=== PATIENT | female | born 1990 | race Caucasian/White ===

== ENCOUNTER 2017-12-17 06:24 | Emergency (ER) | payer SELFPAY ==
[2017-12-17 06:24] VITALS: BP 120/79; PULSE 68; RESP 18; TEMP 36.6; O2SAT 100; BMI 25.7
--- NOTE | 2017-12-17 07:08 | ED.DCSUM_ITS ---
- ER Visit Summary Date of Service: 12/17/17 Chief Complaint: [Left eye pain] History of Present Illness: The patient is a 27 F [who presents the emergency department with left eye pain. It started 2 days ago. She hit herself in the corner of her eye with her hair brush. She had a broken blood vessel in the corner of her eyeball as well as the skin at the corner of her eye. Yesterday it was swollen and painful and today it was even more swollen and painful. No vision changes. No discharge from the eye. She has a lot of pain under the eye and at the side of the eye she is otherwise healthy] Physical Examination: [] Afebrile vital signs within acceptable limits Well nourished female in no acute distress Patient has periorbital swelling in the left eye, there is erythema under the eye and at lateral corner of the eye she is very tender around the eye there is mild injection there is no sub-conjunctival hemorrhage Patient's eye was examined under slit lamp with floor seen and there is no evidence of corneal abrasion anterior chambers deep and quiet Test Results: [] Emergency Department Course and Treatment: [Patient's exam concerning for an early periorbital cellulitis. We will give her erythromycin ointment and Augmentin. She was given a referral to follow-up with ophthalmology she was given precautions for which to return.] Treatment Plan: [] Disposition: Discharge [] Impression: [Left periorbital cellulitis] This note was generated with [employer] dictation software. It may contain incorrect words, spelling, and punctuation that were not noted in review of the chart prior to signing ED Disposition - Plan for ED Patient: Chief Complaint: Eye Problem Referrals: Salvatore Gonzalez MD [Primary Care Provider] -
--- NOTE | 2017-12-17 07:08 | ED.DEP ---
ED Disposition - Plan for ED Patient: Chief Complaint: Eye Problem Instructions: ED Cellulitis Yen Orbital Prescriptions: Amox/Clavulanate Tablet [Augmentin Tablet] 875 mg PO Q12H #14 tablet Erythromycin Ophthalmic 1 applic LEFT EYE 4X/DAY #1 opth.tube Referrals: Salvatore Gonzalez MD [Primary Care Provider] - Sravan Spear MD [STAFF PHYSICIAN] - 2 Days
[2017-12-17 07:28] VITALS: BP 127/56; PULSE 61; RESP 15; O2SAT 99
[2017-12-17] MEDS: Tetracaine 0.5% Ophthalmic Bottle 1 DRP LEFT EYE (07:28)
== END 2017-12-17 07:29 | disposition home or self-care (01) ==
LOC: ED 07:08
PROVIDERS: Emergency Provider Emergency Medicine; Family Provider Family Medicine; PCP Family Medicine
DX: L03.213 Periorbital cellulitis (principal)
CPT/HCPCS: 99282

== ENCOUNTER 2023-07-12 17:25 | Emergency (ER) | payer OTHER, SELFPAY ==
[2023-07-12 17:26] VITALS: BP 120/82; PULSE 78; RESP 16; TEMP 36.6; O2SAT 100; BMI 31.6
--- NOTE | 2023-07-12 17:35 | RAD_ITS ---
STUDY: X-RAY - RIGHT HAND REASON FOR EXAM: Female, 32 years old. LACERATION - 4TH DIGIT TECHNIQUE: 3 view(s) of the hand. COMPARISON: None. FINDINGS: Normal radiocarpal articulation. Normal distal radioulnar joint. Normal visualized carpal bones. Normal carpal articulations Normal carpometacarpal articulation of the thumb. Normal second through fifth carpometacarpal joints. Normal metacarpi. Normal metacarpophalangeal joint of the thumb. Normal interphalangeal joint of the thumb. Normal proximal and distal phalanges of the thumb. Normal metacarpophalangeal joints of the second through fifth fingers. Normal proximal and distal interphalangeal joints of the second through fifth fingers. Normal phalanges of the second through fifth fingers. The soft tissue structures are unremarkable. RAD/Hand Min 3 Views IMPRESSION: Normal x-ray examination of the hand. Electronically Signed: Cristin Willard MD at 17:43 EDT ,
--- NOTE | 2023-07-12 20:00 | EX.ED.GENINJ ---
HPI <VICENTE Barnard - Last Filed: 07/12/23 20:53> History of Present Illness Chief Complaint: Laceration Narrative Narrative: Patient presenting today with a laceration to her right fourth digit that she got this evening while she was washing dishes and accidentally cut her finger on a veggie slicer. Tetanus is up-to-date. She denies any other injury. She is not on any blood thinners. PFSH <VICENTE Barnard - Last Filed: 07/12/23 20:53> PFSH Medical History ADD (attention deficit disorder) Home Medications dextroamphetamine-amphetamine ER 30 mg 24hr capsule,extend release 30 mg PO DAILY 07/12/23 [History Last Taken Unknown] Allergy/AdvReac Type Severity Reaction Status Date / Time methylphenidate HCl Allergy Shortness Verified 07/12/23 17:25 [From [employer]] of breath Social History Smoking Status: Never smoker ROS <VICENTE Barnard - Last Filed: 07/12/23 20:53> ROS ED Constitutional Constitutional ED: Denies chills or fever(s) Cardiovascular Cardiovascular: Denies chest pain Respiratory/Chest Respiratory/Chest: Denies cough or dyspnea Gastrointestinal Gastrointestinal: Denies abdominal pain, nausea or vomiting Musculoskeletal Musculoskeletal: Denies arthralgias or myalgias Integumentary Reports laceration Neurologic Neurologic: Denies weakness EXAM <VICENTE Barnard - Last Filed: 07/12/23 20:53> Physical Exam Const Vital Signs: 07/12/23 17:26 Temperature 97.8 F Temperature Source Temporal Pulse Rate 78 Respiratory Rate 16 Blood Pressure 120/82 H Blood Pressure Mean 94 Pulse Ox 100 Positive well nourished, well developed and no apparent distress General Appearance ED: well developed HEENT Reports normocephalic and head/scalp atraumatic Mouth ED: Yes moist mucous membranes normal Eyes PERRL and EOMs intact bilaterally Neck full ROM and supple Chest Wall inspection of chest normal Resp normal respiratory effort and clear to auscultation bilaterally Cardio regular rate and regular rhythm GI soft to palpation, non-tender, non-distended and no masses Back/Spine normal ROM and normal to inspection Extremity full ROM Extremity Narrative: 3 cm linear subcutaneous laceration to the right fourth finger to the base. Full flexion and extension at the MCP, PIP, and DIP joints of the right hand. Radial pulse 2+ and equal bilaterally, good capillary refill, sensation intact. Neuro oriented x3, CN's II-XII intact bilaterally, moves all extremities, no focal motor deficits and no sensory deficits noted Sensorium / Orientation: awake and alert Psych mental status grossly normal and thought process normal <Dr. Greg Astudillo DO - Last Filed: 07/12/23 21:14> Physical Exam Const Vital Signs: 07/12/23 17:26 Temperature 97.8 F Temperature Source Temporal Pulse Rate 78 Respiratory Rate 16 Blood Pressure 120/82 H Blood Pressure Mean 94 Pulse Ox 100 PROC <VICENTE Barnard - Last Filed: 07/12/23 20:53> Procedures Lacerations Laceration: Length: 1.18 in Depth: Sub Q Shape: Linear Prep: Chlorhexadine Laceration repair: Lidocaine with epi and Skin sutures Irrigated (ml): 200 Number of Sutures/[place]: 5 Suture Information: Ethilon, Simple and 5-0 MDM <VICENTE Barnard - Last Filed: 07/12/23 20:53> [facility] MDM Narrative Medical decision making narrative: Patient presenting with a laceration to her right fourth finger. It is to the base in about 3 cm in length. Triage did obtain an x-ray of patient's finger which is unremarkable. She has full flexion extension of this finger. Finger was soaked in soapy water and then irrigated extensively, wound was explored, sutures were placed, and patient was bandaged with bacitracin ointment. She tolerated procedure well. She is to have stitches removed in 7 days. She has been educated on signs of infection to look out for and reasons to return. She will be discharged home in stable condition and is comfortable with plan. Radiography X-Ray: Read by ED Physician and Read by Radiologist Diagnostic Testing: Clinical Impression(s) from Imaging Studies Hand X-Ray 07/12/23 17:35 IMPRESSION: Normal x-ray examination of the hand. Electronically Signed: Cristin Willard MD at 17:43 EDT , <Dr. Greg Astudillo, DO - Last Filed: 07/12/23 21:14> MDM Radiography Diagnostic Testing: Clinical Impression(s) from Imaging Studies Hand X-Ray 07/12/23 17:35 IMPRESSION: Normal x-ray examination of the hand. Electronically Signed: Cristin Willard MD at 17:43 EDT , Treatment and Re-Evaluation Narrative: I have personally performed a face to face assessment of the patient and have reviewed the PALMER Note. I performed a substantive portion of the visit including all aspects of the following. My chauhan findings include: History is patient sustained a laceration to her finger from a vegetable slicer while she was doing dishes. Tetanus was 6 years ago. My interpretation of the plain films of the hand x-ray which was obtained during triage/nursing protocol is no acute fracture. Patient is neurovascular intact. She will require stitches. Wound care was performed by physician assistant technician. Wound care discussed with the patient by this physician but she notes understanding. Stitches will need to be removed 7 to 10 days. Discharge Plan Triage Chief Complaint: Laceration ED Midlevel Provider: Ivory Davis ED Provider: Greg Astudillo Dx/Rx/DC Orders Clinical Impression: Laceration Instructions: ED Laceration: All Closures Prescriptions: No Action dextroamphetamine-amphetamine 30 mg capsule,extended release 24hr 30 mg PO DAILY Patient Comments: TAKE 1 CAPSULE BY MOUTH ONCE DAILY FOR 30 DAYS. DO NOT START BEFORE JUNE 20, 2023. Primary Care Provider: Salvatore Gonzalez Referrals: Salvatore Gonzalez MD [Primary Care Provider] - 7 Days for suture removal Activity Restrictions/Additional Instructions: Have sutures removed in 7 days and return for any signs of infection. Disposition Disposition: Home, Self Care Discharge Date/Time: 07/12/23 20:47
== END 2023-07-12 20:47 | disposition home or self-care (01) ==
PROVIDERS: Emergency Provider Emergency Medicine; PCP Family Medicine; Visit Provider Emergency Medicine
DX: S61.214A Laceration without foreign body of right ring finger without damage to nail, initial encounter (principal); X58.XXXA Exposure to other specified factors, initial encounter
CPT/HCPCS: 12002; 73130; 99283

== ENCOUNTER 2025-10-24 15:20 | Outpatient (CLI) | payer BC, SELFPAY ==
--- OUTSIDE RECORDS SUMMARY | 2025-10-24 15:28 | XMS RPT_ITS | CCD ---
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 Name Role Phone JAQUELINJULIA Saldivar Unavailable Unavailable JOHNSON GONZALEZ Unavailable Unavailable Johnson Gonzalez Unavailable Adriana Damico Unavailable Unavailable Johnson Gonzalez MD Primary Care Provider Johnson Gonzalez MD Primary Care Provider Johnson Gonzalez MD Primary Care Provider Johnson Gonzalez MD Primary Care Provider Johnson Gonzalez MD Primary Care Provider Tannhof STRAND FORMING MACHINE OPERATOR.Cinthya BELCHER Unavailable Syd STRAND FORMING MACHINE OPERATOR.Curtis BELCHER Unavailable Tannhof STRAND FORMING MACHINE OPERATOR.Cinthya BELCHER Unavailable Unavail able Tannhof STRAND FORMING MACHINE OPERATOR.Cinthya BELCHER Unavailable Tannhof STRAND FORMING MACHINE OPERATOR.Cinthya BELCHER Unavailable JOHNSON GONZALEZ Primary Care Unavailable YONG KENYONILY Referring Unavailable JOHNSON GONZALEZ Primary Care Unavailable ADOLFO TEJEDA Attending Unavailable ESTRELLA KENYON Referring Unavailable SELF Referring Unavailable JOHNSON GONZALEZ Primary Care Unavailable VITALY GALLEGOS Attending Unavailable JOHNSON GONZALEZ Primary Care Unavailable VITALY GALLEGOS Referring Unavailable LELA BILLS Attending Unavail able JOHNSON GONZALEZ Primary Care Unavailable JOHNSON GONZALEZ Primary Care Unavailable CINTHYA BALDERAS Attending Unavailabl e JOHNSON GONZALEZ Primary Care Unavailable ESTRELLA KENYON Referring Unavailable JOHNSON GONZALEZ Primary Care Unavailable SELF Referring Unavailable JOHNSON GONZALEZ Primary Care Unavailable YONG KENYONILY Attending Unavailable JOHNSON GONZALEZ Primary Care Unavailable HAURY, ESTRELLA Referring Unavailable SELF Referring Unavailable HADAVID ESTRELLA Attending Unavailable JOHNSON GONZALEZ Primary Care Unavailable SUSY MOONEY Referring Unavailable BARBARA WELLS Attending Unavailable JOHNSON GONZALEZ Primary Care Unavailable CINTHYA BALDERAS Attending UnavailJOHNSON Mota Primary Care Unavailable CINTHYA BALDERAS Referring Unavailabl JOHNSON Ozuna Primary Care Unavailable JOHNSON GONZALEZ Primary Care Unavailable HADAVID, ESTRELLA Referring Unavailable JOHNSON GONZALEZ Primary Care Unavailable HADAVID ESTRELLA Referring Unavailable HAESTRELLA HERNANDEZ Attending Unavailable JOHNSON GONZALEZ Primary Care Unavailable HAURY, ESTRELLA Referring Unavailable JOHNSON GONZALEZ Primary Care Unavailable VITALY GALLEGOS Attending Unavailable HADAVID, ESTRELLA Referring Unavailable Annel Fernandes Attending Unavailable Annel Fernandes Referring Unavailable Johnson Gonzalez Primary Care Unavailable Annel Fernandes Admitting Unavailable Allergies Allergy Classification Reported Allergen(s) Allergy Type Date of Onset Reaction(s) Facility Methylphenidate (1 source) Methylphenidate Drug Allergy [address] [facility] (1 source) Methylphenidate Drug Allergy [facility] (20 sources) Methylphenidate; Translations: [METHYLPHENIDATE HCL] Drug Allergy [address] [facility] (1 source) Methylphenidate Drug Allergy [facility] Medications Current Medications Medication Drug Class(es) Dates Sig (Normalized) Sig (Original) Albuterol (1 source) beta2-Adrenergic Agonist albuterol Quantity: 0 Refills: 0 Ordered: 24-Sep-2021 Lyla Harper Generic Substitution Allowed aspirin 81 mg delayed release oral tablet (7 sources) Platelet Aggregation Inhibitor, Nonsteroidal Anti-inflammatory Drug Start: 04-13-2025 take 1 tablet by mouth once daily at bedtime aspirin, enteric coated (ECOTRIN LOW STRENGTH) 81 mg EC tablet Indications: Encounter for supervision of high risk in first trimester, antepartum (HCC) , 6 weeks gestation of (HCC) Take 1 tablet by mouth daily at bedtime. Starting at 12 weeks. 90 tablet 2 04/13/2025 Active azithromycin 250 mg oral tablet (1 source) Macrolide Antimicrobial Start: 09-24-2021 End: 09-28-2021 Zithromax Z-Gold 250 mg oral tablet ; 2 tab(s) by mouth at once on day 1, then 1 tablet once a day on days 2-5 Quantity: 6 Refills: 0 Ordered: 24-Sep-2021 Adriana Damico Start: 24-Sep-2021 End: 28-Sep-2021 Generic Substitution Allowed Comments: Do not take dairy products, antacids, or iron preparations within one hour of this medication.Finish all this medication unless otherwise directed by prescriber. Comment on above: Do not take dairy pr oducts, antacids, or iron preparations within one hour of this medication.Finish all this medication unless otherwise directed by prescriber. brompheniramine maleate 0.4 mg/ml / dextromethorphan hydrobromide 2 mg/ml / pseudoephedrine hydrochloride 6 mg/ml oral solution (1 source) alpha-Adrenergic Agonist, Uncompetitive F-btaiix-M-aspartat e Receptor Antagonist, Sigma-1 Agonist Start: 09-24-2021 End: 10-03-2021 take 10 mL by mouth every six hours as needed brompheniramine/p seudoephedrine/de xtromethorphan [id number]/5 mL oral syrup ; 10 milliliter(s) orally every 6 hours, As Needed for cough/congestion. Can cause drowsiness. Quantity: 400 Refills: 0 Ordered: 24-Sep-2021 Adriana Damico Start: 24-Sep-2021 End: 03-Oct-2021 Generic Substitution Allowed Comments: May cause drowsiness. Alcohol may intensify this effect. Use care when operating dangerous machinery.Obtain medical advice before taking any non-prescription drugs as some may affect the action of this medication. Comment on above: May cause drowsiness . Alcohol may intensify this effect. Use care when operating dangerous machinery.Obtain medical advice before taking any non-prescription drugs as some may affect the action of this medication. cephalexin 500 mg oral capsule (8 sources) Cephalosporin Antibacterial Start: 05-26-2024 End: 06-09-2024 take 1 capsule by mouth four times daily cephALEXin (KEFLEX) 500 mg capsule Indications: Cellulitis of skin , Insect bite of right lower extremity, subsequent encounter Take 1 capsule by mouth four times daily for 14 days. 56 capsule 0 05/26/2024 06/09/2024 Active Start: 04-22-2024 End: 04-29-2024 take 1 capsule by mouth four times daily cephALEXin (KEFLEX) 500 mg capsule Take 1 capsule by mouth four times daily for 7 days. 28 capsule 0 04/22/2024 04/29/2024 Active mupirocin 0.02 mg/mg topical ointment (2 sources) RNA Synthetase Inhibitor Antibacterial Start: 04-05-2024 End: 04-10-2024 mupirocin (BACTROBAN) 2 % ointment Apply to affected area three times a day for 5 days. 30 g 0 04/05/2024 04/10/2024 Active PNV no.95/ferrous fum/folic ac ( ORAL) (7 sources) PNV no.95/ferrou s fum/folic ac ( ORAL) Take by mouth. Active predniSONE 20 mg oral tablet (2 sources) Start: 10-09-2022 End: 10-14-2022 take 2 tablets by mouth once daily predniSONE (DELTASONE) 20 mg tablet Take 2 tablets by mouth once daily for 5 days. 10 tablet 0 10/09/2022 10/14/2022 Active Comment on above: Take 2 tablets by [facility] once daily for 5 days. semaglutide (OZEMPIC) 0.25 mg or 0.5 mg (2 mg/3 mL) pen (4 sources) Start: 01-26-2025 End: 02-25-2025 semaglutide (OZEMPIC) 0.25 mg or 0.5 mg (2 mg/3 mL) pen Indications: BMI 36.0-36.9,adult , Weight gain Inject 0.25 mg subcutaneously one time a week. 3 mL 01/26/2025 02/25/2025 Active sulfamethoxazole 800 mg / trimethoprim 160 mg oral tablet (3 sources) Dihydrofolate Reductase Inhibitor Antibacterial, Sulfonamide Antimicrobial Start: 02-06-2022 End: 02-16-2022 take 1 tablet by mouth twice daily sulfamethoxazole- trimethoprim (BACTRIM DS) 800-160 mg per tablet Indications: Infected sebaceous cyst Take 1 tablet by mouth twice daily for 10 days. 20 tablet 0 02/06/2022 02/16/2022 Active Comment on above: Take 1 tablet by [facility] twice daily for 10 days. tirzepatide, weight loss (ZEPBOUND) 2.5 mg/0.5 mL pen injector (2 sources) Start: 01-25-2025 End: 01-26-2025 inject 2.5 mg by subcutaneous injection every week tirzepatide, weight loss (ZEPBOUND) 2.5 mg/0.5 mL pen injector Indications: BMI 36.0-36.9,adult , Weight gain Inject 2.5 mg subcutaneously one time a week. 2 mL 01/25/2025 01/26/2025 Discontinued triamcinolone acetonide 1 mg/ml topical cream (3 sources) Corticosteroid Start: 04-05-2024 End: 04-12-2024 triamcinolone acetonide (KENALOG) 0.1 % cream Apply 1 application to affected area three times a day for 7 days. Apply sparingly to area for rash/itching. 28.5 g 0 04/05/2024 04/12/2024 Active Completed/Discontinued Medications Medication Drug Class(es) Dates Sig (Normalized) Sig (Original) amoxicillin 875 mg / clavulanate 125 mg oral tablet (1 source) Penicillin-class Antibacterial Start: 12-17-2017 End: 07-12-2023 take 875 mg by mouth every twelve hours Amoxicillin-Pot Clavulanate Discontinued 875 MG PO Q12H December 17, 2017 1:00am July 12, 2023 5:25pm 24 hr amphetamine aspartate 7.5 mg / amphetamine sulfate 7.5 mg / dextroamphetamine saccharate 7.5 mg / dextroamphetamine sulfate 7.5 mg extended release oral capsule (20 sources) Central Nervous System Stimulant Start: 11-25-2022 End: 04-13-2025 take 1 capsule by mouth once daily amphetamine-dextro amphetamine XR (ADDERALL XR) 30 mg capsule Indications: Attention deficit hyperactivity disorder (ADHD), unspecified ADHD type Take 1 capsule by mouth once daily for 30 days. Patient should start on March 14, 2025. 30 capsule 03/14/2025 04/13/2025 Discontinued Start: 07-19-2022 End: 11-20-2022 take 1 capsule by mouth once daily amphetamine-dextroamphetamine XR (ADDERA LL XR) 30 mg 24 hr capsule Indications: Attention deficit hyperactivity disorder (ADHD), unspecified ADHD type Take 1 capsule by mouth once daily for 30 days. Do not start before October 18, 2022. 30 capsule 0 10/18/2022 11/20/2022 Discontinued Start: 07-19-2022 End: 06-23-2022 take 1 capsule by mouth once daily amphetamine-dextroamphetamine XR (ADDERA LL XR) 30 mg 24 hr capsule Indications: Attention deficit hyperactivity disorder (ADHD), unspecified ADHD type Take 1 capsule by mouth once daily for 30 days. Do not start before July 19, 2022. 30 capsule 0 07/19/2022 06/23/2022 Discontinued Start: 05-13-2021 End: 08-19-2022 take 1 capsule by mouth once daily amphetamine-dextroamphetamine XR (ADDERA LL XR) 30 mg 24 hr capsule Indications: Attention deficit hyperactivity disorder (ADHD), unspecified ADHD type Take 1 capsule by mouth once daily for 30 days. 30 capsule 0 06/23/2022 08/19/2022 Discontinued Comment on above: Take 1 capsule by mo [facility] once daily for 30 days. Take 1 capsule by mo [facility] once daily for 30 days. Do not start before February 18, 2022. Take 1 capsule by mo [facility] once daily for 30 days. Do not start before March 15, 2022. Take 1 capsule by mo [facility] once daily for 30 days. Do not start before April 14, 2022. Take 1 capsule by mo [facility] once daily for 30 days. Do not start before June 12, 2021. Take 1 capsule by mo [facility] once daily for 30 days. Do not start before June 19, 2022. Take 1 capsule by mo [facility] once daily for 30 days. Do not start before July 19, 2022. Take 1 capsule by mo [facility] once daily for 30 days. Do not start before September 18, 2022. Take 1 capsule by mo [facility] once daily for 30 days. Do not start before October 18, 2022. Take 1 capsule by mo [facility] once daily for 30 days. Do not start before November 25, 2022. Take 1 capsule by mo [facility] once daily for 30 days. Do not start before December 26, 2022. Take 1 capsule by mo [facility] once daily for 30 days. Do not start before January 23, 2023. Take 1 capsule by mo [facility] once daily for 30 days. Do not start before March 21, 2023. Take 1 capsule by mo [facility] once daily for 30 days. Do not start before April 20, 2023. Take 1 capsule by mo ut once daily for 30 days. Do not start before July 20, 2023. Take 1 capsule by mo ut once daily for 30 days. Do not start before June 20, 2023. Take 1 capsule by mo ut once daily for 30 days. Do not start before November 15, 2023. Take 1 capsule by mo ut once daily for 30 days. Do not start before October 16, 2023. Take 1 capsule by mo ut once daily for 30 days. Do not start before February 12, 2024. Take 1 capsule by mo ut once daily for 30 days. Do not start before January 13, 2024. erythromycin 0.005 mg/mg ophthalmic ointment (1 source) Macrolide, Macrolide Antimicrobial Start: 12-17-19 18 End: 07-12-20 23 Erythromycin Discontinued 1 APPLIC Left Eye 4 TIMES DAILY December 17, 2017 1:00am July 12, 2023 5:26pm etonogestrel 68 mg drug implant (20 sources) Progestin Start: 03-10-20 21 End: 07-27-20 24 etonogestrel (NEXPLANON) subdermal implant 68 mg Indications: Insertion of implantable subdermal contraceptive 1 Each by SUBDERMAL route as directed. 1 Each 03/10/2021 07/27/2024 Discontinued Comment on above: 1 Each by SUBDERMAL route as directed. loratadine 10 mg oral tablet (11 sources) Start: 10-09-20 22 End: 09-10-20 23 take 1 tablet by mouth once daily loratadine (CLARITIN) 10 mg tablet Take 1 tablet by mouth once daily. 30 tablet 11 10/09/2022 09/10/2023 Discontinued (Course of therapy completed) Comment on above: [facility] phenylephrine/acetami nophn/cpm (TYLENOL [id number] D/N ORAL) (1 source) End: 01-24-20 22 phenylephrine/acetami nophn/cpm (TYLENOL [id number] D/N ORAL) Take by mouth. 0 01/23/2022 Discontinued Comment on above: Take by mouth. Problems Active Problems Problem Classification Problem Date Documented Date Episodic/Chronic Acute bronchitis (2 sources) Acute bronchitis; Translations: [Acute bronchitis] 09-24-2021 Episodic Allergic reactions (3 sources) Allergic reaction; Translations: [Allergy, unspecified, initial encounter] Episodic Asthma (20 sources) Asthma; Translations: [Unspecified asthma, uncomplicated] Onset: 02-19-2010 03-22-2018 Chronic Attention-deficit, conduct, and disruptive behavior disorders (20 sources) Attention deficit hyperactivity disorder; Translations: [Attention-deficit hyperactivity disorder, unspecified type] Onset: 01-08-2014 03-22-2018 Chronic Attention-deficit, conduct, and disruptive behavior disorders (1 source) Attention-deficit hyperactivity disorder, unspecified type; Translations: [Attention deficit hyperactivity disorder (ADHD), unspecified ADHD type] Onset: 04-13-2025 Chronic Contraceptive and procreative management (2 sources) Subcutaneous contraceptive implant present; Translations: [Encounter for surveillance of implantable subdermal contraceptive] 06-09-2024 Episodic Immunizations and screening for infectious disease (20 sources) Patient encounter status; Translations: [Encounter for immunization] Onset: 06-22-2014 Resolved: 02-27-2015 08-20-2023 Episodic Malaise and fatigue (1 source) Fatigue; Translations: [Other fatigue] 06-07-2024 Episodic Menstrual disorders (2 sources) Missed period; Translations: [Irregular menstruation, unspecified] Onset: 11-20-2024 11-20-2024 Chronic Open wounds of head; neck; and trunk (1 source) Laceration - injury; Translations: [Laceration] 07-12-2023 Episodic Other aftercare (1 source) Removal of sutures done; Translations: [Encounter for removal of sutures] 07-23-2023 Episodic Other complications of (14 sources) Maternal obesity complicating , childbirth and the puerperium, antepartum; Translations: [Obesity complicating , first trimester] Onset: 04-13-2025 04-13-2025 Chronic Other complications of (1 source) Obesity complicating , unspecified trimester; Translations: [Obesity in (HCC)] Onset: 09-10-2025 Chronic Other complications of (1 source) Obesity complicating , second trimester; Translations: [Obesity affecting in second trimester, unspecified obesity type (HCC)] Onset: 05-25-2025 Chronic Other complications of (1 source) Obesity complicating , first trimester; Translations: [Obesity affecting in first trimester, unspecified obesity type (HCC)] Onset: 05-25-2025 Chronic Other complications of (17 sources) High risk ; Translations: [Supervision of high risk , unspecified, first trimester] Onset: 04-13-2025 04-13-2025 Episodic Other complications of (1 source) Supervision of high risk , unspecified, third trimester; Translations: [Supervision of high risk in third trimester (HCC)] Onset: 08-14-2025 Episodic Other complications of (1 source) Supervision of high risk , unspecified, second trimester; Translations: [Supervision of high risk in second trimester (HCC)] Onset: 08-14-2025 Episodic Other infections; including parasitic (10 sources) H/O: infectious disease; Translations: [Personal history of other infectious and parasitic diseases] Onset: 04-13-2025 04-13-2025 Episodic Other nutritional; endocrine; and metabolic disorders (2 sources) Body mass index 30+ - obesity; Translations: [Body mass index (BMI) 36.0-36.9, adult] 01-26-2025 Chronic Other nutritional; endocrine; and metabolic disorders (1 source) Body mass index (BMI) 36.0-36.9, adult; Translations: [BMI 36.0-36.9,adult] Onset: 01-25-2025 Chronic Other nutritional; endocrine; and metabolic disorders (1 source) Weight gain; Translations: [Abnormal weight gain] 06-07-2024 Episodic Other nutritional; endocrine; and metabolic disorders (2 sources) Weight increased; Translations: [Abnormal weight gain] 01-26-2025 Episodic Other screening for suspected conditions (not mental disorders or infectious disease) (5 sources) Cancer cervix screening status; Translations: [Encounter for screening for malignant neoplasm of cervix] Onset: 11-20-2024 09-10-2023 Episodic Other skin disorders (1 source) Infection of sebaceous cyst; Translations: [Sebaceous cyst] Episodic Other skin disorders (3 sources) Eruption; Translations: [Rash and other nonspecific skin eruption] Episodic Other upper respiratory disease (20 sources) Allergic rhinitis; Translations: [Other allergic rhinitis] Onset: 12-26-2007 03-22-2018 Chronic Other upper respiratory infections (2 sources) Acute sinusitis; Translations: [Acute sinusitis, unspecified] 09-24-2021 Episodic Residual codes; unclassified (1 source) FH: Thyroid disorder; Translations: [Family history of other endocrine, nutritional and metabolic diseases] 06-07-2024 Episodic Residual codes; unclassified (4 sources) Gestation period, 6 weeks; Translations: [Less than 8 weeks gestation of ] 04-13-2025 Episodic Residual codes; unclassified (1 source) Gestation period, 12 weeks; Translations: [12 weeks gestation of ] 05-25-2025 Episodic Residual codes; unclassified (1 source) Gestation period, 16 weeks; Translations: [16 weeks gestation of ] 06-22-2025 Episodic Residual codes; unclassified (1 source) 28 weeks gestation of ; Translations: [28 weeks gestation of (HCC)] Onset: 09-10-2025 Episodic Residual codes; unclassified (1 source) 24 weeks gestation of ; Translations: [24 weeks gestation of (HCC)] Onset: 08-14-2025 Episodic Residual codes; unclassified (1 source) 20 weeks gestation of ; Translations: [20 weeks gestation of (HCC)] Onset: 07-19-2025 Episodic Residual codes; unclassified (1 source) Less than 8 weeks gestation of ; Translations: [6 weeks gestation of (HCC)] Onset: 07-19-2025 Episodic Residual codes; unclassified (1 source) 16 weeks gestation of ; Translations: [16 weeks gestation of (HCC)] Onset: 06-22-2025 Episodic Skin and subcutaneous tissue infections (3 sources) Abscess of axilla; Translations: [Cutaneous abscess of limb, unspecified] Episodic Superficial injury; contusion (3 sources) Insect bite of lower limb; Translations: [Insect bite (nonvenomous), left lower leg, initial encounter] 04-06-2024 Episodic Unclassified (2 sources) EARS COUGH FATIGUE SINUS CHILLS 09-24-2021 Comment on above: EARS COUGH FATIGUE S INUS CHILLS Unclassified (7 sources) [facility] Education - COMMON Onset: 04-13-2025 04-13-2025 Unclassified (7 sources) Education - [place] Onset: 04-13-2025 04-13-2025 Past or Other Problems Problem Classification Problem Date Documented Date Episodic/Chronic Nonmalignant breast conditions (5 sources) Discharge from nipple; Translations: [Nipple discharge] Onset: 01-26-2025 01-26-2025 Episodic Other complications of (20 sources) Late entry into care; Translations: [Supervision of with insufficient care, unspecified trimester] Onset: 06-22-2014 Resolved: 02-27-2015 10-27-2021 Episodic Other complications of (20 sources) Urinary tract infection in ; Translations: [Unspecified infection of urinary tract in , unspecified trimester] Onset: 06-25-2014 Resolved: 02-27-2015 02-27-2015 Episodic Other complications of (4 sources) Vomiting of , unspecified; Translations: [Unspecified vomiting of , unspecified as to episode of care or not applicable] Onset: 04-13-2025 04-13-2025 Episodic Other complications of (1 source) Supervision of high risk due to social problems, second trimester; Translations: [Supervision of high risk due to social problems, second trimester (HCC)] Onset: 05-25-2025 Episodic Other complications of (1 source) Supervision of high risk , unspecified, first trimester; Translations: [Encounter for supervision of high risk in first trimester, antepartum (HCC)] Onset: 05-25-2025 Episodic Other infections; including parasitic (1 source) Personal history of other infectious and parasitic diseases; Translations: [History of group B Streptococcus (GBS) infection] Onset: 04-13-2025 Episodic Other inflammatory condition of skin (20 sources) Seborrheic dermatitis; Translations: [Seborrheic dermatitis, unspecified] Onset: 01-28-2007 Resolved: 08-31-2011 08-31-2011 Episodic Other nutritional; endocrine; and metabolic disorders (1 source) Abnormal weight gain; Translations: [Weight gain] Onset: 01-25-2025 Episodic Other and delivery including normal (2 sources) with uncertain dates; Translations: [Encounter for supervision of normal , unspecified, first trimester] Onset: 04-13-2025 04-13-2025 Episodic Residual codes; unclassified (20 sources) Pale complexion; Translations: [Pallor] Onset: 01-28-2007 Resolved: 08-31-2011 08-31-2011 Episodic Residual codes; unclassified (1 source) 12 weeks gestation of ; Translations: [12 weeks gestation of (HCC)] Onset: 05-25-2025 Episodic Screening and history of mental health and substance abuse codes (2 sources) Encounter for screening for depression; Translations: [Encounter for screening examination for other mental health and behavioral disorders] Onset: 11-20-2024 Episodic Sexually transmitted infections (not HIV or hepatitis) (20 sources) Human papillomavirus deoxyribonucleic acid test positive, high risk on cervical specimen; Translations: [Cervical high risk human papillomavirus (HPV) DNA test positive] Onset: 09-22-2023 09-22-2023 Episodic Substance-related disorders (20 sources) Marijuana user; Translations: [Cannabis use, unspecified, uncomplicated] Onset: 06-22-2014 10-27-2021 Episodic Results Test Name Value Interpretation Reference Range Facility GESTATIONAL GLUCOSE SCREEN, 1-HOUR, 50 GRAM, NON-FASTINGon 09-10-2025 Glucose [Mass/Vol] 149 mg/dL High 74-134 [facility] Comment on above: Order Comment: Speci men Type: BLOOD SPECIMEN Ordering Facility: [facility] [address]: [address] [place] [address] Result Comment: [facility] Congress of Obstetricians and Gynecologists (Steven/Jimmie) guidelines state a gestational diabetes mellitus positive screen is made, in women not previously diagnosed with overt diabetes, when the 1 hr plasma glucose level is equal to or above 140 mg/dL. [facility] [employer] recommends a 135 mg/dL cutoff. Performed By: #### G LTGST #### [facility] [id number] [address] [place] [address] [place] Kareen 08-29-2025 CHANCE Telephone (HEMSookasa) -- LITTLEMIRELLA ([id number]) 1990 F Date Time Provider Department 08/29/25 VITALY GALLEGOS During your visit today, we recorded the following information about you: Kylee Schuster MA 08/29/2025 9:22 AM Signed FMLA packet filled out and placed in Dr. Gallegos in box for signature. Nm Taryn Dawson RN 09/04/2025 4:57 PM Signed Patient notified that paperwork completed. Requesting paperwork to be faxed and will fern picker a copy at her next appointment. FMLA sent to scanning after fax completed. Taryn Dawson RN Allergies As of Date: 08/29/2025 Noted Allergy Reaction CONCERTA (METHYLPHENIDATE HCL) 09/06/2006 5 - Intolerance Comments: Has trouble breathing. Date Reviewed: 08/14/2025 Reviewed by: Vitaly Gallegos MD - Fully Assessed Reason for Visit: FMLA Paperwork [1254] Prescriptions as of 09/04/2025 - aspirin, enteric coated (ECOTRIN LOW STRENGTH) 81 mg EC tablet Take 1 tablet by mouth daily at bedtime. Starting at 12 weeks. - PNV no.95/ferrous fum/folic ac ( ORAL) Take by mouth. Problem List As Of Date 08/29/2025 Noted Resolved Seborrhea [L21.9] 01/28/2007 08/31/2011 Pallor [R23.1] 01/28/2007 08/31/2011 Attention deficit hyperactivity disorder (ADHD)*01/08/2014 Late care [O09.30] 06/22/2014 02/27/2015 , supervision of first [Z34.00] 06/22/2014 02/27/2015 GBS (group B streptococcus) UTI complicating pr*06/25/2014 02/27/2015 Allergic rhinitis due to other allergen [J30.89]12/26/2007 Asthma (HCC) [J45.909] 02/19/2010 Cervical high risk HPV (human papillomavirus) t*09/22/2023 Supervision of high risk in second tr*04/13/2025 Obesity affecting in second trimester*04/13/2025 History of group B Streptococcus (GBS) infectio*04/13/2025 Encounter Status:Closed by TARYN DAWSON on 09/04/25 Normal [facility] CBC panel Auto (Bld)on 08-15 Erythrocyte distribution width (RBC) [Ratio] 13.2 % Normal 11.5-15.0 [facility] Comment on above: Order Comment: Speci men Type: BLOOD SPECIMEN Ordering Facility: [facility] Address: [address] [place] [address] Performed By: #### G LTGST #### [facility] CLIA [id number] [address] [place] [address] [place] Hematocrit (Bld) [Volume fraction] 31.9 % Low 36.0-46.0 [facility] Comment on above: Order Comment: Speci men Type: BLOOD SPECIMEN Ordering Facility: [facility] Address: [address] [place] [address] Performed By: #### G LTGST #### [id number] [address] [place] [address] [place] Hemoglobin (Bld) [Mass/Vol] 11.2 g/dL Low 11.5-15.5 [facility] Comment on above: Order Comment: Speci men Type: BLOOD SPECIMEN Ordering Facility: [facility] Address: [address] [place] [address] Performed By: #### G LTGST #### [facility] CLIA [id number] [address] [place] [address] [place] MCH (RBC) [Entitic mass] 30.9 pg Normal 26.0-34.0 [facility] Comment on above: Order Comment: Speci men Type: BLOOD SPECIMEN Ordering Facility: [facility] Address: [address] [place] [address] Performed By: #### G LTGST #### [facility] [id number] [address] [place], [place] [id number] [place] MCHC (RBC) [Mass/Vol] 35.1 g/dL Normal 30.5-36.0 [facility] Comment on above: Order Comment: Speci men Type: BLOOD SPECIMEN Ordering Facility: [facility] Address: [address] [place] [address] Performed By: #### G LTGST #### [facility] CLIA [id number] [address] [place] [address] [place] MCV (RBC) [Entitic vol] 88.1 fL Normal 80.0-100.0 [facility] Comment on above: Order Comment: Speci men Type: BLOOD SPECIMEN Ordering Facility: [facility] Address: [address] [place] [address] Performed By: #### G LTGST #### [facility] CLIA [id number] [address] [place] [address] [place] Nucleated RBC (Bld) [#/Vol] 10*3/uL Normal <0.01 [facility] Comment on above: Order Comment: Speci men Type: BLOOD SPECIMEN Ordering Facility: [facility] Address: [address] [place] [address] Performed By: #### G LTGST #### [facility] CLIA [id number] [address] [place] [address] [place] Platelet mean volume (Bld) [Entitic vol] 9.6 fL Normal 9.0-12.7 [facility] Comment on above: Order Comment: Speci men Type: BLOOD SPECIMEN Ordering Facility: [facility] Address: [address] [place] [address] Performed By: #### G LTGST #### [facility] CLIA [id number] [address] [place] [address] [place] Platelets (Bld) [#/Vol] 195 10*3/uL Normal 150-400 [facility] Comment on above: Order Comment: Speci men Type: BLOOD SPECIMEN Ordering Facility: [facility] Address: [address] [place] [address] Performed By: #### G LTGST #### [facility] CLIA [id number] [address] [place] [address] [place] RBC (Bld) [#/Vol] 3.62 10*6/uL Low 3.90-5.20 [facility] Comment on above: Order Comment: Speci men Type: BLOOD SPECIMEN Ordering Facility: [facility] Address: [address] [place] [address] Performed By: #### G LTGST #### [facility] CLIA [id number] [address] [place] [address] [place] WBC (Bld) [#/Vol] 8.40 10*3/uL Normal 3.70-11.00 [facility] Comment on above: Order Comment: Speci men Type: BLOOD SPECIMEN Ordering Facility: [facility] Address: [address] [place] [address] Performed By: #### G LTGST #### [facility] CLIA [id number] [address] [place] [address] [place] Reagin and Treponema pallidu m IgG and IgM [Interp]on 08-15-2025 T. pallidum IgG+IgM IA Ql (S) Non-Reactive Normal Nonreactive [facility] Comment on above: Order Comment: Speci men Type: BLOOD SPECIMENOrdering Facility: [facility] Address: [address] [place] [address] Performed By: #### 7 3752-8 ####[facility] LABCLIA [id number] [place] [address] [place] Reagin+T pallidum IgG+IgM Se rPl-Impon 08-15-2025 Reagin and Treponema pallidum IgG and IgM [Interp] Cannot exclude recent Treponemal infection if specimen collected within 7-10 days after appearance of suspect lesions or 2-3 weeks after an exposure. Clinical correlation is required. Normal [facility] Comment on above: Order Comment: Speci men Type: BLOOD SPECIMENOrdering Facility: [facility] Address: [address] [place] [address] Performed By: #### 7 3752-8 ####[facility] LABCLIA [id number] [address] CNPNon 07-26-2025 CNPN Telephone (OBGYWM) -- MIRELLA WORKMAN ([id number]) 1990 F Date Time Provider Department 07/26/25 ADOLFO TEJEDA During your visit today, we recorded the following information about you: Barbara Kaminski RN 07/26/2025 8:07 AM Signed Received breast pump RX from [facility]. To RR to sign. KYARA Marr Tara, RN 07/26/2025 12:25 PM Signed Faxed. Jasmina Morel RN Allergies As of Date: 07/26/2025 Noted Allergy Reaction CONCERTA (METHYLPHENIDATE HCL) 09/06/2006 5 - Intolerance Comments: Has trouble breathing. Date Reviewed: 07/19/2025 Reviewed by: Adolfo Tejeda MD - Fully Assessed Reason for Visit: Breast Pump RX [Other] Prescriptions as of 07/26/2025 - aspirin, enteric coated (ECOTRIN LOW STRENGTH) 81 mg EC tablet Take 1 tablet by mouth daily at bedtime. Starting at 12 weeks. - PNV no.95/ferrous fum/folic ac ( ORAL) Take by mouth. Problem List As Of Date 07/26/2025 Noted Resolved Seborrhea [L21.9] 01/28/2007 08/31/2011 Pallor [R23.1] 01/28/2007 08/31/2011 Attention deficit hyperactivity disorder (ADHD)*01/08/2014 Late care [O09.30] 06/22/2014 02/27/2015 , supervision of first [Z34.00] 06/22/2014 02/27/2015 GBS (group B streptococcus) UTI complicating pr*06/25/2014 02/27/2015 Allergic rhinitis due to other allergen [J30.89]12/26/2007 Asthma (HCC) [J45.909] 02/19/2010 Cervical high risk HPV (human papillomavirus) t*09/22/2023 Supervision of high risk in second tr*04/13/2025 Obesity affecting in second trimester*04/13/2025 History of group B Streptococcus (GBS) infectio*04/13/2025 Encounter Status:Closed by JASMINA MOREL on 07/26/25 Normal [facility] Examination level ultrasound on 06-22-2025 Indication Early anatomic survey Maternal obesity, BMI >30 Impression The patient is referred for an early anatomic survey because of identified risk factors. - Single, live, intrauterine . - biometry is consistent with the established gestational age. - No malformations were visualized on an early anatomic assessment, although some anatomical structures were suboptimally seen as detailed below. - The amniotic fluid volume is normal amount. - The placenta is posterior. - Not all structural malformations can be detected by ultrasound examination. Recommendations - A detailed exam at 20 weeks for increased risk. - Additional follow up as clinically indicated. Maternal Assessment Height 163 cm Height (ft) 5 ft Height (in) 4 in Physical Exam Initial weight (lb) 200 lb Initial BMI 34.31 kg/m Maternal assessment other: 2 Para 1 REMOTE READ Method Transabdominal ultrasound examination Delgadillo . Number of fetuses: 1 Dating LMP on: 02/25/2025 GA by LMP 16 w + 5 d SUBHA by LMP: 12/02/2025 GA by prior assessment 16 w + 5 d SUBHA by prior assessment: 12/02/2025 Ultrasound examination on: 06/22/2025 GA by U/S based upon: AC, BPD, Femur, HC GA by U/S 16 w + 6 d SUBHA by U/S: 12/01/2025 Assigned: based on stated SUBHA, selected on 06/22/2025 Assigned GA 16 w + 5 d Assigned SUBHA: 12/02/2025 General Evaluation Cardiac activity present. FHR 146 bpm. movements: present. Presentation: breech Placenta: Placental site: posterior Umbilical cord: Cord vessels: 3 vessel cord Amniotic fluid: Amount of AF: normal amount. MVP 3.9 cm Biometry Standard BPD 36.2 mm 17w 1d 67% Hadlock OFD 50.1 mm 17w 0d 90% Nicolaides HC 139.7 mm 17w 1d 63% Octavio AC 112.4 mm 17w 0d 62% Hadlock Femur 20.3 mm 16w 0d 27% Octavio Humerus 22.2 mm 16w 6d 61% Octavio EFW 164 g 16w 4d 38% Hadlock EFW (lb) 0 lb EFW (oz) 6 oz EFW by: Hadlock (HC-AC-FL) Extended [employer] Operator 5.1 mm Extremities / Bony Struc FL / HC 0.15 4% Hadlock Other Structures FHR 146 bpm Anatomy Cranium: normal Lateral ventricles: normal Choroid plexus: normal Midline falx: normal Cerebellum: normal Cisterna magna: normal Lips: normal 4-chamber view: normal RVOT view: normal LVOT view: normal 3-vessel view: suboptimally visualized 0-yfllpw-bnaewkp view: normal Heart / Thorax Diaphragm: normal Cord insertion: normal Stomach: normal Kidneys: normal Bladder: normal Cervical spine: normal Thoracic spine: normal Lumbar spine: normal Sacral spine: normal Arms: normal Legs: normal Rt upper arm: normal Rt forearm: normal Rt hand: normal Lt upper arm: normal Lt forearm: normal Lt hand: normal Rt upper leg: normal Rt lower leg: normal Rt foot: normal Lt upper leg: normal Lt lower leg: normal Lt foot: normal Gender: Unspecified Wants to know sex: no Maternal Structures Uterus / Cervix Uterus: Visualized Cervix: Visualized Approach: Transabdominal Cervical length 39.5 mm Ovaries / Tubes / Adnexa Rt ovary: Not visualized Lt ovary: Not visualized Performed By: Taryn Prater RDMS, RVT Read By: Christina Espinal M.D. MATERNAL MEDICINE [facility] Radiology Study observation (narrative) [facility] Examination level ultrasound on 05-25-2025 Indication First trimester anatomic survey. Maternal obesity, BMI >30 Impression REMOTE READ The patient is referred for a first trimester anatomy scan including nuchal translucency measurement as clinically indicated. - Single, live, intrauterine . - Winger rump length measurement is consistent with the established gestational age. - No malformations visualized on a complete first trimester anatomic assessment. - The nuchal translucency measurement is 2.1 mm. - Not all structural malformations can be detected by ultrasound examination. - A standard anatomic survey at 16 weeks and a detailed exam at 20 weeks is recommended for increased risk. Recommendations - A standard anatomic survey at 16 weeks and a detailed exam at 20 weeks for increased risk. - Additional follow up as clinically indicated. Maternal Assessment Height 163 cm Height (ft) 5 ft Height (in) 4 in Physical Exam Initial weight (lb) 200 lb Initial BMI 34.31 kg/m Method Transabdominal ultrasound examination. View: Adequate visualization Delgadillo . Number of fetuses: 1 Dating LMP on: 02/25/2025 GA by LMP 12 w + 5 d SUBHA by LMP: 12/02/2025 GA by prior assessment 12 w + 5 d SUBHA by prior assessment: 12/02/2025 Ultrasound examination on: 05/25/2025 GA by U/S based upon: CRL GA by U/S 13 w + 1 d SUBHA by U/S: 11/29/2025 Assigned: based on the LMP, selected on 04/13/2025 Assigned GA 12 w + 5 d Assigned SUBHA: 12/02/2025 General Evaluation Cardiac activity present Placenta: posterior Cord vessels: 3 vessel cord Amniotic fluid: normal amount Biometry Standard FHR 157 bpm CRL 69.6 mm 13w 1d 76% Hadlock NT 2.10 mm First Trimester Anatomy Calvarium: normal Falx cerebri: normal Choroid plexus: normal Profile: normal Nasal bone: normal Retronasal triangle: normal Maxilla: normal Mandible: normal Nuchal translucency: Unremarkable Situs: normal Cardiac position: normal Cardiac axis: normal 4-chamber view: normal 4-chamber view with color: normal 7-wthbhh-czjgldk view: normal Abdominal cord insertion: normal Stomach: normal Kidneys: normal Bladder: normal Color doppler of perivesical umbilical arteries: normal Vertebral alignment: normal Arms: normal Hands: normal Legs: normal Feet: normal Maternal Structures Uterus / Cervix Uterus: Visualized Ovaries / Tubes / Adnexa Rt ovary: Visualized Rt ovary D1 29 mm Rt ovary D2 12 mm Rt ovary D3 16 mm Rt ovary Vol 3.0 cm Lt ovary: Visualized Lt ovary D1 40 mm Lt ovary D2 26 mm Lt ovary D3 22 mm Lt ovary Vol 11.8 cm Performed By: Margie Hurt RDMS Read By: Christina Espinal M.D. MATERNAL MEDICINE [facility] Radiology Study observation (narrative) [facility] Kareen 04-30-2025 CNPN Telephone (4CQ) -- MIRELLA WORKMAN ([id number]) 1990 F Date Time Provider Department 04/30/25 ESTRELLA KENYON 4CQ During your visit today, we recorded the following information about you: Donna Crandall 04/30/2025 3:30 PM Signed Pt requesting order for NIPT blood test for gender. Please advise, Thank you Allergies As of Date: 04/30/2025 Noted Allergy Reaction CONCERTA (METHYLPHENIDATE HCL) 09/06/2006 5 - Intolerance Comments: Has trouble breathing. Date Reviewed: 04/13/2025 Reviewed by: Estrella Kenyon APRN.[facility] - Fully Assessed Reason for Visit: Patient Question [7574] Prescriptions as of 04/30/2025 - aspirin, enteric coated (ECOTRIN LOW STRENGTH) 81 mg EC tablet Take 1 tablet by mouth daily at bedtime. Starting at 12 weeks. - PNV no.95/ferrous fum/folic ac ( ORAL) Take by mouth. Problem List As Of Date 04/30/2025 Noted Resolved Seborrhea [L21.9] 01/28/2007 08/31/2011 Pallor [R23.1] 01/28/2007 08/31/2011 Attention deficit hyperactivity disorder (ADHD)*01/08/2014 Late care [O09.30] 06/22/2014 02/27/2015 , supervision of first [Z34.00] 06/22/2014 02/27/2015 GBS (group B streptococcus) UTI complicating pr*06/25/2014 02/27/2015 Allergic rhinitis due to other allergen [J30.89]12/26/2007 Asthma ([facility]) [J45.909] 02/19/2010 Cervical high risk HPV (human papillomavirus) t*09/22/2023 Encounter for supervision of high risk pregnanc*04/13/2025 Nausea and vomiting during (HCC) [O21*04/13/2025 Obesity affecting in first trimester *04/13/2025 History of group B Streptococcus (GBS) infectio*04/13/2025 Encounter Status:Closed by LEIA ZAVALA on 04/30/25 Normal [facility] Bacteria Ur Culton Bacteria identified Cx Nom (U) ORGANISM ID: 1 10,000 -<50,000 CFU/ml Mixed microbiota No further workup. Mixed microbiota can be due to???urine???contamination with skin bacteria at time of collection or presence of a long-term urinary catheter. If a new culture is needed, please consider re-education of the patient on proper midstream collection technique or straight catheterization for???urine???collection. Normal [facility] Comment on above: Performed By: #### 6 30-4 ####[facility] LABCLIA [id number] [place] [address] [place] C. trachomatis+N. gonorrhoea e DNA MANJU+probe Ql (Unsp spec)on 04-13-2025 C. trachomatis rRNA MANJU+probe Ql (Unsp spec) Not detected Normal Not detected [facility] Comment on above: Order Comment: Speci men Type: SWABOrdering Facility: [facility] Address: [address] [place] [address] Performed By: #### T RVAMP, 43050-6 ####[facility] LABIA [id number] [place] [address] [place] N. gonorrhoeae rRNA MANJU+probe Ql (Unsp spec) Not detected Normal Not detected [facility] Comment on above: Order Comment: Speci men Type: SWABOrdering Facility: [facility] Address: [address] [place] [address] Performed By: #### T RVAMP, 59996-2 ####[facility] LABCLIA [id number] [place] [address] [place] CBC W Auto Differential pane l (Bld)on 04-13-2025 Basophils (Bld) [#/Vol] 0.05 10*3/uL Normal <0.11 [facility] Comment on above: Order Comment: Speci men Type: BLOOD SPECIMENOrdering Facility: [facility] Address: [address] [place] [address] Performed By: #### 5 7021-8 ####[facility]ITAL[facility]IA [id number] [place] [address] [place] Basophils/100 WBC (Bld) 0.6 % Normal [facility] Comment on above: Order Comment: Speci men Type: BLOOD SPECIMENOrdering Facility: [facility] Address: [address] [place] [address] Performed By: #### 5 7021-8 ####[facility] [id number] [place] [address] [place] Differential cell count method Nom (Bld) Auto Normal [facility] Comment on above: Order Comment: Speci men Type: BLOOD SPECIMENOrdering Facility: [facility] Address: [address] [place] [address] Performed By: #### 5 7021-8 ####[facility] [id number] [place] [address] [place] Eosinophils (Bld) [#/Vol] 0.14 10*3/uL Normal <0.46 [facility] Comment on above: Order Comment: Speci men Type: BLOOD SPECIMENOrdering Facility: [facility] Address: [address] [place] [address] Performed By: #### 5 7021-8 ####[facility] MILLWORLIA [id number] [place] [address] [place] Eosinophils/100 WBC (Bld) 1.8 % Normal [facility] Comment on above: Order Comment: Speci men Type: BLOOD SPECIMENOrdering Facility: [facility] Address: [address] [place] [address] Performed By: #### 5 7021-8 ####[facility]INICREYNALDOMCK[facility] [id number] [place] [address] [place] Erythrocyte distribution width (RBC) [Ratio] 12.9 % Normal 11.5-15.0 [facility] Comment on above: Order Comment: Speci men Type: BLOOD SPECIMENOrdering Facility: [facility] Address: [address] [place] [address] Performed By: #### 5 7021-8 ####[facility] CLINICREYNALDOJanna [id number] [place] [address] [place] Hematocrit (Bld) [Volume fraction] 38.6 % Normal 36.0-46.0 [facility] Comment on above: Order Comment: Speci men Type: BLOOD SPECIMENOrdering Facility: [facility] Address: [address] [place] [address] Performed By: #### 5 7021-8 ####[facility] [id number] [place] [address] [place] Hemoglobin (Bld) [Mass/Vol] 13.5 g/dL Normal 11.5-15.5 [facility] Comment on above: Order Comment: Speci men Type: BLOOD SPECIMENOrdering Facility: [facility] Address: [address] [place] [address] Performed By: #### 5 7021-8 ####[facility] CLINICNCLI [id number] [place] [address] [place] Immature granulocytes (Bld) [#/Vol] 0.03 10*3/uL Normal <0.10 [facility] Comment on above: Order Comment: Speci men Type: BLOOD SPECIMENOrdering Facility: [facility] Address: [address] [place] [address] Performed By: #### 5 7021-8 ####[facility] [id number] [place] [address] [place] Immature granulocytes/100 WBC (Bld) 0.4 % Normal [facility] Comment on above: Order Comment: Speci men Type: BLOOD SPECIMENOrdering Facility: [facility] Address: [address] [place] [address] Performed By: #### 5 7021-8 ####[facility] [id number] [place] [address] [place] Lymphocytes (Bld) [#/Vol] 1.99 10*3/uL Normal 1.00-4.00 [facility] Comment on above: Order Comment: Speci men Type: BLOOD SPECIMENOrdering Facility: [facility] Address: [address] [place] [address] Performed By: #### 5 7021-8 ####[facility] [id number] [place] [address] [place] Lymphocytes/100 WBC (Bld) 25.1 % Normal [facility] Comment on above: Order Comment: Speci men Type: BLOOD SPECIMENOrdering Facility: [facility] Address: [address] [place] [address] Performed By: #### 5 7021-8 ####[facility] [id number] [place] [address] [place] MCH (RBC) [Entitic mass] 30.8 pg Normal 26.0-34.0 [facility] Comment on above: Order Comment: Speci men Type: BLOOD SPECIMENOrdering Facility: [facility] Address: [address] [place] [address] Performed By: #### 5 7021-8 ####[facility] PAULYWNCLIA [id number] [place] [address] [place] MCHC (RBC) [Mass/Vol] 35.0 g/dL Normal 30.5-36.0 [facility] Comment on above: Order Comment: Speci men Type: BLOOD SPECIMENOrdering Facility: [facility] Address: [address] [place] [address] Performed By: #### 5 7021-8 ####[facility] CLINICNCLIA [id number] [place] [address] [place] MCV (RBC) [Entitic vol] 88.1 fL Normal 80.0-100.0 [facility] Comment on above: Order Comment: Speci men Type: BLOOD SPECIMENOrdering Facility: [facility] Address: [address] [place] [address] Performed By: #### 5 7021-8 ####[facility] [id number] [place] [address] [place] Monocytes (Bld) [#/Vol] 0.53 10*3/uL Normal <0.87 [facility] Comment on above: Order Comment: Speci men Type: BLOOD SPECIMENOrdering Facility: [facility] Address: [address] [place] [address] Performed By: #### 5 7021-8 ####[facility] [id number] [place] [address] [place] Monocytes/100 WBC (Bld) 6.7 % Normal [facility] Comment on above: Order Comment: Speci men Type: BLOOD SPECIMENOrdering Facility: [facility] Address: [address] [place] [address] Performed By: #### 5 7021-8 ####[facility] CLINICNCLI [id number] [place] [address] [place] Neutrophils (Bld) [#/Vol] 5.18 10*3/uL Normal 1.45-7.50 [facility] Comment on above: Order Comment: Speci men Type: BLOOD SPECIMENOrdering Facility: [facility] Address: [address] [place] [address] Performed By: #### 5 7021-8 ####[facility] [id number] [place] [address] [place] Neutrophils/100 WBC (Bld) 65.4 % Normal [facility] Comment on above: Order Comment: Speci men Type: BLOOD SPECIMENOrdering Facility: [facility] Address: [address] [place] [address] Performed By: #### 5 7021-8 ####[facility] [id number] [place] [address] [place] Nucleated RBC (Bld) [#/Vol] 10*3/uL Normal <0.01 [facility] Comment on above: Order Comment: Speci men Type: BLOOD SPECIMENOrdering Facility: [facility] Address: [address] [place] [address] Performed By: #### 5 7021-8 ####[facility] [id number] [place] [address] [place] Nucleated RBC/100 WBC (Bld) [Ratio] 0.0 /100 WBC Normal [facility] Comment on above: Order Comment: Speci men Type: BLOOD SPECIMENOrdering Facility: [facility] Address: [address] [place] [address] Performed By: #### 5 7021-8 ####[facility]IC[facility]CLI [id number] [place] [address] [place] Platelet mean volume (Bld) [Entitic vol] 9.3 fL Normal 9.0-12.7 [facility] Comment on above: Order Comment: Speci men Type: BLOOD SPECIMENOrdering Facility: [facility] Address: [address] [place] [address] Performed By: #### 5 7021-8 ####[facility] PAULYWNCLIA [id number] [place] [address] [place] Platelets (Bld) [#/Vol] 210 10*3/uL Normal 150-400 [facility] Comment on above: Order Comment: Speci men Type: BLOOD SPECIMENOrdering Facility: [facility] Address: [address] [place] [address] Performed By: #### 5 7021-8 ####[facility]IC[facility]CLIA [id number] [place] [address] [place] RBC (Bld) [#/Vol] 4.38 10*6/uL Normal 3.90-5.20 [facility] Comment on above: Order Comment: Speci men Type: BLOOD SPECIMENOrdering Facility: [facility] Address: [address] [place] [address] Performed By: #### 5 7021-8 ####[facility]IC[facility]CLIA [id number] [place] [address] [place] WBC (Bld) [#/Vol] 7.92 10*3/uL Normal 3.70-11.00 [facility] Comment on above: Order Comment: Speci men Type: BLOOD SPECIMENOrdering Facility: [facility] Address: [address] [place] [address] Performed By: #### 5 7021-8 ####[facility]IC[facility]CLIA [id number] [place] [address] [place] HBV surface Ag Ser Qlon 06- HBV surface Ag Ql (S) Negative Normal Negative [facility] Comment on above: Order Comment: Speci men Type: BLOOD SPECIMENOrdering Facility: [facility] Address: [address] [place] [address] Performed By: #### 5 195-3, 39655-6, 48374-1 ####[facility] LABCLIA [id number] [place] [address] [place] HCV Ab Ser Qlon 04-13-2025 HCV Ab Ql (S) Negative Normal Negative [facility] Comment on above: Order Comment: Speci men Type: BLOOD SPECIMEN [facility] Address: [address] [place] [address] Result Comment: The result suggests no evidence of infection with Hepatitis C virus. Should recent infection be suspected, repeat testing may be considered 4-6 weeks after this draw. Performed By: #### 1 6128-1 #### [facility] CLIA [id number] [address] [place] [address] [place] HIGH RISK HUMAN PAPILLOMA VLADIMIR (HPV), PCR FOR DETECTION AND GENOTYPINGon 04-13-2025 HPV 16 Ag Ql (Unsp spec) Not detected Normal Not detected [facility] Comment on above: Order Comment: Speci men Type: BLOOD SPECIMEN [facility] Address: [address] [place] [address] Performed By: #### G LTGST #### [facility] [id number] [address] [place] [address] [place] HPV 18 Ag Ql (Unsp spec) Not detected Normal Not detected [facility] Comment on above: Order Comment: Speci men Type: BLOOD SPECIMEN [facility] Address: [address] [place] [address] Performed By: #### G LTGST #### [facility] [id number] [address] [place] [address] [place] HPV 31+33+35+39+45+51+52+ 56+58+59+66+68 DNA MANJU+probe Ql (Cvx) Not detected Normal Not detected [facility] Comment on above: Order Comment: Speci men Type: BLOOD SPECIMEN [facility] Address: [address] [place] [address] Result Comment: High Risk HPV Other Type includes HPV types 31, 33, 35, 39, 45, 51, 52, 56, 58, 59, 66 and 68. Performed By: #### G LTGST #### [facility] CLIA [id number] [address] [place] [address] [place] HIV 1+2 Ab IA Qlon 5 HIV 1 and 2 Ab IA.rapid Nom (S/P/Bld) Normal [facility] Comment on above: Order Comment: Speci men Type: BLOOD SPECIMENOrdering Facility: [facility] Address: [address] [place] [address] Result Comment: Test not indicated. Performed By: #### 5 195-3, 61323-7, 10467-5 ####[facility] LABIA [id number] [place] [address] [place] HIV 1+2 Ab+HIV1 p24 Ag IA Ql Non-Reactive Normal Nonreactive [facility] Comment on above: Order Comment: Speci men Type: BLOOD SPECIMENOrdering Facility: [facility] Address: [address] [place] [address] Performed By: #### 5 195-3, 40891-8, 88879-4 ####[facility] LABIA [id number] [place] [address] [place] HIV immunoassay testing algorithm interpretation (S/P/Bld) [Interp] Normal [facility] Comment on above: Order Comment: Speci men Type: BLOOD SPECIMENOrdering Facility: [facility] Address: [address] [place] [address] Result Comment: No e vidence of HIV-1 or HIV-2 infection. Should recent infection be suspected, repeat testing may be considered 2-3 weeks after this draw. Guadalupe Rev. Code 3701.243(E): This information has been disclosed to you from confidential records protected from disclosure by state law. You shall make no further disclosure of this information without the specific, written, and informed release of the individual to whom it pertains or as otherwise permitted by state law. A general authorization for the release of medical or other information is not sufficient for the purpose of the release of HIV test results or diagnoses. Performed By: #### 5 195-3, 27691-2, 49701-2 ####[facility] LABCLIA [id number] [address] STATES OF [facility] HbA1c (Bld)on 04-13-2025 Average glucose Estimated from glycated hemoglobin (Bld) [Mass/Vol] 91 mg/dL [facility] Comment on above: eAG: (Estimated aver age glucose) is a calculated value from HgbA1c and is labor relations representative of the average blood glucose level in the last 2-3 month period. HbA1c (Bld) [Mass fraction] 4.8 % 4.3 - 5.6 % [facility] Comment on above: [place] Diabetes As sociation guidelines indicate that patients with HgbA1c in the range 5.7-6.4% are at increased risk for development of diabetes, and intervention by lifestyle modification may be beneficial. HgbA1c greater or equal to 6.5% is considered diagnostic of diabetes. [facility] Average glucose Estimated from glycated hemoglobin (Bld) [Mass/Vol] 91 mg/dL Normal [facility] Comment on above: Order Comment: Speci [facility] Type: BLOOD SPECIMEN [facility] Address: [address] [place] [address] Result Comment: eAG: (Estimated average glucose) is a calculated value from HgbA1c and is labor relations representative of the average blood glucose level in the last 2-3 month period. Performed By: #### G LTGST #### [facility] [id number] [address] [place] [address] [place] HbA1c (Bld) [Mass fraction] 4.8 % Normal 4.3-5.6 [facility] Comment on above: Order Comment: Speci men Type: BLOOD SPECIMEN [facility] Address: [address] [place] [address] Result Comment: [place] Diabetes Association guidelines indicate that patients with HgbA1c in the range 5.7-6.4% are at increased risk for development of diabetes, and intervention by lifestyle modification may be beneficial. HgbA1c greater or equal to 6.5% is considered diagnostic of diabetes. Performed By: #### G LTGST #### [facility] CLIA [id number] [address] [place] [address] [place] PAP TESTon 04-13-2025 ADEQUACY Normal [facility] Comment on above: Order Comment: Speci men Type: FLUID SPECIMENOrdering Facility: [facility] Address: [address] [place] [address] Result Comment: Sati sfactory for interpretation. Transformation zone present Performed By: #### L [id number] ####[facility] LABCLIA [id number] [address] [place] CASE REPORT Normal [facility] Comment on above: Order Comment: Speci men Type: FLUID SPECIMENOrdering Facility: [facility] Address: [address] [place] [address] Result Comment: Gyne cologic Cytology Report Case: [id number] Authorizing Provider: Estrella Kenyon APRN.TESTBOARD OPERATOR Collected: 04/13/2025 11:23 AM Ordering Location: OB/Gynecology Received: 04/13/2025 04:38 PM First Screen: [place], [place]oxie, [place], ASCP Specimen: Pap Test, ThinPrep, Cervix Performed By: #### L [id number] ####[facility] LABCLIA [id number] [place] [address] [place] CLINICAL HISTORY, CYTOLOGY, ASSOCIATE DEAN OF WOMEN Normal [facility] Comment on above: Order Comment: Speci men Type: FLUID SPECIMENOrdering Facility: [facility] Address: [address] [place] [address] Result Comment: Preg nant (Indicate Weeks) Positive HPV Performed By: #### L [id number] ####[facility] LABCLIA [id number] [address] [place] [address] [place] FINAL PERFORMING LAB Normal [facility] Comment on above: Order Comment: Speci men Type: FLUID SPECIMENOrdering Facility: [facility] Address: [address] [place] [address] Result Comment: Tech nical component, cloth winding supervisor screening performed at: [facility], [address] [place] [address] CLIA: [id number] Diagnostic interpretation performed at: [facility], [address] [place] [address] [place] [address] CLIA# [id number] Public Opinion Survey Taker: Stewart High MD Performed By: #### L [id number] ####[facility] LABCLIA [id number] [address] [address] [place] INTERPRETATION, CYTOLOGY, ASSOCIATE DEAN OF WOMEN Normal [facility] Comment on above: Order Comment: Speci men Type: FLUID SPECIMENOrdering Facility: [facility] Address: [address] [place] [address] Result Comment: Nega tive for intraepithelial lesion or malignancy. at 1626 EDT Performed By: #### L [id number] ####[facility] LABCLIA [id number] [address] [address] [place] LMP 02/25/2025 Normal [facility] Comment on above: Order Comment: Speci men Type: FLUID SPECIMENOrdering Facility: [facility] Address: [address] [place], [place] [address] Performed By: #### L [id number] ####[facility] LABCLIA [id number] [address] [address] [place] PAP DISCLAIMER COMMENT The Pap Smear is a screening test for cervical cancer. False negative results occur with all screening tests, emphasizing the need for rescreening at recommended intervals, and clinical correlation. Normal [facility] Comment on above: Order Comment: Specchristy terry Type: FLUID SPECIMENOrdering Facility: [facility] Address: [address] [place] [address] Performed By: #### L [id number] ####[facility] LABCLIA [id number] [address] [facility] PAP HYDROELECTRIC SYSTEMS TECHNICIAN COMMENT This specimen has be en analyzed by the FDA-approved enEvolv System, which uses digital imaging and an enhanced artificial intelligence image analysis algorithm to identify coyle of interest on the microscopic slide, to assist the youth development specialist and pathologist in evaluating cells on ThinPrep Pap tests. Following analysis, coyle of interest on the microscopic slide selected by the algorithm are reviewed by a youth development specialist. If a sample requires hierarchical review, the pathologist will review the same coyle of interest selected by the algorithm prior to final interpretation. Normal [facility] Comment on above: Order Comment: Specchristy terry Type: FLUID SPECIMENOrdering Facility: [facility] Address: [address] [place] [address] Performed By: #### L [id number] ####[facility] LABCLIA [id number] [address] [address] [facility] [place] POC DIAL MARKER ULTRASOUNDon 04-13-20 25 Indication Viability; confirm cardiac activity Impression Single intrauterine gestational sac, CRL is appropriate for clinical dates, corresponding to SUBHA 12/02/2024 cardiac activity is visualized Recommendations Follow up for 1st Trimester Anatomy with Nuchal Translucency as clinically indicated if desired. Method Transabdominal ultrasound examination, Transvaginal ultrasound examination. View: Adequate visualization Delgadillo . Number of embryos: 1 Dating LMP on: 02/25/2025 GA by LMP 6 w + 5 d SUBHA by LMP: 12/02/2025 Ultrasound examination on: 04/13/2025 GA by U/S based upon: CRL GA by U/S 6 w + 1 d SUBHA by U/S: 12/06/2025 Assigned: based on the LMP, selected on 04/13/2025 Assigned GA 6 w + 5 d Assigned SUBHA: 12/02/2025 Biometry Standard FHR 115 bpm CRL 4.9 mm 6w 1d <1% Hadlock Assessment Gestational sac: visualized Location: intrauterine Yolk sac: visualized Embryo: visualized CRL 4.9 mm 6w 1d <1% Hadlock Cardiac activity: present FHR 115 bpm General Evaluation Cardiac activity present. FHR 115 bpm Performed By: Estrella Kenyon NP Read By: Estrella Kenyon NP MATERNAL MEDICINE [facility] Radiology Study observation (narrative) [facility] RUBELLA IGG ANTIBODYon 04-13 RUBELLA IGG AB, QUAL Positive Normal Positive [facility] Comment on above: Order Comment: Speci men Type: BLOOD SPECIMENOrdering Facility: [facility] Address: [address] [place] [address] Result Comment: The result suggests recent or past exposure to Rubella virus or history of Rubella vaccination. Positive result may also be seen due to presence of passively-transferred antibodies. Please correlate with patient's history. Performed By: #### R [id number] ####[facility] LABCLIA [id number] [place] [address] [place] Reagin and Treponema pallidu m IgG and IgM [Interp]on 04-13-2025 T. pallidum IgG+IgM IA Ql (S) Non-Reactive Normal Nonreactive [facility] Comment on above: Order Comment: Cherry terry Type: BLOOD SPECIMENOrdering Facility: [facility] Address: [address] [place] [address] Performed By: #### 5 195-3, 71176-4, 86944-5 ####[facility] LABCLIA [id number] [place] [address] [place] Reagin+T pallidum IgG+IgM Se rPl-Impon 04-13-2025 Reagin and Treponema pallidum IgG and IgM [Interp] Cannot exclude recent Treponemal infection if specimen collected within 7-10 days after appearance of suspect lesions or 2-3 weeks after an exposure. Clinical correlation is required. Normal [facility] Comment on above: Order Comment: Speci harrison Type: BLOOD SPECIMENOrdering Facility: [facility] Address: [address] [place] [address] Performed By: #### 5 195-3, 25072-8, 69481-7 ####[facility] LABCLIA [id number] [place] [address] [place] TRICHOMONAS VAGINALIS NAATon 04-13-2025 T. vaginalis DNA MANJU+probe Ql (Unsp spec) Not detected Normal Not detected [facility] Comment on above: Order Comment: Speci men Type: SWABOrdering Facility: [facility] Address: [address] [place] [address] Performed By: #### T RVAMP, 34180-8 ####[facility] LABCLIA [id number] [address] [place] TYPE + SCREEN PRENATALon ABO A Normal [facility] Comment on above: Order Comment: Speci men Type: BLOOD SPECIMENOrdering Facility: [facility] Address: [address] [place] [address] Performed By: #### T SPN ####[facility] BANKCLIA [id number] [place] [address] [place] Rh Nom (Bld) Positive Normal [facility] Comment on above: Order Comment: Speci men Type: BLOOD SPECIMENOrdering Facility: [facility] Address: [address] [place] [address] Performed By: #### T SPN ####[facility] BANKCLIA [id number] [place] [address] [place] TYPE AND SCREEN EXPIRATION 04/16/2025 23:59 Normal [facility] Comment on above: Order Comment: Speci men Type: BLOOD SPECIMENOrdering Facility: [facility] Address: [address] [place] [address] Performed By: #### T SPN ####[facility] BANKCLIA [id number] [place] [address] [place] 25(OH)D3 SerPl-mCncon 2024 25-hydroxyvitamin D3 [Mass/Vol] 34.8 ng/mL Normal 31.0-80.0 [facility] Comment on above: Order Comment: Speci men Type: BLOOD SPECIMEN [facility] Address: [address] [place] [address] Result Comment: Clas sification of 25 [place] Vitamin D status: Deficiency/Insufficiency: < or = 30 ng/ml. Sufficiency/Optimal Levels: 31-80 ng/mL Toxicity: > 100 ng/mL. Test performed by chemiluminescent immunoassay. Performed By: #### G LTGST #### [facility] CLIA [id number] [address] [place] [address] CNOVon 01-26-2025 CNOV Office Visit (OBGYWM ) -- MIRELLA WORKMAN ([id number]) 1990 F Date Time Provider Department 01/26/25 10:45 AM ESTRELLA KENYON During your visit today, we recorded the following information about you: Blood pressure Weight 112/70 94.3 kg Estrella Kenyon APRN.TESTBOARD OPERATOR 01/26/2025 12:14 PM Signed Mirella Workman is a 34 year old female who presents for problem visit of trying to conceive. HPI: Mirella has been attempting for for about 6 months. Previous took 3 years of unprotected intercourse. Was not actively trying at that time. Partner, Diogenes, does not have any children. Has never had semen analysis. Digoenes does vape. No drug use. Social/occasional alcohol use. Mirella is not taking a vitamin. Periods are normally every 30ish days. Recent cycle was 27 days late. Notes discharge from left nipple - brown/white, thickness varies. Denies itching. Noticed it when she pressed on her breast one day. Then tried to express the other side and brown discharge was expressed from right nipple. This has been going on 1-2 months. Denies any associated lumps. OB History Gravida1 Para1 Term1 Preterm0 AB0 Living1 SAB0 IAB0 Ectopic0 Multiple0 Live Births1 Comment: GBS septicemia in - needs GBS prophylaxis in any Packing Checker History LMP: 01/23/2025, Having periods Age at Menarche: Age at First : Age at Menopause: Packing Checker History Comments: Sexual Activity: Yes; Male Contraception: No contraception data on record PAST MEDICAL HISTORY Diagnosis Date Acne Asthma mild Attention deficit disorder without mention of hyperactivity Obesity PAST SURGICAL HISTORY Procedure Laterality Date NEXPLANON INSERTION 03/10/2021 x3- 2015,2018 NEXPLANON REMOVAL Right 07/27/2024 FAMILY HISTORY Problem Relation Age of Onset Seizures Mother Thyroid Mother hyper other (Other) Father mental health Diabetes Maternal Grandmother Heart Maternal Grandmother Diabetes Paternal Grandmother Heart Paternal Grandmother Social History Tobacco Use Smoking status: Never Smokeless tobacco: Never Vaping Use Vaping status: Never Used Substance Use Topics Alcohol use: No Drug use: No Current Outpatient Medications Medication Sig amphetamine-dextroamphetam ine XR (ADDERALL XR) 30 mg capsule Take 1 capsule by mouth once daily for 30 days. Patient should start on January 10, 2025. [START ON 02/10/2025] amphetamine-dextroamphetam ine XR (ADDERALL XR) 30 mg capsule Take 1 capsule by mouth once daily for 30 days. Patient should start on February 10, 2025. semaglutide (OZEMPIC) 0.25 mg or 0.5 mg (2 mg/3 mL) pen Inject 0.25 mg subcutaneously one time a week. amphetamine-dextroamphetam ine XR (ADDERALL XR) 30 mg capsule Take 1 capsule by mouth once daily for 30 days. Patient should start on December 13, 2024. No current facility-administered medications for this visit. Allergies As of Date: 01/26/2025 Allergen Noted Reaction CONCERTA [METHYLPHENIDATE HCL] 09/06/2006 Intolerance Fully Assessed 01/25/2025 REVIEW OF SYSTEMS Breast: No breast lumps,overlying skin changes, redness or skin retraction. + nipple discharge Expanded ROS: ASSOCIATE DEAN OF WOMEN: + recent irregular cycle Allergies and current medication updated:Yes SENSITIVE EXAM: The sensitive examination was discussed with the Patient or Patient's Authorized Broadcast Program Director. As applicable, any other physician, advance practice provider, medical student, or other health professional student that will be observing or involved in the sensitive examination for educational or training purposes was discussed with the Patient or Authorized Broadcast Program Director. The Patient or Authorized Broadcast Program Director has agreed to proceed with the sensitive examination. (Sensitive examination includes inspection and/or palpation of the breasts, pelvis, prostate and anorectal regions). EXAM: BP 112/70 Wt 208 lb (94.3kg) LMP 01/23/2025 GENERAL: pleasant, female in no apparent distress HEENT: Normocephalic, atraumatic, mucus membranes moist, and no lesions NECK: Supple, full range of motion, no adenopathy, and thyroid normal DERMATOLOGY: Normal, without lesions, non-icteric, and non-hirsute BREAST: soft, non-tender, symmetric, no dominant mass, normal nipple-areolar complex, no lymphadenopathy, and no nipple discharge expressed CHEST: Normal inspiratory effort NEURO: alert and oriented x3,exam grossly non-focal EXTREMITIES: normal ASSESSMENT AND PLAN: ASSESSMENT/PLAN: 1. Pre-conception counseling - ICD9: V26.49, ICD10: Z31.69 (primary diagnosis) - Recommend Diogenes to stop vaping - Reviewed healthy lifestyle for optimal chances of conception - Discussed infertility is 1 year of attempting without - Interested in semen analysis for Diogenes 2. Nipple discharge - ICD9: 611.79, ICD10: N64.52 - Check prolactin and thyroid - Discussed need t (more content not included)... Normal [facility] MIRELLA WORKMAN ([id number]) 1990 F Date Time Provider Department 01/26/25 CINTHYA BALDERAS During your visit today, we recorded the following information about you: Lilo Johnson MA 01/26/2025 10:30 AM Signed Pt sent in mychart message that Pharmacy notified her that Semaglutide (Ozempic) is needing a PA completed. Notified pt that a message would be routed to the PA Nurse to start this process. Please review centrose message from 01/25/25. LISSETTE Pickard Janice, LPN 01/26/2025 11:32 AM Signed No PA is needed, Ozempic is not covered for weight loss with any insurance. Aisha Altamirano LPN 01/26/2025 2:24 PM Signed PA completed and denied. Dear MIRELLA SHORT: Request for coverage of Ozempic (semaglutide) has been denied. A request for prescription coverage for Ozempic (semaglutide) was recently submitted on your behalf. After careful consideration and review of the information sent to us, this request was not approved. We understand that this decision may not be what you and your doctor expected. This letter and the enclosed information will explain your options and help you decide what to do next. We reviewed all the supporting information sent to us and used your plan?s guidelines to make our decision. Why your request was denied: Your plan only covers this drug when it is used for certain health conditions. Covered use is for type 2 diabetes mellitus. Your plan does not cover the drug for your health condition that your doctor told us you have. We reviewed the information we had. Your request has been denied. Your doctor can send us any new or missing information for us to review. For this drug, you may have to meet other criteria. You can request the drug policy for more details. Cinthya Balderas APRN.SIMI 01/26/2025 2:27 PM Signed Can you please call the patient and let her know that her insurance denied both the Zepbound and the Ozempic. She may need to call her insurance company to clarify what medications are covered for weight loss. Thank you JIMENA Iyer Rilee, MA 01/26/2025 2:36 PM Signed See previous centrose message from pt where she contacted her Insurance: So I went to the pharmacy and the trizepatide is not covered at all under my insurance. So I called my insurance to see what is covered and the customer service people ran some things and there are two medications that are covered but need a prior oth. those two are Ozempic and Trulocity. so whichever one you think would be best for me to be on I trust your judgment if you need me to come back in, just shoot me a message and I can get all this fixed. Thanks! Allergies As of Date: 01/26/2025 Noted Allergy Reaction CONCERTA (METHYLPHENIDATE HCL) 09/06/2006 5 - Intolerance Comments: Has trouble breathing. Date Reviewed: 01/26/2025 Reviewed by: Estrella Kenyon APRN.TESTBOARD OPERATOR - Fully Assessed Reason for Visit: Insurance Authorization [[id number]] Cmt: Ozempic Prescriptions as of 06/29/2025 - aspirin, enteric coated (ECOTRIN LOW STRENGTH) 81 mg EC tablet Take 1 tablet by mouth daily at bedtime. Starting at 12 weeks. - PNV no.95/ferrous fum/folic ac ( ORAL) Take by mouth. Problem List As Of Date 01/26/2025 Noted Resolved Seborrhea [L21.9] 01/28/2007 08/31/2011 Pallor [R23.1] 01/28/2007 08/31/2011 Attention deficit hyperactivity disorder (ADHD)*01/08/2014 Marijuana use [F12.90] 06/22/2014 Late care [O09.30] 06/22/2014 02/27/2015 , supervision of first [Z34.00] 06/22/2014 02/27/2015 GBS (group B streptococcus) UTI complicating pr*06/25/2014 02/27/2015 Allergic rhinitis due to other allergen [J30.89]12/26/2007 Asthma [J45.909] 02/19/2010 Cervical high risk HPV (human papillomavirus) t*09/22/2023 Encounter Status:Closed by LILO JOHNSON on 06/29/25 Normal [facility] Prolactin SerPl-mCncon 01-26 Prolactin [Mass/Vol] 9.9 ng/mL Normal 4.4-33.8 [facility] Comment on above: Order Comment: Speci men Type: BLOOD SPECIMEN Ordering Facility: [facility] Address: [address] [place] [address] Result Comment: Prol actin test is performed using the [employer] Electrochemiluminescence Immunoassay method. Results obtained with different methods or kits cannot be used interchangeably. Performed By: #### G LTGST #### [facility] CLIA [id number] [address] [place] [address] [place] TSH SerPl-aCncon 01-26-2025 TSH Qn 1.020 m[IU]/L Normal 0.270-4.200 [facility] Comment on above: Order Comment: Speci men Type: BLOOD SPECIMEN Ordering Facility: [facility] Address: [address] [place] [address] Result Comment: If t he patient is , TSH reference range varies by gestational period: First Trimester (weeks 9-12): 0.180-2.990 mIU/L Second Trimester: 0.110-3.980 mIU/L Third Trimester: 0.480-4.710 mIU/L Talib Garrido et al. A Practical Approach for the Verifications and Determination of Site- and Trimester-Specific Reference Intervals for Thyroid Function tests in . Thyroid, 2019:29:3:412-420. Nils Hodge, et al. 2017 Guidelines of the [place] Thyroid Association for the Diagnosis and Management of Thyroid Disease during and the . Thyroid, 2017:27:3:315-389. Performed By: #### G LTGST #### [facility] CLIA [id number] [address] [place] [address] [place] CNOVon 01-25-2025 CNOV [facility] -- MIRELLA WORKMAN ([id number]) 1990 F Date Time Provider Department 01/25/25 2:20 PM [facility]AS [facility] During your visit today, we recorded the following information about you: Pulse Respiration Blood pressure Weight 77/minute 16/minute 116/78 95.6 kg Last Period 01/23/25 Cinthya Balderas APRN.TESTBOARD OPERATOR 01/26/2025 7:07 AM Signed This is a 34 year old female who presents today with: Patient presents with: Acute Visit: weight gain meds HISTORY OF PRESENT ILLNESS: Mirella Workman is a 34 year old female. Patient presents with: Acute Visit: weight gain meds Here in the office to discuss weight gain. Has gained 10 pounds since September 2024. Weight is slowing going up. Staying active no exercise regimen. Trying to eat a well balanced diet. Labs completed in November, A1c 4.8, CMP was relatively normal. ADHD: Using Adderall XR 30 mg daily. Symptoms well-controlled with medication. Denies any difficulty sleeping or palpitations. PAST MEDICAL HISTORY: PAST MEDICAL HISTORY Diagnosis Date Acne Asthma mild Attention deficit disorder without mention of hyperactivity PAST SURGICAL HISTORY Procedure Laterality Date NEXPLANON INSERTION 03/10/2021 x3- 2014,2017 NEXPLANON REMOVAL Right 07/27/2024 ALLERGIES Concerta [Methylphenidate Hcl] MEDICATIONS Current Outpatient Medications Medication Sig amphetamine-dextroamphetam ine XR (ADDERALL XR) 30 mg capsule Take 1 capsule by mouth once daily for 30 days. Patient should start on December 13, 2024. amphetamine-dextroamphetam ine XR (ADDERALL XR) 30 mg capsule Take 1 capsule by mouth once daily for 30 days. Patient should start on January 10, 2025. [START ON 02/10/2025] amphetamine-dextroamphetam ine XR (ADDERALL XR) 30 mg capsule Take 1 capsule by mouth once daily for 30 days. Patient should start on February 10, 2025. No current facility-administered medications for this visit. FAMILY HISTORY Problem Relation Age of Onset Seizures Mother Thyroid Mother hyper other (Other) Father mental health Diabetes Maternal Grandmother Heart Maternal Grandmother Diabetes Paternal Grandmother Heart Paternal Grandmother Social History Tobacco Use Smoking status: Never Smokeless tobacco: Never Vaping Use Vaping status: Never Used Substance Use Topics Alcohol use: No Drug use: No REVIEW OF SYSTEMS GENERAL: + Weight Gain HEENT: Negative for frequent or significant headaches, No changes in hearing or vision. NECK: Negative for lumps, goiter, pain and significant neck swelling RESPIRATORY: Negative for cough, hemoptysis, wheezing, dyspnea or shortness of breath CARDIOVASCULAR: Negative for chest pain, leg swelling, orthopnea, or palpitations GI: No nausea, vomiting, or diarrhea/constipation. No hematochezia/melena. No heartburn or reflux symptoms. : No history of dysuria, frequency or incontinence MUSCULOSKELETAL: Negative for joint pain or swelling. SKIN: Negative for lesions, rash, and itching ENDOCRINE: Negative for cold or heat intolerance, polyuria, polydipsia and goiter NEURO: No history of headaches, syncope, paralysis, seizures or tremors MOOD: Negative for depression, anxiety, or suicidal ideation. EXAM: BP 116/78 Pulse 77 Resp 16 Wt 95.6 kg (210 lb 12.2 oz) LMP 01/23/2025 SpO2 97% BMI 36.74 kg/m? PHYSICAL EXAM: General Appearance: Well appearing, alert, in no acute distress, well-hydrated, well nourished. Skin: Skin color, texture, turgor normal, no suspicious rashes or lesions. Head: Normocephalic, no masses, lesions, tenderness or abnormalities. Eyes: Anicteric sclera. Extraocular movements are intact. Lungs: Lungs clear to auscultation. No wheezing, rhonchi, rales. Heart: RRR without murmur, gallop, or rubs. No ectopy. Extremities: No deformities, edema, skin discoloration, clubbing or cyanosis. Good capillary refill. Peripheral Pulses: Normal, Capillary refill <2secs, strong peripheral pulses, Pulses palpable. Neurologic: Gait normal. Reflexes normal and symmetric. Sensation grossly intact. ASSESSMENT/PLAN: 1. Weight gain - ICD9: 783.1, ICD10: R63.5 (primary diagnosis) - Due to current stimulant use cannot take Adipex for weight loss. Will start Zepbound 2.5 mg weekly. - Recommend tracking food, increase protein, veggies, and get some form of exercise. - Follow up in 1 month. - TIRZEPATIDE (WEIGHT LOSS) 2.5 MG/0.5 ML SUBCUTANEOUS PEN INJECTOR 2. BMI 36.0-36.9,adult - ICD9: V85.36, ICD10: Z68.36 - Same plan as #1. 3. Attention deficit hyperactivity disorder (ADHD), unspecified ADHD type - ICD9: 314.01, ICD10: F90.9 - Stable, continue take current medication. Follow-up in 1 month or sooner as needed. Discussed treatment plan and patient voices understanding. Patient's questions answered appropriately. Medications and potential side effects were discussed an (more content not included)... [facility] -- MIRELLA WORKMAN ([id number]) 1990 F Date Time Provider Department 11/29/24 [facility] During your visit today, we recorded the following information about you: Cinthya Balderas APRN.TESTBOARD OPERATOR 11/29/2024 10:06 AM Signed Can you please call the patient and let her know that I reviewed her lab results. was negative. A1c was 4.8, no signs of diabetes. Cholesterol was normal. Kidney/liver function and electrolytes were normal as well. Please let me know if she has any questions. Thank you. Cinthya Balderas APRN.Georgiana Desai LPN 11/29/2024 10:38 AM Signed TC to pt. LM to call office, ask for triage nurse to get results. NIMA Larios Sherill A, LPN 11/29/2024 10:45 AM Signed Pt notified of results with verbalized understanding. Dale Sheikh LPN Allergies As of Date: 11/29/2024 Noted Allergy Reaction CONCERTA (METHYLPHENIDATE HCL) 09/06/2006 5 - Intolerance Comments: Has trouble breathing. Date Reviewed: 10/20/2024 Reviewed by: Barbara Wells MD - Fully Assessed Reason for Visit: Results [95] Cmt: Labs Prescriptions as of 11/29/2024 - amphetamine-dextroamphetam ine XR (ADDERALL XR) 30 mg capsule Take 1 capsule by mouth once daily for 30 days. Patient should start on December 13, 2024. - amphetamine-dextroamphetam ine XR (ADDERALL XR) 30 mg capsule Take 1 capsule by mouth once daily for 30 days. Patient should start on January 10, 2025. - amphetamine-dextroamphetam ine XR (ADDERALL XR) 30 mg capsule Take 1 capsule by mouth once daily for 30 days. Patient should start on February 10, 2025. Problem List As Of Date 11/29/2024 Noted Resolved Seborrhea [L21.9] 01/28/2007 08/31/2011 Pallor [R23.1] 01/28/2007 08/31/2011 Attention deficit hyperactivity disorder (ADHD)*01/08/2014 Marijuana use [F12.90] 06/22/2014 Late care [O09.30] 06/22/2014 02/27/2015 , supervision of first [Z34.00] 06/22/2014 02/27/2015 GBS (group B streptococcus) UTI complicating pr*06/25/2014 02/27/2015 Allergic rhinitis due to other allergen [J30.89]12/26/2007 Asthma [J45.909] 02/19/2010 Cervical high risk HPV (human papillomavirus) t*09/22/2023 Encounter Status:Closed by DALE SHEIKH on 11/29/24 Normal [facility] HCG.beta subunit Qn m[IU]/mL Normal <5.0 [facility] Comment on above: Order Comment: Speci men Type: BLOOD SPECIMENOrdering Facility: [facility] Address: [address] [place] [address] Result Comment: Marilin dunne Performed By: #### 2 1198-7 ####[facility] LABCLIA [id number] [facility] [id number] [address] [place] Comprehensive metabolic 2000 panelon 11-24-2024 Albumin [Mass/Vol] 4.3 g/dL Normal 3.9-4.9 [facility] Comment on above: Order Comment: Speci men Type: BLOOD SPECIMENOrdering Facility: [facility] Address: [address] [place] [address] Performed By: #### 2 4323-8, 71468-2 ####[facility] LABCLIA [id number] [place] [address] [place] ALP [Catalytic activity/Vol] 63 U/L Normal 34-123 [facility] Comment on above: Order Comment: Speci men Type: BLOOD SPECIMENOrdering Facility: [facility] Address: [address] [place] [address] Performed By: #### 2 4323-8, 27675-3 ####[facility] LABCLIA [id number] [place] [address] [place] ALT [Catalytic activity/Vol] 27 U/L Normal 7-38 [facility] Comment on above: Order Comment: Speci men Type: BLOOD SPECIMENOrdering Facility: [facility] Address: [address] [place] [address] Performed By: #### 2 4323-8, 69571-1 ####[facility] LABCLIA [id number] [place] [address] [place] Anion gap [Moles/Vol] 10 mmol/L Normal 8-15 [facility] Comment on above: Order Comment: Speci men Type: BLOOD SPECIMENOrdering Facility: [facility] Address: [address] [place] [address] Performed By: #### 2 4323-8, 88495-8 ####[facility] LABCLIA [id number] [place] [address] [place] AST [Catalytic activity/Vol] 23 U/L Normal 13-35 [facility] Comment on above: Order Comment: Speci men Type: BLOOD SPECIMENOrdering Facility: [facility] Address: [address] [place] [address] Performed By: #### 2 4323-8, 10425-3 ####[facility] LABCLIA [id number] [place] [address] [place] Bilirubin [Mass/Vol] 0.5 mg/dL Normal 0.2-1.3 [facility] Comment on above: Order Comment: Speci men Type: BLOOD SPECIMENOrdering Facility: [facility] Address: [address] [place] [address] Performed By: #### 2 4323-8, 69444-9 ####[facility] LABCLIA [id number] [place] [address] [place] Calcium [Mass/Vol] 9.3 mg/dL Normal 8.5-10.2 [facility] Comment on above: Order Comment: Speci men Type: BLOOD SPECIMENOrdering Facility: [facility] Address: [address] [place] [address] Performed By: #### 2 4323-8, 67323-6 ####[facility] LABCLIA [id number] [place] [address] [place] Chloride [Moles/Vol] 105 mmol/L Normal 98-107 [facility] Comment on above: Order Comment: Speci men Type: BLOOD SPECIMENOrdering Facility: [facility] Address: [address] [place] [address] Performed By: #### 2 4323-8, 85116-9 ####[facility] LABCLIA [id number] [place] [address] [place] CO2 [Moles/Vol] 26 mmol/L Normal 22-30 [facility] Comment on above: Order Comment: Speci men Type: BLOOD SPECIMENOrdering Facility: [facility] Address: [address] [place] [address] Performed By: #### 2 4323-8, 39562-1 ####[facility] LABCLIA [id number] [place] [address] [place] Creatinine [Mass/Vol] 0.62 mg/dL Normal 0.58-0.96 [facility] Comment on above: Order Comment: Speci men Type: BLOOD SPECIMENOrdering Facility: [facility] Address: [address] [place] [address] Performed By: #### 2 4323-8, 38346-5 ####[facility] LABIA [id number] [place] [address] [place] Creatinine and Glomerular filtration rate.predicted panel (S/P/Bld) 121 mL/min/1.73m??? Normal >=60 [facility] Comment on above: Order Comment: Speci men Type: BLOOD SPECIMENOrdering Facility: [facility] Address: [address] [place] [address] Result Comment: Zainab mated Glomerular Filtration Rate (eGFR) is calculated using the 2020 CKD-EPI creatinine equation. This equation utilizes serum creatinine, sex, and age as parameters. The creatinine assay has traceable calibration to isotope dilution-mass spectrometry. Refer to KDIGO guidelines for clinical interpretation. In patients with unstable renal function, e.g. those with acute kidney injury, the eGFR may not accurately reflect actual GFR. Performed By: #### 2 4323-8, 51924-6 ####[facility] LABIA [id number] [place] [address] [place] Glucose [Mass/Vol] 82 mg/dL Normal 74-99 [facility] Comment on above: Order Comment: Cherry harrison Type: BLOOD SPECIMENOrdering Facility: [facility] Address: [address] [place] [address] Result Comment: The [place] Diabetes Association (ADA) provides guidance for cutoff values for fasting glucose and random glucose. The ADA defines fasting as no caloric intake for at least 8 hours. Fasting plasma glucose results between 100 to 125 mg/dL indicate increased risk for diabetes (prediabetes). Fasting plasma glucose results greater than or equal to 126 mg/dL meet the criteria for diagnosis of diabetes. In the absence of unequivocal hyperglycemia, results should be confirmed by repeat testing. In a patient with classic symptoms of hyperglycemia or hyperglycemic crisis, random plasma glucose results greater than or equal to 200 mg/dL meet the criteria for diagnosis of diabetes. Reference: Standards of Medical Care in Diabetes 2016, [place] Diabetes Association. Diabetes Care. 2016.39(Suppl 1). Performed By: #### 2 4323-8, 26894-9 ####[facility] LABCLIA [id number] [address] [address] [place] Potassium [Moles/Vol] 4.4 mmol/L Normal 3.7-5.1 [facility] Comment on above: Order Comment: Speci men Type: BLOOD SPECIMENOrdering Facility: [facility] Address: [address] [place] [address] Performed By: #### 2 4323-8, 52007-7 ####[facility] LABCLIA [id number] [place] [address] [place] Protein [Mass/Vol] 7.2 g/dL Normal 6.3-8.0 [facility] Comment on above: Order Comment: Speci men Type: BLOOD SPECIMENOrdering Facility: [facility] Address: [address] [place] [address] Performed By: #### 2 4323-8, ####[facility] LABCLIA [id number] [place] [address] [place] Sodium [Moles/Vol] 141 mmol/L Normal 136-144 [facility] Comment on above: Order Comment: Speci men Type: BLOOD SPECIMENOrdering Facility: [facility] Address: [address] [place] [address] Performed By: #### 2 4323-8, ####[facility] LABCLIA [id number] [address] [address] [place] Urea nitrogen [Mass/Vol] 13 mg/dL Normal 7-21 [facility] Comment on above: Order Comment: Speci men Type: BLOOD SPECIMENOrdering Facility: [facility] Address: [address] [place], [place] [address] Performed By: #### 2 4323-8, 81904-2 ####[facility] LABCLIA [id number] [place] [address] [place] HbA1c (Bld)on 11-24-2024 Average glucose Estimated from glycated hemoglobin (Bld) [Mass/Vol] 91 mg/dL Normal [facility] Comment on above: Order Comment: Cherry terry Type: BLOOD SPECIMEN [facility] Address: [address] [place] [address] Result Comment: eAG: (Estimated average glucose) is a calculated value from HgbA1c and is labor relations representative of the average blood glucose level in the last 2-3 month period. Performed By: #### G LTGST #### [facility] CLIA [id number] [address] [place] [address] [place] HbA1c (Bld) [Mass fraction] 4.8 % Normal 4.3-5.6 [facility] Comment on above: Order Comment: Cherry terry Type: BLOOD SPECIMEN [facility] Address: [address] [place] [address] Result Comment: [place] Diabetes Association guidelines indicate that patients with HgbA1c in the range 5.7-6.4% are at increased risk for development of diabetes, and intervention by lifestyle modification may be beneficial. HgbA1c greater or equal to 6.5% is considered diagnostic of diabetes. Performed By: #### G LTGST #### [facility] CLIA [id number] [address] [place] [address] [place] Lipid 1996 panelon 5 Cholesterol [Mass/Vol] 154 mg/dL Normal <200 [facility] Comment on above: Order Comment: Cherry terry Type: BLOOD SPECIMENOrdering Facility: [facility] Address: [address] [place] [address] Result Comment: <200 mg/dL, Desirable 200-239 mg/dL, Borderline high >239 mg/dL, High Performed By: #### 2 4323-8, 59026-5 ####[facility] LABCLIA [id number] [place] [address] [place] Cholesterol in HDL [Mass/Vol] 49 mg/dL Normal >39 [facility] Comment on above: Order Comment: Cherry terry Type: BLOOD SPECIMENOrdering Facility: [facility] Address: [address] [place] [address] Result Comment: 40-5 9 mg/dL, Acceptable >59 mg/dL, High: Negative risk factor for coronary heart disease <40 mg/dL, Low: Positive risk factor for coronary heart disease Performed By: #### 2 4323-8, 36013-1 ####[facility] LABCLIA [id number] [address] Cholesterol in LDL [Mass/Vol] 93 mg/dL Normal <100 [facility] Comment on above: Order Comment: Fernchristy terry Type: BLOOD SPECIMENOrdering Facility: [facility] Address: [address] [place] [address] Result Comment: <100 mg/dL, Optimal 100-129 mg/dL, Near optimal/above optimal 130-159 mg/dL, Borderline high 160-189 mg/dL, High >189 mg/dL, Very high Secondary prevention optimal LDL Cholesterol levels are recommended to be < 70 mg/dL Performed By: #### 2 4323-8, 44946-8 ####[facility] LABCLIA [id number] [address] Cholesterol in LDL/Cholesterol in HDL [Mass ratio] 1.90 {ratio} Normal <2.54 [facility] Comment on above: Order Comment: Cherry terry Type: BLOOD SPECIMENOrdering Facility: [facility] Address: [address] [place] [address] Result Comment: Refe rence: 1. National Cholesterol Education Program ATP III Guideline At-A-Glance Quick Desk Reference: National Heart, Lung, and Blood Friendly. National Institutes of Health. 2001: NIH Publication No. 01-3305. 2. An International Atherosclerosis Society position paper: global recommendations for the management of dyslipidemia: executive summary, Atherosclerosis. 2014: 232(2):410-413. Performed By: #### 2 4323-8, 49909-0 ####[facility] LABCLIA [id number] [place] [id number] [place] Cholesterol in VLDL [Mass/Vol] 12 mg/dL Normal <30 [facility] Comment on above: Order Comment: Speci men Type: BLOOD SPECIMENOrdering Facility: [facility] Address: [address] [place] [address] Performed By: #### 2 4323-8, 44587-8 ####[facility] LABCLIA [id number] [place] [address] [place] Cholesterol non HDL [Mass/Vol] 105 mg/dL Normal <130 [facility] Comment on above: Order Comment: Speci men Type: BLOOD SPECIMENOrdering Facility: [facility] Address: [address] [place] [address] Result Comment: <130 mg/dL, Optimal 130-159 mg/dL, Near optimal/above optimal 160-189 mg/dL, Borderline high 190-219 mg/dL, High >219 mg/dL, Very high Secondary prevention optimal non HDL Cholesterol levels are recommended to be <100 mg/dL Performed By: #### 2 4323-8, 91701-2 ####[facility] LABCLIA [id number] [place] [address] [place] Cholesterol.total/Cho lesterol in HDL [Mass ratio] 3.14 {ratio} Normal <5.10 [facility] Comment on above: Order Comment: Speci men Type: BLOOD SPECIMENOrdering Facility: [facility] Address: [address] [place] [id number] Performed By: #### 2 4323-8, 70577-9 ####[facility] LABCLIA [id number] [place] [address] [place] FASTING TIME 12 hrs Normal [facility] Comment on above: Order Comment: Speci men Type: BLOOD SPECIMENOrdering Facility: [facility] Address: [address] [place] [address] Performed By: #### 2 4323-8, 04659-3 ####[facility] LABCLIA [id number] [place] [address] [place] Triglyceride [Mass/Vol] 60 mg/dL Normal <150 [facility] Comment on above: Order Comment: Speci men Type: BLOOD SPECIMENOrdering Facility: [facility] Address: [address] [place] [address] Result Comment: <150 mg/dL, Normal 150-199 mg/dL, Borderline high 200-499 mg/dL, High >499 mg/dL, Very high Performed By: #### 2 4323-8, 76122-0 ####[facility] LABCLIA [id number] [place] [address] [place] CNOVon 11-20-2024 [facility] MIRELLA WORKMAN ([id number]) 1990 F Date Time Provider Department 11/20/24 8:40 AM [facility] During your visit today, we recorded the following information about you: Pulse Respiration Blood pressure Weight 103/minute 16/minute 100/70 93.3 kg Height Last Period 1.613 m 10/09/24 Cinthya Balderas APRN.TESTBOARD OPERATOR 11/20/2024 8:44 AM Signed Get fasting labs completed, no food 10-12 hours prior, you can have black coffee and water Continue to take all medication as prescribed Continue to eat a well balanced diet and stay active Follow up in 4 months for medication check or sooner pending test results. Health Promotion: - Eat healthy -- go to [email or web address] to get started - Have a yearly physical - Get at least 30 minutes of physical activity daily - Get at least 7 to 8 hours of sleep each night - Reach and maintain a healthy weight - Get help to quit or don't start smoking - Limit alcohol use to one drink or less - Do not use illegal drugs or misuse prescription drugs - Wear a helmet when riding a bike and wear protective gear for sports - Wear a seatbelt in cars and not text and drive - Wear sunscreen Cinthya Balderas APRN.CNP 11/20/2024 9:02 AM Addendum This is a 34 year old female who presents today with: Patient presents with: Wellness HISTORY OF PRESENT ILLNESS: Mirella Workman is a 34 year old female. Patient presents with: Wellness Here in the office for wellness exam Diet: Eating well balanced diet. Exercise: Walking daily at work, 13-14,000 daily. Vision: Due, wearing glasses. Dental: Due for exam. Sleep: 6-7 hours per night. Mood: Denies any increased sadness,anxiety , or SI/HI. ADD: Taking Adderall XR 30 mg daily. Medication has been helpful for focus and concentration. Last Tox Screen 2021, past due. Menses: Regular, last menses 10/24/2024, trying to get . Has noticed nipple discharge last week, brown. Mild nausea. Pap: September 2024, HPV + Vaccines: Denies wanting any vaccines at this time. PAST MEDICAL HISTORY: PAST MEDICAL HISTORY Diagnosis Date Acne Asthma mild Attention deficit disorder without mention of hyperactivity PAST SURGICAL HISTORY Procedure Laterality Date NEXPLANON INSERTION 03/10/2021 x3- 2014,2017 NEXPLANON REMOVAL Right 07/27/2024 ALLERGIES Concerta [Methylphenidate Hcl] MEDICATIONS Current Outpatient Medications Medication Sig amphetamine-dextroamphetam ine XR (ADDERALL XR) 30 mg capsule Take 1 capsule by mouth once daily for 30 days. No current facility-administered medications for this visit. FAMILY HISTORY Problem Relation Age of Onset Seizures Mother Thyroid Mother hyper other (Other) Father mental health Diabetes Maternal Grandmother Heart Maternal Grandmother Diabetes Paternal Grandmother Heart Paternal Grandmother Social History Tobacco Use Smoking status: Never Smokeless tobacco: Never Vaping Use Vaping status: Never Used Substance Use Topics Alcohol use: No Drug use: No REVIEW OF SYSTEMS GENERAL: No weight loss, malaise or fevers/chills HEENT: Negative for frequent or significant headaches, No changes in hearing or vision. NECK: Negative for lumps, goiter, pain and significant neck swelling RESPIRATORY: Negative for cough, hemoptysis, wheezing, dyspnea or shortness of breath CARDIOVASCULAR: Negative for chest pain, leg swelling, orthopnea, or palpitations GI: No nausea, vomiting, or diarrhea/constipation. No hematochezia/melena. No heartburn or reflux symptoms. : No history of dysuria, frequency or incontinence MUSCULOSKELETAL: Negative for joint pain or swelling. SKIN: Negative for lesions, rash, and itching ENDOCRINE: Negative for cold or heat intolerance, polyuria, polydipsia and goiter NEURO: No history of headaches, syncope, paralysis, seizures or tremors MOOD: Negative for depression, anxiety, or suicidal ideation. EXAM: BP 100/70 Pulse 103 Resp 16 Ht 161.3 cm (5' 3.5) Wt 93.3 kg (205 lb 11 oz) LMP 10/09/2024 (Exact Date) SpO2 97% BMI 35.86 kg/m? PHYSICAL EXAM: General Appearance: Well appearing, alert, in no acute distress, well-hydrated, well nourished. Skin: Skin color, texture, turgor normal, no suspicious rashes or lesions. Head: Normocephalic, no masses, lesions, tenderness or abnormalities. Eyes: Anicteric sclera. Pupils are equally round and reactive to light. Extraocular movements are intact. Ears: External ears normal, canals clear. TM's pearly phelps. Neck: Supple, no adenopathy; thyroid symmetric, normal size, no bruits. Lungs: Lungs clear to auscultation. No wheezing, rhonchi, rales. Heart: RRR without murmur, gallop, or rubs. No ectopy. Abdomen: Abdomen soft, non-tender. Bowel sounds normal. No masses, organomegaly, Negative CVA tenderness. Extremities: No deformities, edema, skin discoloration, (more content not included)... Normal [facility] QUANT TOX PANELon 11-20-2024 2-Azmnyalcyk-5,5-Dime thyl-3,3-Diphenylpyrr olidine (EDDP) Confirm (U) [Mass/Vol] <25 Normal <25 [facility] Comment on above: Order Comment: Speci men Type: URINE SPECIMENOrdering Facility: [facility] Address: [address] [place] [address] [facility] Result Comment: 6-Uyyjxqxoqx-2,2-axgpgvtc-8,3-diphenylpyrrolidine (EDDP) is a metabolite of methadone. Performed By: #### U QNTX ####[facility] [id number] [place] [address] [place] 6-Monoacetylmorphine (6-TG) (U) [Mass/Vol] <5 Normal <5 [facility] Comment on above: Order Comment: Speci men Type: URINE SPECIMENOrdering Facility: [facility] Address: [address] [place] [address] Result Comment: 6-Mo noacetylmorphine is a metabolite of heroin. Performed By: #### U QNTX ####[facility] [id number] [place] [address] [place] Amphetamine Confirm (U) [Mass/Vol] >5000 High <25 [facility] Comment on above: Order Comment: Speci men Type: URINE SPECIMENOrdering Facility: [facility] Address: [address] [place] [address] Result Comment: Pres ence of amphetamine is consistent with use of an amphetamine-containing drug or a drug that metabolizes to amphetamine. Amphetamine is a metabolite of methamphetamine. Performed By: #### U QNTX ####[facility] [id number] [place] [address] [place] Benzoylecgonine Confirm (U) [Mass/Vol] <25 Normal <25 [facility] Comment on above: Order Comment: Speci men Type: URINE SPECIMENOrdering Facility: [facility] Address: [address] [place] [address] Result Comment: Marcos oylecgonine is a metabolite of cocaine. Performed By: #### U QNTX ####[facility] [id number] [place] [address] [place] Buprenorphine (U) [Mass/Vol] <5 Normal <5 [facility] Comment on above: Order Comment: Speci men Type: URINE SPECIMENOrdering Facility: [facility] Address: [address] [place] [address] Result Comment: Marilyn ents using transdermal formulations of buprenorphine may yield undetectable buprenorphine and norbuprenorphine urine concentrations. Performed By: #### U QNTX ####[facility] LABIA [id number] [place] [address] [place] Carboxy tetrahydrocannabinol (U) [Mass/Vol] <10 Normal <10 [facility] Comment on above: Order Comment: Speci men Type: URINE SPECIMENOrdering Facility: [facility] Address: [address] [place] [address] Result Comment: 11-N jz-7-nbajndb-tetrahydrocannabinol (utflt-4-ycagyht-THC) is a metabolite of klqlz-3-cjqtrvnfjrxzvrudmreh (THC). This test does not differentiate between delta-8 or delta-9 carboxy-THC. Performed By: #### U QNTX ####[facility] LABIA [id number] [place] [address] [place] Codeine Confirm (U) [Mass/Vol] <25 Normal <25 [facility] Comment on above: Order Comment: Speci men Type: URINE SPECIMENOrdering Facility: [facility] Address: [address] [place] [address] Performed By: #### U QNTX ####[facility] LABIA [id number] [place] [address] [place] fentaNYL Confirm (U) [Mass/Vol] <1 Normal <1 [facility] Comment on above: Order Comment: Speci men Type: URINE SPECIMENOrdering Facility: [facility] Address: [address] [place] [address] Performed By: #### U QNTX ####[facility] LABIA [id number] [place] [address] [place] HYDROcodone Confirm (U) [Mass/Vol] <25 Normal <25 [facility] Comment on above: Order Comment: Speci men Type: URINE SPECIMENOrdering Facility: [facility] Address: [address] [place] [address] Performed By: #### U QNTX ####[facility] NORTHIA [id number] [place] [address] [place] HYDROmorphone Confirm (U) [Mass/Vol] <25 Normal <25 [facility] Comment on above: Order Comment: Speci men Type: URINE SPECIMENOrdering Facility: [facility] Address: [address] [place] [address] Performed By: #### U QNTX ####[facility] [id number] [place] [address] [place] MDA, UR <25 Normal <25 [facility] Comment on above: Order Comment: Speci men Type: URINE SPECIMENOrdering Facility: [facility] Address: [address] [place] [address] Result Comment: 3,4 Methylenedioxyamphetamine is also known as MDA. Performed By: #### U QNTX ####[facility] [id number] [place] [address] [place] MDEA, UR <25 Normal <25 [facility] Comment on above: Order Comment: Speci men Type: URINE SPECIMENOrdering Facility: [facility] Address: [address] [place] [address] Result Comment: 3,4 Xnctmfhceocotg-D-fjkhnlwyrzrfnpid is also known as MDEA. Performed By: #### U QNTX ####[facility] [id number] [place] [address] [place] MDMA, UR <25 Normal <25 [facility] Comment on above: Order Comment: Speci men Type: URINE SPECIMENOrdering Facility: [facility] Address: [address] [place] [address] Result Comment: 3,4- Methylenedioxymethamphetamine is also known as MDMA. Performed By: #### U QNTX ####[facility] LABIA [id number] [address] [place] Methadone Confirm (U) [Mass/Vol] <25 Normal <25 [facility] Comment on above: Order Comment: Speci men Type: URINE SPECIMENOrdering Facility: [facility] Address: [address] [place] [address] Performed By: #### U QNTX ####[facility] [id number] [place] [address] [place] Methamphetamine Confirm (U) [Mass/Vol] <25 Normal <25 [facility] Comment on above: Order Comment: Speci men Type: URINE SPECIMENOrdering Facility: [facility] Address: [address] [place] [address] Performed By: #### U QNTX ####[facility] [id number] [address] [place] Morphine Confirm (U) [Mass/Vol] <25 Normal <25 [facility] Comment on above: Order Comment: Speci men Type: URINE SPECIMENOrdering Facility: [facility] Address: [address] [place] [address] Performed By: #### U QNTX ####[facility] [id number] [address] [place] Norbuprenorphine (U) [Mass/Vol] <10 Normal <10 [facility] Comment on above: Order Comment: Speci men Type: URINE SPECIMENOrdering Facility: [facility] Address: [address] [place] [address] Result Comment: Norb uprenorphine is a metabolite of buprenorphine. Patients using transdermal formulations of buprenorphine may yield undetectable buprenorphine and norbuprenorphine urine concentrations. Performed By: #### U QNTX ####[facility] LABIA [id number] [place] [address] [place] Norfentanyl Confirm (U) [Mass/Vol] <1 Normal <1 [facility] Comment on above: Order Comment: Speci men Type: URINE SPECIMENOrdering Facility: [facility] Address: [address] [place] [address] Result Comment: Norf entanyl is a metabolite of fentanyl. Performed By: #### U QNTX ####[facility] [id number] [place] [address] [place] NORHYDROCODONE, UR <25 Normal <25 [facility] Comment on above: Order Comment: Speci men Type: URINE SPECIMENOrdering Facility: [facility] Address: [address] [place] [address] Result Comment: Norh ydrocodone is a metabolite of hydrocodone. Performed By: #### U QNTX ####[facility] [id number] [place] [address] [place] NOROXYCODONE, UR <25 Normal <25 [facility] Comment on above: Order Comment: Speci men Type: URINE SPECIMENOrdering Facility: [facility] Address: [address] [place] [address] Result Comment: Noro xycodone is a metabolite of oxycodone. Performed By: #### U QNTX ####[facility] [id number] [place] [address] [place] NOROXYMORPHONE, UR <25 Normal <25 [facility] Comment on above: Order Comment: Speci men Type: URINE SPECIMENOrdering Facility: [facility] Address: [address] [place] [address] Result Comment: Noro xymorphone is a metabolite of oxymorphone and oxycodone and a minor metabolite of naltrexone and naloxone. Performed By: #### U QNTX ####[facility] [id number] [place] [address] [place] Nortramadol (U) [Mass/Vol] <25 Normal <25 [facility] Comment on above: Order Comment: Speci men Type: URINE SPECIMENOrdering Facility: [facility] Address: [address] [place] [address] Result Comment: O-de smethyltramadol is a metabolite of tramadol. Performed By: #### U QNTX ####[facility] [id number] [place] [address] [place] NOTE, UR TOXICOLOGY PANEL Normal [facility] Comment on above: Order Comment: Speci men Type: URINE SPECIMENOrdering Facility: [facility] Address: [address] [place] [address] Result Comment: For medical purposes only. Not valid for legal or forensic purposes. This test was developed, and its performance characteristics determined by the [facility] Department of Pathology and Laboratory Medicine. It has not been cleared or approved by the FDA. The [facility] Department of Pathology and Laboratory Medicine is regulated under CLIA as qualified to perform high-complexity testing. This test is used for clinical purposes. It should not be regarded as investigational or for research. Performed By: #### U QNTX ####[facility] [id number] [place] [address] [place] oxyCODONE Confirm (U) [Mass/Vol] <25 Normal <25 [facility] Comment on above: Order Comment: Speci men Type: URINE SPECIMENOrdering Facility: [facility] Address: [address] [place] [address] Performed By: #### U QNTX ####[facility] [id number] [address] [place] oxyMORphone Confirm (U) [Mass/Vol] <25 Normal <25 [facility] Comment on above: Order Comment: Speci men Type: URINE SPECIMENOrdering Facility: [facility] Address: [address] [place] [address] Performed By: #### U QNTX ####[facility] LABIA [id number] [place] [address] [place] Phencyclidine Confirm (U) [Mass/Vol] <10 Normal <10 [facility] Comment on above: Order Comment: Speci men Type: URINE SPECIMENOrdering Facility: [facility] Address: [address] [place] [address] Result Comment: Phen cyclidine is also known as PCP. Performed By: #### U QNTX ####[facility] LABIA [id number] [place] [address] [place] PHENTERMINE, UR <25 Normal <25 [facility] Comment on above: Order Comment: Speci men Type: URINE SPECIMENOrdering Facility: [facility] Address: [address] [place] [address] Performed By: #### U QNTX ####[facility] LABIA [id number] [place] [address] [place] traMADol Confirm (U) [Mass/Vol] <25 Normal <25 [facility] Comment on above: Order Comment: Speci men Type: URINE SPECIMENOrdering Facility: [facility] Address: [address] [place] [address] Performed By: #### U QNTX ####[facility] LABIA [id number] [place] [address] [place] SPECIMEN VALIDITY, URINEon 0 1- CREATININE,URINE 275.9 mg/dL Normal 20.0-300.0 [facility] Comment on above: Order Comment: Speci men Type: BLOOD SPECIMEN [facility] Address: [address] [place] [address] Performed By: #### G LTGST #### [facility] [id number] [address] [place] [address] [place] NITRITES,URINE 50 mg/L Normal <500 [facility] Comment on above: Order Comment: Speci men Type: BLOOD SPECIMEN [facility] Address: [address] [place] [address] Performed By: #### G LTGST #### [facility] CLIA [id number] [address] [place] [address] [place] OXIDANTS,URINE <38 Normal <200 [facility] Comment on above: Order Comment: Speci men Type: BLOOD SPECIMEN [facility] Address: [address] [place] [address] Performed By: #### G LTGST #### [facility] CLIA [id number] [address] [place] [address] [place] pH (U) 5.5 [pH] Normal 4.5-8.0 [facility] Comment on above: Order Comment: Speci men Type: BLOOD SPECIMEN [facility] Address: [address] [place] [address] Performed By: #### G LTGST #### [facility] [id number] [address] [place] [address] [place] SPEC GRAVITY,UR 1.027 Normal 1.003-1.035 [facility] Comment on above: Order Comment: Speci men Type: BLOOD SPECIMEN [facility] Address: [address] [place] [address] Performed By: #### G LTGST #### [facility] CLIA [id number] [address] [place] [address] SPECIMEN VALIDITY QUALITY Specimen quality results within acceptable limits Normal [facility] Comment on above: Order Comment: Speci men Type: BLOOD SPECIMEN [facility] Address: [address] [place] [address] Performed By: #### G LTGST #### [facility] CLIA [id number] [address] [place] [id number] [place] TOXICOLOGY SCREEN, ROUTINE U RINEon 11-20-2024 Amphetamines Confirm (U) [Mass/Vol] Positive Abnormal Negative [facility] Comment on above: Order Comment: Speci men Type: URINE SPECIMENOrdering Facility: [facility] Address: [address] [place] [address] Result Comment: Cuto ff threshold at 1000 ng/mL. Performed By: #### U TOX2 ####[facility] LABCLIA [id number] [place] [address] [place] BARBITURATES, URINE Negative Normal Negative [facility] Comment on above: Order Comment: Speci men Type: URINE SPECIMENOrdering Facility: [facility] Address: [address] [place] [address] Result Comment: Cuto ff threshold at 200 ng/mL. Performed By: #### U TOX2 ####[facility] LABCLIA [id number] [place] [address] [place] BENZODIAZEPINES, UR Negative Normal Negative [facility] Comment on above: Order Comment: Speci men Type: URINE SPECIMENOrdering Facility: [facility] Address: [address] [place] [address] Result Comment: Cuto ff threshold at 200 ng/mL. Performed By: #### U TOX2 ####[facility] LABCLIA [id number] [place] [address] [place] Cannabinoids Screen Ql (U) Negative Normal Negative [facility] Comment on above: Order Comment: Speci men Type: URINE SPECIMENOrdering Facility: [facility] Address: [address] [place] [address] Result Comment: Cuto ff threshold at 50 ng/mL. Performed By: #### U TOX2 ####[facility] LABCLIA [id number] [place] [address] [place] Cocaine Ql (U) Negative Normal Negative [facility] Comment on above: Order Comment: Speci men Type: URINE SPECIMENOrdering Facility: [facility] Address: [address] [place] [address] Result Comment: Cuto ff threshold at 300 ng/mL. Performed By: #### U TOX2 ####[facility] LABCLIA [id number] [place] [address] [place] Ethanol (U) [Mass/Vol] <11 Normal <11 [facility] Comment on above: Order Comment: Speci men Type: URINE SPECIMENOrdering Facility: [facility] Address: [address] [place] [address] Performed By: #### U TOX2 ####[facility] LABCLIA [id number] [place] [address] [place] Opiates Screen Ql (U) Negative Normal Negative [facility] Comment on above: Order Comment: Speci men Type: URINE SPECIMENOrdering Facility: [facility] Address: [address] [place] [address] Result Comment: Cuto ff threshold at 300 ng/mL. Performed By: #### U TOX2 ####[facility] LABCLIA [id number] [place] [address] [place] oxyCODONE cutoff Screen (U) [Mass/Vol] Negative Normal Negative [facility] Comment on above: Order Comment: Speci men Type: URINE SPECIMENOrdering Facility: [facility] Address: [address] [place] [address] Result Comment: Cuto ff threshold at 100 ng/mL. Performed By: #### U TOX2 ####[facility] LABCLIA [id number] [place] [address] [place] Phencyclidine Ql (U) Negative Normal Negative [facility] Comment on above: Order Comment: Speci men Type: URINE SPECIMENOrdering Facility: [facility] Address: [address] [place] [address] Result Comment: Cuto ff threshold at 25 ng/mL. Performed By: #### U TOX2 ####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 Mirella is a 34 year old who presents today for a colposcopy. The patient's last pap smear was Positive HPV from September 2024. Patient has a history of abnormal pap: No. The patient has had prior treatment: none. Has complete HPV vaccine series test: negative UNIVERSAL PROTOCOL / SAFETY CHECKLIST Procedure to be Performed: Colposcopy Sign In: A Moment of CARE was completed. Personnel directly involved with the procedure wore the appropriate PPE (Personal Protective Equipment). Patient/Surrogate Stated/Verified: PATIENT VERIFIED(optional for EMERGENT procedures): Patient name, Date of , Relevant allergies, and The intended procedure Time Out Communication: Intended patient and procedure match the source documents. Consent documented and matches the intended procedure. Sign Out: SIGN OUT (optional for EMERGENT procedures): No specimen collected. All instruments, equipment, possible retained foreign bodies accounted for. PROCEDURE: EXTERNAL GENITALIA: Normal in appearance without lesions VAGINA: Normal in appearance without lesions CERVIX: Speculum placed in vagina and excellent visualization of cervix achieved. Cervix swabbed x 3 with 3% acetic acid solution. Cervix grossly normal. Squamocolumnar junction visualized. No acetowhite changes, punctations, mosaicism or atypical vasculature noted. BIOPSY: Not done. ECC: not done HEMOSTASIS: Obtained with Procedure Summary: Patient tolerated procedure well and colposcopy was adequate. ASSESSMENT: HPV effect PLAN: Repeat pap yearly MD Manuel YiSena, NIMA 10/20/2024 1:25 PM Signed YOUR RECOVERY It may take a few weeks for your cervix to heal. While your cervix heals, you may have: - Vaginal bleeding (less than a normal menstrual period) - Mild cramping - A brown-black vaginal discharge (similar to coffee grounds) which is a result of the paste used to help stop bleeding from the procedure Do NOT put anything in the vagina for 1 week after your colposcopy if your doctor does a biopsy of your cervix. This includes sex, tampons, and douches. If you have any discomfort, you may take an over the counter pain medication (motrin, advil, ibuprofen, tylenol, etc). If this does not relieve your discomfort, contact your doctor's office for a prescription strength pain medication. It is okay to wear a sanitary pad until the discharge and spotting stops. RISKS Although problems seldom occur with colposcopy, there can be some complications. You may feel faint during and shortly after the procedure as well as have some bleeding and vaginal discharge after the procedure. There is also a risk of infection after the procedure. These complications are rare and can be easily treated. You should contact you doctor is you have any of the following: - Heavy bleeding (more than your normal period) - Bleeding with clots - Severe abdominal pain - Fever (more than 100.4F) - Foul smelling vaginal discharge RESULTS If a biopsy was taken, we will have the results of your biopsy in 1-2 weeks. If you do not hear the results of your biopsy after 2 weeks, please contact your physicians office for the results. Depending on the biopsy results, your doctor will determine your follow up plan which may include further testing or treatments. STAYING HEALTHY After the procedure, you will need to see your doctor for follow up visits during the year. At these visits your doctor will check the health of your cervix with a pap smear. After three normal pap smears, your doctor will allow you to return to having exams once a year. If you have another abnormal pap smear, you may need closer follow up for longer or you may need additional treatment. By making a few lifestyle changes after the procedure, you can help protect the health of your cervix: - Have regular pelvic exams and pap smears as ordered by your doctor. - Stop smoking as smoking increases your risk of developing a cancer of the cervix - If you have more than one sexual partner, limit your number of partners and use condoms to reduce your risks of STDs. If you have any additional questions, please contact your doctor's office. Referring Provider: SUSY MOONEY [[id number]] Allergies As of Date: 10/20/2024 Noted Allergy Reaction CONCERTA (METHYLPHENIDATE HCL) 09/06/2006 5 - Intolerance Comments: Has trouble breathing. Date Reviewed: 10/20/2024 Reviewed by: Barbara Wells MD - Fully Assessed Reason for Visit: (more content not included)... Normal [facility] UA DIP,URINE HCG (POC)on Beta HCG ( test) Ql (U) Negative Negative 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 Location:[facility], [address], [place], [address] [facility] POINT OF CARE [facility] HbA1c (Bld)on 08-20-2023 Average glucose Estimated from glycated hemoglobin (Bld) [Mass/Vol] 94 mg/dL [facility] HbA1c (Bld) [Mass fraction] 4.9 % 4.3 - 5.6 % [facility] Provider Note - ED v3on 09-02 Provider Note - ED v3 Provider Note: Chart Review: HISTORY OF PRESENTING ILLNESS MIRELLA is a 30 year old Female and was seen by me at 24-Sep-2021 08:52. The historian is the patient. Triage Information: Most recent Vital Sign Value Date PAST MEDICAL HISTORY ALLERGIES/INTOLERANCES: Allergy Allergen: Concerta Type: Drug Reaction: Wheezing HEALTH HISTORY: History of mild asthma; no other known health issues. Family history: no pertinent history. Social history: non-smoker. 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 Has a daughter. OUTPATIENT MEDICATIONS: Home Medications Review Status for Reconciliation: Complete Med Status: Patient Currently Takes Medications Drug Name: albuterol Instructions: null Drug Name: Zithromax Z-Gold 250 mg oral tablet Instructions: 2 tab(s) by mouth at once on day 1, then 1 tablet once a day on days 2-5 Drug Name: brompheniramine/pseudoephe drine/dextromethorphan [id number]/5 mL oral syrup Instructions: 10 milliliter(s) orally every 6 hours, As Needed for cough/congestion. Can cause drowsiness. Also has Nexplanon for contraception. SIGNIFICANT EVENTS: No known significant events or known past surgical history. Reports received 1st dose of COVID-19 vaccine (Moderna) on 09/15/21. COMMUNITY PHARMACIST: Is : no Is : no CRITICAL CARE VITAL SIGNS: T PRBP SpO2O2(LPM) %FiO2 Method 24-Sep-2021 08:41:[id number] 100 MDM MDM/ED COURSE: This note was generated with voice recognition software and may contain errors including spelling, grammar, syntax, and misrecognization of what was dictated CHIEF COMPLAINT chest congestion/nasal congestion, fatigue HISTORY OF PRESENT ILLNESS Patient presents today with complaints of fatigue, chest congestion, dry cough, nasal congestion (clear drainage), and intermittent ear popping bilat x 10 days. Also has occasional wheezing/shortness of breath, especially with coughing fits. Reports she received her 1st Moderna COVID vaccine on 09/15/21; ~14 hours later, she developed subjective fever/chills, body aches, and other symptoms started soon after. She reports fever/chills and body aches have resolved, but other symptoms have persisted. Had mild nausea a few days ago, but none since. Reports she has a history of mild asthma but denies any recent flares. She denies any sore throat, ear pain, headaches, abdominal pain, chest pain, rashes, urinary symptoms, vomiting, and diarrhea. Denies any lightheadedness or dizziness; no changes in mental status. No swelling in legs. Appetite is normal and is able to drink fluids without difficulty; denies any loss of sense of taste, but reports has difficulty smelling - attributes this to her nasal congestion. Has been taking rx'd albuterol and Sudafed without much relief; no other olco-xct-zyskqcz medications or home remedies for symptom management. No known ill contacts. Reports is scheduled for her 2nd COVID vaccine in a few months. Is not a smoker. REVIEW OF SYSTEMS 10 systems reviewed negative with exception of history of present illness listed above PHYSICAL EXAMINATION General: Mildly ill-appearing, well nourished female; alert and oriented; in no acute distress. Sitting comfortably on exam table. Non-dyspneic. Eyes: Pupils equal, round and reactive to light. No conjunctival erythema; no scleral icterus. HENT: No frontal or maxillary sinus tenderness; + audible nasal congestion. Airway patent, TMs and ear canals clear bilaterally. Nasal mucosa injected and edematous. Oral mucosa moist. Posterior pharynx pink but without vesicles or oropharyngeal exudate. Uvula is midline. Managing oral secretions without difficulty. Neck: Supple. Mildly tender, mobile anterior cervical lymphadenopathy bilat. Trachea is midline. Respiratory: Respirations easy and unlabored, Breath sounds equal. Lungs are clear to auscultation; no wheezes, rhonchi, or rales; has good air movement throughout. + non-productive cough noted only upon request. Non-dyspneic with ambulation; able to maintain SpO2. Cardiovascular: Normal rate, Regular rhythm. Normal S1S2. No m/r/g. No peripheral edema. Gastrointestinal: Soft, non-tender, non-distended; no palpable masses or organomegaly. Bowel sounds normoactive. Musculoskeletal: Grossly normal; appropriate for age. Integumentary: [place], warm, dry, and Intact. No rashes or skin discoloration appreciated. Good skin turgor. Neurologic: Alert and oriented, no gross deficits. Cognition and Speech: Oriented, Speech clear and coherent. Psychiatric: Cooperative, Appropriate mood & affect. MEDICAL DECISION MAKING Course: Worsening; stable. Impression/Plan: No red flags on exam today. I have reviewed the COVID-19 algorithm, and counseled pt on COVID-19 current recommendations- pt declines testing today, but urged precautionary measures. Symptoms consistent with (more content not included)... Normal [facility] .Urinalysis Microscopic (AO) on 10-12-2018 RBC Test strip #/vol (U) None Seen Normal None Seen [facility] ([place]) Comment on above: Performed By: #### U A, UAMICAO ####[place] [id number] [place] [address] UA Squam Epithelial None Seen Normal None Seen [facility] ([place]) Comment on above: Performed By: #### U A, UAMICAO ####[place] [id number] [place] [address] UA WBC None Seen Normal None Seen [facility] ([place]) Comment on above: Performed By: #### U A, UAMICAO ####[address] [address] [address] ABDOMEN/PELVIS W/O CONTRA STon 10-12-2018 CT ABDOMEN/PELVIS W/O CONTRAST ORIGINALCT ABDOMEN/PELVIS W/O CONTRAST CLINICAL INDICATION: LEFT flank pain COMPARISON: None TECHNIQUE: This exam was performed according to our departmental dose-optimization program which includes automated exposure control, adjustment of the mA and/or kVp according to patient size and/or use of iterative reconstruction technique where applicable. FINDINGS: Visualized lung bases are unremarkable. Included unenhanced liver, gallbladder, spleen, adrenal glands, and pancreas are unremarkable. Kidneys are unremarkable.No nephrolithiasis or hydronephrosis.2 pelvic phleboliths are noted not in the expected course of the LEFT ureter. Urinary bladder is unremarkable. Uterus is present. No adnexal mass.No free fluid. No dilated bowel loop.Appendix is unremarkable.No free air. No abdominal or pelvic adenopathy.The aorta is not dilated.No suspicious osseous lesion. IMPRESSION: 1. No obstructive uropathy or nephrolithiasis. No acute finding. Interpreted By: Jelani Bautista MDPreliminary Report By: Jelani Bautista MDElectronically Signed By: Jelani Bautista MD Dictated Date: 10/12/2018 12:26:31 PM Prelim Date: 10/12/2018 12:26:31 PM Sign Date: 10/12/2018 12:30:31 PM Normal [facility] ([place]) PREGUon 10-12-2018 HCG ( test) Ql (U) Negative Normal [facility] ([place] Comment on above: Performed By: #### P REGU ####[address] [place], [place] [address] test (u) int HCG not detected. Invalid Interpretation Code [facility] ([place] Comment on above: Performed By: #### P REGU ####[address] [place], [place] [address] UAon 10-12-2018 Color Nom (U) Yellow Normal [facility] ([place] Comment on above: Performed By: #### U A, UAMICAO ####[place] [address] Glucose mass conc (U) Negative Normal Negative Counts include 234 beds at the [facility] ([place]) Comment on above: Performed By: #### U A, UAMICAO ####[place] [address] Ketones Ql (U) 5 mg/dL Invalid Interpretation Code Negative [facility] ([place] Comment on above: Performed By: #### U A, UAMICAO ####[place] [address] UA Appear Clear Normal Clear [facility] ([place] Comment on above: Performed By: #### U A, UAMICAO ####[place] [address] UA Blood Negative Normal Negative [facility] ([place] Comment on above: Performed By: #### U A, UAMICAO ####[place] [address] UA Leuk Est Negative Normal Negative [facility] ([place] Comment on above: Performed By: #### U A, UAMICAO ####[place] [address] UA Nitrite Negative Normal Negative [facility] ([place] Comment on above: Performed By: #### U A, UAMICAO ####[place] [address] UA pH 7.0 Normal [facility] ([place] Comment on above: Performed By: #### U A, UAMICAO ####[place] [address] UA Protein Negative Normal Negative [facility] ([place] Comment on above: Performed By: #### U A, UAMICAO ####[place] [address] UA Spec Grav 1.015 Normal [facility] ([place] Comment on above: Performed By: #### U A, UAMICAO ####[place] [id number] [place] [address] UA Specimen Type Clean Catch Normal [facility] ([place] Comment on above: Performed By: #### U A, UAMICAO ####[place] [id number] [place] [address] UA Urobilinogen 0.2 E.U./dL Normal [facility] ([place]) Comment on above: Performed By: #### U A, UAMICAO ####[place] [id number] [place] [address] Urobilinogen Test strip Qn (U) Negative Normal Negative [facility] ([place]) Comment on above: Performed By: #### U A, UAMICAO ####[address] [address] Vital Signs Date Time Vital Sign Value Performing Clinician Facility 06-22-2025 11:43-0400 Body mass index (BMI) [Ratio] 35.72 kg/m2 Vitaly Gallegos MD Work Phone: [facility] 06-22-2025 11:43-0400 Body weight 93.17 kg Vitaly Gallegos MD Work Phone: [facility] 06-22-2025 11:43-0400 Diastolic blood pressure 70 mm[Hg] Vitaly Gallegos MD Work Phone: [facility] 06-22-2025 11:43-0400 Systolic blood pressure 100 mm[Hg] Vitaly Gallegos MD Work Phone: [facility] 05-25-2025 08:33-0400 Body mass index (BMI) [Ratio] 35.48 kg/m2 Estrella Kenyon APRN.CNP Work Phone: [facility] 05-25-2025 08:33-0400 Body weight 92.53 kg Estrella Kenyon APRN.TESTBOARD OPERATOR Work Phone: [facility] 05-25-2025 08:33-0400 Diastolic blood pressure 70 mm[Hg] Estrella Kenyon APRN.CNP Work Phone: [facility] 05-25-2025 08:33-0400 Systolic blood pressure 110 mm[Hg] Estrella Haury STRAND FORMING MACHINE OPERATOR.TESTBOARD OPERATOR Work Phone: [facility] 04-13-2025 10:36-0400 Body height 161.5 cm Estrella Haury STRAND FORMING MACHINE OPERATOR.TESTBOARD OPERATOR Work Phone: [facility] 04-13-2025 10:36-0400 Body mass index (BMI) [Ratio] 34.78 kg/m2 Estrella Haury STRAND FORMING MACHINE OPERATOR.TESTBOARD OPERATOR Work Phone: [facility] 04-13-2025 10:36-0400 Body weight 90.72 kg Estrella Haury STRAND FORMING MACHINE OPERATOR.TESTBOARD OPERATOR Work Phone: [facility] 04-13-2025 10:36-0400 Diastolic blood pressure 62 mm[Hg] Estrella Haury STRAND FORMING MACHINE OPERATOR.TESTBOARD OPERATOR Work Phone: [facility] 04-13-2025 10:36-0400 Systolic blood pressure 120 mm[Hg] Estrella Haury STRAND FORMING MACHINE OPERATOR.TESTBOARD OPERATOR Work Phone: [facility] 01-26-2025 10:28-0400 Body mass index (BMI) [Ratio] 36.26 kg/m2 Estrella Haury STRAND FORMING MACHINE OPERATOR.TESTBOARD OPERATOR Work Phone: [facility] 01-26-2025 10:28-0400 Body weight 94.35 kg Estrella Haury STRAND FORMING MACHINE OPERATOR.TESTBOARD OPERATOR Work Phone: [facility] 01-26-2025 10:28-0400 Diastolic blood pressure 70 mm[Hg] Estrella Haury STRAND FORMING MACHINE OPERATOR.TESTBOARD OPERATOR Work Phone: [facility] 01-26-2025 10:28-0400 Systolic blood pressure 112 mm[Hg] Estrella Haury STRAND FORMING MACHINE OPERATOR.TESTBOARD OPERATOR Work Phone: [facility] 01-25-2025 14:19-0400 Body mass index (BMI) [Ratio] 36.74 kg/m2 Cinthya Balderas STRAND FORMING MACHINE OPERATOR.TESTBOARD OPERATOR Work Phone: [facility] 01-25-2025 14:19-0400 Body weight 95.6 kg Cinthya Tannhof STRAND FORMING MACHINE OPERATOR.TESTBOARD OPERATOR Work Phone: [facility] 01-25-2025 14:19-0400 Diastolic blood pressure 78 mm[Hg] Cinthya Tannhof STRAND FORMING MACHINE OPERATOR.TESTBOARD OPERATOR Work Phone: [facility] 01-25-2025 14:19-0400 Heart rate 77 /min Cinthya Tannhof STRAND FORMING MACHINE OPERATOR.TESTBOARD OPERATOR Work Phone: [facility] 01-25-2025 14:19-0400 Respiratory rate 16 /min Cinthya Tannhof STRAND FORMING MACHINE OPERATOR.TESTBOARD OPERATOR Work Phone: [facility] 01-25-2025 14:19-0400 SaO2% (BldA) [Mass fraction] 97 % Cinthya Tannhof STRAND FORMING MACHINE OPERATOR.TESTBOARD OPERATOR Work Phone: [facility] 01-25-2025 14:19-0400 Systolic blood pressure 116 mm[Hg] Cinthya Tannhof STRAND FORMING MACHINE OPERATOR.TESTBOARD OPERATOR Work Phone: [facility] 11-20-2024 08:21-0500 Body height 161.3 cm Cinthya Tannhof STRAND FORMING MACHINE OPERATOR.TESTBOARD OPERATOR Work Phone: [facility] 11-20-2024 08:21-0500 Body mass index (BMI) [Ratio] 35.86 kg/m2 Cinthya Tannhof STRAND FORMING MACHINE OPERATOR.TESTBOARD OPERATOR Work Phone: [facility] 11-20-2024 08:21-0500 Body weight 93.3 kg Cinthya Tannhof STRAND FORMING MACHINE OPERATOR.TESTBOARD OPERATOR Work Phone: [facility] 11-20-2024 08:21-0500 Diastolic blood pressure 70 mm[Hg] Cinthya Tannhof STRAND FORMING MACHINE OPERATOR.TESTBOARD OPERATOR Work Phone: [facility] 11-20-2024 08:21-0500 Heart rate 103 /min Cinthya Tannhof STRAND FORMING MACHINE OPERATOR.TESTBOARD OPERATOR Work Phone: [facility] 11-20-2024 08:21-0500 Respiratory rate 16 /min Cinthya Tannhof STRAND FORMING MACHINE OPERATOR.TESTBOARD OPERATOR Work Phone: [facility] 11-20-2024 08:21-0500 SaO2% (BldA) [Mass fraction] 97 % Cinthya Balderas STRAND FORMING MACHINE OPERATOR.TESTBOARD OPERATOR Work Phone: [facility] 11-20-2024 08:21-0500 Systolic blood pressure 100 mm[Hg] Cinthya Balderas STRAND FORMING MACHINE OPERATOR.TESTBOARD OPERATOR Work Phone: [facility] 10-20-2024 13:36-0500 Body mass index (BMI) [Ratio] 35.4 kg/m2 Barbara Wells MD Work Phone: [facility] 10-20-2024 13:36-0500 Body weight 92.08 kg Barbara Wells MD Work Phone: [facility] 10-20-2024 13:36-0500 Diastolic blood pressure 64 mm[Hg] Barbara Wells MD Work Phone: [facility] 10-20-2024 13:36-0500 Systolic blood pressure 118 mm[Hg] Barbara Wells MD Work Phone: [facility] 09-11-2024 10:30-0500 Body height 161.3 cm Susy Mooney STRAND FORMING MACHINE OPERATOR.CNM Work Phone: [facility] 09-11-2024 10:30-0500 Body mass index (BMI) [Ratio] 34.7 kg/m2 Susy Mooney STRAND FORMING MACHINE OPERATOR.CNM Work Phone: [facility] 09-11-2024 10:30-0500 Body weight 90.27 kg Susy Mooney STRAND FORMING MACHINE OPERATOR.CNM Work Phone: [facility] 09-11-2024 10:30-0500 Diastolic blood pressure 72 mm[Hg] Susy Mooney STRAND FORMING MACHINE OPERATOR.CNM Work Phone: [facility] 09-11-2024 10:30-0500 Systolic blood pressure 110 mm[Hg] Susy Mooney STRAND FORMING MACHINE OPERATOR.CNM Work Phone: [facility] 07-27-2024 16:37-0400 Diastolic blood pressure 74 mm[Hg] Estrella Haury STRAND FORMING MACHINE OPERATOR.TESTBOARD OPERATOR Work Phone: [facility] 07-27-2024 16:37-0400 Systolic blood pressure 120 mm[Hg] Estrella Haury STRAND FORMING MACHINE OPERATOR.TESTBOARD OPERATOR Work Phone: [facility] 07-27-2024 16:00-0400 Body mass index (BMI) [Ratio] 33.55 kg/m2 Estrella Haury STRAND FORMING MACHINE OPERATOR.TESTBOARD OPERATOR Work Phone: [facility] 07-27-2024 16:00-0400 Body weight 91.17 kg Estrella Navarreteury STRAND FORMING MACHINE OPERATOR.TESTBOARD OPERATOR Work Phone: [facility] 06-07-2024 14:40-0400 Body mass index (BMI) [Ratio] 33.02 kg/m2 Angelina Trevinoman STRAND FORMING MACHINE OPERATOR.TESTBOARD OPERATOR Work Phone: [facility] 06-07-2024 14:40-0400 Body weight 89.72 kg Angelina Trevinoman STRAND FORMING MACHINE OPERATOR.TESTBOARD OPERATOR Work Phone: [facility] 06-07-2024 14:40-0400 Diastolic blood pressure 84 mm[Hg] Angelina Ananth STRAND FORMING MACHINE OPERATOR.TESTBOARD OPERATOR Work Phone: [facility] 06-07-2024 14:40-0400 Heart rate 75 /min Angelina Trevinoman STRAND FORMING MACHINE OPERATOR.TESTBOARD OPERATOR Work Phone: [facility] 06-07-2024 14:40-0400 Respiratory rate 16 /min Angelina Trevinoman STRAND FORMING MACHINE OPERATOR.TESTBOARD OPERATOR Work Phone: [facility] 06-07-2024 14:40-0400 SaO2% (BldA) [Mass fraction] 98 % Angelina Ananth STRAND FORMING MACHINE OPERATOR.TESTBOARD OPERATOR Work Phone: [facility] 06-07-2024 14:40-0400 Systolic blood pressure 118 mm[Hg] Angelina Ananth STRAND FORMING MACHINE OPERATOR.TESTBOARD OPERATOR Work Phone: [facility] 05-30-2024 14:29-0400 Body mass index (BMI) [Ratio] 32.95 kg/m2 Angelina Ananth STRAND FORMING MACHINE OPERATOR.TESTBOARD OPERATOR Work Phone: [facility] 05-30-2024 14:29-0400 Body temperature 97.9 [degF] Angelina Ananth STRAND FORMING MACHINE OPERATOR.TESTBOARD OPERATOR Work Phone: [facility] 05-30-2024 14:29-0400 Body weight 89.54 kg Angelina Ananth STRAND FORMING MACHINE OPERATOR.TESTBOARD OPERATOR Work Phone: [facility] 05-30-2024 14:29-0400 Diastolic blood pressure 70 mm[Hg] Angelina Ananth STRAND FORMING MACHINE OPERATOR.TESTBOARD OPERATOR Work Phone: [facility] 05-30-2024 14:29-0400 Heart rate 83 /min Angelina Ananth STRAND FORMING MACHINE OPERATOR.TESTBOARD OPERATOR Work Phone: [facility] 05-30-2024 14:29-0400 Respiratory rate 16 /min Angelina Ananth STRAND FORMING MACHINE OPERATOR.TESTBOARD OPERATOR Work Phone: [facility] 05-30-2024 14:29-0400 SaO2% (BldA) [Mass fraction] 98 % Angelina Ananth STRAND FORMING MACHINE OPERATOR.TESTBOARD OPERATOR Work Phone: [facility] 05-30-2024 14:29-0400 Systolic blood pressure 118 mm[Hg] Angelina Ananth STRAND FORMING MACHINE OPERATOR.TESTBOARD OPERATOR Work Phone: [facility] 05-26-2024 11:32-0400 Body mass index (BMI) [Ratio] 33.25 kg/m2 Angelina Ananth STRAND FORMING MACHINE OPERATOR.TESTBOARD OPERATOR Work Phone: [facility] 05-26-2024 11:32-0400 Body temperature 97.9 [degF] Angelina Ananth STRAND FORMING MACHINE OPERATOR.TESTBOARD OPERATOR Work Phone: [facility] 05-26-2024 11:32-0400 Body weight 90.36 kg Angelina Ananth STRAND FORMING MACHINE OPERATOR.TESTBOARD OPERATOR Work Phone: [facility] 05-26-2024 11:32-0400 Diastolic blood pressure 82 mm[Hg] Angelina Ananth STRAND FORMING MACHINE OPERATOR.TESTBOARD OPERATOR Work Phone: [facility] 05-26-2024 11:32-0400 Heart rate 77 /min Angelina Ananth STRAND FORMING MACHINE OPERATOR.TESTBOARD OPERATOR Work Phone: [facility] 05-26-2024 11:32-0400 Respiratory rate 16 /min Angelina Ananth STRAND FORMING MACHINE OPERATOR.TESTBOARD OPERATOR Work Phone: [facility] 05-26-2024 11:32-0400 SaO2% (BldA) [Mass fraction] 98 % Angelina Ananth STRAND FORMING MACHINE OPERATOR.TESTBOARD OPERATOR Work Phone: [facility] 05-26-2024 11:32-0400 Systolic blood pressure 118 mm[Hg] Angelina Ananth STRAND FORMING MACHINE OPERATOR.TESTBOARD OPERATOR Work Phone: [facility] 04-06-2024 14:24-0400 Body mass index (BMI) [Ratio] 32.88 kg/m2 Cinthya Tannhof STRAND FORMING MACHINE OPERATOR.TESTBOARD OPERATOR Work Phone: [facility] 04-06-2024 14:24-0400 Body weight 89.36 kg Cinthya Tannhof STRAND FORMING MACHINE OPERATOR.TESTBOARD OPERATOR Work Phone: [facility] 04-06-2024 14:24-0400 Diastolic blood pressure 76 mm[Hg] Cinthya Tannhof STRAND FORMING MACHINE OPERATOR.TESTBOARD OPERATOR Work Phone: [facility] 04-06-2024 14:24-0400 Heart rate 96 /min Cinthya Tannhof STRAND FORMING MACHINE OPERATOR.TESTBOARD OPERATOR Work Phone: [facility] 04-06-2024 14:24-0400 Respiratory rate 16 /min Cinthya Tannhof STRAND FORMING MACHINE OPERATOR.TESTBOARD OPERATOR Work Phone: [facility] 04-06-2024 14:24-0400 SaO2% (BldA) [Mass fraction] 99 % Cinthya Tannhof STRAND FORMING MACHINE OPERATOR.TESTBOARD OPERATOR Work Phone: [facility] 04-06-2024 14:24-0400 Systolic blood pressure 110 mm[Hg] Cinthya Tannhof STRAND FORMING MACHINE OPERATOR.TESTBOARD OPERATOR Work Phone: [facility] 04-05-2024 15:42-0400 Body mass index (BMI) [Ratio] 32.86 kg/m2 Rob Currie STRAND FORMING MACHINE OPERATOR.TESTBOARD OPERATOR Work Phone: [facility] 04-05-2024 15:42-0400 Body temperature 98.29 [degF] Rob Ryannaidenmelvi STRAND FORMING MACHINE OPERATOR.TESTBOARD OPERATOR Work Phone: [facility] 04-05-2024 15:42-0400 Body weight 89.3 kg Rob Ryannaidenmelvi STRAND FORMING MACHINE OPERATOR.TESTBOARD OPERATOR Work Phone: [facility] 04-05-2024 15:42-0400 Diastolic blood pressure 70 mm[Hg] Rob Rosey STRAND FORMING MACHINE OPERATOR.TESTBOARD OPERATOR Work Phone: [facility] 04-05-2024 15:42-0400 Heart rate 77 /min Rob Currie STRAND FORMING MACHINE OPERATOR.TESTBOARD OPERATOR Work Phone: [facility] 04-05-2024 15:42-0400 Respiratory rate 20 /min Rob Currie STRAND FORMING MACHINE OPERATOR.TESTBOARD OPERATOR Work Phone: [facility] 04-05-2024 15:42-0400 SaO2% (BldA) [Mass fraction] 99 % Rob Ryannaidenmelvi STRAND FORMING MACHINE OPERATOR.TESTBOARD OPERATOR Work Phone: [facility] 04-05-2024 15:42-0400 Systolic blood pressure 100 mm[Hg] Rob Ryannaidenmelvi STRAND FORMING MACHINE OPERATOR.TESTBOARD OPERATOR Work Phone: [facility] 09-10-2023 09:27-0500 Body height 164.8 cm Susy Mooney STRAND FORMING MACHINE OPERATOR.CNM Work Phone: [facility] 09-10-2023 09:27-0500 Body weight 83.64 kg Susy Mooney STRAND FORMING MACHINE OPERATOR.CNM Work Phone: [facility] 09-10-2023 09:27-0500 Diastolic blood pressure 64 mm[Hg] Susy Mooney STRAND FORMING MACHINE OPERATOR.CNM Work Phone: [facility] 09-10-2023 09:27-0500 Systolic blood pressure 116 mm[Hg] Susy Mooney STRAND FORMING MACHINE OPERATOR.CNM Work Phone: [facility] 08-20-2023 09:12-0400 Body weight 87.09 kg Cinthya Tannhof STRAND FORMING MACHINE OPERATOR.TESTBOARD OPERATOR Work Phone: [facility] 08-20-2023 09:12-0400 Diastolic blood pressure 72 mm[Hg] Cinthya Tannhof STRAND FORMING MACHINE OPERATOR.TESTBOARD OPERATOR Work Phone: [facility] 08-20-2023 09:12-0400 Heart rate 78 /min Cinthya Tannhof STRAND FORMING MACHINE OPERATOR.TESTBOARD OPERATOR Work Phone: [facility] 08-20-2023 09:12-0400 Respiratory rate 16 /min Cinthya Tannhof STRAND FORMING MACHINE OPERATOR.TESTBOARD OPERATOR Work Phone: [facility] 08-20-2023 09:12-0400 SaO2% (BldA) [Mass fraction] 98 % Cinthya Tannhof STRAND FORMING MACHINE OPERATOR.TESTBOARD OPERATOR Work Phone: [facility] 08-20-2023 09:12-0400 Systolic blood pressure 108 mm[Hg] Cinthya Tannhof STRAND FORMING MACHINE OPERATOR.TESTBOARD OPERATOR Work Phone: [facility] 07-23-2023 13:41-0400 Body temperature 98.1 [degF] Gretta Athy PA-C Work Phone: [facility] 07-23-2023 13:41-0400 Body weight 85.73 kg Gretta Athy PA-C Work Phone: [facility] 07-23-2023 13:41-0400 Diastolic blood pressure 80 mm[Hg] Gretta Athy PA-C Work Phone: [facility] 07-23-2023 13:41-0400 Heart rate 80 /min Gretta Athy PA-C Work Phone: [facility] 07-23-2023 13:41-0400 Respiratory rate 21 /min Gretta Athy PA-C Work Phone: [facility] 07-23-2023 13:41-0400 SaO2% (BldA) [Mass fraction] 99 % Gretta Athy PA-C Work Phone: [facility] 07-23-2023 13:41-0400 Systolic blood pressure 110 mm[Hg] Gretta Hyde PA-C Work Phone: [facility] 07-12-2023 17:26-0400 Body height 165.1 cm [facility] 07-12-2023 17:26-0400 Body mass index (BMI) [Ratio] 31.6 kg/m2 [facility] 07-12-2023 17:26-0400 Body temperature 97.8 [degF] [facility] 07-12-2023 17:26-0400 Body weight 86.09 kg [facility] 07-12-2023 17:26-0400 Diastolic blood pressure 82 mm[Hg] [facility] 07-12-2023 17:26-0400 Heart rate 78 /min [facility] 07-12-2023 17:26-0400 Respiratory rate 16 /min [facility] 07-12-2023 17:26-0400 SaO2% (BldA) [Mass fraction] 100 % [facility] 07-12-2023 17:26-0400 Systolic blood pressure 120 mm[Hg] [facility] 02-19-2023 11:14-0400 Diastolic blood pressure 68 mm[Hg] Cinthya Tannhof STRAND FORMING MACHINE OPERATOR.TESTBOARD OPERATOR Work Phone: [facility] 02-19-2023 11:14-0400 Heart rate 80 /min Cinthya Katelinhof STRAND FORMING MACHINE OPERATOR.TESTBOARD OPERATOR Work Phone: [facility] 02-19-2023 11:14-0400 Respiratory rate 18 /min Cinthya Tannhof STRAND FORMING MACHINE OPERATOR.TESTBOARD OPERATOR Work Phone: [facility] 02-19-2023 11:14-0400 Systolic blood pressure 110 mm[Hg] Cinthya Tannhof STRAND FORMING MACHINE OPERATOR.TESTBOARD OPERATOR Work Phone: [facility] 11-20-2022 11:08-0500 Body weight 82.1 kg Cinthyasybil Thomasonhof STRAND FORMING MACHINE OPERATOR.TESTBOARD OPERATOR Work Phone: [facility] 11-20-2022 11:08-0500 Diastolic blood pressure 62 mm[Hg] Cinthya Tannhof STRAND FORMING MACHINE OPERATOR.TESTBOARD OPERATOR Work Phone: [facility] 11-20-2022 11:08-0500 Heart rate 86 /min Cinthya Thomasonhof STRAND FORMING MACHINE OPERATOR.TESTBOARD OPERATOR Work Phone: [facility] 11-20-2022 11:08-0500 Respiratory rate 16 /min Cinthya Thomasonhof STRAND FORMING MACHINE OPERATOR.TESTBOARD OPERATOR Work Phone: [facility] 11-20-2022 11:08-0500 SaO2% (BldA) [Mass fraction] 99 % Cinthya Thomasonhof STRAND FORMING MACHINE OPERATOR.TESTBOARD OPERATOR Work Phone: [facility] 11-20-2022 11:08-0500 Systolic blood pressure 106 mm[Hg] Cinthya Balderas STRAND FORMING MACHINE OPERATOR.TESTBOARD OPERATOR Work Phone: [facility] 10-12-2022 10:09-0500 Body weight 80.29 kg Johnson Gonzalez MD Work Phone: [facility] 10-12-2022 10:09-0500 Diastolic blood pressure 72 mm[Hg] Johnson Gonzalez MD Work Phone: [facility] 10-12-2022 10:09-0500 Heart rate 74 /min Johnson Gonzalez MD Work Phone: [facility] 10-12-2022 10:09-0500 Respiratory rate 16 /min Johnosn Gonzalez MD Work Phone: [facility] 10-12-2022 10:09-0500 Systolic blood pressure 120 mm[Hg] Johnson Gonzalez MD Work Phone: [facility] 10-09-2022 09:08-0500 Body temperature 98.29 [degF] Theresa Childs STRAND FORMING MACHINE OPERATOR.TESTBOARD OPERATOR Work Phone: [facility] 10-09-2022 09:08-0500 Body weight 81.19 kg Theresa Childs STRAND FORMING MACHINE OPERATOR.TESTBOARD OPERATOR Work Phone: [facility] 10-09-2022 09:08-0500 Diastolic blood pressure 84 mm[Hg] Theresa Childs STRAND FORMING MACHINE OPERATOR.TESTBOARD OPERATOR Work Phone: [facility] 10-09-2022 09:08-0500 Heart rate 88 /min Theresa Callow STRAND FORMING MACHINE OPERATOR.TESTBOARD OPERATOR Work Phone: [facility] 10-09-2022 09:08-0500 Respiratory rate 18 /min Theresa Callow STRAND FORMING MACHINE OPERATOR.TESTBOARD OPERATOR Work Phone: [facility] 10-09-2022 09:08-0500 SaO2% (BldA) [Mass fraction] 98 % Theresa Callow STRAND FORMING MACHINE OPERATOR.TESTBOARD OPERATOR Work Phone: [facility] 10-09-2022 09:08-0500 Systolic blood pressure 126 mm[Hg] Theresa Callow STRAND FORMING MACHINE OPERATOR.TESTBOARD OPERATOR Work Phone: [facility] 08-19-2022 16:39-0400 Body weight 78.02 kg Cinthyasybil Thomasonhof STRAND FORMING MACHINE OPERATOR.TESTBOARD OPERATOR Work Phone: [facility] 08-19-2022 16:39-0400 Diastolic blood pressure 64 mm[Hg] Cinthya Tannhof STRAND FORMING MACHINE OPERATOR.TESTBOARD OPERATOR Work Phone: [facility] 08-19-2022 16:39-0400 Heart rate 70 /min Cinthya Tannhof STRAND FORMING MACHINE OPERATOR.TESTBOARD OPERATOR Work Phone: [facility] 08-19-2022 16:39-0400 Respiratory rate 16 /min Cinthya Katelinhof STRAND FORMING MACHINE OPERATOR.TESTBOARD OPERATOR Work Phone: [facility] 08-19-2022 16:39-0400 SaO2% (BldA) [Mass fraction] 100 % Cinthya Katelinhof STRAND FORMING MACHINE OPERATOR.TESTBOARD OPERATOR Work Phone: [facility] 08-19-2022 16:39-0400 Systolic blood pressure 102 mm[Hg] Cinthya Tannhof STRAND FORMING MACHINE OPERATOR.TESTBOARD OPERATOR Work Phone: [facility] 05-20-2022 18:54-0400 Body weight 76.2 kg Johnson Gonzalez MD Work Phone: [facility] 05-20-2022 18:54-0400 Diastolic blood pressure 80 mm[Hg] Johnson Gonzalez MD Work Phone: [facility] 05-20-2022 18:54-0400 Heart rate 78 /min Johnson Gonzalez MD Work Phone: [facility] 05-20-2022 18:54-0400 Respiratory rate 16 /min Johnson Gonzalez MD Work Phone: [facility] 05-20-2022 18:54-0400 Systolic blood pressure 120 mm[Hg] Johnson Gonzalez MD Work Phone: [facility] 02-13-2022 07:35-0400 Body weight 73.03 kg Cinthya Thomasonhobeny STRAND FORMING MACHINE OPERATOR.TESTBOARD OPERATOR Work Phone: [facility] 02-13-2022 07:35-0400 Diastolic blood pressure 60 mm[Hg] Cinthya Thomasonhof STRAND FORMING MACHINE OPERATOR.TESTBOARD OPERATOR Work Phone: [facility] 02-13-2022 07:35-0400 Heart rate 77 /min Cinthya Thomasonhof STRAND FORMING MACHINE OPERATOR.TESTBOARD OPERATOR Work Phone: [facility] 02-13-2022 07:35-0400 Respiratory rate 16 /min Cinthya Thomasonhof STRAND FORMING MACHINE OPERATOR.TESTBOARD OPERATOR Work Phone: [facility] 02-13-2022 07:35-0400 SaO2% (BldA) [Mass fraction] 99 % Cinthya Thomasonhof STRAND FORMING MACHINE OPERATOR.TESTBOARD OPERATOR Work Phone: [facility] 02-13-2022 07:35-0400 Systolic blood pressure 90 mm[Hg] Cinthya Thomasonhof STRAND FORMING MACHINE OPERATOR.TESTBOARD OPERATOR Work Phone: [facility] 02-06-2022 15:48-0400 Body height 162.6 cm Arlette Earling PA-C Work Phone: [facility] 02-06-2022 15:48-0400 Body temperature 98.6 [degF] Arlette Woody PA-C Work Phone: [facility] 02-06-2022 15:48-0400 Body weight 71.67 kg Arlette Woody PA-C Work Phone: [facility] 02-06-2022 15:48-0400 Diastolic blood pressure 72 mm[Hg] Arlette Earling PA-C Work Phone: [facility] 02-06-2022 15:48-0400 Heart rate 115 /min Arlette Earling PA-C Work Phone: [facility] 02-06-2022 15:48-0400 SaO2% (BldA) [Mass fraction] 96 % Arlette Woody PA-C Work Phone: [facility] 02-06-2022 15:48-0400 Systolic blood pressure 114 mm[Hg] Arlette Earling PA-C Work Phone: [facility] 02-06-2022 14:26-0400 Body temperature 97.59 [degF] Curtis Syd STRAND FORMING MACHINE OPERATOR.TESTBOARD OPERATOR Work Phone: [facility] 02-06-2022 14:26-0400 Body weight 72.58 kg Curtis Syd STRAND FORMING MACHINE OPERATOR.TESTBOARD OPERATOR Work Phone: [facility] 02-06-2022 14:26-0400 Diastolic blood pressure 70 mm[Hg] Curtis Syd STRAND FORMING MACHINE OPERATOR.TESTBOARD OPERATOR Work Phone: [facility] 02-06-2022 14:26-0400 Heart rate 96 /min Curtis Syd STRAND FORMING MACHINE OPERATOR.TESTBOARD OPERATOR Work Phone: [facility] 02-06-2022 14:26-0400 Respiratory rate 14 /min Curtis Syd STRAND FORMING MACHINE OPERATOR.TESTBOARD OPERATOR Work Phone: [facility] 02-06-2022 14:26-0400 Systolic blood pressure 110 mm[Hg] Curtis Syd STRAND FORMING MACHINE OPERATOR.TESTBOARD OPERATOR Work Phone: [facility] 09-24-2021 10:41-0500 Body height 162.5 cm Johnson Gonzalez Other Phone: [facility] 09-24-2021 10:41-0500 Body temperature 97.7 [degF] Johnson Gonzalez Other Phone: [facility] 09-24-2021 10:41-0500 Diastolic blood pressure 66 mm[Hg] Johnson Gonzalez Other Phone: [facility] 09-24-2021 10:41-0500 Heart rate 72 /min Johnson Gonzalez Other Phone: [facility] 09-24-2021 10:41-0500 Respiratory rate 16 /min Johnson Gonzalez Other Phone: [facility] 09-24-2021 10:41-0500 SaO2% (BldA) [Mass fraction] 100 % Johnson Gonzalez Other Phone: [facility] 09-24-2021 10:41-0500 Systolic blood pressure 103 mm[Hg] Johnson Gonzalez Other Phone: [facility] Encounters Encounter Date Encounter Type Care Provider Facility Start: 12-02-2025 ambulatory [facility] Facility: [facility] Start: 09-10-2025 End: 09-10-2025 ambulatory [facility] Facility:[facility] Start: 08-15-2025 End: 08-15-2025 ambulatory [facility] Facility:[facility] Start: 08-14-2025 End: 08-14-2025 ambulatory SELF Facility:[facility] Start: 07-19-2025 End: 07-19-2025 ambulatory [facility] Facility:[facility] Start: 06-22-2025 End: 06-22-2025 Patient encounter procedure Vitaly Gallegos MD Work Phone: OB/Gynecology Comment on above: 16 weeks gestation o f (HCC) (Primary Dx); Supervision of high risk due to social problems, second trimester (HCC); Obesity affecting in second trimester, unspecified obesity type (HCC) Start: 06-22-2025 End: 06-22-2025 Patient encounter procedure [facility] 1 Intravenous Therapy Nurse [facility] Comment on above: Obesity affecting pr egnancy in second trimester, unspecified obesity type (HCC) (Primary Dx); Supervision of high risk due to social problems, second trimester (HCC); Supervision of high risk in second trimester (HCC) Start: 06-22-2025 End: 06-22-2025 ambulatory [facility] Facility:[facility] Start: 05-25-2025 End: 05-25-2025 Patient encounter procedure Whi Tech 1 Intravenous Therapy Nurse [facility] Comment on above: Obesity affecting pr egnancy in first trimester, unspecified obesity type (HCC) (Primary Dx); Encounter for supervision of high risk in first trimester, antepartum (HCC); 6 weeks gestation of (HCC) Supervision of high risk due to social problems, second trimester (HCC) (Primary Dx); 12 weeks gestation of (HCC); Obesity affecting in second trimester, unspecified obesity type (HCC); History of group B Streptococcus (GBS) infection Start: 05-25-2025 End: 05-25-2025 [facility] Start: 04-30-2025 End: 04-30-2025 Telephone encounter Estrella Kenyon APRN.TESTBOARD OPERATOR Work Phone: [address] [place] [address] Comment on above: Patient Question Start: 04-17-2025 End: 06-17-2025 Follow-up encounter Adolfo Tejeda MD Work Phone: OB/Gynecology Start: 04-13-2025 End: 04-13-2025 Patient encounter procedure Estrella Kenyon APRN.TESTBOARD OPERATOR Work Phone: OB/Gynecology Comment on above: Encounter for superv ision of high risk in first trimester, antepartum (HCC) (Primary Dx); 6 weeks gestation of (HCC); with uncertain dates in first trimester (HCC); Nausea and vomiting during (HCC); Obesity affecting in first trimester, unspecified obesity type (HCC); History of group B Streptococcus (GBS) infection; Screen for STD (sexually transmitted disease); Encounter for screening for human papillomavirus (HPV); Attention deficit hyperactivity disorder (ADHD), unspecified ADHD type; Uncomplicated asthma, unspecified asthma severity, unspecified whether persistent (HCC) Start: 04-13-2025 End: 04-13-2025 ambulatory JOHNSON ABARCAROBBINS Facility:[facility] Start: 02-12-2025 End: 02-12-2025 Refill Johnson Gonzalez MD Work Phone: [facility] [place] Comment on above: Refill Request Start: 01-29-2025 End: 03-31-2025 Follow-up encounter Pooja Chowdary APRN.CNP Work Phone: OB/Gynecology Start: 01-26-2025 End: 01-26-2025 E-mail encounter from caregiver Estrella Kenyon JIMENA Work Phone: OB/Gynecology Start: 01-26-2025 End: 06-29-2025 Telephone encounter Cinthya Balderas APRN.CNP Work Phone: [facility] [place] Comment on above: Insurance Authorizat ion (Ozempic) Start: 01-26-2025 End: 01-26-2025 ambulatory Estrella Kenyon APRN.CNP Work Phone: OB/Gynecology Comment on above: Semen Analysis Start: 01-26-2025 End: 01-26-2025 Patient encounter procedure Estrella Kenyon APRN.CNP Work Phone: OB/Gynecology Comment on above: Pre-conception couns eling (Primary Dx); Nipple discharge; Encounter for vitamin deficiency screening Start: 01-25-2025 End: 01-25-2025 Office outpatient visit 25 minutes Cinthya Balderas APRN.CNP Work Phone: [facility] [place] Comment on above: Weight gain (Primary Dx); BMI 36.0-36.9,adult; Attention deficit hyperactivity disorder (ADHD), unspecified ADHD type Start: 01-25-2025 End: 01-26-2025 ambulatory Cinthya Balderas APRN.CNP Work Phone: [facility] [place] Comment on above: New medicine Start: 12-14-2024 End: 12-14-2024 Refill Johnson Gonzalez MD Work Phone: [address] [place] [address] Comment on above: Refill Request Start: 11-29-2024 End: 11-29-2024 Telephone encounter Cinthya Balderas APRN.CNP Work Phone: [facility] Comment on above: Results (Labs ) Start: 11-24-2024 End: 11-24-2024 ambulatory [facility] Start: 11-20-2024 End: 11-20-2024 Office outpatient visit 40 minutes Cinthya Balderas TESTBOARD OPERATOR Work Phone: [facility] [place] Comment on above: Wellness examination (Primary Dx); Attention deficit hyperactivity disorder (ADHD), unspecified ADHD type; Missed menses; Screening for depression; Screening for diabetes mellitus; Screening cholesterol level; Encounter for screening examination for other mental health and behavioral disorders Start: 11-20-2024 End: 11-20-2024 Patient encounter status Cinthya Balderas TESTBOARD OPERATOR Work Phone: [facility] Work Phone: Start: 11-20-2024 End: 11-20-2024 ambulatory [facility] Facility:[facility] Start: 11-20-2024 Encounter for genera l adult medical examination without abnormal findings CINTHYA LEBRON KATELINBeny [facility] Start: 11-15-2024 End: 11-16-2024 Refill Johnson Gonzalez MD Work Phone: [facility] [place] Comment on above: Refill Request Start: 10-20-2024 End: 10-20-2024 ambulatory [facility] Facility:[facility] Start: 10-20-2024 End: 10-20-2024 Patient encounter procedure Barbara Wells MD Work Phone: OB/Gynecology Comment on above: Vaginal high risk hu man papillomavirus (HPV) DNA test positive (Primary Dx) Start: 10-16-2024 End: 10-16-2024 Refill Johnson Gonzalez MD Work Phone: [facility] [place] Comment on above: Refill Request Start: 09-12-2024 End: 09-12-2024 Refill Johnson Gonzalez MD Work Phone: [facility] [place] Comment on above: Refill Request Start: 09-11-2024 End: 09-11-2024 Patient encounter procedure Susy Mooney APRN.CNM Work Phone: OB/Gynecology Comment on above: Encounter for gyneco logical examination (general) (routine) without abnormal findings (Primary Dx); Screening for cervical cancer; Encounter for screening for human papillomavirus (HPV); Cervical high risk human papillomavirus (HPV) DNA test positive Start: 09-11-2024 End: 09-11-2024 Patient encounter status Susy Mooney GENNAROM Work Phone: [facility] Start: 08-07-2024 End: 08-07-2024 Refill Johnson Gonzalez MD Work Phone: [facility] [place] Comment on above: Refill Request Start: 07-27-2024 End: 07-27-2024 Patient encounter procedure Estrella Kenyon APRN.TESTBOARD OPERATOR Work Phone: OB/Gynecology Comment on above: Nexplanon removal (P rimary Dx) Start: 07-10-2024 End: 07-10-2024 Refill Johnson Gonzalez MD Work Phone: [facility] [place] Comment on above: Refill Request Start: 06-09-2024 Telephone encounter Estrella guan APRN.TESTBOARD OPERATOR Work Phone: OB/Gynecology Comment on above: Appointment; Orders Refill Request Start: 06-07-2024 End: 06-07-2024 Office outpatient visit 25 minutes Angelina Wadsworth APRN.TESTBOARD OPERATOR Work Phone: [facility] [place] Comment on above: Fatigue, unspecified type (Primary Dx); Weight gain; Family history of thyroid disease Start: 05-31-2024 Telephone encounter Angelina Pierce APRN.TESTBOARD OPERATOR Work Phone: [facility] [place] Comment on above: send record Start: 05-30-2024 End: 05-30-2024 Office outpatient visit 15 minutes Angelina Wadsworth APRN.CNP Work Phone: [facility] [place] Comment on above: Cellulitis of skin ( Primary Dx); Rash; Insect bite of right lower extremity, subsequent encounter Start: 05-26-2024 End: 05-26-2024 Patient encounter procedure Angelina Wadsworth APRN.CNP Work Phone: [facility] [place] Comment on above: Cellulitis of skin ( Primary Dx); Insect bite of right lower extremity, subsequent encounter Start: 05-10-2024 Refill Johnson anderson MD Work Phone: [facility] [place] Comment on above: Refill Request Start: 04-25-2024 ambulatory [facility] israel Roman Comment on above: Antibiotic Start: 04-25-2024 E-mail encounter fro m caregiver [facility] Provider [facility] [place] Start: 04-20-2024 Telephone encounter Johnson levi MD Work Phone: [facility] [place] Comment on above: Patient Update Start: 04-11-2024 Refill Johnson anderson MD Work Phone: [facility] Comment on above: Refill Request Start: 04-06-2024 End: 04-06-2024 Patient encounter procedure Cinthya Balderas APRN.TESTBOARD OPERATOR Work Phone: [facility] [place] Comment on above: Contact dermatitis, unspecified contact dermatitis type, unspecified trigger (Primary Dx); Insect bite of left lower leg, initial encounter Start: 04-05-2024 End: 04-05-2024 Office outpatient visit 15 minutes Rob Currie APRN.TESTBOARD OPERATOR Work Phone: [facility] Comment on above: Rash (Primary Dx) Start: 02-11-2024 Refill Johnson anderson MD Work Phone: [facility] Comment on above: Refill Request; Erro neous encounter-disregard Start: 12-14-2023 Refill Johnson anderson MD Work Phone: [facility] [place] Comment on above: Refill Request Start: 10-14-2023 Refill Johnson anderson MD Work Phone: [facility] Comment on above: Refill Request Start: 10-01-2023 Telephone encounter Susy pascual APRN.CNM Work Phone: OB/Gynecology Comment on above: Results Start: 09-16-2023 Refill Johnson anderson MD Work Phone: [facility] Comment on above: Refill Request Start: 09-10-2023 End: 09-10-2023 Patient encounter procedure Susy Mooney STRAND FORMING MACHINE OPERATOR.CNM Work Phone: OB/Gynecology Comment on above: Encounter for gyneco logical examination (general) (routine) without abnormal findings (Primary Dx); Women's annual routine gynecological examination; Screening for cervical cancer; Encounter for screening for human papillomavirus (HPV) Start: 09-10-2023 End: 09-10-2023 Patient encounter status Susy Mooney STRAND FORMING MACHINE OPERATOR.CNM Work Phone: [facility] Start: 08-25-2023 Telephone encounter Cinthya red STRAND FORMING MACHINE OPERATOR.SIMI Work Phone: [facility] [place] Comment on above: Results (Labs ) Start: 08-20-2023 End: 08-20-2023 Patient encounter procedure Cinthya Balderas APRN.CNP Work Phone: [facility] Comment on above: Wellness examination (Primary Dx); Attention deficit hyperactivity disorder (ADHD), unspecified ADHD type; Mild intermittent asthma without complication; Encounter for immunization; Women's annual routine gynecological examination; Screening for diabetes mellitus; Screening for lipid disorders Start: 08-20-2023 End: 08-20-2023 Patient encounter status Cinthya Balderas APRN.CNP Work Phone: [facility] [facility] Work Phone: Start: 08-12-2023 Refill Johnson anderson MD Work Phone: [facility] Comment on above: Refill Request Start: 07-23-2023 End: 07-23-2023 Patient encounter procedure Gretta Hyde PA-C Work Phone: [facility] Comment on above: Visit for suture rem oval (Primary Dx) Start: 07-12-2023 End: 07-12-2023 [facility] Start: 02-23-2023 Telephone encounter Cinthya red APRN.TESTBOARD OPERATOR Work Phone: [facility] Comment on above: Rx not available at pharmacy Start: 02-19-2023 End: 02-19-2023 Patient encounter procedure Cinthya Sherrie STRAND FORMING MACHINE OPERATOR.TESTBOARD OPERATOR Work Phone: [facility] Comment on above: Attention deficit hy peractivity disorder (ADHD), unspecified ADHD type (Primary Dx) Start: 11-27-2022 Refill Johnson anderson MD Work Phone: [facility] [place] Comment on above: Refill Request Start: 11-20-2022 End: 11-20-2022 Patient encounter procedure Cinthya Sherrie STRAND FORMING MACHINE OPERATOR.TESTBOARD OPERATOR Work Phone: [facility] Comment on above: Attention deficit hy peractivity disorder (ADHD), unspecified ADHD type (Primary Dx) Start: 10-12-2022 End: 10-12-2022 Patient encounter procedure Johnson Gonzalez MD Work Phone: [facility] Comment on above: Rash (Primary Dx); Hives Start: 10-09-2022 End: 10-09-2022 Patient encounter procedure Theresa Childs STRAND FORMING MACHINE OPERATOR.TESTBOARD OPERATOR Work Phone: [facility] Comment on above: Allergic reaction, i nitial encounter (Primary Dx) Start: 08-19-2022 End: 08-19-2022 Patient encounter procedure Cinthya Sherrie LING.TESTBOARD OPERATOR Work Phone: [facility] Comment on above: Attention deficit hy peractivity disorder (ADHD), unspecified ADHD type (Primary Dx) Start: 06-23-2022 Refill Johnson anderson MD Work Phone: [facility] Comment on above: Refill Request ([facility]) Start: 05-20-2022 End: 05-20-2022 Patient encounter procedure Johnson Gonzalez MD Work Phone: [facility] [place] Comment on above: Attention deficit hy peractivity disorder (ADHD), unspecified ADHD type (Primary Dx) Start: 02-13-2022 End: 02-13-2022 Patient encounter procedure Cinthya Balderas STRAND FORMING MACHINE OPERATOR.TESTBOARD OPERATOR Work Phone: [facility] [place] Comment on above: Attention deficit hy peractivity disorder (ADHD), unspecified ADHD type (Primary Dx) Start: 02-06-2022 End: 02-06-2022 Patient encounter procedure Curtisnaveen Chan APRN.TESTBOARD OPERATOR Work Phone: [facility] [place] Comment on above: Infected sebaceous c yst (Primary Dx) Axillary abscess (Pr imary Dx) Start: 01-23-2022 Telephone encounter Johnson levi MD Work Phone: [facility] [place] Comment on above: Refill Request; Refi ll Request Start: 09-24-2021 End: 09-24-2021 Emergency department patient visit Adriana Damico [facility] Start: 10-12-2018 End: 10-12-2018 Emergency department patient visit JULIA GOODWIN Facility:B Procedures Date Procedure Procedure Detail Performing Clinician Start: 06-22-2025 Us preg uterus after 1st trimest 1/ gestation Estrella Kenyon APRN.TESTBOARD OPERATOR Work Phone: Start: 05-25-2025 Us preg uterus after 1st trimest / gestation Estrella Kenyon APRN.TESTBOARD OPERATOR Work Phone: Start: 04-13-2025 Antibody screen JOHNSON FREY Comment on above: Order Comment: Speci men Type: BLOOD SPECIMENOrdering Facility: [facility] Address: [address] [place] [address] Performed By: #### T SPN ####CC [facility] [id number] [place] [address] [place] Start: 04-13-2025 Us uterus l imited 1/> fetuses Estrella Kenyon APRN.TESTBOARD OPERATOR Work Phone: Start: 11-20-2024 Adult depression scr eening assessment Cinthya Balderas APRN.TESTBOARD OPERATOR Work Phone: Start: 10-20-2024 UA DIP,URINE HCG (POC) Barbara Wells MD Work Phone: Start: 07-12-2023 Plain x-ray of hand Start: 02-04-2022 Adult depression scr eening assessment Curtis Chan APRN.CNP Work Phone: Plan of Treatment Date Care Activity Detail Author Start: 08-20-2033 Urine microalbumin profile DTa P,Tdap,Td Vaccine (7 - Td or Tdap) [facility] Start: 09-10-2028 HPV Testing HPV Testing [facility] Start: 09-10-2028 Pap Testing Pap Testing [facility] Start: 09-10-2028 Screening for malign ant neoplasm of cervix [facility] Start: 04-13-2026 Screening for malign ant neoplasm of cervix Cervical Cancer Screening [facility] Start: 01-25-2026 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 Start: 11-20-2025 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 Start: 11-20-2025 Anxiety Screening Anxiety Screening [facility] Start: 11-20-2025 Depression Screening Depression Scre ening [facility] Start: 11-20-2025 Hepatitis C screening Hepatitis C Sc tyra [facility] Comment on above: Postponed from 10/10 (Declined at this time) Start: 10-07-2025 RSV Vaccine (1 - Ris k 1-dose series) RSV Vaccine (1 - Risk 1-dose series) [facility] Start: 09-24-2025 End: 09-24-2025 Patient encounter procedure 09/24/2025 2:45 PM EST Office Visit OB/Gynecology [address] [place] [address] Susy Mooney APRN.CN [address] [place] [address] Annual OB/Gynecology Comment on above: Annual Start: 09-19-2025 End: 09-19-2025 Patient encounter procedure 09/19/2025 11:30 AM EST Office Visit OB/Gynecology [address] [place] [address] Susy Mooney APRN.CNM [address] [place] [address] (Fax) Annual OB/Gynecology Comment on above: Annual Start: 09-17-2025 End: 09-17-2025 Patient encounter procedure 09/17/2025 10:45 AM EST Office Visit OB/Gynecology [address] [place] [address] Susy Mooney APRN.[facility] [address] [place] [address] Annual OB/Gynecology Comment on above: Annual Start: 09-11-2025 Screening for malign ant neoplasm of cervix Cervical Cancer Screening [facility] Start: 07-19-2025 End: 07-19-2025 Patient encounter procedure [facility] Comment on above: Anatomy Anatomy/OB Start: 06-22-2025 End: 06-22-2025 Patient encounter procedure 06/22/2025 11:40 AM EDT Routine Office Visit OB/Gynecology [address] [place] [address] Vitaly Gallegos MD [address] [place] [address] Early anatomy/ OB OB/Gynecology Comment on above: Early anatomy/ OB Start: 06-22-2025 End: 06-22-2025 Patient encounter procedure 06/22/2025 10:30 AM EDT Routine Office Visit Maternal Medicine [address] [place] [address] Early anatomy [facility] Comment on above: Early anatomy Start: 06-07-2025 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 Start: 05-30-2025 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 Start: 05-25-2025 End: 05-25-2026 OBSTETRIC ULTRASOUND WHI OBSTETRIC ULTRASOUND WHI Anc Imaging Routine Supervision of high risk due to social problems, second trimester (HCC) Expected: 05/25/2025, Expires: 05/25/2026 [facility] Work Phone: Comment on above: Expected: 05/25/2025 , Expires: 05/25/2026 Start: 05-25-2025 End: 05-25-2025 Patient encounter procedure [facility] Comment on above: Nuchal Nuchal/OB Start: 05-11-2025 End: 05-11-2025 Patient encounter procedure 05/11/2025 10:20 AM EDT Routine Office Visit OB/Gynecology [address] [place], [place] [id number] Vitaly Gallegos MD [address] [place] [address] OB OB/Gynecology Comment on above: OB Start: 04-13-2025 End: 07-13-2025 ANEMIA REFLEX PANEL [facility] Work Phone: Comment on above: Expected: 04/13/2025 , Expires: 07/13/2025 Start: 04-13-2025 End: 07-13-2025 Hepatitis B virus surface Ag [Presence] in Serum [facility] Comment on above: Expected: 04/13/2025 , Expires: 07/13/2025 Start: 04-13-2025 End: 07-13-2025 Hepatitis C virus Ab [Presence] in Serum [facility] Comment on above: Expected: 04/13/2025 , Expires: 07/13/2025 Start: 04-13-2025 End: 07-13-2025 HIV 1+2 Ab [Presence] in Serum or Plasma by Immunoassay [facility] Comment on above: Expected: 04/13/2025 , Expires: 07/13/2025 Start: 04-13-2025 End: 07-13-2025 MYRIAD FORESIGHT CARRIER SCREEN [facility] Comment on above: Expected: 04/13/2025 , Expires: 07/13/2025 Start: 04-13-2025 End: 04-13-2026 OBSTETRIC ULTRASOUND WHI OBSTETRIC ULTRASOUND WHI Anc Imaging Routine Encounter for supervision of high risk in first trimester, antepartum (HCC) 6 weeks gestation of (HCC) Expected: 04/13/2025, Expires: 04/13/2026 [facility] Comment on above: Expected: 04/13/2025 , Expires: 04/13/2026 Start: 04-13-2025 End: 07-13-[address] [facility] Comment on above: Expected: 04/13/2025 , Expires: 07/13/2025 Start: 04-13-2025 End: 07-13-2025 SYPHILIS TREPONEMAL W/REFLEX [facility] Comment on above: Expected: 04/13/2025 , Expires: 07/13/2025 Start: 04-13-2025 End: 07-13-2025 TYPE + SCREEN [facility] Comment on above: Expected: 04/13/2025 , Expires: 07/13/2025 Start: 04-06-2025 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 Start: 03-23-2025 End: 03-23-2025 Patient encounter procedure 03/23/2025 9:20 AM EDT Office Visit [facility] [place] [address] [place] [address] Cinthya Balderas APRN.TESTBOARD OPERATOR [address] [place] [address] 4 month follow up med check [facility] [place] Comment on above: 4 month follow up me d check Start: 02-28-2025 End: 02-28-2025 Patient encounter procedure Mammogram Comment on above: Dx: Nipple discharge [N64.52] *US TIME NEEDS FIXED * Comp- nipple discharge Start: 01-26-2025 End: 04-27-2025 25-hydroxyvitamin D3 [Mass/volume] in Serum or Plasma [facility] Work Phone: Comment on above: Expected: 01/26/2025 , Expires: 04/27/2025 Start: 01-26-2025 End: 04-27-2025 Prolactin [Mass/volume] in Serum or Plasma [facility] Comment on above: Expected: 01/26/2025 , Expires: 04/27/2025 Start: 01-26-2025 End: 04-27-2025 Thyrotropin [Units/volume] in Serum or Plasma [facility] Comment on above: Expected: 01/26/2025 , Expires: 04/27/2025 Start: 01-26-2025 End: 01-26-2025 ambulatory 01/26/2025 11:15 AM EDT Results Only [place] [facility] [address] [place] [address] LABS [place] [facility] Comment on above: LABS Start: 11-24-2024 End: 11-24-2024 ambulatory 11/24/2024 9:15 AM EST Results Only [place] [facility] Draw Station [address] [place] [address] [place] [facility] Draw Station Start: 11-20-2024 End: 02-19-2025 Choriogonadotropin.beta subunit [Units/volume] in Serum or Plasma HCG QUANTITATIVE Lab Routine Missed menses Expected: 11/20/2024, Expires: 02/19/2025 [facility] Comment on above: Expected: 11/20/2024 , Expires: 02/19/2025 Start: 11-20-2024 End: 02-19-2025 Comprehensive metabolic 2000 panel - Serum or Plasma COMPREHENSIVE METABOLIC PANEL Lab Routine Wellness examination Expected: 11/20/2024, Expires: 02/19/2025 [facility] Comment on above: Expected: 11/20/2024 , Expires: 02/19/2025 Start: 11-20-2024 End: 02-19-2025 Hemoglobin A1c in Blood HEMOGLOBIN A1C Lab Routine Screening for diabetes mellitus Expected: 11/20/2024, Expires: 02/19/2025 [facility] Comment on above: Expected: 11/20/2024 , Expires: 02/19/2025 Start: 11-20-2024 End: 02-19-2025 Lipid 1996 panel - Serum or Plasma LIPID PANEL BASIC Lab Routine Screening cholesterol level Expected: 11/20/2024, Expires: 02/19/2025 [facility] Comment on above: Expected: 11/20/2024 , Expires: 02/19/2025 Start: 11-20-2024 End: 02-19-2025 QUANTITATIVE TOXICOLOGY PANEL, URINE [facility] Comment on above: Expected: 11/20/2024 , Expires: 02/19/2025 Start: 11-20-2024 End: 02-19-2025 TOXICOLOGY SCREEN, ROUTINE URINE [facility] Work Phone: Comment on above: Expected: 11/20/2024 , Expires: 02/19/2025 Start: 11-20-2024 End: 11-20-2024 Patient encounter procedure 11/20/2024 9:00 AM EST Office Visit Family Medicine [place] [address] [place] [address] Cinthya Balderas, STRAND FORMING MACHINE OPERATOR.TESTBOARD OPERATOR [address] [place] [address] med check for [facility] [place] Comment on above: med check for [facility] Start: 11-03-2024 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 Start: 10-20-2024 End: 10-20-2024 Patient encounter procedure 10/20/2024 1:40 PM EST Office Visit OB/Gynecology [address] [place] [address] Barbara Wells MD [address] [place] [address] colposcopy OB/Gynecology Comment on above: colposcopy Start: 09-11-2024 End: 09-11-2024 Patient encounter procedure 09/11/2024 10:45 AM EST Office Visit OB/Gynecology [address] [place] [address] Susy Mooney APRN.CNM [address] [place] [address] Annual OB/Gynecology Comment on above: Annual Start: 09-10-2024 Screening for malign ant neoplasm of cervix Cervical Cancer Screening [facility] Start: 08-20-2024 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 Start: 08-20-2024 Covid-19 Vaccine (3 - 2023-24 season) Covid-19 Vaccine () [facility] Comment on above: Postponed from 07/02 (Declined at this time) Start: 08-20-2024 Pneumococcal vaccination Pneum ococcal Vaccine (1 - PCV) [facility] Comment on above: Postponed from 10/10 (Declined at this time) Start: 08-20-[address] [facility] Comment on above: Postponed from 10/10 (Declined at this time) Start: 07-27-2024 End: 07-27-2024 Patient encounter procedure 07/27/2024 4:00 PM EDT Office Visit OB/Gynecology [address] [place] [address] Estrella Kenyon APRN.TESTBOARD OPERATOR [address] [place] [address] nexaplanon OB/Gynecology Comment on above: nexaplanon Start: 07-26-2024 End: 07-26-2024 Patient encounter procedure 07/26/2024 4:00 PM EDT Office Visit OB/Gynecology [address] [place] [address] Estrella Kenyon APRN.TESTBOARD OPERATOR [address] [place] [address] nexaplanon [facility] on [facility] Start: 07-02-2024 Covid-19 Vaccine () Covid-19 Vaccine () [facility] Start: 07-02-2024 Covid-19 Vaccine () Covid-19 Vaccine () [facility] Start: 07-02-2024 Influenza vaccination [facility] Start: 06-23-2024 End: 06-23-2024 Patient encounter procedure 06/23/2024 10:00 AM EDT Appointment Radiology [address] [place] [address] Fatigue, unspecified type [R53.83]; Weight gain [R63.5]; Family history of thyroid disease [Z83.49] Radiology Comment on above: Fatigue, unspecified type [R53.83]; Weight gain [R63.5]; Family history of thyroid disease [Z83.49] Start: 06-07-2024 End: 09-06-2024 CBC panel - Blood by Automated count [facility] Work Phone: Comment on above: Expected: 06/07/2024 , Expires: 09/06/2024 Start: 06-07-2024 End: 09-06-2024 Comprehensive metabolic 2000 panel - Serum or Plasma [facility] Comment on above: Expected: 06/07/2024 , Expires: 09/06/2024 Start: 06-07-2024 End: 09-06-2024 Ferritin [Mass/volume] in Serum or Plasma [facility] Comment on above: Expected: 06/07/2024 , Expires: 09/06/2024 Start: 06-07-2024 End: 09-06-2024 Iron and Iron binding capacity panel - Serum or Plasma [facility] Comment on above: Expected: 06/07/2024 , Expires: 09/06/2024 Start: 06-07-2024 End: 09-06-[address] [facility] Comment on above: Expected: 06/07/2024 , Expires: 09/06/2024 Start: 06-07-2024 End: 09-06-[address] [facility] Comment on above: Expected: 06/07/2024 , Expires: 09/06/2024 Start: 06-07-2024 End: 09-06-2024 Thyrotropin [Units/volume] in Serum or Plasma [facility] Comment on above: Expected: 06/07/2024 , Expires: 09/06/2024 Start: 06-07-2024 End: 09-06-2024 Thyroxine (T4) free [Mass/volume] in Serum or Plasma [facility] Comment on above: Expected: 06/07/2024 , Expires: 09/06/2024 Start: 06-07-2024 End: 09-06-2024 Triiodothyronine (T3) [Mass/volume] in Serum or Plasma [facility] Comment on above: Expected: 06/07/2024 , Expires: 09/06/2024 Start: 05-30-2024 End: 05-30-2024 Patient encounter procedure 05/30/2024 2:20 PM EDT Office Visit Family [facility] [address] [place] [address] Angelina Wadsworth APRN.TESTBOARD OPERATOR [address] [place] [address] cellulitis Family [facility] Comment on above: cellulitis Start: 05-26-2024 End: 08-25-2024 Borrelia burgdorferi IgG and IgM panel - Serum [facility] Work Phone: Comment on above: Expected: 05/26/2024 , Expires: 08/25/2024 Start: 05-24-2024 End: 05-24-2024 Patient encounter procedure 05/24/2024 1:00 PM EDT Office Visit OB/Gynecology [address] [place] [address] Jennifer Wallace APRN.TESTBOARD OPERATOR [address] [place] [address] Weight gain [R63.5] OB/Gynecology Comment on above: Weight gain [R63.5] Start: 05-21-2024 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 Start: 04-30-2024 Influenza vaccination Influenza Vacc ine (#1) [facility] Comment on above: Postponed from 07/02 (Declined at this time) Start: 02-20-2024 ANNUAL PCP TEAM CONSERVATION ASSISTANT RENEE DISEASE VISIT ANNUAL PCP TEAM CHRONIC DISEASE VISIT [facility] Start: 11-20-2023 ANNUAL PCP TEAM CONSERVATION ASSISTANT RENEE DISEASE VISIT ANNUAL PCP TEAM CHRONIC DISEASE VISIT [facility] Start: 11-20-2023 HEPATITIS B (2 of 3 - 3-dose series) HEPATITIS B (2 of 3 - 3-dose series) [facility] Comment on above: Postponed from 12/03 (Declined at this time) Start: 11-20-2023 Hepatitis B Vaccine (2 of 3 - 3-dose series) Hepatitis B Vaccine (2 of 3 - 3-dose series) [facility] Comment on above: Postponed from 12/03 (Declined at this time) Start: 11-20-2023 HEPATITIS C SCREENING HEPATITIS C [facility] Comment on above: Postponed from 10/10 (Declined at this time) Start: 11-20-2023 Hepatitis C screening Hepatitis C [facility] Comment on above: Postponed from 10/10 (Declined at this time) Start: 11-01-2023 Behavioral Health Screening Behavioral Health Screening [facility] Start: 11-01-2023 Depression Assessment Depression Ass essment [facility] Start: 10-12-2023 ANNUAL PCP TEAM CONSERVATION ASSISTANT RENEE DISEASE VISIT ANNUAL PCP TEAM CHRONIC DISEASE VISIT [facility] Start: 08-20-2023 End: 11-19-2023 Comprehensive metabolic 2000 panel - Serum or Plasma [facility] Work Phone: Comment on above: Expected: 08/20/2023 , Expires: 11/19/2023 Start: 08-20-2023 End: 11-19-2023 Lipid 1996 panel - Serum or Plasma [facility] Work Phone: Comment on above: Expected: 08/20/2023 , Expires: 11/19/2023 Start: 08-19-2023 ANNUAL PCP TEAM CONSERVATION ASSISTANT RENEE DISEASE VISIT ANNUAL PCP TEAM CHRONIC DISEASE VISIT [facility] Start: 07-02-2023 Covid-19 Vaccine ( season) Covid-19 Vaccine ( season) [facility] Start: 07-02-2023 Influenza vaccination [facility] Start: 05-20-2023 ANNUAL PCP TEAM CONSERVATION ASSISTANT RENEE DISEASE VISIT ANNUAL PCP TEAM CHRONIC DISEASE VISIT [facility] Start: 05-02-2023 PAP TESTING PAP TESTING [facility] Start: 04-30-2023 Influenza vaccination INFLUENZA (#1) [facility] Comment on above: Postponed from 07/02 (Declined at this time) Start: 02-13-2023 ANNUAL PCP TEAM CONSERVATION ASSISTANT RENEE DISEASE VISIT ANNUAL PCP TEAM CHRONIC DISEASE VISIT [facility] Start: 02-06-2023 ANNUAL PCP TEAM CONSERVATION ASSISTANT RENEE DISEASE VISIT ANNUAL PCP TEAM CHRONIC DISEASE VISIT [facility] Start: 02-04-2023 Adult depression scr eening assessment DEPRESSION SCREENING [facility] Start: 08-19-2022 End: 10-19-2022 PAIN PANEL, UR QUANT [facility] Work Phone: Comment on above: Expected: 08/19/2022 , Expires: 10/19/2022 Start: 08-19-2022 End: 10-19-2022 TOX SCREEN ROUT UR [facility] Work Phone: Comment on above: Expected: 08/19/2022 , Expires: 10/19/2022 Start: 07-02-2022 Influenza vaccination [facility] Start: 03-15-2022 COVID-19 VACCINE (3 - Booster for Moderna series) COVID-19 VACCINE (3 - Booster for Moderna series) [facility] Start: 02-17-2022 HEPATITIS C SCREENING HEPATITIS C [facility] Comment on above: Postponed from 10/10 (Declined at this time) Start: 12-10-2021 COVID-19 VACCINE (3 - Booster for Moderna series) COVID-19 VACCINE (3 - Booster for Moderna series) [facility] Start: 12-10-2021 Covid-19 Vaccine (3 - Moderna series) Covid-19 Vaccine (3 - Moderna series) [facility] Start: 11-01-2021 DEPRESSION ASSESSMENT DEPRESSION ASS ESSMENT [facility] Start: 2021 HPV TESTING [address] TESTING [facility] Start: 11-11-[address] [facility] Start: 2010 ADULT PREVNAR-13 ADULT PREVNAR-13 [facility] Start: 2010 TWO PNEUMOVAX 5 YEAR S APART PRIOR TO AGE 65 (#1) TWO PNEUMOVAX 5 YEARS APART PRIOR TO AGE 65 (#1) [facility] Start: 2009 Anxiety Screening Anxiety Screening [facility] Start: 2009 [facility]: 2009 HEPATITIS C SCREENING HEPATITIS C [facility] Start: 2009 Hepatitis C screening Hepatitis C [facility] Start: [address] [facility] Start: 12-03-2000 Hepatitis B Vaccine (2 of 3 - 3-dose series) Hepatitis B Vaccine (2 of 3 - 3-dose series) [facility] Start: 1997 PNEUMOCOCCAL (1 - PCV) PNEUMOCOCCAL (1 - PCV) [facility] Start: 1997 Pneumococcal vaccination Pneum ococcal Vaccine (1 - PCV) [facility] Start: 1991 HEPATITIS B (1 of 3 - 3-dose series) HEPATITIS B (1 of 3 - 3-dose series) [facility] Bacteria identified in Urine by Culture BACTERIAL CULTURE, URINE Microbiology Routine Encounter for supervision of high risk in first trimester, antepartum (HCC) 6 weeks gestation of (HCC) 04/13/2025 11:[address] [facility] Chlamydia trachomatis+Neisseria gonorrhoeae DNA [Presence] in Unspecified specimen by MANJU with probe detection GONORRHEA/CHLAMYDIA NAAT Lab Routine Encounter for supervision of high risk in first trimester, antepartum (HCC) 6 weeks gestation of ([facility]) Screen for STD (sexually transmitted disease) 04/13/2025 11:[address] [facility] COLPOSCOPY COLPOSCOPY Proce dures Routine Vaginal high risk human papillomavirus (HPV) DNA test positive Ordered: 10/20/2024 [facility] Work Phone: Comment on above: Ordered: 10/20/2024 End: 02-25-2026 MG Breast - bilateral Diagnostic TG DIAGNOSTIC BILATERAL Radiology Routine Nipple discharge 1 Occurrences starting 01/26/2025 until 02/25/2026 [facility] Comment on above: 1 Occurrences starti ng 01/26/2025 until 02/25/2026 NEXPLANON REMOVAL NEXPLANON CONSUELO RAMON Procedures Routine Nexplanon removal Ordered: 06/09/2024 [facility] Work Phone: Comment on above: Ordered: 06/09/2024 PAIN PANEL, UR QUANT PAIN PANEL, UR QUANT Lab Routine Attention deficit hyperactivity disorder (ADHD), unspecified ADHD type 08/19/2022 4:50 PM EDT [facility] Work Phone: PAP TEST PAP TEST Lab Antonio ortega Women's annual routine gynecological examination Encounter for gynecological examination (general) (routine) without abnormal findings Screening for cervical cancer Encounter for screening for human papillomavirus (HPV) 09/10/2023 9:51 AM [facility] Work Phone: PAP TEST PAP TEST Lab Antonio ortega Encounter for gynecological examination (general) (routine) without abnormal findings Screening for cervical cancer Encounter for screening for human papillomavirus (HPV) Cervical high risk human papillomavirus (HPV) DNA test positive 09/11/2024 11:30 AM [facility] Work Phone: PAP TEST PAP TEST Lab Rou shannon Encounter for supervision of high risk in first trimester, antepartum (HCC) 6 weeks gestation of (HCC) Screen for STD (sexually transmitted disease) Encounter for screening for human papillomavirus (HPV) 04/13/2025 11:23 AM [facility] Patient Education ED Laceration: All [facility] Work Phone: Patient referral [facility] Work Phone: QUANT TOX PANEL QUANT TOX PANEL Lab Routine Attention deficit hyperactivity disorder (ADHD), unspecified ADHD type 11/20/2024 9:39 AM [facility] [place] SPECIMEN VALIDITY, URINE SPECIME N VALIDITY, URINE Lab Routine Attention deficit hyperactivity disorder (ADHD), unspecified ADHD type 08/19/2022 4:50 PM [facility] Work Phone: SPECIMEN VALIDITY, URINE SPECIME N VALIDITY, URINE Lab Routine Attention deficit hyperactivity disorder (ADHD), unspecified ADHD type 11/20/2024 9:39 AM [facility] TRICHOMONAS VAGINALIS NAAT TRICH OMONAS VAGINALIS NAAT Lab Routine Encounter for supervision of high risk in first trimester, antepartum (HCC) 6 weeks gestation of (HCC) Screen for STD (sexually transmitted disease) 04/13/2025 11:23 AM [facility] End: 02-25-2026 US Breast - left limited US BREAST LTD LEFT Radiology Routine Nipple discharge 1 Occurrences starting 01/26/2025 until 02/25/2026 [facility] Comment on above: 1 Occurrences starti ng 01/26/2025 until 02/25/2026 End: 02-25-2026 US Breast - right limited US BREAST LTD RIGHT Radiology Routine Nipple discharge 1 Occurrences starting 01/26/2025 until 02/25/2026 [facility] Comment on above: 1 Occurrences starti ng 01/26/2025 until 02/25/2026 End: 07-07-2025 US Thyroid gland US THYROID/PARATHYROID Radiology Routine Fatigue, unspecified type Weight gain Family history of thyroid disease 1 Occurrences starting 06/07/2024 until 07/07/2025 [facility] Comment on above: 1 Occurrences starti ng 06/07/2024 until 07/07/2025 [facility] Immunizations Immunization Date Immunization Notes Care Provider Renny hurtado 08-20-2023 tetanus toxoid, redu sarah diphtheria toxoid, and acellular pertussis vaccine, adsorbed Cinthya Balderas STRAND FORMING MACHINE OPERATOR.[facility] Work Phone: [facility] 10-31-2019 influenza, injectabl e, quadrivalent, contains preservative Curtis Syd STRAND FORMING MACHINE OPERATOR.[facility] Work Phone: [facility] 10-31-2019 influenza virus vacc ine, unspecified formulation Gretta Hyde PA-C Work Phone: [facility] 10-03-2018 influenza, injectabl e, quadrivalent, contains preservative Curtis Syd STRAND FORMING MACHINE OPERATOR.[facility] Work Phone: [facility] 08-23-2010 influenza virus vacc ine, unspecified formulation Curtis Syd STRAND FORMING MACHINE OPERATOR.[facility] Work Phone: [facility] Work Phone: 11-13-2009 tuberculin skin test ; purified protein derivative solution, intradermal Johnson Gonzalez MD Work Phone: [facility] 11-11-2009 tetanus toxoid, redu sarah diphtheria toxoid, and acellular pertussis vaccine, adsorbed Curtis Syd STRAND FORMING MACHINE OPERATOR.[facility] Work Phone: [facility] Work Phone: 07-22-2009 influenza virus vacc ine, unspecified formulation Curtis Syd STRAND FORMING MACHINE OPERATOR.[facility] Work Phone: [facility] Work Phone: 09-05-2008 influenza virus vacc ine, unspecified formulation Curtis Syd STRAND FORMING MACHINE OPERATOR.[facility] Work Phone: [facility] Work Phone: 10-07-2007 human papilloma viru s vaccine, quadrivalent Curtis Syd STRAND FORMING MACHINE OPERATOR.[facility] Work Phone: [facility] Work Phone: 07-11-2007 human papilloma viru s vaccine, quadrivalent Curtis Syd STRAND FORMING MACHINE OPERATOR.[facility] Work Phone: [facility] Work Phone: 07-11-2007 meningococcal polysaccharide (groups A, C, Y and W-135) diphtheria toxoid conjugate vaccine (MCV4P) Cinthya Balderas STRAND FORMING MACHINE OPERATOR.[facility] Work Phone: [facility] Work Phone: 07-11-2007 Meningococcal, MCV4, unspecified conjugate formulation(groups A, C, Y and W-135) Curtis Syd STRAND FORMING MACHINE OPERATOR.[facility] Work Phone: [facility] Work Phone: 04-08-2007 human papilloma viru s vaccine, quadrivalent Curtis Syd STRAND FORMING MACHINE OPERATOR.[facility] Work Phone: [facility] Work Phone: 09-24-2006 influenza virus vacc ine, unspecified formulation Curtis Syd STRAND FORMING MACHINE OPERATOR.[facility] Work Phone: [facility] Work Phone: 09-14-2005 influenza virus vacc ine, unspecified formulation Curtis Syd STRAND FORMING MACHINE OPERATOR.TESTBOARD OPERATOR Work Phone: [facility] Work Phone: 02-10-2004 measles, mumps and rubella virus vaccine Cinthya Balderas STRAND FORMING MACHINE OPERATOR.[facility] Work Phone: [facility] Work Phone: 07-17-2002 measles, mumps and rubella virus vaccine Cinthya Balderas STRAND FORMING MACHINE OPERATOR.[facility] Work Phone: [facility] Work Phone: 11-05-2000 hepatitis B vaccine, pediatric or pediatric/adolescent dosage Cinthya Balderas STRAND FORMING MACHINE OPERATOR.TESTBOARD OPERATOR Work Phone: [facility] Work Phone: 11-05-2000 hepatitis B vaccine, unspecified formulation Cinthya Balderas STRAND FORMING MACHINE OPERATOR.TESTBOARD OPERATOR Work Phone: [facility] 04-22-1993 diphtheria, tetanus toxoids and pertussis vaccine Curtis Syd STRAND FORMING MACHINE OPERATOR.TESTBOARD OPERATOR Work Phone: [facility] Work Phone: 04-22-1993 trivalent poliovirus vaccine, live, oral Curtis Syd STRAND FORMING MACHINE OPERATOR.[facility] Work Phone: [facility] Work Phone: 01-06-1993 measles, mumps and rubella virus vaccine Curtis Syd STRAND FORMING MACHINE OPERATOR.[facility] Work Phone: [facility] Work Phone: 04-01-1992 diphtheria, tetanus toxoids and pertussis vaccine Curtis Syd STRAND FORMING MACHINE OPERATOR.TESTBOARD OPERATOR Work Phone: [facility] Work Phone: 02-05-1992 diphtheria, tetanus toxoids and pertussis vaccine Curtis Syd STRAND FORMING MACHINE OPERATOR.[facility] Work Phone: [facility] Work Phone: 02-05-1992 haemophilus influenz ae type b vaccine, PRP-D conjugate Curtis Syd STRAND FORMING MACHINE OPERATOR.TESTBOARD OPERATOR Work Phone: [facility] Work Phone: 02-05-1992 haemophilus influenz ae type b vaccine, PRP-T conjugate Cinthyasybil Balderas STRAND FORMING MACHINE OPERATOR.TESTBOARD OPERATOR Work Phone: [facility] Work Phone: 02-05-1992 trivalent poliovirus vaccine, live, oral Curtis Syd STRAND FORMING MACHINE OPERATOR.TESTBOARD OPERATOR Work Phone: [facility] Work Phone: 1991 diphtheria, tetanus toxoids and pertussis vaccine Curtis Syd STRAND FORMING MACHINE OPERATOR.TESTBOARD OPERATOR Work Phone: [facility] Work Phone: 1991 haemophilus influenz ae type b vaccine, PRP-D conjugate Curtis Chan STRAND FORMING MACHINE OPERATOR.[facility] Work Phone: [facility] Work Phone: 1991 haemophilus influenz ae type b vaccine, PRP-T conjugate Cinthya Thomasondonya STRAND FORMING MACHINE OPERATOR.[facility] Work Phone: [facility] Work Phone: 1991 trivalent poliovirus vaccine, live, oral Curtis Chan STRAND FORMING MACHINE OPERATOR.[facility] Work Phone: [facility] Work Phone: Payers Date Payer Category Payer Self-pay [id number] 2024 [facility]UE C[facility] [id number] 2024 Unknown [id number] 2022 Private Health Insurance [id number] 2022 Unknown [id number] 2021 Unknown 2018 Unknown [id number] 2018 Unknown [id number] 2014 Unknown JOSEP [id number] 1991 Unknown [id number] Medicaid MEDICAID [id number] Unknown [id number] Social History Date Type Detail Facility [facility] Start: 07-12-2023 Tobacco smokin g consumption unknown [facility] Start: 10-19-2011 End: 08-19-2022 Tobacco smoking status NHIS Never smoked tobacco [facility] Start: 02-06-2022 End: 01-26-2025 Alcohol intake Current non-drinker of alcohol (finding) [facility] Start: 02-05-2022 History SDOH Alcohol Frequency 2 [facility] Start: 02-05-2022 History SDOH Alcohol Std Drinks 1 [facility] Start: 02-05-2022 History SDOH Social Connections Meetings 98 [facility] Start: 02-05-2022 History SDOH Social Connections Living 8 [facility] Start: 02-05-2022 History SDOH Physica l Activity MPS 3 [facility] Start: 02-05-2022 History SDOH Financial 4 [facility] Start: 01-01-[address] [facility] Start: 1991 Sex Assigned At Not on file [facility] Start: 01-27-2022 End: 08-19-2022 Exposure to SARS-CoV-2 (event) Not sure [facility] Start: 10-19-2011 End: 08-19-2022 Tobacco use and exposure Smokeless tobacco non-user [facility] Start: 1991 Sex Assigned At Female W [facility] Start: 05-15-2023 End: 05-25-2024 History of Social function [facility] Start: 05-15-2023 End: 05-25-2024 Social connection and isolation panel [facility] Do you belong to any clubs or organizations such as baptism groups, unions, fraternal or athletic groups, or school groups? No [facility] Are you now , , , , never or living with a partner? Living with partner [facility] How often to you hav e a drink containing alcohol? Monthly or less [facility] How many standard drinks containing alcohol do you have on a typical day? [address] [facility] How often do you hav e 6 or more drinks on 1 occasion? Never [facility] How hard is it for y ou to pay for the very basics like food, housing, medical care, and heating Not very hard [facility] Start: 10-02-2012 Adult Depression Screening Assessment 0 [facility] Do you feel stress - tense, restless, nervous, or anxious, or unable to sleep at night because your mind is troubled all the time - these days [OSQ] Not at all [facility] (I/We) worried eusebio er (my/our) food would run out before (I/we) got money to buy more. Never true [facility] How many standard drinks containing alcohol do you have on a typical day? [address] [facility] How often do you hav e 6 or more drinks on 1 occasion? Less than monthly [facility] Do you feel stress - tense, restless, nervous, or anxious, or unable to sleep at night because your mind is troubled all the time - these days [OSQ] Only a little [facility] Start: 11-19-2024 Gender identity Identifies as female gender (finding) [facility] Start: 11-19-2024 Sexual orientation Heterosexual (jojo mcleod) [facility] Start: 03-11-2025 [facility] NEGATED: Highlighted row [facility] Goals Date Patient Goal Desired Activity /State Personal health goal Functional Status Date Assessment Result Facility 04-05-2015 Are you deaf, or do you have serious difficulty hearing No 04/05/2015 11:23 AM Aleta Vazquez LPN No [facility] 04-05-2015 Are you blind, or do you have serious difficulty seeing, even when wearing glasses No 04/05/2015 11:23 AM Aleta Vazquez LPN No [facility] 04-05-2015 Do you have serious difficulty walking or climbing stairs No 04/05/2015 11:23 AM Aleta Vazquez LPN No [facility] 04-05-2015 Do you have difficul ty dressing or bathing No 04/05/2015 11:23 AM EDT Aleta Francis LPN No [facility] 04-05-2015 Because of a physica l, mental, or emotional condition, do you have difficulty doing errands alone such as visiting a physician's office or shopping No 04/05/2015 11:23 AM EDT Aleta Francis LPN No [facility] Mental Status Date Assessment Result Facility 04-05-2015 Because of a physica l, mental, or emotional condition, do you have serious difficulty concentrating, remembering, or making decisions No 04/05/2015 11:23 AM EDT Aleta Francis LPN No [facility] Clinical Notes 06-25-2014 to 09-10-2025 Quick Notes - Vitaly Gallegos MD - 06/22/2025 12:47 PM EDTPrenatal Quick Notes - Vitaly Gallegos MD - 06/22/2025 12:47 PM EDTPatient InstructionsPatient InstructionsPatient Instructions Note Date & Type Note Facility 09-10-2025 Note HNO ID: [id number] Author: TERRANCE MOREL MA Service: ? Author Type: Change Manager Type: Progress Notes Filed: 09/10/2025 14:01 Note Text: Patient identified by name and date of . Mirella Workman presents today for a vaccination of Tdap. Patient denies an allergy to latex: yes Patient denies a severe (life-threatening) allergy to a previous dose of Tdap, DTP, DTaP, DT or Td vaccine. Yes Patient denies history of epilepsy or neurological problems: Yes Patient is afebrile and denies being moderately or severely ill: Yes Patient denies history of Guillain-[place] Syndrome (a severe paralytic illness): Yes Tdap Adacel injection was given without incident. See immunizations for details of immunizations administered today. VIS sheet provided: Yes Provider Riley was present in office at time of injection. Terrance Morel MA [facility] 08-14-2025 Note HNO ID: [id number] Author: VITALY GALLEGOS MD Service: ? Author Type: Physician Type: Progress Notes Filed: 08/14/2025 14:26 Note Text: N/a [facility] 06-22-2025 Progress note Formatting of t his note might be different from the original. KJ - S: Mirella denies LOF, contractions or vaginal bleeding. O: 16w5d, see flow sheet SENSITIVE EXAM: Sensitive exam not performed. A/P: Assessment & Plan 16 weeks gestation of (HCC) Supervision of high risk due to social problems, second trimester (HCC) Obesity affecting in second trimester, unspecified obesity type (HCC) Follow up for Anatomy US Vitaly Gallegos MD [facility] 06-22-2025 Miscellaneous Notes KJ - S: Mirella denies LOF, contractions or vaginal bleeding. O: 16w5d, see flow sheet SENSITIVE EXAM: Sensitive exam not performed. A/P: Assessment & Plan 16 weeks gestation of (HCC) Supervision of high risk due to social problems, second trimester (HCC) Obesity affecting in second trimester, unspecified obesity type (HCC) Follow up for Anatomy US Vitaly Gallegos MD documented in this encounter [facility] 06-22-2025 Instructions Arlette Lewis MA - 06/22/2025 11:42 AM EDT SEQUENTIAL SCREENINGS The [facility] offers sequential screenings for women who are interested in screenings for chromosomal abnormalities and certain defects during a . The sequential screen combines ultrasound and blood tests to determine the risk of chromosomal abnormalities, including Down's Syndrome (Trisomy 21) and Trisomy 18, as well as open neural tube defects including spina bifida. Ultrasound examination is performed between 11 weeks and 13 weeks gestational age. Blood tests are drawn after the ultrasound and again later in the between 15 and 21 weeks gestational age. Please let your physician know if you are interested in this testing. It will require an appointment with our engineering specialist technician. This is not an ultrasound performed by a physician in our office during a routine visit. SIGNS AND SYMPTOMS OF LABOR 1. Contractions every 10 minutes or more often 2. Clear, pink, or brownish fluid (water) leaking from vagina 3. Feeling that baby is pushing down, pressure 4. Low, dull backache 5. Cramps that feel like a period 6. Cramps with or without diarrhea If you notice any of the above symptoms, contact our office at [phone] and ask to speak with a nurse. After hours, you can call doctors registry at [phone] OR call [facility] at [phone] and ask to have the doctor denier control operator paged. If you consider this an emergency, dial 91-2 or go to your nearest emergency department. NEED HELP? Are you dealing with a violent or abusive relationship? Are you a victim of rape or sexual assult? Call [facility] ([place]) 24 hour Crisis Hotline: 713.865.7523 or 879-403-1705. MANUAL Your Guide to a Healthy manual is now on-line. Visit [email or web address] to download your free copy documented in this encounter [facility] 05-25-2025 Progress note Formatting of t his note might be different from the original. EH - S: Mirella is a 34 year old female who presents at 12w5d for a routine visit. . Denies headache, visual changes, chest pain, shortness of breath, vaginal bleeding, leakage of fluid, or dysuria. Feeling well, no complaints. O: See flow sheet Gen: No apparent distress Abd: Gravid, nontender ASSESSMENT/PLAN: 1. Supervision of high risk due to social problems, second trimester ([facility]) - ICD9: V23.89, ICD10: O09.72 (primary diagnosis) - Continue PNV - Start LDA at bedtime 2. 12 weeks gestation of ([facility]) - ICD9: V22.2, ICD10: Z3A.12 - Nuchal today 3. Obesity affecting in second trimester, unspecified obesity type ([facility]) - ICD9: 649.13, ICD10: O99.212 - Pre BMI 33 - Early anatomy ordered 4. History of group B Streptococcus (GBS) infection - ICD9: V12.09, ICD10: Z86.19 PTL precautions reviewed. RTO in 4 weeks or sooner as needed. Estrella Kenyon APRN.SIMI [facility] 05-25-2025 Miscellaneous Notes EH - S: Mirella is a 34 year old female who presents at 12w5d for a routine visit. . Denies headache, visual changes, chest pain, shortness of breath, vaginal bleeding, leakage of fluid, or dysuria. Feeling well, no complaints. O: See flow sheet Gen: No apparent distress Abd: Gravid, nontender ASSESSMENT/PLAN: 1. Supervision of high risk due to social problems, second trimester ([facility]) - ICD9: V23.89, ICD10: O09.72 (primary diagnosis) - Continue PNV - Start LDA at bedtime 2. 12 weeks gestation of ([facility]) - ICD9: V22.2, ICD10: Z3A.12 - Nuchal today 3. Obesity affecting in second trimester, unspecified obesity type ([facility]) - ICD9: 649.13, ICD10: O99.212 - Pre BMI 33 - Early anatomy ordered 4. History of group B Streptococcus (GBS) infection - ICD9: V12.09, ICD10: Z86.19 PTL precautions reviewed. RTO in 4 weeks or sooner as needed. Estrella Kenyon APRN.TESTBOARD OPERATOR documented in this encounter [facility] 05-25-2025 Instructions Jerrica Bennett MA - 05/25/2025 8:24 AM EDT SEQUENTIAL SCREENINGS The [facility] offers sequential screenings for women who are interested in screenings for chromosomal abnormalities and certain defects during a . The sequential screen combines ultrasound and blood tests to determine the risk of chromosomal abnormalities, including Down's Syndrome (Trisomy 21) and Trisomy 18, as well as open neural tube defects including spina bifida. Ultrasound examination is performed between 11 weeks and 13 weeks gestational age. Blood tests are drawn after the ultrasound and again later in the between 15 and 21 weeks gestational age. Please let your physician know if you are interested in this testing. It will require an appointment with our engineering specialist technician. This is not an ultrasound performed by a physician in our office during a routine visit. SIGNS AND SYMPTOMS OF LABOR 1. Contractions every 10 minutes or more often 2. Clear, pink, or brownish fluid (water) leaking from vagina 3. Feeling that baby is pushing down, pressure 4. Low, dull backache 5. Cramps that feel like a period 6. Cramps with or without diarrhea If you notice any of the above symptoms, contact our office at [phone] and ask to speak with a nurse. After hours, you can call [employer] registry at [phone] OR call [facility] at [phone] and ask to have the doctor denier control operator paged. If you consider this an emergency, dial 9-1- or go to your nearest emergency department. NEED HELP? Are you dealing with a violent or abusive relationship? Are you a victim of rape or sexual assult? Call [facility] ([place]) 24 hour Crisis Hotline: 136.414.5464 or 002-315-8179. MANUAL Your Guide to a Healthy manual is now on-line. Visit [email or web address] [email or web address] to download your free copy documented in this encounter [facility] 04-30-2025 Telephone encounter Note Pt requesting order for NIPT blood test for gender. Please advise, Thank you [facility] 04-30-2025 Miscellaneous Notes Pt requesting order for NIPT blood test for gender. Please advise, Thank you documented in this encounter [facility] 04-17-2025 Progress note Formatting of t his note might be different from the original. Send letter about normal pap if she does not have mychart. Adolfo Tejeda MD [facility] Work Phone: 04-17-2025 Miscellaneous Notes Send letter about normal pap if she does not have mychart. Adolfo Tejeda MD documented in this encounter [facility] 04-11-2025 Note HNO ID: [id number] Author: ESTRELLA KENYON APRN.TESTBOARD OPERATOR Service: ? Author Type: Nurse Practitioner Type: Progress Notes Filed: 04/13/2025 11:15 Note Text: Hydroelectric Systems Technician offered: Patient declines. INITIAL OB ASSESSMENT HPI: Mirella is a 34 year old White Female here to establish Obstetrical Care. Patient's last menstrual period was 02/25/2025 (exact date). from OB Dating Form. was planned Complaints: mild nausea OB History Gravida2 Para1 Term1 Preterm0 AB0 Living1 SAB0 IAB0 Ectopic0 Multiple0 Live Births1 Comment: GBS septicemia in infant- needs GBS prophylaxis in any Previous history: Prior : No History of 4th degree laceration: No History of shoulder dystocia: No History of Hypertensive disorders including pre-eclampsia or gestational hypertension: No History of gestational diabetes: No Patient's Risk Screening for delivery: Have you had a prior delgadillo between 20w and 36w6d? No How many pregnancies have you had before? 1 Did you have a previous baby with a GBS Infection? (!) Yes, Comment: GBS septicemia in - needs GBS prophylaxis in any Please select all that apply for any prior : N/A MEDICAL/PSYCHOSOCIAL HISTORY: History of hemorrhage or bleeding concerns: No Thyroid Disease: No History of chronic hypertension: No History of pre-existing diabetes: No ABO/RH(D) Date Value Ref Range Status 06/22/2014 A POS Final BMI 34.78 kg/(m2) Last Pap: 09/11/2024, negative History of abnormal pap: Yes, Prior treatment for cervical dysplasia: , Colposcopy 10/2024 Last HPV: 09/11/2024 + , 09/10/2023 History of STDs: N/A Partner History of STDs: None Did you have a partner with Herpes? No Tobacco use: No E-Cigarette/Vaping Use: No Caffeine use: No Drug use: No Alcohol use: No Multivitamin with Folic acid: Yes Would refuse blood transfusion if medically necessary: No Social Needs: How often does this describe you? I don't have enough money to pay my bills: Never Within the past 12 months, have you worried that your food would run out before you had money to buy more? Never In the past 12 months, has lack of reliable transportation kept you from going to medical appointments or work, or from getting things needed for daily living? Never In the past 12 months, have you had any concerns about having a place to live, or about the condition or quality of your housing? Never Would you like more information on any of the following (please check all that apply)? Not interested Social History: Do you have any history of depression, anxiety, PTSD, or other mood problems? No Do you have a history of abuse or trauma that may impact your experience? No Are you currently employed? Yes Depression/Anxiety Screening: denies symptoms of depression. OB Depression and Anxiety Screening- This Encounter Feeling down, depressed, or hopeless: Not at all Little interest or pleasure in doing things: Not at all Feeling nervous, anxious, or on edge Not at all Not being able to stop or control worrying Not at all Anxiety Pre-Screening Total (If >/= 3 additional questions will be reviewed) 0 Genetic Screening: Partner present: No Patient verbalized knowledge of partner family health history: Yes Do you or your partner have any personal or family history of defects not previously discussed: No Do you have history of a complicated by anomaly, genetic condition, or demise: No Preeclampsia Risk Screening: Screening for prevention of preeclampsia: High risk factors: None Moderate risk ractors: Obesity (body mass index greater than 30) OB Risk Screening: Completed, positive findings include: Patient answered 'Yes' to previous baby with a GBS Infection Marital Status: Partner: Name: Marco A Workman Age: 37 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 No current facility-administered medications for this visit. Allergies As of Date: 04/13/2025 Allergen Noted Reaction CONCERTA [METHYLPHENIDATE HCL] 09/06/2006 Intolerance Fully Assessed 04/13/2025 Does patient have penicillin allergy: No REVIEW OF SYSTEMS: GENERAL: Negative for: Fever or Chills HEENT: Negative for: Headache, Impaired Vision, Ringing in Ears, Nosebleeds NECK: Negative for: Swelling, Pain, Stiffness RES (more content not included)... [facility] 04-11-2025 History of Presen t illness Narrative Hydroelectric Systems Technician offered: Patient declines. INITIAL OB ASSESSMENT HPI: Mirella is a 34 year old White Female here to establish Obstetrical Care. Patient's last menstrual period was 02/25/2025 (exact date). from OB Dating Form. was planned Complaints: mild nausea OB History Gravida2 Para1 Term1 Preterm0 AB0 Living1 SAB0 IAB0 Ectopic0 Multiple0 Live Births1 Comment: GBS septicemia in - needs GBS prophylaxis in any Previous history: Prior : No History of 4th degree laceration: No History of shoulder dystocia: No History of Hypertensive disorders including pre-eclampsia or gestational hypertension: No History of gestational diabetes: No Patient's Risk Screening for delivery: Have you had a prior delgadillo between 20w and 36w6d? No How many pregnancies have you had before? 1 Did you have a previous baby with a GBS Infection? (!) Yes, Comment: GBS septicemia in infant- needs GBS prophylaxis in any Please select all that apply for any prior : N/A MEDICAL/PSYCHOSOCIAL HISTORY: History of hemorrhage or bleeding concerns: No Thyroid Disease: No History of chronic hypertension: No History of pre-existing diabetes: No ABO/RH(D) Date Value Ref Range Status 06/22/2014 A POS Final BMI 34.78 kg/(m^2) Last Pap: 09/11/2024, negative History of abnormal pap: Yes, Prior treatment for cervical dysplasia: , Colposcopy 10/2024 Last HPV: 09/11/2024 + , 09/10/2023 History of STDs: N/A Partner History of STDs: None Did you have a partner with Herpes? No Tobacco use: No E-Cigarette/Vaping Use: No Caffeine use: No Drug use: No Alcohol use: No Multivitamin with Folic acid: Yes Would refuse blood transfusion if medically necessary: No Social Needs: How often does this describe you? I don't have enough money to pay my bills: Never Within the past 12 months, have you worried that your food would run out before you had money to buy more? Never In the past 12 months, has lack of reliable transportation kept you from going to medical appointments or work, or from getting things needed for daily living? Never In the past 12 months, have you had any concerns about having a place to live, or about the condition or quality of your housing? Never Would you like more information on any of the following (please check all that apply)? Not interested Social History: Do you have any history of depression, anxiety, PTSD, or other mood problems? No Do you have a history of abuse or trauma that may impact your experience? No Are you currently employed? Yes Depression/Anxiety Screening: denies symptoms of depression. OB Depression and Anxiety Screening- This Encounter Feeling down, depressed, or hopeless: Not at all Little interest or pleasure in doing things: Not at all Feeling nervous, anxious, or on edge Not at all Not being able to stop or control worrying Not at all Anxiety Pre-Screening Total (If >/= 3 additional questions will be reviewed) 0 Genetic Screening: Partner present: No Patient verbalized knowledge of partner family health history: Yes Do you or your partner have any personal or family history of defects not previously discussed: No Do you have history of a complicated by anomaly, genetic condition, or demise: No Preeclampsia Risk Screening: Screening for prevention of preeclampsia: High risk factors: None Moderate risk ractors: Obesity (body mass index greater than 30) OB Risk Screening: Completed, positive findings include: Patient answered 'Yes' to previous baby with a GBS Infection Marital Status: Partner: Name: Marco A Short Age: 37 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 No current facility-administered medications for this visit. Allergies As of Date: 04/13/2025 Allergen Noted Reaction CONCERTA [METHYLPHENIDATE HCL] 09/06/2006 Intolerance Fully Assessed 04/13/2025 Does patient have penicillin allergy: No REVIEW OF SYSTEMS: GENERAL: Negative for: Fever or Chills HEENT: Negative for: Headache, Impaired Vision, Ringing in Ears, Nosebleeds NECK: Negative for: Swelling, Pain, Stiffness RESPIRATORY: Negative for: Cough, Shortness of breath, Wheezing GASTROINTESTINAL: Negative for: Heartburn, Constipation, Diarrhea, Blood in stool + nausea MUSCULOSKELETAL: Negative for: Muscle or joint pain, stiffness, Joint swelling NEUROLOGIC/PSYCHIATRIC: Negative for: Weakness, Paralysis, Numbness, Tingling, Tremor, Anxiety, Depression, Memory loss SKIN: Negative for: Rash, Itching GENITOURINARY: Negative for: vaginal itching, vaginal discharge, hematuria or dysuria SENSITIVE EXAM: The sensitive examination was discussed with the Patient or Patient's Authorized Broadcast Program Director. As applicable, any other physician, advance practice provider, medical student, or other health professional student that will be observing or involved in the sensitive examination for educational or training purposes was discussed with the Patient or Authorized Broadcast Program Director. The Patient or Authorized Broadcast Program Director has agreed to proceed with the sensitive examination. (Sensitive examination includes inspection and/or palpation of the breasts, pelvis, prostate and anorectal regions). PHYSICAL EXAM: BP 120/62 Ht 5' 3.583 (1.62m) Wt 200 lb (90.7kg) LMP 02/25/2025 BMI 34.78 kg/(m^2). GENERAL: pleasant in no apparent distress DERMATOLOGY: Normal, without lesions, non-icteric, and non-hirsute NECK: Supple, full range of motion, no adenopathy, and thyroid normal CHEST: Normal inspiratory effort BREAST: soft, non-tender, symmetric, no dominant mass, normal nipple-areolar complex, no lymphadenopathy, and no nipple discharge ABDOMEN: soft, non-tender, and no masses NEURO: alert and oriented x3,exam grossly non-focal PELVIS: External genitalia normal without lesions. Perineal body intact. No vaginal or cervical lesions. Cervix closed. Uterus <8 week size. No adnexal masses or tenderness. Clinical Pelvimetry: Pelvimetry clinically assessed as adequate Limited OB ultrasound exam: single intrauterine and positive cardiac activity ASSESSMENT: 34 year old at 6w5d wks gestational age PLAN: 1) Patient oriented to practice. Patient given new OB orientation folder. Discussed nutrition, folic acid supplementation, dietary guidelines, exercise, smoking, alcohol, caffeine, and drug use. Discussed gestational weight gain guidelines. Discussed routine OB labs including STD/HIV. Discussed how to access Your guide to a health and the Roll [employer]. Discussed hemoglobin electrophoresis. Patient: carrier screening ordered Reviewed midwifery and assistant to the director services that are available. 2) Screening: Hemoglobin A1C: ordered Baby Aspirin: The patient has been counseled about the potential benefits of low dose aspirin in and our recommendation that this be offered to all patients, regardless of whether they meet the high risk criteria specified above. She Accepts Aneuploidy Screening: Discussed aneuploidy screening, nuchal translucency/first trimester early anatomy ultrasound and NIPT. The risks/benefits and limitations of NIPT/aneuploidy screening were reviewed including the potential for false negative and false positive results. The availability of genetic counseling was reviewed. Information on aneuploidy screening was provided. The patient chooses to proceed with First trimester early anatomy ultrasound (12-13w6d) Myriad Carrier Screening: Discussed myriad carrier screening. We discussed the availability of professional-society guided carrier screening and reviewed the conditions screened and limitations of screening. The availability of genetic counseling was reviewed. Information on carrier screening was provided. The patient Accepts 3) Patient offered option of Virtual Visits. Patient unsure. May consider in future. ACTIVE PROBLEM LIST Encounter for Supervision of High Risk in First Trimester, Antepartum (Hcc) - 04/13/2025 Comment: Care Checklist Vaccines: [] Flu vaccine [] declined [] RSV vaccine 32 0/ - 36 6 (Sept - Dec) [] declined [] COVID vaccine [] declined [] TDaP 27-36 [] declined First trimester: [x] Dating US [x] 1st tri labs [x] Pap smear [x] Carrier screening [] declined [] NIPT screening - considering [] declined [x] First trimester anatomy scan [] declined [x] universal ASA ordered (start 12w-16w) [] declined [] M Power Consult [] not indicated [] declined Second trimester: [] Anatomy scan [] Mode of Delivery - [] Feeding - [] Pump ordered [] Diabetes screen [] CBC, RPR [] Behavioral Health Screening Third trimester (28-30 weeks): [] Consent [] Contraception [] Rn Hematology [] TeamBirth handout Third trimester (36-40 weeks): [] GBS [] Presentation - [] Scheduled [] yes - Hibiclens, pre-op instructions, CBC, T&S ordered [] no [] H&P [] Preferences worksheet [] Nausea and Vomiting During (Hcc) - 04/13/2025 Comment: 04/13/25 Vitamin B6 doses reviewed. To notify if prescription is needed. Estrella Kenyon APRN.CNP Obesity Affecting in First Trimester (Hcc) - 04/13/2025 Comment: Pre BMI 33 History of Group B Streptococcus (Gbs) Infection - 04/13/2025 Comment: April 13, 2025 States daughter was infected and was in NICU for 2 weeks. Estrella Kenyon APRN.CNP Attention Deficit Hyperactivity Disorder (Adhd) - 01/08/2014 Comment: April 13, 2025 Stopped Adderall with discovery of . Recommend follow up with prescriber and notify that she is . Reports coping well at this time. Estrella Kenyon APRN.CNP Follow up in 4 weeks or sooner prn. Plan for NT scan between 12w0d and 13w6d gestation. Estrella Kenyon APRN.CNP documented in this encounter [facility] 04-11-2025 Instructions Estrella Kenyon APRN.CNP - 04/11/2025 1:36 PM EDT Please select the following link to access the [facility] Your Guide to a Healthy . [email or web address] Please select the following link to access the [facility] Your Guide to a Healthy . [email or web address] MORNING SICKNESS IN by Anabel Torres M.D. for [email or web address] As you may already know, morning sickness can often be more appropriately called evening sickness or dyfom-fljdrv-el-the-day sickness. While there are the tommy few, most women (50-90%) experience some degree of nausea, some have vomiting, and a few develop a severe form of vomiting during called hyperemesis gravidarum. What causes the nausea and vomiting of ? We can't explain why some people feel fine and others are green for months. Even the same woman may feel vastly different in each . There is some relationship between nausea and the level of the hormone hCG. In twin pregnancies, and in other situations where the hCG is greater than expected, nausea and vomiting tend to be worse. In a destined for miscarriage, hCG levels tend to be low, and nausea is often less severe. This being said, a lack of nausea doesn't guarantee that the is destined for miscarriage. The fact that nausea and vomiting are often signs of a healthy can offer a silver lining in the dark cloud of miserable nausea. How long will the nausea last? Fortunately, for most women, nausea and vomiting are a first trimester event, peaking at week 9-10 and waning by week 14-16. When you are feeling bad the weeks can go by slowly but most moms do feel tremendously better by the middle of the . Whether morning sickness is a brief experience or lasts through most of the , there are treatments that can make the weeks or months more tolerable. What can you do about it? Diet: See what works for you. Try eating bland dry foods, and avoid fatty or spicy foods. It is okay to eat a less than perfectly balanced diet in the first trimester. Have your liquids separately from dry foods. Try sports drinks, water, clear juices, Brayden-aid, or non-caffeinated tea. Avoid carbonated beverages that fill up your stomach. Try eating lots of little meals. If you tend to feel sick when you first wake up, leave crackers next to the bed for a quick snack before rising. Keeping healthy snacks with you all day to nibble when you feel queasy can sometimes even prevent nausea from starting. vitamins and nausea: Pre- vitamins can sometimes worsen nausea in . While folate is necessary, especially early in the , it comes as a smaller pill that many people find more tolerable than the complete vitamin pill. Ask your practitioner if it is okay to temporarily replace vitamins and iron with just a folate pill if you find a significant worsening in the level of your nausea from the vitamins. Alternative therapies: Acupressure may be used to treat nausea in , and is not known to have any risks for the fetus. Wristbands (marketed for seasickness) that put pressure on an acupressure point at the wrist are often available at drugstores or travel stores. Kristina root is used for nausea in many traditional cultures. Some women take fresh grated kristina or kristina tablets. It is possible that the pill form contains other ingredients or contaminants, so you may want to try fresh kristina first. Medications: Emetrol is the only nausea medication approved for use in . It is available over the counter and is soothing to the stomach. A prescription medication called Bendectin was available in the -1979's and was shown to be safe in , but the company stopped marketing it in the [place] due to the costs of liability coverage. Bendectin contained 10 milligrams of vitamin B6 and 10 milligrams of Doxylamine. Two tablets were given at bedtime and a total of up to 4 tablets could be used in a 24-hour period. Interestingly, Unisom , which contains a higher dose (25 mg.) of the same medication, Doxylamine, is currently marketed as an wnle-qjl-rsfysls sleeping pill. Ask your practitioner if creating a vitamin B6/Doxylamine combination with shhm-kcq-jkqepkz medications would be safe for you. Prescription medications like Compazine and Phenergan can be used if the benefits outweigh possible risks, but these have not been clearly shown to be safe in . Zofran , an expensive anti-nausea medication often used to treat nausea from chemotherapy, can also be used. Can I throw up so much it harms the baby? The act of vomiting cannot hurt your fetus, which is protected inside the uterus. If you get dehydrated or develop a metabolic imbalance, this can be unhealthy. As long as you can keep down liquids, you and your baby will generally do all right. Eat when you feel able. If you are unable to keep anything down, or if you notice potential signs of dehydration such as lightheadedness, or concentrated and/or infrequent urination, call your practitioner. Some women need brief hospital admission for intravenous fluids and anti-nausea medications if their condition becomes severe. This severe form of nausea and vomiting is called Hyperemesis Gravidarum. As with many symptoms of , remind yourself that this, too, shall pass, and you'll have a wonderful baby to show for it! TREATMENT OPTIONS, SHORT VERSION: Frequent small meals Hydrate throughout day [employer] wrist pressure point applicators Kristina root (powdered, in capsules) 250mg four times a day Vitamin B6 25 mg tablet three times a day Also may be taken with half a tablet of Unisom three times a day (Doxylamine 12.5 mg) If severe (weight loss, dehydration), call us and come in for IV hydration and possible medication in the form of injections. Prescription medications such as Phenergan, Compazine, Reglan documented in this encounter [facility] 02-12-2025 Telephone encounter Note OK to refill as ordered Johnson Gonzalez MD [facility] 02-12-2025 Miscellaneous Notes OK to refill as ordered Johnson Gonzalez MD Prescription Refill Information The patient has been identified by name and date of : Yes Caregiver verified no other encounters exist for this prescription request: Yes Caregiver confirmed with patient/requestor that no other refills are due, in the near future, with this provider at this time: Yes The last office visit in the department: Does the patient have a future office visit with this provider/department: No Requested Prescriptions Pending Prescriptions Disp Refills amphetamine-dextroamphetamine XR (ADDERALL XR) 30 mg capsule 30 capsule 0 Sig: Take 1 capsule by mouth once daily for 30 days. amphetamine-dextroamphetamine XR (ADDERALL XR) 30 mg capsule 30 capsule 0 Sig: Take 1 capsule by mouth once daily for 30 days. Barbara Price February 12, 2025 1:11 PM documented in this encounter [facility] 02-12-2025 Telephone encounter Note Prescription Refill Information The patient has been identified by name and date of : Yes Caregiver verified no other encounters exist for this prescription request: Yes Caregiver confirmed with patient/requestor that no other refills are due, in the near future, with this provider at this time: Yes The last office visit in the department: Does the patient have a future office visit with this provider/department: No Requested Prescriptions Pending Prescriptions Disp Refills amphetamine-dextroamphetamine XR (ADDERALL XR) 30 mg capsule 30 capsule 0 Sig: Take 1 capsule by mouth once daily for 30 days. amphetamine-dextroamphetamine XR (ADDERALL XR) 30 mg capsule 30 capsule 0 Sig: Take 1 capsule by mouth once daily for 30 days. Barbara Price February 12, 2025 1:[address] [facility] 01-26-2025 Telephone encounter Note Women's Care form to [facility] to sign. Order faxed. Barbara Highman, RN [facility] 01-26-2025 Miscellaneous Notes Women's Care form to [facility] to sign. Order faxed. Barbara Kaminski RN documented in this encounter [facility] 01-26-2025 Telephone encounter Note See previous [employer] message from pt where she contacted her Insurance: So I went to the pharmacy and the trizepatide is not covered at all under my insurance. So I called my insurance to see what is covered and the customer service people ran some things and there are two medications that are covered but need a prior oth. those two are Ozempic and Trulocity. so whichever one you think would be best for me to be on I trust your judgment if you need me to come back in, just shoot me a message and I can get all this fixed. Thanks! [facility] 01-26-2025 Miscellaneous Notes See previous [employer] message from pt where she contacted her Insurance: So I went to the pharmacy and the trizepatide is not covered at all under my insurance. So I called my insurance to see what is covered and the customer service people ran some things and there are two medications that are covered but need a prior oth. those two are Ozempic and Trulocity. so whichever one you think would be best for me to be on I trust your judgment if you need me to come back in, just shoot me a message and I can get all this fixed. Thanks! Can you please call the patient and let her know that her insurance denied both the Zepbound and the Ozempic. She may need to call her insurance company to clarify what medications are covered for weight loss. Thank you Cinthya Balderas APRN.SIMI PA completed and denied. Dear MIRELLA SHORT: Request for coverage of Ozempic (semaglutide) has been denied. A request for prescription coverage for Ozempic (semaglutide) was recently submitted on your behalf. After careful consideration and review of the information sent to us, this request was not approved. We understand that this decision may not be what you and your doctor expected. This letter and the enclosed information will explain your options and help you decide what to do next. We reviewed all the supporting information sent to us and used your plan s guidelines to make our decision. Why your request was denied: Your plan only covers this drug when it is used for certain health conditions. Covered use is for type 2 diabetes mellitus. Your plan does not cover the drug for your health condition that your doctor told us you have. We reviewed the information we had. Your request has been denied. Your doctor can send us any new or missing information for us to review. For this drug, you may have to meet other criteria. You can request the drug policy for more details. No PA is needed, Ozempic is not covered for weight loss with any insurance. Pt sent in [employer] message that Pharmacy notified her that Semaglutide (Ozempic) is needing a PA completed. Notified pt that a message would be routed to the PA Nurse to start this process. Please review [employer] message from 01/25/25. Lilo Johnson MA documented in this encounter [facility] 01-26-2025 Telephone encounter Note Can you please call the patient and let her know that her insurance denied both the Zepbound and the Ozempic. She may need to call her insurance company to clarify what medications are covered for weight loss. Thank you Cinthya Balderas APRN.TESTBOARD OPERATOR [facility] [facility] Phone: 01-26-2025 Telephone encounter Note PA completed and denied. Dear MIRELLA SHORT: Request for coverage of Ozempic (semaglutide) has been denied. A request for prescription coverage for Ozempic (semaglutide) was recently submitted on your behalf. After careful consideration and review of the information sent to us, this request was not approved. We understand that this decision may not be what you and your doctor expected. This letter and the enclosed information will explain your options and help you decide what to do next. We reviewed all the supporting information sent to us and used your plan s guidelines to make our decision. Why your request was denied: Your plan only covers this drug when it is used for certain health conditions. Covered use is for type 2 diabetes mellitus. Your plan does not cover the drug for your health condition that your doctor told us you have. We reviewed the information we had. Your request has been denied. Your doctor can send us any new or missing information for us to review. For this drug, you may have to meet other criteria. You can request the drug policy for more details. [facility] 01-26-2025 Telephone encounter Note No PA is needed, Ozempic is not covered for weight loss with any insurance. [facility] 01-26-2025 Telephone encounter Note Started TE and routed to VICENTE Nurse. Pt notified of this via centrose. Lilo Johnson MA [facility] 01-26-2025 Miscellaneous Notes Started TE and routed to PA FM Nurse. Pt notified of this via [employer]. Lilo Johnson MA The following approved medication requests have been transmitted electronically. Requested Prescriptions Signed Prescriptions Disp Refills semaglutide (OZEMPIC) 0.25 mg or 0.5 mg (2 mg/3 mL) pen 3 mL 0 Sig: Inject 0.25 mg subcutaneously one time a week. Cinthya Balderas APRN.TESTBOARD OPERATOR See update from pt regarding injectable medication coverage. Lilo Johnson MA documented in this encounter [facility] 01-26-2025 Telephone encounter Note Pt sent in centrose message that Pharmacy notified her that Semaglutide (Ozempic) is needing a PA completed. Notified pt that a message would be routed to the PA Nurse to start this process. Please review centrose message from 01/25/25. Lilo Johnson MA [facility] 01-26-2025 Note HNO ID: [id number] Author: ESTRELLA KENYON APRN.TESTBOARD OPERATOR Service: ? Author Type: Nurse Practitioner Type: Progress Notes Filed: 01/26/2025 12:14 Note Text: Mirella Workman is a 34 year old female who presents for problem visit of trying to conceive. HPI: Mirella has been attempting for for about 6 months. Previous took 3 years of unprotected intercourse. Was not actively trying at that time. Partner, Diogenes, does not have any children. Has never had semen analysis. Diogenes does vape. No drug use. Social/occasional alcohol use. Mirella is not taking a vitamin. Periods are normally every 30ish days. Recent cycle was 27 days late. Notes discharge from left nipple - brown/white, thickness varies. Denies itching. Noticed it when she pressed on her breast one day. Then tried to express the other side and brown discharge was expressed from right nipple. This has been going on 1-2 months. Denies any associated lumps. OB History Gravida1 Para1 Term1 Preterm0 AB0 Living1 SAB0 IAB0 Ectopic0 Multiple0 Live Births1 Comment: GBS septicemia in infant- needs GBS prophylaxis in any Packing Checker History LMP: 01/23/2025, Having periods Age at Menarche: Age at First : Age at Menopause: Packing Checker History Comments: Sexual Activity: Yes; Male Contraception: No contraception data on record PAST MEDICAL HISTORY Diagnosis Date Acne Asthma mild Attention deficit disorder without mention of hyperactivity Obesity PAST SURGICAL HISTORY Procedure Laterality Date NEXPLANON INSERTION 03/10/2021 x3- 2014,2017 NEXPLANON REMOVAL Right 07/27/2024 FAMILY HISTORY Problem Relation Age of Onset Seizures Mother Thyroid Mother hyper other (Other) Father mental health Diabetes Maternal Grandmother Heart Maternal Grandmother Diabetes Paternal Grandmother Heart Paternal Grandmother Social History Tobacco Use Smoking status: Never Smokeless tobacco: Never Vaping Use Vaping status: Never Used Substance Use Topics Alcohol use: No Drug use: No Current Outpatient Medications Medication Sig amphetamine-dextroamphetamine XR (ADDERALL XR) 30 mg capsule Take 1 capsule by mouth once daily for 30 days. Patient should start on January 10, 2025. [START ON 02/10/2025] amphetamine-dextroamphetamine XR (ADDERALL XR) 30 mg capsule Take 1 capsule by mouth once daily for 30 days. Patient should start on February 10, 2025. semaglutide (OZEMPIC) 0.25 mg or 0.5 mg (2 mg/3 mL) pen Inject 0.25 mg subcutaneously one time a week. amphetamine-dextroamphetamine XR (ADDERALL XR) 30 mg capsule Take 1 capsule by mouth once daily for 30 days. Patient should start on December 13, 2024. No current facility-administered medications for this visit. Allergies As of Date: 01/26/2025 Allergen Noted Reaction CONCERTA [METHYLPHENIDATE HCL] 09/06/2006 Intolerance Fully Assessed 01/25/2025 REVIEW OF SYSTEMS Breast: No breast lumps,overlying skin changes, redness or skin retraction. + nipple discharge Expanded ROS: ASSOC[employer]ATE [employer]AN OF WOMEN: + recent irregular cycle Allergies and current medication updated:Yes SENSITIVE EXAM: The sensitive examination was discussed with the Patient or Patient's Authorized Broadcast Program Director. As applicable, any other physician, advance practice provider, medical student, or other health professional student that will be observing or involved in the sensitive examination for educational or training purposes was discussed with the Patient or Authorized Broadcast Program Director. The Patient or Authorized Broadcast Program Director has agreed to proceed with the sensitive examination. (Sensitive examination includes inspection and/or palpation of the breasts, pelvis, prostate and anorectal regions). EXAM: BP 112/70 Wt 208 lb (94.3kg) LMP 01/23/2025 GENERAL: pleasant, female in no apparent distress HEENT: Normocephalic, atraumatic, mucus membranes moist, and no lesions NECK: Supple, full range of motion, no adenopathy, and thyroid normal DERMATOLOGY: Normal, without lesions, non-icteric, and non-hirsute BREAST: soft, non-tender, symmetric, no dominant mass, normal nipple-areolar complex, no lymphadenopathy, and no nipple discharge expressed CHEST: Normal inspiratory effort NEURO: alert and oriented x3,exam grossly non-focal EXTREMITIES: normal ASSESSMENT AND PLAN: ASSESSMENT/PLAN: 1. Pre-conception counseling - ICD9: V26.49, ICD10: Z31.69 (primary diagnosis) - Recommend Diogenes to stop vaping - Reviewed healthy lifestyle for optimal chances of conception - Discussed infertility is 1 year of attempting without - Interested in semen analysis for Diogenes 2. Nipple discharge - ICD9: 611.79, ICD10: N64.52 - Check prolactin and thyroid - Discussed need to avoid further nipple/breast stimulation - Breast imaging ordered - PROLACTIN - THYROID STIMULATING HORMONE - TG DIAGNOSTIC BILATERAL - US BREAST LTD LEFT - US BREAST LTD RIGHT 3. Encounter for vitamin def (more content not included)... [facility] 01-26-2025 History of Presen t illness Narrative Mirella Workman is a 34 year old female who presents for problem visit of trying to conceive. HPI: Mirella has been attempting for for about 6 months. Previous took 3 years of unprotected intercourse. Was not actively trying at that time. Partner, Diogenes, does not have any children. Has never had semen analysis. Diogenes does vape. No drug use. Social/occasional alcohol use. Mirella is not taking a vitamin. Periods are normally every 30ish days. Recent cycle was 27 days late. Notes discharge from left nipple - brown/white, thickness varies. Denies itching. Noticed it when she pressed on her breast one day. Then tried to express the other side and brown discharge was expressed from right nipple. This has been going on 1-2 months. Denies any associated lumps. OB History Gravida1 Para1 Term1 Preterm0 AB0 Living1 SAB0 IAB0 Ectopic0 Multiple0 Live Births1 Comment: GBS septicemia in - needs GBS prophylaxis in any Packing Checker History LMP: 01/23/2025, Having periods Age at Menarche: Age at First : Age at Menopause: Packing Checker History Comments: Sexual Activity: Yes; Male Contraception: No contraception data on record PAST MEDICAL HISTORY Diagnosis Date Acne Asthma mild Attention deficit disorder without mention of hyperactivity Obesity PAST SURGICAL HISTORY Procedure Laterality Date NEXPLANON INSERTION 03/10/2021 x3- 2015,2018 NEXPLANON REMOVAL Right 07/27/2024 FAMILY HISTORY Problem Relation Age of Onset Seizures Mother Thyroid Mother hyper other (Other) Father mental health Diabetes Maternal Grandmother Heart Maternal Grandmother Diabetes Paternal Grandmother Heart Paternal Grandmother Social History Tobacco Use Smoking status: Never Smokeless tobacco: Never Vaping Use Vaping status: Never Used Substance Use Topics Alcohol use: No Drug use: No Current Outpatient Medications Medication Sig amphetamine-dextroamphetamine XR (ADDERALL XR) 30 mg capsule Take 1 capsule by mouth once daily for 30 days. Patient should start on January 10, 2025. [START ON 02/10/2025] amphetamine-dextroamphetamine XR (ADDERALL XR) 30 mg capsule Take 1 capsule by mouth once daily for 30 days. Patient should start on February 10, 2025. semaglutide (OZEMPIC) 0.25 mg or 0.5 mg (2 mg/3 mL) pen Inject 0.25 mg subcutaneously one time a week. amphetamine-dextroamphetamine XR (ADDERALL XR) 30 mg capsule Take 1 capsule by mouth once daily for 30 days. Patient should start on December 13, 2024. No current facility-administered medications for this visit. Allergies As of Date: 01/26/2025 Allergen Noted Reaction CONCERTA [METHYLPHENIDATE HCL] 09/06/2006 Intolerance Fully Assessed 01/25/2025 REVIEW OF SYSTEMS Breast: No breast lumps,overlying skin changes, redness or skin retraction. + nipple discharge Expanded ROS: [employer]OC[employer] DE[employer] WOMEN: + recent irregular cycle Allergies and current medication updated:Yes SENSITIVE EXAM: The sensitive examination was discussed with the Patient or Patient's Authorized Broadcast Program Director. As applicable, any other physician, advance practice provider, medical student, or other health professional student that will be observing or involved in the sensitive examination for educational or training purposes was discussed with the Patient or Authorized Broadcast Program Director. The Patient or Authorized Broadcast Program Director has agreed to proceed with the sensitive examination. (Sensitive examination includes inspection and/or palpation of the breasts, pelvis, prostate and anorectal regions). EXAM: BP 112/70 Wt 208 lb (94.3kg) LMP 01/23/2025 GENERAL: pleasant, female in no apparent distress HEENT: Normocephalic, atraumatic, mucus membranes moist, and no lesions NECK: Supple, full range of motion, no adenopathy, and thyroid normal DERMATOLOGY: Normal, without lesions, non-icteric, and non-hirsute BREAST: soft, non-tender, symmetric, no dominant mass, normal nipple-areolar complex, no lymphadenopathy, and no nipple discharge expressed CHEST: Normal inspiratory effort NEURO: alert and oriented x3,exam grossly non-focal EXTREMITIES: normal ASSESSMENT AND PLAN: ASSESSMENT/PLAN: 1. Pre-conception counseling - ICD9: V26.49, ICD10: Z31.69 (primary diagnosis) - Recommend Diogenes to stop vaping - Reviewed healthy lifestyle for optimal chances of conception - Discussed infertility is 1 year of attempting without - Interested in semen analysis for Diogenes 2. Nipple discharge - ICD9: 611.79, ICD10: N64.52 - Check prolactin and thyroid - Discussed need to avoid further nipple/breast stimulation - Breast imaging ordered - PROLACTIN - THYROID STIMULATING HORMONE - TG DIAGNOSTIC BILATERAL - US BREAST LTD LEFT - US BREAST LTD RIGHT 3. Encounter for vitamin deficiency screening - ICD9: V77.99, ICD10: Z13.21 - Start PNV. Reviewed importance of folic acid for prevention of NTD - VITAMIN D 25 HYDROXY Will base management based off results Estrella Kenyon APRN.CNP I spent a total of 30 minutes on the date of the service which included preparing to see the patient, [id number] patient care, completing clinical documentation, obtaining and/or reviewing separately obtained history, performing a medically appropriate examination, counseling and educating the patient/family/caregiver, and ordering medications, tests, or procedures. documented in this encounter [facility] 01-26-2025 Telephone encounter Note The following approved medication requests have been transmitted electronically. Requested Prescriptions Signed Prescriptions Disp Refills semaglutide (OZEMPIC) 0.25 mg or 0.5 mg (2 mg/3 mL) pen 3 mL 0 Sig: Inject 0.25 mg subcutaneously one time a week. Cinthya Balderas APRN.CNP [facility] 01-25-2025 Telephone encounter Note See update from pt regarding injectable medication coverage. Lilo Johnson MA [facility] 01-25-2025 Instructions Cinthya Balderas APRN.CNP - 01/25/2025 2:41 PM EDT Start Zepbound 2.5 mg weekly Continue to work on lifestyle changes Recommend tracking food, myfitnesspal phone jayy. Increase lean protein, veggies, and get some form of exercise. Follow up in 1 month or sooner as needed. Protein Powders: Progenex or 1st phorm G Melissa, condiments, low carb and low sugar documented in this encounter [facility] 01-25-2025 History of Presen t illness Narrative This is a 34 year old female who presents today with: Patient presents with: Acute Visit: weight gain meds HISTORY OF PRESENT ILLNESS: Mirella Workman is a 34 year old female. Patient presents with: Acute Visit: weight gain meds Here in the office to discuss weight gain. Has gained 10 pounds since September 2024. Weight is slowing going up. Staying active no exercise regimen. Trying to eat a well balanced diet. Labs completed in November, A1c 4.8, CMP was relatively normal. ADHD: Using Adderall XR 30 mg daily. Symptoms well-controlled with medication. Denies any difficulty sleeping or palpitations. PAST MEDICAL HISTORY: PAST MEDICAL HISTORY Diagnosis Date Acne Asthma mild Attention deficit disorder without mention of hyperactivity PAST SURGICAL HISTORY Procedure Laterality Date NEXPLANON INSERTION 03/10/2021 x3- 2014,2018 NEXPLANON REMOVAL Right 07/27/2024 ALLERGIES Concerta [Methylphenidate Hcl] MEDICATIONS Current Outpatient Medications Medication Sig amphetamine-dextroamphetamine XR (ADDERALL XR) 30 mg capsule Take 1 capsule by mouth once daily for 30 days. Patient should start on December 13, 2024. amphetamine-dextroamphetamine XR (ADDERALL XR) 30 mg capsule Take 1 capsule by mouth once daily for 30 days. Patient should start on January 10, 2025. [START ON 02/10/2025] amphetamine-dextroamphetamine XR (ADDERALL XR) 30 mg capsule Take 1 capsule by mouth once daily for 30 days. Patient should start on February 10, 2025. No current facility-administered medications for this visit. FAMILY HISTORY Problem Relation Age of Onset Seizures Mother Thyroid Mother hyper other (Other) Father mental health Diabetes Maternal Grandmother Heart Maternal Grandmother Diabetes Paternal Grandmother Heart Paternal Grandmother Social History Tobacco Use Smoking status: Never Smokeless tobacco: Never Vaping Use Vaping status: Never Used Substance Use Topics Alcohol use: No Drug use: No REVIEW OF SYSTEMS GENERAL: + Weight Gain HEENT: Negative for frequent or significant headaches, No changes in hearing or vision. NECK: Negative for lumps, goiter, pain and significant neck swelling RESPIRATORY: Negative for cough, hemoptysis, wheezing, dyspnea or shortness of breath CARDIOVASCULAR: Negative for chest pain, leg swelling, orthopnea, or palpitations GI: No nausea, vomiting, or diarrhea/constipation. No hematochezia/melena. No heartburn or reflux symptoms. : No history of dysuria, frequency or incontinence MUSCULOSKELETAL: Negative for joint pain or swelling. SKIN: Negative for lesions, rash, and itching ENDOCRINE: Negative for cold or heat intolerance, polyuria, polydipsia and goiter NEURO: No history of headaches, syncope, paralysis, seizures or tremors MOOD: Negative for depression, anxiety, or suicidal ideation. EXAM: BP 116/78 Pulse 77 Resp 16 Wt 95.6 kg (210 lb 12.2 oz) LMP 01/23/2025 SpO2 97% BMI 36.74 kg/m PHYSICAL EXAM: General Appearance: Well appearing, alert, in no acute distress, well-hydrated, well nourished. Skin: Skin color, texture, turgor normal, no suspicious rashes or lesions. Head: Normocephalic, no masses, lesions, tenderness or abnormalities. Eyes: Anicteric sclera. Extraocular movements are intact. Lungs: Lungs clear to auscultation. No wheezing, rhonchi, rales. Heart: RRR without murmur, gallop, or rubs. No ectopy. Extremities: No deformities, edema, skin discoloration, clubbing or cyanosis. Good capillary refill. Peripheral Pulses: Normal, Capillary refill <2secs, strong peripheral pulses, Pulses palpable. Neurologic: Gait normal. Reflexes normal and symmetric. Sensation grossly intact. ASSESSMENT/PLAN: 1. Weight gain - ICD9: 783.1, ICD10: R63.5 (primary diagnosis) - Due to current stimulant use cannot take Adipex for weight loss. Will start Zepbound 2.5 mg weekly. - Recommend tracking food, increase protein, veggies, and get some form of exercise. - Follow up in 1 month. - TIRZEPATIDE (WEIGHT LOSS) 2.5 MG/0.5 ML SUBCUTANEOUS PEN INJECTOR 2. BMI 36.0-36.9,adult - ICD9: V85.36, ICD10: Z68.36 - Same plan as #1. 3. Attention deficit hyperactivity disorder (ADHD), unspecified ADHD type - ICD9: 314.01, ICD10: F90.9 - Stable, continue take current medication. Follow-up in 1 month or sooner as needed. Discussed treatment plan and patient voices understanding. Patient's questions answered appropriately. Medications and potential side effects were discussed and patient voices understanding. Cinthya Balderas APRN.TESTBOARD OPERATOR This note was partially generated using Dragon voice recognition system. Note was reviewed for accuracy. There may be minor misspellings or grammar miscues with [employer] voice recognition. documented in this encounter [facility] 01-25-2025 Note HNO ID: [id number] Author: CINTHYA BALDERAS APRN.SIMI Service: ? Author Type: Nurse Practitioner Type: Progress Notes Filed: 01/26/2025 07:07 Note Text: This is a 34 year old female who presents today with: Patient presents with: Acute Visit: weight gain meds HISTORY OF PRESENT ILLNESS: Mirella Workman is a 34 year old female. Patient presents with: Acute Visit: weight gain meds Here in the office to discuss weight gain. Has gained 10 pounds since September 2024. Weight is slowing going up. Staying active no exercise regimen. Trying to eat a well balanced diet. Labs completed in November, A1c 4.8, CMP was relatively normal. ADHD: Using Adderall XR 30 mg daily. Symptoms well-controlled with medication. Denies any difficulty sleeping or palpitations. PAST MEDICAL HISTORY: PAST MEDICAL HISTORY Diagnosis Date Acne Asthma mild Attention deficit disorder without mention of hyperactivity PAST SURGICAL HISTORY Procedure Laterality Date NEXPLANON INSERTION 03/10/2021 x3- 2014,2017 NEXPLANON REMOVAL Right 07/27/2024 ALLERGIES Concerta [Methylphenidate Hcl] MEDICATIONS Current Outpatient Medications Medication Sig amphetamine-dextroamphetamine XR (ADDERALL XR) 30 mg capsule Take 1 capsule by mouth once daily for 30 days. Patient should start on December 13, 2024. amphetamine-dextroamphetamine XR (ADDERALL XR) 30 mg capsule Take 1 capsule by mouth once daily for 30 days. Patient should start on January 10, 2025. [START ON 02/10/2025] amphetamine-dextroamphetamine XR (ADDERALL XR) 30 mg capsule Take 1 capsule by mouth once daily for 30 days. Patient should start on February 10, 2025. No current facility-administered medications for this visit. FAMILY HISTORY Problem Relation Age of Onset Seizures Mother Thyroid Mother hyper other (Other) Father mental health Diabetes Maternal Grandmother Heart Maternal Grandmother Diabetes Paternal Grandmother Heart Paternal Grandmother Social History Tobacco Use Smoking status: Never Smokeless tobacco: Never Vaping Use Vaping status: Never Used Substance Use Topics Alcohol use: No Drug use: No REVIEW OF SYSTEMS GENERAL: + Weight Gain HEENT: Negative for frequent or significant headaches, No changes in hearing or vision. NECK: Negative for lumps, goiter, pain and significant neck swelling RESPIRATORY: Negative for cough, hemoptysis, wheezing, dyspnea or shortness of breath CARDIOVASCULAR: Negative for chest pain, leg swelling, orthopnea, or palpitations GI: No nausea, vomiting, or diarrhea/constipation. No hematochezia/melena. No heartburn or reflux symptoms. : No history of dysuria, frequency or incontinence MUSCULOSKELETAL: Negative for joint pain or swelling. SKIN: Negative for lesions, rash, and itching ENDOCRINE: Negative for cold or heat intolerance, polyuria, polydipsia and goiter NEURO: No history of headaches, syncope, paralysis, seizures or tremors MOOD: Negative for depression, anxiety, or suicidal ideation. EXAM: BP 116/78 Pulse 77 Resp 16 Wt 95.6 kg (210 lb 12.2 oz) LMP 01/23/2025 SpO2 97% BMI 36.74 kg/m? PHYSICAL EXAM: General Appearance: Well appearing, alert, in no acute distress, well-hydrated, well nourished. Skin: Skin color, texture, turgor normal, no suspicious rashes or lesions. Head: Normocephalic, no masses, lesions, tenderness or abnormalities. Eyes: Anicteric sclera. Extraocular movements are intact. Lungs: Lungs clear to auscultation. No wheezing, rhonchi, rales. Heart: RRR without murmur, gallop, or rubs. No ectopy. Extremities: No deformities, edema, skin discoloration, clubbing or cyanosis. Good capillary refill. Peripheral Pulses: Normal, Capillary refill <2secs, strong peripheral pulses, Pulses palpable. Neurologic: Gait normal. Reflexes normal and symmetric. Sensation grossly intact. ASSESSMENT/PLAN: 1. Weight gain - ICD9: 783.1, ICD10: R63.5 (primary diagnosis) - Due to current stimulant use cannot take Adipex for weight loss. Will start Zepbound 2.5 mg weekly. - Recommend tracking food, increase protein, veggies, and get some form of exercise. - Follow up in 1 month. - TIRZEPATIDE (WEIGHT LOSS) 2.5 MG/0.5 ML SUBCUTANEOUS PEN INJECTOR 2. BMI 36.0-36.9,adult - ICD9: V85.36, ICD10: Z68.36 - Same plan as #1. 3. Attention deficit hyperactivity disorder (ADHD), unspecified ADHD type - ICD9: 314.01, ICD10: F90.9 - Stable, continue take current medication. Follow-up in 1 month or sooner as needed. Discussed treatment plan and patient voices understanding. Patient's questions answered appropriately. Medications and potential side effects were discussed and patient voices understanding. Cinthya Balderas APRN.TESTBOARD OPERATOR This note was partially generated using [email or web address] voice recognition system. Note was reviewed for accuracy. There may be minor misspellings or grammar miscues with [email or web address] voice recognition. [facility] 12-14-2024 Telephone encounter Note This has been refilled, scripts were sent in that can be refilled , 01/10/25 and 02/10/25. Pt notified via centrose. Polly Gillette MA [facility] 12-14-2024 Miscellaneous Notes This has been refilled, scripts were sent in that can be refilled , 01/10/25 and 02/10/25. Pt notified via centrose. Polly Gillette MA Prescription Refill Information The patient has been identified by name and date of : Yes Caregiver verified no other encounters exist for this prescription request: Yes Caregiver confirmed with patient/requestor that no other refills are due, in the near future, with this provider at this time: Yes The last office visit in the department: 11/20/24 Does the patient have a future office visit with this provider/department: Yes Requested Prescriptions Pending Prescriptions Disp Refills amphetamine-dextroamphetamine XR (ADDERALL XR) 30 mg capsule 30 capsule 0 Sig: Take 1 capsule by mouth once daily for 30 days. Donna Few December 14, 2024 9:20 AM documented in this encounter [facility] 12-14-2024 Telephone encounter Note Prescription Refill Information The patient has been identified by name and date of : Yes Caregiver verified no other encounters exist for this prescription request: Yes Caregiver confirmed with patient/requestor that no other refills are due, in the near future, with this provider at this time: Yes The last office visit in the department: 11/20/24 Does the patient have a future office visit with this provider/department: Yes Requested Prescriptions Pending Prescriptions Disp Refills amphetamine-dextroamphetamine XR (ADDERALL XR) 30 mg capsule 30 capsule 0 Sig: Take 1 capsule by mouth once daily for 30 days. Donna Crandall December 14, 2024 9:[address] [facility] 11-29-2024 Telephone encounter Note Pt notified of results with verbalized understanding. Dale Sheikh LPN [facility] 11-29-2024 Miscellaneous Notes Pt notified of results with verbalized understanding. Dale Sheikh LPN TC to pt. LM to call office, ask for triage nurse to get results. Georgiana Renner LPN Can you please call the patient and let her know that I reviewed her lab results. was negative. A1c was 4.8, no signs of diabetes. Cholesterol was normal. Kidney/liver function and electrolytes were normal as well. Please let me know if she has any questions. Thank you. Cinthya Balderas APRN.TESTBOARD OPERATOR documented in this encounter [facility] 11-29-2024 Telephone encounter Note TC to pt. LM to call office, ask for triage nurse to get results. Georgiana Renner LPN [facility] 11-29-2024 Telephone encounter Note Can you please call the patient and let her know that I reviewed her lab results. was negative. A1c was 4.8, no signs of diabetes. Cholesterol was normal. Kidney/liver function and electrolytes were normal as well. Please let me know if she has any questions. Thank you. Cinthya Balderas APRN.TESTBOARD OPERATOR [facility] 11-20-2024 Note HNO ID: [id number] Author: CINTHYA BALDERAS APRN.TESTBOARD OPERATOR Service: ? Author Type: Nurse Practitioner Type: Progress Notes Filed: 11/20/2024 09:02 Note Text: This is a 34 year old female who presents today with: Patient presents with: Wellness HISTORY OF PRESENT ILLNESS: Mirella Workman is a 34 year old female. Patient presents with: Wellness Here in the office for wellness exam Diet: Eating well balanced diet. Exercise: Walking daily at work, 13-14,000 daily. Vision: Due, wearing glasses. Dental: Due for exam. Sleep: 6-7 hours per night. Mood: Denies any increased sadness,anxiety , or SI/HI. ADD: Taking Adderall XR 30 mg daily. Medication has been helpful for focus and concentration. Last Tox Screen 2021, past due. Menses: Regular, last menses 10/24/2024, trying to get . Has noticed nipple discharge last week, brown. Mild nausea. Pap: September 2024, HPV + Vaccines: Denies wanting any vaccines at this time. PAST MEDICAL HISTORY: PAST MEDICAL HISTORY Diagnosis Date Acne Asthma mild Attention deficit disorder without mention of hyperactivity PAST SURGICAL HISTORY Procedure Laterality Date NEXPLANON INSERTION 03/10/2021 x3- 2014,2018 NEXPLANON REMOVAL Right 07/27/2024 ALLERGIES Concerta [Methylphenidate Hcl] MEDICATIONS Current Outpatient Medications Medication Sig amphetamine-dextroamphetamine XR (ADDERALL XR) 30 mg capsule Take 1 capsule by mouth once daily for 30 days. No current facility-administered medications for this visit. FAMILY HISTORY Problem Relation Age of Onset Seizures Mother Thyroid Mother hyper other (Other) Father mental health Diabetes Maternal Grandmother Heart Maternal Grandmother Diabetes Paternal Grandmother Heart Paternal Grandmother Social History Tobacco Use Smoking status: Never Smokeless tobacco: Never Vaping Use Vaping status: Never Used Substance Use Topics Alcohol use: No Drug use: No REVIEW OF SYSTEMS GENERAL: No weight loss, malaise or fevers/chills HEENT: Negative for frequent or significant headaches, No changes in hearing or vision. NECK: Negative for lumps, goiter, pain and significant neck swelling RESPIRATORY: Negative for cough, hemoptysis, wheezing, dyspnea or shortness of breath CARDIOVASCULAR: Negative for chest pain, leg swelling, orthopnea, or palpitations GI: No nausea, vomiting, or diarrhea/constipation. No hematochezia/melena. No heartburn or reflux symptoms. : No history of dysuria, frequency or incontinence MUSCULOSKELETAL: Negative for joint pain or swelling. SKIN: Negative for lesions, rash, and itching ENDOCRINE: Negative for cold or heat intolerance, polyuria, polydipsia and goiter NEURO: No history of headaches, syncope, paralysis, seizures or tremors MOOD: Negative for depression, anxiety, or suicidal ideation. EXAM: BP 100/70 Pulse 103 Resp 16 Ht 161.3 cm (5' 3.5) Wt 93.3 kg (205 lb 11 oz) LMP 10/09/2024 (Exact Date) SpO2 97% BMI 35.86 kg/m? PHYSICAL EXAM: General Appearance: Well appearing, alert, in no acute distress, well-hydrated, well nourished. Skin: Skin color, texture, turgor normal, no suspicious rashes or lesions. Head: Normocephalic, no masses, lesions, tenderness or abnormalities. Eyes: Anicteric sclera. Pupils are equally round and reactive to light. Extraocular movements are intact. Ears: External ears normal, canals clear. TM's pearly phelps. Neck: Supple, no adenopathy; thyroid symmetric, normal size, no bruits. Lungs: Lungs clear to auscultation. No wheezing, rhonchi, rales. Heart: RRR without murmur, gallop, or rubs. No ectopy. Abdomen: Abdomen soft, non-tender. Bowel sounds normal. No masses, organomegaly, Negative CVA tenderness. Extremities: No deformities, edema, skin discoloration, clubbing or cyanosis. Good capillary refill. Musculoskeletal: No joint swelling, deformity, or tenderness. Peripheral Pulses: Normal, Capillary refill <2secs, strong peripheral pulses, Pulses palpable. Neurologic: Gait normal. Reflexes normal and symmetric. Sensation grossly intact.. Mood: Pleasant, engaged, good eye contact. ASSESSMENT/PLAN: 1. Wellness examination - ICD9: V70.0, ICD10: Z00.00 (primary diagnosis) - Counseled on healthy diet and regular exercise - Discussed need and benefit for weight loss. BMI 35.86 kg/(m2) - Follow up for annual exam in one year - COMPREHENSIVE METABOLIC PANEL 2. Attention deficit hyperactivity disorder (ADHD), unspecified ADHD type - ICD9: 314.01, ICD10: F90.9 - Stable, refill provided. - Tox screen completed - TOXICOLOGY SCREEN, ROUTINE URINE - QUANTITATIVE TOXICOLOGY PANEL, URINE - DEXTROAMPHETAMINE-AMPHETAMINE ER 30 MG 24HR CAPSULE,EXTEND RELEASE - DEXTROAMPHETAMINE-AMPHETAMINE ER 30 MG 24HR CAPSULE,EXTEND RELEASE - DEXTROAMPHETAMINE-AMPHETAMINE ER 30 MG 24HR CAPSULE,EXTEND RELEASE 3. Missed menses - ICD9: 626.4, ICD10: N92.6 - HCG QUANTITATIVE 4. Screening for (more content not included)... [facility] 11-20-2024 History of Presen t illness Narrative This is a 34 year old female who presents today with: Patient presents with: Wellness HISTORY OF PRESENT ILLNESS: Mirella Workman is a 34 year old female. Patient presents with: Wellness Here in the office for wellness exam Diet: Eating well balanced diet. Exercise: Walking daily at work, 13-14,000 daily. Vision: Due, wearing glasses. Dental: Due for exam. Sleep: 6-7 hours per night. Mood: Denies any increased sadness,anxiety , or SI/HI. ADD: Taking Adderall XR 30 mg daily. Medication has been helpful for focus and concentration. Last Tox Screen 2021, past due. Menses: Regular, last menses 10/24/2024, trying to get . Has noticed nipple discharge last week, brown. Mild nausea. Pap: September 2024, HPV + Vaccines: Denies wanting any vaccines at this time. PAST MEDICAL HISTORY: PAST MEDICAL HISTORY Diagnosis Date Acne Asthma mild Attention deficit disorder without mention of hyperactivity PAST SURGICAL HISTORY Procedure Laterality Date NEXPLANON INSERTION 03/10/2021 x3- 2014,2017 NEXPLANON REMOVAL Right 07/27/2024 ALLERGIES Concerta [Methylphenidate Hcl] MEDICATIONS Current Outpatient Medications Medication Sig amphetamine-dextroamphetamine XR (ADDERALL XR) 30 mg capsule Take 1 capsule by mouth once daily for 30 days. No current facility-administered medications for this visit. FAMILY HISTORY Problem Relation Age of Onset Seizures Mother Thyroid Mother hyper other (Other) Father mental health Diabetes Maternal Grandmother Heart Maternal Grandmother Diabetes Paternal Grandmother Heart Paternal Grandmother Social History Tobacco Use Smoking status: Never Smokeless tobacco: Never Vaping Use Vaping status: Never Used Substance Use Topics Alcohol use: No Drug use: No REVIEW OF SYSTEMS GENERAL: No weight loss, malaise or fevers/chills HEENT: Negative for frequent or significant headaches, No changes in hearing or vision. NECK: Negative for lumps, goiter, pain and significant neck swelling RESPIRATORY: Negative for cough, hemoptysis, wheezing, dyspnea or shortness of breath CARDIOVASCULAR: Negative for chest pain, leg swelling, orthopnea, or palpitations GI: No nausea, vomiting, or diarrhea/constipation. No hematochezia/melena. No heartburn or reflux symptoms. : No history of dysuria, frequency or incontinence MUSCULOSKELETAL: Negative for joint pain or swelling. SKIN: Negative for lesions, rash, and itching ENDOCRINE: Negative for cold or heat intolerance, polyuria, polydipsia and goiter NEURO: No history of headaches, syncope, paralysis, seizures or tremors MOOD: Negative for depression, anxiety, or suicidal ideation. EXAM: BP 100/70 Pulse 103 Resp 16 Ht 161.3 cm (5' 3.5) Wt 93.3 kg (205 lb 11 oz) LMP 10/09/2024 (Exact Date) SpO2 97% BMI 35.86 kg/m PHYSICAL EXAM: General Appearance: Well appearing, alert, in no acute distress, well-hydrated, well nourished. Skin: Skin color, texture, turgor normal, no suspicious rashes or lesions. Head: Normocephalic, no masses, lesions, tenderness or abnormalities. Eyes: Anicteric sclera. Pupils are equally round and reactive to light. Extraocular movements are intact. Ears: External ears normal, canals clear. TM's pearly phelps. Neck: Supple, no adenopathy; thyroid symmetric, normal size, no bruits. Lungs: Lungs clear to auscultation. No wheezing, rhonchi, rales. Heart: RRR without murmur, gallop, or rubs. No ectopy. Abdomen: Abdomen soft, non-tender. Bowel sounds normal. No masses, organomegaly, Negative CVA tenderness. Extremities: No deformities, edema, skin discoloration, clubbing or cyanosis. Good capillary refill. Musculoskeletal: No joint swelling, deformity, or tenderness. Peripheral Pulses: Normal, Capillary refill <2secs, strong peripheral pulses, Pulses palpable. Neurologic: Gait normal. Reflexes normal and symmetric. Sensation grossly intact.. Mood: Pleasant, engaged, good eye contact. ASSESSMENT/PLAN: 1. Wellness examination - ICD9: V70.0, ICD10: Z00.00 (primary diagnosis) - Counseled on healthy diet and regular exercise - Discussed need and benefit for weight loss. BMI 35.86 kg/(m^2) - Follow up for annual exam in one year - COMPREHENSIVE METABOLIC PANEL 2. Attention deficit hyperactivity disorder (ADHD), unspecified ADHD type - ICD9: 314.01, ICD10: F90.9 - Stable, refill provided. - Tox screen completed - TOXICOLOGY SCREEN, ROUTINE URINE - QUANTITATIVE TOXICOLOGY PANEL, URINE - DEXTROAMPHETAMINE-AMPHETAMINE ER 30 MG 24HR CAPSULE,EXTEND RELEASE - DEXTROAMPHETAMINE-AMPHETAMINE ER 30 MG 24HR CAPSULE,EXTEND RELEASE - DEXTROAMPHETAMINE-AMPHETAMINE ER 30 MG 24HR CAPSULE,EXTEND RELEASE 3. Missed menses - ICD9: 626.4, ICD10: N92.6 - HCG QUANTITATIVE 4. Screening for depression - ICD9: V79.0, ICD10: Z13.31 - DEPRESSION SCREENING 5. Screening for diabetes mellitus - ICD9: V77.1, ICD10: Z13.1 - HEMOGLOBIN A1C 6. Screening cholesterol level - ICD9: V77.91, ICD10: Z13.220 - LIPID PANEL BASIC 7. Encounter for screening examination for other mental health and behavioral disorders - ICD9: V79.8, ICD10: Z13.39 - ANXIETY SCREENING Follow-up in 4 months for medication check or sooner pending test results. Discussed treatment plan and patient voices understanding. Patient's questions answered appropriately. Medications and potential side effects were discussed and patient voices understanding. Cinthya Balderas APRN.CNP This note was partially generated using [email or web address] voice recognition system. Note was reviewed for accuracy. There may be minor misspellings or grammar miscues with [email or web address] voice recognition. PDMP website checked and validated. All prescriptions have been APPROPRIATELY filled. No suspicious activity was identified. 11/20/2024 by Cinthya Balderas APRN.CNP documented in this encounter [facility] 11-20-2024 Instructions Cinthya Balderas APRN.CNP - 11/20/2024 8:44 AM EST Get fasting labs completed, no food 10-12 hours prior, you can have black coffee and water Continue to take all medication as prescribed Continue to eat a well balanced diet and stay active Follow up in 4 months for medication check or sooner pending test results. Health Promotion: - Eat healthy -- go to [employer] to get started - Have a yearly physical - Get at least 30 minutes of physical activity daily - Get at least 7 to 8 hours of sleep each night - Reach and maintain a healthy weight - Get help to quit or don't start smoking - Limit alcohol use to one drink or less - Do not use illegal drugs or misuse prescription drugs - Wear a helmet when riding a bike and wear protective gear for sports - Wear a seatbelt in cars and not text and drive - Wear sunscreen documented in this encounter [facility] 11-16-2024 Telephone encounter Note Pt sent centrose message notifying her of message below from Provider. Lilo Johnson MA [facility] 11-16-2024 Miscellaneous Notes Pt sent [employer] message notifying her of message below from Provider. Lilo Johnson MA 1 month sent. Patient is due for 6 month follow up for Adderall. Needs seen every 6 month for this medication. PDMP website checked and validated. All prescriptions have been APPROPRIATELY filled. No suspicious activity was identified. 11/16/2024 by Curtis Chan APRN.CNP The following approved medication requests have been transmitted electronically. Requested Prescriptions Signed Prescriptions Disp Refills amphetamine-dextroamphetamine XR (ADDERALL XR) 30 mg capsule 30 capsule 0 Sig: Take 1 capsule by mouth once daily for 30 days. Authorizing Provider: CURTIS CHAN APRN.CNP Prescription Refill Information The patient has been identified by name and date of : Yes Caregiver verified no other encounters exist for this prescription request: Yes Caregiver confirmed with patient/requestor that no other refills are due, in the near future, with this provider at this time: Yes The last office visit in the department: 06-07-24 Does the patient have a future office visit with this provider/department: No Requested Prescriptions Pending Prescriptions Disp Refills amphetamine-dextroamphetamine XR (ADDERALL XR) 30 mg capsule 30 capsule 0 Sig: Take 1 capsule by mouth once daily for 30 days. Franchesca Price November 15, 2024 2:07 PM documented in this encounter [facility] 11-16-2024 Telephone encounter Note 1 month sent. Patient is due for 6 month follow up for Adderall. Needs seen every 6 month for this medication. PDMP website checked and validated. All prescriptions have been APPROPRIATELY filled. No suspicious activity was identified. 11/16/2024 by Curtis Chan APRN.CNP The following approved medication requests have been transmitted electronically. Requested Prescriptions Signed Prescriptions Disp Refills amphetamine-dextroamphetamine XR (ADDERALL XR) 30 mg capsule 30 capsule 0 Sig: Take 1 capsule by mouth once daily for 30 days. Authorizing Provider: CURTIS CHAN APRN.CNP [facility] [place] 11-15-2024 Telephone encounter Note Prescription Refill Information The patient has been identified by name and date of : Yes Caregiver verified no other encounters exist for this prescription request: Yes Caregiver confirmed with patient/requestor that no other refills are due, in the near future, with this provider at this time: Yes The last office visit in the department: 06-07-24 Does the patient have a future office visit with this provider/department: No Requested Prescriptions Pending Prescriptions Disp Refills amphetamine-dextroamphetamine XR (ADDERALL XR) 30 mg capsule 30 capsule 0 Sig: Take 1 capsule by mouth once daily for 30 days. Franchesca Price November 15, 2024 2:07 PM [facility] [place] 10-20-2024 Instructions Sena Jackson LPN - 10/20/2024 1:25 PM EST YOUR RECOVERY It may take a few weeks for your cervix to heal. While your cervix heals, you may have: - Vaginal bleeding (less than a normal menstrual period) - Mild cramping - A brown-black vaginal discharge (similar to coffee grounds) which is a result of the paste used to help stop bleeding from the procedure Do NOT put anything in the vagina for 1 week after your colposcopy if your doctor does a biopsy of your cervix. This includes sex, tampons, and douches. If you have any discomfort, you may take an over the counter pain medication (motrin, advil, ibuprofen, tylenol, etc). If this does not relieve your discomfort, contact your doctor's office for a prescription strength pain medication. It is okay to wear a sanitary pad until the discharge and spotting stops. RISKS Although problems seldom occur with colposcopy, there can be some complications. You may feel faint during and shortly after the procedure as well as have some bleeding and vaginal discharge after the procedure. There is also a risk of infection after the procedure. These complications are rare and can be easily treated. You should contact you doctor is you have any of the following: - Heavy bleeding (more than your normal period) - Bleeding with clots - Severe abdominal pain - Fever (more than 100.4F) - Foul smelling vaginal discharge RESULTS If a biopsy was taken, we will have the results of your biopsy in 1-2 weeks. If you do not hear the results of your biopsy after 2 weeks, please contact your physicians office for the results. Depending on the biopsy results, your doctor will determine your follow up plan which may include further testing or treatments. STAYING HEALTHY After the procedure, you will need to see your doctor for follow up visits during the year. At these visits your doctor will check the health of your cervix with a pap smear. After three normal pap smears, your doctor will allow you to return to having exams once a year. If you have another abnormal pap smear, you may need closer follow up for longer or you may need additional treatment. By making a few lifestyle changes after the procedure, you can help protect the health of your cervix: - Have regular pelvic exams and pap smears as ordered by your doctor. - Stop smoking as smoking increases your risk of developing a cancer of the cervix - If you have more than one sexual partner, limit your number of partners and use condoms to reduce your risks of STDs. If you have any additional questions, please contact your doctor's office. documented in this encounter [facility] 10-20-2024 Note HNO ID: [id number] Author: BARBARA WELLS MD Service: ? 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 The patient's last pap smear was Positive HPV from September 2024. Patient has a history of abnormal pap: No. The patient has had prior treatment: none. Has complete HPV vaccine series test: negative UNIVERSAL PROTOCOL / SAFETY CHECKLIST Procedure to be Performed: Colposcopy Sign In: A Moment of CARE was completed. Personnel directly involved with the procedure wore the appropriate PPE (Personal Protective Equipment). Patient/Surrogate Stated/Verified: PATIENT VERIFIED(optional for EMERGENT procedures): Patient name, Date of , Relevant allergies, and The intended procedure Time Out Communication: Intended patient and procedure match the source documents. Consent documented and matches the intended procedure. Sign Out: SIGN OUT (optional for EMERGENT procedures): No specimen collected. All instruments, equipment, possible retained foreign bodies accounted for. PROCEDURE: EXTERNAL GENITALIA: Normal in appearance without lesions VAGINA: Normal in appearance without lesions CERVIX: Speculum placed in vagina and excellent visualization of cervix achieved. Cervix swabbed x 3 with 3% acetic acid solution. Cervix grossly normal. Squamocolumnar junction visualized. No acetowhite changes, punctations, mosaicism or atypical vasculature noted. BIOPSY: Not done. ECC: not done HEMOSTASIS: Obtained with Procedure Summary: Patient tolerated procedure well and colposcopy was adequate. 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 Mirella is a 34 year old who presents today for a colposcopy. The patient's last pap smear was Positive HPV from September 2024. Patient has a history of abnormal pap: No. The patient has had prior treatment: none. Has complete HPV vaccine series test: negative UNIVERSAL PROTOCOL / SAFETY CHECKLIST Procedure to be Performed: Colposcopy Sign In: A Moment of CARE was completed. Personnel directly involved with the procedure wore the appropriate PPE (Personal Protective Equipment). Patient/Surrogate Stated/Verified: PATIENT VERIFIED(optional for EMERGENT procedures): Patient name, Date of , Relevant allergies, and The intended procedure Time Out Communication: Intended patient and procedure match the source documents. Consent documented and matches the intended procedure. Sign Out: SIGN OUT (optional for EMERGENT procedures): No specimen collected. All instruments, equipment, possible retained foreign bodies accounted for. PROCEDURE: EXTERNAL GENITALIA: Normal in appearance without lesions VAGINA: Normal in appearance without lesions CERVIX: Speculum placed in vagina and excellent visualization of cervix achieved. Cervix swabbed x 3 with 3% acetic acid solution. Cervix grossly normal. Squamocolumnar junction visualized. No acetowhite changes, punctations, mosaicism or atypical vasculature noted. BIOPSY: Not done. ECC: not done HEMOSTASIS: Obtained with Procedure Summary: Patient tolerated procedure well and colposcopy was adequate. ASSESSMENT: HPV effect PLAN: Repeat pap yearly Barbara Wells MD documented in this encounter [facility] 10-16-2024 Telephone encounter Note Approved. PDMP website checked and validated. All prescriptions have been APPROPRIATELY filled. No suspicious activity was identified. 10/16/2024 by Curtis Chan APRN.CNP The following approved medication requests have been transmitted electronically. Requested Prescriptions Signed Prescriptions Disp Refills amphetamine-dextroamphetamine XR (ADDERALL XR) 30 mg capsule 30 capsule 0 Sig: Take 1 capsule by mouth once daily for 30 days. Authorizing Provider: CURTIS CHAN APRN.CNP [facility] 10-16-2024 Miscellaneous Notes Approved. PDMP website checked and validated. All prescriptions have been APPROPRIATELY filled. No suspicious activity was identified. 10/16/2024 by Curtis Chan APRN.CNP The following approved medication requests have been transmitted electronically. Requested Prescriptions Signed Prescriptions Disp Refills amphetamine-dextroamphetamine XR (ADDERALL XR) 30 mg capsule 30 capsule 0 Sig: Take 1 capsule by mouth once daily for 30 days. Authorizing Provider: CURTIS CHAN APRN.CNP Prescription Refill Information The patient has been identified by name and date of : Yes Caregiver verified no other encounters exist for this prescription request: Yes Caregiver confirmed with patient/requestor that no other refills are due, in the near future, with this provider at this time: Yes The last office visit in the department: 06-07-24 Does the patient have a future office visit with this provider/department: No Requested Prescriptions Pending Prescriptions Disp Refills amphetamine-dextroamphetamine XR (ADDERALL XR) 30 mg capsule 30 capsule 0 Sig: Take 1 capsule by mouth once daily for 30 days. Franchesca Jackson [facility] October 16, 2024 10:13 AM documented in this encounter [facility] 10-16-2024 Telephone encounter Note Prescription Refill Information The patient has been identified by name and date of : Yes Caregiver verified no other encounters exist for this prescription request: Yes Caregiver confirmed with patient/requestor that no other refills are due, in the near future, with this provider at this time: Yes The last office visit in the department: 06-07-24 Does the patient have a future office visit with this provider/department: No Requested Prescriptions Pending Prescriptions Disp Refills amphetamine-dextroamphetamine XR (ADDERALL XR) 30 mg capsule 30 capsule 0 Sig: Take 1 capsule by mouth once daily for 30 days. Franchesca Jackson [facility] October 16, 2024 10:[address] [facility] 09-12-2024 Telephone encounter Note Approved. PDMP website checked and validated. All prescriptions have been APPROPRIATELY filled. No suspicious activity was identified. 09/12/2024 by Curtis Chan APRN.CNP The following approved medication requests have been transmitted electronically. Requested Prescriptions Signed Prescriptions Disp Refills amphetamine-dextroamphetamine XR (ADDERALL XR) 30 mg capsule 30 capsule 0 Sig: Take 1 capsule by mouth once daily for 30 days. Authorizing Provider: UCRTIS CHAN APRN.CNP [facility] 09-12-2024 Miscellaneous Notes Approved. PDMP website checked and validated. All prescriptions have been APPROPRIATELY filled. No suspicious activity was identified. 09/12/2024 by Curtis Chan APRN.CNP The following approved medication requests have been transmitted electronically. Requested Prescriptions Signed Prescriptions Disp Refills amphetamine-dextroamphetamine XR (ADDERALL XR) 30 mg capsule 30 capsule 0 Sig: Take 1 capsule by mouth once daily for 30 days. Authorizing Provider: CURTIS CHAN APRN.CNP Prescription Refill Information The patient has been identified by name and date of : Yes Caregiver verified no other encounters exist for this prescription request: Yes Caregiver confirmed with patient/requestor that no other refills are due, in the near future, with this provider at this time: Yes The last office visit in the department: 06-07-24 Does the patient have a future office visit with this provider/department: No Requested Prescriptions Pending Prescriptions Disp Refills amphetamine-dextroamphetamine XR (ADDERALL XR) 30 mg capsule 30 capsule 0 Sig: Take 1 capsule by mouth once daily for 30 days. Franchesca Price September 12, 2024 1:59 PM documented in this encounter [facility] 09-12-2024 Telephone encounter Note Prescription Refill Information The patient has been identified by name and date of : Yes Caregiver verified no other encounters exist for this prescription request: Yes Caregiver confirmed with patient/requestor that no other refills are due, in the near future, with this provider at this time: Yes The last office visit in the department: 06-07-24 Does the patient have a future office visit with this provider/department: No Requested Prescriptions Pending Prescriptions Disp Refills amphetamine-dextroamphetamine XR (ADDERALL XR) 30 mg capsule 30 capsule 0 Sig: Take 1 capsule by mouth once daily for 30 days. Franchesca Price September 12, 2024 1:[address] [facility] 09-11-2024 History of Presen t illness Narrative Mirella is a 33 year old who presents for an annual gynecologic exam without complaints. She just got Menses: cycles every 28-30 days and 7 days of flow. Contraception: none HPV vaccine: No Last Pap: 09/22/2023 normal HPV: 09/15/2023 positive History of abnormal pap: No Last mammogram: never Sexually active: Yes History of STDS: None History of fibroids: No History of ovarian cyst: No History of endometriosis: No History of PCOS: No Pain with intercourse: Yes sometimes Postcoital bleeding: Yes sometimes OB History T1 L1 SAB0 IAB0 Ectopic0 Multiple0 Live Births1 Comment: GBS septicemia in - needs GBS prophylaxis in any Packing Checker History LMP: 09/06/2024 (Exact Date), Having periods Age at Menarche: Age at First : Age at Menopause: Packing Checker History Comments: Sexual Activity: Yes; Male Contraception: No contraception data on record PAST MEDICAL HISTORY Diagnosis Date Acne Asthma mild Attention deficit disorder without mention of hyperactivity PAST SURGICAL HISTORY Procedure Laterality Date NEXPLANON INSERTION 03/10/2021 x3- NEXPLANON REMOVAL Right 07/27/2024 FAMILY HISTORY Problem Relation Age of Onset Seizures Mother Thyroid Mother hyper other (Other) Father mental health Diabetes Maternal Grandmother Heart Maternal Grandmother Diabetes Paternal Grandmother Heart Paternal Grandmother SOCIAL HISTORY Social History Tobacco Use Smoking status: Never Smokeless tobacco: Never Vaping Use Vaping status: Never Used Substance Use Topics Alcohol use: No Drug use: No REVIEW OF SYSTEMS Abdomen: No abdominal pain, nausea, vomiting, diarrhea, or constipation. No bloating, early satiety, indigestion, or increased flatulence. Bladder: No dysuria, gross hematuria, urinary frequency, urinary urgency, or incontinence. Breast: No breast lumps, nipple d/c, overlying skin changes, redness or skin retraction. Allergies and current medication updated:Yes SENSITIVE EXAM: The sensitive examination was discussed with the Patient or Patient's Authorized Broadcast Program Director. As applicable, any other physician, advance practice provider, medical student, or other health professional student that will be observing or involved in the sensitive examination for educational or training purposes was discussed with the Patient or Authorized Broadcast Program Director. The Patient or Authorized Broadcast Program Director has agreed to proceed with the sensitive examination. (Sensitive examination includes inspection and/or palpation of the breasts, pelvis, prostate and anorectal regions). EXAM: BP 110/72 Ht 5' 3.5 (1.61m) Wt 199 lb (90.3kg) LMP 09/06/2024 BMI 34.69 kg/(m^2). GENERAL: pleasant, female in no apparent distress HEENT: Normocephalic and atraumatic NECK: Supple and full range of motion DERMATOLOGY: Normal and without lesions BREAST: soft, non-tender, symmetric, no dominant mass, normal nipple-areolar complex, no lymphadenopathy, and no nipple discharge CHEST: Normal inspiratory effort ABDOMEN: soft, non-tender, and no masses PELVIC: external genitalia normal, normal Bartholin's glands, urethra, Wardell's glands, no vulvar lesions, no cervical lesions, good vaginal support, physiologic discharge present, normal appearing perineal body and perianal region BIMANUAL: uterus normal size, shape and consistency, no adnexal masses, non-tender, and no cervical motion tenderness RECTOVAGINAL: deferred. NEURO: alert and oriented x3,exam grossly non-focal EXTREMITIES: normal ASSESSMENT/PLAN: 1) Health maintenance: Pap done with reflex HPV. 2) Contraception: none. Desires . Recommended starting vitamin daily 3) STD screening: Declined STD check. 4) Follow up one year or sooner as needed Susy Mooney APRN.CNM documented in this encounter [facility] 08-07-2024 Telephone encounter Note The following approved medication requests have been transmitted electronically. Requested Prescriptions Signed Prescriptions Disp Refills amphetamine-dextroamphetamine XR (ADDERALL XR) 30 mg capsule 30 capsule 0 Sig: Take 1 capsule by mouth once daily for 30 days. Authorizing Provider: CINTHYA BALDERAS APRN.CNP PDMP website checked and validated. All prescriptions have been APPROPRIATELY filled. No suspicious activity was identified. 08/07/2024 by Cinthya Balderas APRN.CNP [facility] 08-07-2024 Miscellaneous Notes The following approved medication requests have been transmitted electronically. Requested Prescriptions Signed Prescriptions Disp Refills amphetamine-dextroamphetamine XR (ADDERALL XR) 30 mg capsule 30 capsule 0 Sig: Take 1 capsule by mouth once daily for 30 days. Authorizing Provider: CINTHYA BALDERAS APRN.TESTBOARD OPERATOR PDMP website checked and validated. All prescriptions have been APPROPRIATELY filled. No suspicious activity was identified. 08/07/2024 by Cinthya Balderas APRN.CNP Prescription Refill Information The patient has been identified by name and date of : Yes Caregiver verified no other encounters exist for this prescription request: Yes Caregiver confirmed with patient/requestor that no other refills are due, in the near future, with this provider at this time: Yes The last office visit in the department: 06/07/24 Does the patient have a future office visit with this provider/department: No Requested Prescriptions Pending Prescriptions Disp Refills amphetamine-dextroamphetamine XR (ADDERALL XR) 30 mg capsule 30 capsule 0 Sig: Take 1 capsule by mouth once daily for 30 days. Lora Price August 07, 2024 1:56 PM documented in this encounter [facility] 08-07-2024 Telephone encounter Note Prescription Refill Information The patient has been identified by name and date of : Yes Caregiver verified no other encounters exist for this prescription request: Yes Caregiver confirmed with patient/requestor that no other refills are due, in the near future, with this provider at this time: Yes The last office visit in the department: 06/07/24 Does the patient have a future office visit with this provider/department: No Requested Prescriptions Pending Prescriptions Disp Refills amphetamine-dextroamphetamine XR (ADDERALL XR) 30 mg capsule 30 capsule 0 Sig: Take 1 capsule by mouth once daily for 30 days. Lora Price August 07, 2024 1:[address] [facility] 07-27-2024 History of Presen t illness Narrative Mirella is a 33 year old who presents for Nexplanon removal for desires conception. UNIVERSAL PROTOCOL / SAFETY CHECKLIST Procedure to be Performed: Nexplanon Removal Sign In: A Moment of CARE was completed. Personnel directly involved with the procedure wore the appropriate PPE (Personal Protective Equipment). Patient/Surrogate Stated/Verified: PATIENT VERIFIED(optional for EMERGENT procedures): Patient name, Date of , Relevant allergies, and The intended procedure Time Out Communication: Intended patient and procedure match the source documents. Consent documented and matches the intended procedure. Sign Out: SIGN OUT (optional for EMERGENT procedures): No specimen collected. All instruments, equipment, possible retained foreign bodies accounted for. Post-procedure follow-up management communicated and Plan of Care Visit completed when applicable. Estrella Kenyon APRN.CNP TECHNIQUE: Patient placed in supine position with right arm bent at the elbow and placed over the head. Skin cleansed with betadine. 2 mL of 1% lidocaine with epi injected subQ along insertion site. Scalpel used to made a 5mm stab incision superficially at distal end of Nexplanon. Device removed under sterile technique with a small hemostat. Sterile pressure dressing applied. A&P: 33 year old here for Nexplanon removal Nexplanon removed intact without difficulty. The patient was instructed to remove the dressing after 24 hours. Contraceptive plans: none. Plans for . Recommend PNV. RTO for annual or sooner as needed. Estrella Kenyon APRN.SIMI documented in this encounter [facility] 07-10-2024 Telephone encounter Note Approved. PDMP website checked and validated. All prescriptions have been APPROPRIATELY filled. No suspicious activity was identified. 07/10/2024 by Curtis Chan APRN.CNP The following approved medication requests have been transmitted electronically. Requested Prescriptions Signed Prescriptions Disp Refills amphetamine-dextroamphetamine XR (ADDERALL XR) 30 mg capsule 30 capsule 0 Sig: Take 1 capsule by mouth once daily for 30 days. Authorizing Provider: CURTIS CHAN amphetamine-dextroamphetamine XR (ADDERALL XR) 30 mg capsule 30 capsule 0 Sig: Take 1 capsule by mouth once daily for 30 days. Authorizing Provider: CURTIS CHAN amphetamine-dextroamphetamine XR (ADDERALL XR) 30 mg capsule 30 capsule 0 Sig: Take 1 capsule by mouth once daily for 30 days. Authorizing Provider: CURTIS CHAN APRN.CNP [facility] 07-10-2024 Miscellaneous Notes Approved. PDMP website checked and validated. All prescriptions have been APPROPRIATELY filled. No suspicious activity was identified. 07/10/2024 by Curtis Chan APRN.CNP The following approved medication requests have been transmitted electronically. Requested Prescriptions Signed Prescriptions Disp Refills amphetamine-dextroamphetamine XR (ADDERALL XR) 30 mg capsule 30 capsule 0 Sig: Take 1 capsule by mouth once daily for 30 days. Authorizing Provider: CURTIS CHAN amphetamine-dextroamphetamine XR (ADDERALL XR) 30 mg capsule 30 capsule 0 Sig: Take 1 capsule by mouth once daily for 30 days. Authorizing Provider: CURTIS CHAN amphetamine-dextroamphetamine XR (ADDERALL XR) 30 mg capsule 30 capsule 0 Sig: Take 1 capsule by mouth once daily for 30 days. Authorizing Provider: CURTIS CHAN APRN.CNP Prescription Refill Information The patient has been identified by name and date of : Yes Caregiver verified no other encounters exist for this prescription request: Yes Caregiver confirmed with patient/requestor that no other refills are due, in the near future, with this provider at this time: Yes The last office visit in the department: 06/07/24 Does the patient have a future office visit with this provider/department: no Requested Prescriptions Pending Prescriptions Disp Refills amphetamine-dextroamphetamine XR (ADDERALL XR) 30 mg capsule 30 capsule 0 Sig: Take 1 capsule by mouth once daily for 30 days. amphetamine-dextroamphetamine XR (ADDERALL XR) 30 mg capsule 30 capsule 0 Sig: Take 1 capsule by mouth once daily for 30 days. amphetamine-dextroamphetamine XR (ADDERALL XR) 30 mg capsule 30 capsule 0 Sig: Take 1 capsule by mouth once daily for 30 days. Farheen Bradley [facility] July 10, 2024 9:59 AM documented in this encounter [facility] 07-10-2024 Telephone encounter Note Prescription Refill Information The patient has been identified by name and date of : Yes Caregiver verified no other encounters exist for this prescription request: Yes Caregiver confirmed with patient/requestor that no other refills are due, in the near future, with this provider at this time: Yes The last office visit in the department: 06/07/24 Does the patient have a future office visit with this provider/department: no Requested Prescriptions Pending Prescriptions Disp Refills amphetamine-dextroamphetamine XR (ADDERALL XR) 30 mg capsule 30 capsule 0 Sig: Take 1 capsule by mouth once daily for 30 days. amphetamine-dextroamphetamine XR (ADDERALL XR) 30 mg capsule 30 capsule 0 Sig: Take 1 capsule by mouth once daily for 30 days. amphetamine-dextroamphetamine XR (ADDERALL XR) 30 mg capsule 30 capsule 0 Sig: Take 1 capsule by mouth once daily for 30 days. Farheen Bradley [facility] July 10, 2024 9:[address] [facility] 06-09-2024 Telephone encounter Note OK to refill as ordered Johnson Gonzalez MD [facility] 06-09-2024 Miscellaneous Notes OK to refill as ordered Johnson Gonzalez MD Prescription Refill Information The patient has been identified by name and date of : Yes Caregiver verified no other encounters exist for this prescription request: Yes Caregiver confirmed with patient/requestor that no other refills are due, in the near future, with this provider at this time: No The last office visit in the department: 06/07/24 Does the patient have a future office visit with this provider/department: No Requested Prescriptions Pending Prescriptions Disp Refills amphetamine-dextroamphetamine XR (ADDERALL XR) 30 mg capsule 30 capsule 0 Sig: Take 1 capsule by mouth once daily for 30 days. Polly Gillette MA June 09, 2024 12:16 PM Patient has been identified by name and date of : Yes, Patient phones for refill(s): Requested Prescriptions Pending Prescriptions Disp Refills amphetamine-dextroamphetamine XR (ADDERALL XR) 30 mg capsule 30 capsule 0 Sig: Take 1 capsule by mouth once daily for 30 days. Date of last office visit in primary care: 06/07/2024 Date of next office visit in primary care: Visit date not found [facility] Please advise. Thank you. Theresa Arias. documented in this encounter [facility] 06-09-2024 Telephone encounter Note Linked to appointment. Barbara Kaminski RN [facility] 06-09-2024 Miscellaneous Notes Linked to appointment. Barbara Kaminski RN Signed. Estrella Kenyon APRN.CNP Please file order. Will need to attach to upcoming appointment then. Leia Zavala RN Patient requesting control to be removed from her arm, please review and place order. Chelle Brown June 09, 2024 10:49 AM documented in this encounter [facility] 06-09-2024 Telephone encounter Note Signed. Estrella Kenyon APRN.CNP [facility] Work Phone: 06-09-2024 Telephone encounter Note Prescription Refill Information The patient has been identified by name and date of : Yes Caregiver verified no other encounters exist for this prescription request: Yes Caregiver confirmed with patient/requestor that no other refills are due, in the near future, with this provider at this time: No The last office visit in the department: 06/07/24 Does the patient have a future office visit with this provider/department: No Requested Prescriptions Pending Prescriptions Disp Refills amphetamine-dextroamphetamine XR (ADDERALL XR) 30 mg capsule 30 capsule 0 Sig: Take 1 capsule by mouth once daily for 30 days. Polly Gillette MA June 09, 2024 12:[address] [facility] 06-09-2024 Telephone encounter Note Please file order. Will need to attach to upcoming appointment then. Leia Zavala RN [facility] 06-09-2024 Telephone encounter Note Patient requesting control to be removed from her arm, please review and place order. Chelle Brown June 09, 2024 10:[address] [facility] 06-09-2024 Telephone encounter Note Patient has been identified by name and date of : Yes, Patient phones for refill(s): Requested Prescriptions Pending Prescriptions Disp Refills amphetamine-dextroamphetamine XR (ADDERALL XR) 30 mg capsule 30 capsule 0 Sig: Take 1 capsule by mouth once daily for 30 days. Date of last office visit in primary care: 06/07/2024 Date of next office visit in primary care: Visit date not found [facility] Please advise. Thank you. Theresa Arias. [facility] 06-07-2024 History of Presen t illness Narrative Chief Complaint Patient presents with: Fatigue Weight Problem: Wondering if she has thyroid disease due to family hx HPI Mirella Perry is a 33 year old female who presents here today for Above Complaints.. Family hx thyroid disease. Has felt very lethargic, fatigued, weight gain over the past 2 years-has not had any changes in routine. Family hx thyroid disease in both mother and grandmother. States mother's started in her teens. No difficulty swallowing. Does not snack or eat late at night. Gets 14,000 steps daily with work. Past medical history, appointments, medications, allergies reviewed. Previous Medical History PAST MEDICAL HISTORY No date: Acne No date: Asthma Comment: mild No date: Attention deficit disorder without mention of hyperactivity Previous Surgical History PAST SURGICAL HISTORY No date: NONE Family History FAMILY HISTORY Problem Relation Age of Onset Seizures Mother Thyroid Mother hyper other (Other) Father mental health Diabetes Maternal Grandmother Heart Maternal Grandmother Diabetes Paternal Grandmother Heart Paternal Grandmother Patient Allergies ALLERGIES Allergen Reactions Concerta [Methylphe* Intolerance Has trouble breathing. Current Medications Current Outpatient Medications on File Prior to Visit Medication Sig cephALEXin (KEFLEX) 500 mg capsule Take 1 capsule by mouth four times daily for 14 days. amphetamine-dextroamphetamine XR (ADDERALL XR) 30 mg capsule Take 1 capsule by mouth once daily for 30 days. etonogestrel (NEXPLANON) subdermal implant 68 mg 1 Each by SUBDERMAL route as directed. amphetamine-dextroamphetamine XR (ADDERALL XR) 30 mg capsule Take 1 capsule by mouth once daily for 30 days. amphetamine-dextroamphetamine XR (ADDERALL XR) 30 mg capsule Take 1 capsule by mouth once daily for 30 days. No current facility-administered medications on file prior to visit. Social History Social History Tobacco Use Smoking status: Never Smokeless tobacco: Never Vaping Use Vaping Use: Never used Substance Use Topics Alcohol use: No Drug use: No Review of Symptoms REVIEW OF SYSTEMS See HPI, otherwise negative EXAM: BP 118/84 (BP Site: Left Arm, BP Position: Sitting, BP Cuff Size: Regular Adult) Pulse 75 Resp 16 Wt 89.7 kg (197 lb 12.8 oz) LMP 09/04/2023 (Exact Date) SpO2 98% BMI 33.02 kg/m General Appearance: Well appearing, alert, in no acute distress, well-hydrated, well nourished. and Obese. Neck: Supple, no adenopathy; thyroid symmetric, normal size, no bruits. Lungs: Lungs clear to auscultation. No wheezing, rhonchi, rales.. Heart: RRR without murmur, gallop, or rubs. No ectopy. Psychiatric: pleasant, cooperative. Health Maintenance List Hepatitis B Vaccine(2 of 3 - 3-dose series) due on 12/03/2000 Depression Screening Never done Anxiety Screening Never done Hepatitis C Screening Never done Cervical Cancer Screening due on 09/10/2024 Spirometry due on 08/20/2024 Covid-19 Vaccine(3 - 2022- season) due on 08/20/2024 Influenza Vaccine(1) due on 07/02/2024 Annual PCP Team Chronic Disease Visit due on 05/30/2025 DTaP,Tdap,Td Vaccine(7 - Td or Tdap) due on 08/20/2033 HPV Vaccine Completed HIV Screening Completed Data reviewed Previous records, office notes ASSESSMENT/PLAN: 1. Fatigue, unspecified type - ICD9: 780.79, ICD10: R53.83 (primary diagnosis) - COMPLETE BLOOD COUNT - COMPREHENSIVE METABOLIC PANEL - IRON AND TIBC - FERRITIN - THYROID PEROXIDASE ANTIBODY - THYROGLOBULIN ANTIBODY - THYROID STIMULATING HORMONE - T4 FREE/FREE THYROXINE - T3 - US THYROID/PARATHYROID 2. Weight gain - ICD9: 783.1, ICD10: R63.5 - COMPLETE BLOOD COUNT - COMPREHENSIVE METABOLIC PANEL - IRON AND TIBC - FERRITIN - THYROID PEROXIDASE ANTIBODY - THYROGLOBULIN ANTIBODY - THYROID STIMULATING HORMONE - T4 FREE/FREE THYROXINE - T3 - US THYROID/PARATHYROID 3. Family history of thyroid disease - ICD9: V18.19, ICD10: Z83.49 - COMPLETE BLOOD COUNT - COMPREHENSIVE METABOLIC PANEL - IRON AND TIBC - FERRITIN - THYROID PEROXIDASE ANTIBODY - THYROGLOBULIN ANTIBODY - THYROID STIMULATING HORMONE - T4 FREE/FREE THYROXINE - T3 - US THYROID/PARATHYROID Angelina Wadsworth APRN.CNP documented in this encounter [facility] 05-31-2024 Telephone encounter Note Faxed. Sangeeta Holder MA [facility] 05-31-2024 Miscellaneous Notes Faxed. Sangeeta Holder MA Please fax my office note from yesterday to Dr. Hammer/Drew Barba. Patient has an appt with him tomorrow 06/01. Angelina Wadsworth APRN.SIMI documented in this encounter [facility] 05-31-2024 Telephone encounter Note Please fax my office note from yesterday to Dr. Hammer/Drew Barba. Patient has an appt with him tomorrow 06/01. Angelina Wadsworth APRN.CNP [facility] 05-31-2024 History of Presen t illness Narrative Chief Complaint Patient presents with: Follow Up: Cellulitis HPI Mirella Perry is a 33 year old female who presents here today for Above Complaints.. Per visit with Cinthya Balderas CNP on 04/06/2024: HISTORY OF PRESENT ILLNESS: Mirella Perry is a 33 year old female. Patient presents with: Acute Visit: swelling right calf, ? bug bite Was seen in [facility] yesterday for bug bite/rash. Treated with triamcinolone 1% cream as well as Bactroban ointment. Concerns that bite/rash was not treated correctly. Bites/Rash Started on Wednesday. Was out in the garage and yard. No bite that she can remember. Wednesday morning noticed a possible bite to left calf. Wednesday started to get tender and today itching started. Has been using the triamcinolone cream and Bactroban ointment. EXAM: BP 110/76 Pulse 96 Resp 16 Wt 89.4 kg (197 lb) LMP 09/04/2023 (Exact Date) SpO2 99% BMI 32.88 kg/m PHYSICAL EXAM: General Appearance: Well appearing, alert, in no acute distress, well-hydrated, well nourished. Skin: various mild raised papules and one larger palpable elevated skin lesion noted to the left calf. No signs of cellulitis or abscess. Mild tenderness with palpation. Head: Normocephalic, no masses, lesions, tenderness or abnormalities. Eyes: Anicteric sclera. Extraocular movements are intact. Extremities: No deformities, edema, skin discoloration, clubbing or cyanosis. Good capillary refill. Peripheral Pulses: Normal, Capillary refill <2secs, strong peripheral pulses, Pulses palpable. Neurologic: Gait normal. Sensation grossly intact. ASSESSMENT/PLAN: 1. Contact dermatitis, unspecified contact dermatitis type, unspecified trigger - ICD9: 692.9, ICD10: L25.9 (primary diagnosis) - Contact dermatitis versus possible insect bite? - No signs of abscess or cellulitis. - Continue with triamcinolone cream and Bactroban ointment. - Instructed to take a daily antihistamine. If needed may take Pepcid 20 mg. - Discussed starting Keflex or Doxycycline with any worsening symptoms. - Instructed to follow-up in office with any worsening symptoms. 2. Insect bite of left lower leg, initial encounter - ICD9: 916.4, E906.4, ICD10: S80.862A, W57.XXXA - Same plan as #1. Follow up if no improvement. Discussed treatment plan and patient voices understanding. Patient's questions answered appropriately. Medications and potential side effects were discussed and patient voices understanding. Cinthya Balderas APRN.TESTBOARD OPERATOR Per visit with myself on 05/26/2024: Right calf-She was given Keflex 500mg bid x7 days, on 04/22, completed this and states rash area did improve somewhat, but after the antibiotics were stopped, the rash came back and is now worse. Is raised, no itching but a bit painful, no drainage, is warm a little bruising around it. Keeping it clean and dry as ordered. General Appearance: Well appearing, alert, in no acute distress, well-hydrated, well nourished.. Skin: multiple nodular reddened and warm area creating larger overall area to right calf, no drainage, no streaking, area demarcated with skin marker. Psychiatric: pleasant, cooperative. ASSESSMENT/PLAN: 1. Cellulitis of skin - ICD9: 682.9, ICD10: L03.90 (primary diagnosis) Keflex x14 days. Follow up in the office in 3-4 days. Discussed red flag s/s Concern for Lyme disease due to pictures she has on her phone - CEPHALEXIN 500 MG CAPSULE - LYME AB EARLY <=30 DAY SYMPTOMS - LYME AB LATE >30 DAYS SYMPTOMS 2. Insect bite of right lower extremity, subsequent encounter - ICD9: V58.89, 916.4, ICD10: S80.861D, W57.XXXD Keflex x14 days. Follow up in the office in 3-4 days. Discussed red flag s/s Concern for Lyme disease due to pictures she has on her phone - CEPHALEXIN 500 MG CAPSULE - LYME AB EARLY <=30 DAY SYMPTOMS - LYME AB LATE >30 DAYS SYMPTOMS Angelina Wadsworth APRN.TESTBOARD OPERATOR Currently: Rash did extend slightly outside of demarcated area, but is no longer warm. Is slightly raised and not itchy, somewhat painful. Rash seems more dried up than before. Denies fever. Past medical history, appointments, medications, allergies reviewed. Previous Medical History PAST MEDICAL HISTORY No date: Acne No date: Asthma Comment: mild No date: Attention deficit disorder without mention of hyperactivity Previous Surgical History PAST SURGICAL HISTORY No date: NONE Family History FAMILY HISTORY Problem Relation Age of Onset Seizures Mother Thyroid Mother hyper other (Other) Father mental health Diabetes Maternal Grandmother Heart Maternal Grandmother Diabetes Paternal Grandmother Heart Paternal Grandmother Patient Allergies ALLERGIES Allergen Reactions Concerta [Methylphe* Intolerance Has trouble breathing. Current Medications Current Outpatient Medications on File Prior to Visit Medication Sig cephALEXin (KEFLEX) 500 mg capsule Take 1 capsule by mouth four times daily for 14 days. amphetamine-dextroamphetamine XR (ADDERALL XR) 30 mg capsule Take 1 capsule by mouth once daily for 30 days. etonogestrel (NEXPLANON) subdermal implant 68 mg 1 Each by SUBDERMAL route as directed. amphetamine-dextroamphetamine XR (ADDERALL XR) 30 mg capsule Take 1 capsule by mouth once daily for 30 days. amphetamine-dextroamphetamine XR (ADDERALL XR) 30 mg capsule Take 1 capsule by mouth once daily for 30 days. No current facility-administered medications on file prior to visit. Social History Social History Tobacco Use Smoking status: Never Smokeless tobacco: Never Vaping Use Vaping Use: Never used Substance Use Topics Alcohol use: No Drug use: No Review of Symptoms REVIEW OF SYSTEMS See HPI, otherwise negative EXAM: BP 118/70 (BP Site: Left Arm, BP Position: Sitting, BP Cuff Size: Regular Adult) Pulse 83 Temp 36.6 C (97.9 F) Resp 16 Wt 89.5 kg (197 lb 6.4 oz) LMP 09/04/2023 (Exact Date) SpO2 98% BMI 32.95 kg/m General Appearance: Well appearing, alert, in no acute distress, well-hydrated, well nourished.. Skin: continues with softball-sized red slightly raised dry rash to right calf. No drainage, no warmth. Psychiatric: pleasant, cooperative. Health Maintenance List Hepatitis B Vaccine(2 of 3 - 3-dose series) due on 12/03/2000 Depression Screening Never done Anxiety Screening Never done Hepatitis C Screening Never done Cervical Cancer Screening due on 09/10/2024 Spirometry due on 08/20/2024 Covid-19 Vaccine(3 season) due on 08/20/2024 Influenza Vaccine(1) due on 07/02/2024 Annual PCP Team Chronic Disease Visit due on 05/30/2025 DTaP,Tdap,Td Vaccine(7 - Td or Tdap) due on 08/20/2033 HPV Vaccine Completed HIV Screening Completed Data reviewed Previous records, office notes ASSESSMENT/PLAN: 1. Cellulitis of skin - ICD9: 682.9, ICD10: L03.90 (primary diagnosis) - No lymphangetic streaking, this was defined for patient to watch for and to seek medical care immediately if appears - Area of cellulitis defined with pen, seek further attention if this area continues to enlarge - complete Keflex course Cellulitis appears to have resolved and only rash remaining which is improving. Continue with plan for dermatology assessment with Dr. Hammer on 06/01. 2. Rash - ICD9: 782.1, ICD10: R21 - No lymphangetic streaking, this was defined for patient to watch for and to seek medical care immediately if appears - Area of cellulitis defined with pen, seek further attention if this area continues to enlarge - complete Keflex course Cellulitis appears to have resolved and only rash remaining which is improving. Continue with plan for dermatology assessment with Dr. Hammer on 06/01. 3. Insect bite of right lower extremity, subsequent encounter - ICD9: V58.89, 916.4, ICD10: S80.861D, W57.XXXD Has been previously described as insect bite, not sure this is the cause as there are additional small areas popping up. - No lymphangetic streaking, this was defined for patient to watch for and to seek medical care immediately if appears - Area of cellulitis defined with pen, seek further attention if this area continues to enlarge - complete Keflex course Cellulitis appears to have resolved and only rash remaining which is improving. Continue with plan for dermatology assessment with Dr. Hammer on 06/01. Angelina Wadsworth APRN.SIMI documented in this encounter [facility] 05-26-2024 History of Presen t illness Narrative Chief Complaint Patient presents with: Follow Up: Swelling right calf, warm to touch, possible bug bite, Saw [facility] on 04/06 and prescribed creams and completed antibiotic HPI Mirella Perry is a 33 year old female who presents here today for Above Complaints.. Per visit with Cinthya Balderas CNP on 04/06/2024: HISTORY OF PRESENT ILLNESS: Mirella Perry is a 33 year old female. Patient presents with: Acute Visit: swelling right calf, ? bug bite Was seen in [facility] care yesterday for bug bite/rash. Treated with triamcinolone 1% cream as well as Bactroban ointment. Concerns that bite/rash was not treated correctly. Bites/Rash Started on Wednesday. Was out in the garage and yard. No bite that she can remember. Wednesday morning noticed a possible bite to left calf. Wednesday started to get tender and today itching started. Has been using the triamcinolone cream and Bactroban ointment. EXAM: BP 110/76 Pulse 96 Resp 16 Wt 89.4 kg (197 lb) LMP 09/04/2023 (Exact Date) SpO2 99% BMI 32.88 kg/m PHYSICAL EXAM: General Appearance: Well appearing, alert, in no acute distress, well-hydrated, well nourished. Skin: various mild raised papules and one larger palpable elevated skin lesion noted to the left calf. No signs of cellulitis or abscess. Mild tenderness with palpation. Head: Normocephalic, no masses, lesions, tenderness or abnormalities. Eyes: Anicteric sclera. Extraocular movements are intact. Extremities: No deformities, edema, skin discoloration, clubbing or cyanosis. Good capillary refill. Peripheral Pulses: Normal, Capillary refill <2secs, strong peripheral pulses, Pulses palpable. Neurologic: Gait normal. Sensation grossly intact. ASSESSMENT/PLAN: 1. Contact dermatitis, unspecified contact dermatitis type, unspecified trigger - ICD9: 692.9, ICD10: L25.9 (primary diagnosis) - Contact dermatitis versus possible insect bite? - No signs of abscess or cellulitis. - Continue with triamcinolone cream and Bactroban ointment. - Instructed to take a daily antihistamine. If needed may take Pepcid 20 mg. - Discussed starting Keflex or Doxycycline with any worsening symptoms. - Instructed to follow-up in office with any worsening symptoms. 2. Insect bite of left lower leg, initial encounter - ICD9: 916.4, E906.4, ICD10: S80.862A, W57.XXXA - Same plan as #1. Follow up if no improvement. Discussed treatment plan and patient voices understanding. Patient's questions answered appropriately. Medications and potential side effects were discussed and patient voices understanding. Cinthya Balderas APRN.TESTBOARD OPERATOR Currently: Right calf-She was given Keflex 500mg bid x7 days, on 04/22, completed this and states rash area did improve somewhat, but after the antibiotics were stopped, the rash came back and is now worse. Is raised, no itching but a bit painful, no drainage, is warm a little bruising around it. Keeping it clean and dry as ordered. Past medical history, appointments, medications, allergies reviewed. Previous Medical History PAST MEDICAL HISTORY Diagnosis Date Acne Asthma mild Attention deficit disorder without mention of hyperactivity Previous Surgical History PAST SURGICAL HISTORY Procedure Laterality Date NONE Family History FAMILY HISTORY Problem Relation Age of Onset Seizures Mother Thyroid Mother hyper other (Other) Father mental health Diabetes Maternal Grandmother Heart Maternal Grandmother Diabetes Paternal Grandmother Heart Paternal Grandmother Patient Allergies ALLERGIES Allergen Reactions Concerta [Methylphe* Intolerance Has trouble breathing. Current Medications Current Outpatient Medications on File Prior to Visit Medication Sig amphetamine-dextroamphetamine XR (ADDERALL XR) 30 mg capsule Take 1 capsule by mouth once daily for 30 days. etonogestrel (NEXPLANON) subdermal implant 68 mg 1 Each by SUBDERMAL route as directed. amphetamine-dextroamphetamine XR (ADDERALL XR) 30 mg capsule Take 1 capsule by mouth once daily for 30 days. amphetamine-dextroamphetamine XR (ADDERALL XR) 30 mg capsule Take 1 capsule by mouth once daily for 30 days. No current facility-administered medications on file prior to visit. Social History Social History Tobacco Use Smoking status: Never Smokeless tobacco: Never Vaping Use Vaping Use: Never used Substance Use Topics Alcohol use: No Drug use: No Review of Symptoms REVIEW OF SYSTEMS See HPI, otherwise negative EXAM: BP 118/82 (BP Site: Left Arm, BP Position: Sitting, BP Cuff Size: Regular Adult) Pulse 77 Temp 36.6 C (97.9 F) Resp 16 Wt 90.4 kg (199 lb 3.2 oz) LMP 09/04/2023 (Exact Date) SpO2 98% BMI 33.25 kg/m General Appearance: Well appearing, alert, in no acute distress, well-hydrated, well nourished.. Skin: multiple nodular reddened and warm area creating larger overall area to right calf, no drainage, no streaking, area demarcated with skin marker. Psychiatric: pleasant, cooperative. Health Maintenance List Hepatitis B Vaccine(2 of 3 - 3-dose series) due on 12/03/2000 Depression Screening Never done Anxiety Screening Never done Hepatitis C Screening Never done Cervical Cancer Screening due on 09/10/2024 Spirometry due on 08/20/2024 Covid-19 Vaccine(3 - 2022- season) due on 08/20/2024 Influenza Vaccine(1) due on 07/02/2024 Annual PCP Team Chronic Disease Visit due on 04/06/2025 DTaP,Tdap,Td Vaccine(7 - Td or Tdap) due on 08/20/2033 HPV Vaccine Completed HIV Screening Completed Data reviewed Previous records, office notes ASSESSMENT/PLAN: 1. Cellulitis of skin - ICD9: 682.9, ICD10: L03.90 (primary diagnosis) Keflex x14 days. Follow up in the office in 3-4 days. Discussed red flag s/s Concern for Lyme disease due to pictures she has on her phone - CEPHALEXIN 500 MG CAPSULE - LYME AB EARLY <=30 DAY SYMPTOMS - LYME AB LATE >30 DAYS SYMPTOMS 2. Insect bite of right lower extremity, subsequent encounter - ICD9: V58.89, 916.4, ICD10: S80.861D, W57.XXXD Keflex x14 days. Follow up in the office in 3-4 days. Discussed red flag s/s Concern for Lyme disease due to pictures she has on her phone - CEPHALEXIN 500 MG CAPSULE - LYME AB EARLY <=30 DAY SYMPTOMS - LYME AB LATE >30 DAYS SYMPTOMS Angelina Wadsworth APRN.TESTBOARD OPERATOR documented in this encounter [facility] 05-11-2024 Telephone encounter Note OK to refill as ordered Johnson Gonzalez MD [facility] 05-11-2024 Miscellaneous Notes OK to refill as ordered Johnson Gonzalez MD Prescription Refill Information The patient has been identified by name and date of : Yes Caregiver verified no other encounters exist for this prescription request: Yes Caregiver confirmed with patient/requestor that no other refills are due, in the near future, with this provider at this time: Yes The last office visit in the department: 04/06/24 Does the patient have a future office visit with this provider/department: No Requested Prescriptions Pending Prescriptions Disp Refills amphetamine-dextroamphetamine XR (ADDERALL XR) 30 mg capsule 30 capsule 0 Sig: Take 1 capsule by mouth once daily for 30 days. Dale Sheikh LPN May 10, 2024 3:02 PM Prescription Refill Information The patient has been identified by name and date of : Yes Caregiver verified no other encounters exist for this prescription request: Yes Caregiver confirmed with patient/requestor that no other refills are due, in the near future, with this provider at this time: Yes The last office visit in the department: 04-06-24 Does the patient have a future office visit with this provider/department: No Requested Prescriptions Pending Prescriptions Disp Refills amphetamine-dextroamphetamine XR (ADDERALL XR) 30 mg capsule 30 capsule 0 Sig: Take 1 capsule by mouth once daily for 30 days. Sonia Adkins May 10, 2024 2:50 PM documented in this encounter [facility] 05-10-2024 Telephone encounter Note Prescription Refill Information The patient has been identified by name and date of : Yes Caregiver verified no other encounters exist for this prescription request: Yes Caregiver confirmed with patient/requestor that no other refills are due, in the near future, with this provider at this time: Yes The last office visit in the department: 04/06/24 Does the patient have a future office visit with this provider/department: No Requested Prescriptions Pending Prescriptions Disp Refills amphetamine-dextroamphetamine XR (ADDERALL XR) 30 mg capsule 30 capsule 0 Sig: Take 1 capsule by mouth once daily for 30 days. Dale Sheikh LPN May 10, 2024 3:[address] [facility] 05-10-2024 Telephone encounter Note Prescription Refill Information The patient has been identified by name and date of : Yes Caregiver verified no other encounters exist for this prescription request: Yes Caregiver confirmed with patient/requestor that no other refills are due, in the near future, with this provider at this time: Yes The last office visit in the department: 04-06-24 Does the patient have a future office visit with this provider/department: No Requested Prescriptions Pending Prescriptions Disp Refills amphetamine-dextroamphetamine XR (ADDERALL XR) 30 mg capsule 30 capsule 0 Sig: Take 1 capsule by mouth once daily for 30 days. Sonia Adkins May 10, 2024 2:[address] [facility] 04-25-2024 Telephone encounter Note Pt responded to [employer] message and has picked up the abx that has been sent in. Lilo Johnson MA [facility] 04-25-2024 Miscellaneous Notes Pt responded to [employer] message and has picked up the abx that has been sent in. Lilo Johnson MA Sent [employer] message to pt notifying her we attempted to reach her by phone with message left and no call back received. Notified her that PCP has sent in abx for her to Pharmacy. Will watch for pt to review message. Lilo Johnson MA Called and left message on patients voicemail to return call to the office and ask to speak with a triage nurse. Lilo Johnson MA OK for 7 days of keflex as ordered Johnson Gonzalez MD Patient states that she still does have itching even with the cream. Patient is will do a round of either keflex or doxycyline. Patient's pharmacy is [facility]. Please review and advise, Jenelle Muir RN TC to pt. LM to call office, ask for triage nurse to get results. Georgiana Renner LPN Can you please call the patient back and let her know that we can do a round of either Keflex or doxycycline to treat the skin lesion. Can you ask if the prescription steroid cream helped with the itching? If she is agreeable please verify pharmacy. Thank you. Cinthya Balderas APRN.TESTBOARD OPERATOR Patient calling to let provider know that the spider bite on right lower calf has not improved with Triamcinolone and Bactroban creams. She is also taking Claritin 10 mg once daily. She says the area is slightly more red and a little larger without streaking. She has no drainage. Not warm to touch. She says it is more itchy than when she was seen in [facility] on 04/06/24. She is asking for recommendation. Barb Camacho RN documented in this encounter [facility] 04-25-2024 Telephone encounter Note Sent [employer] message to pt notifying her we attempted to reach her by phone with message left and no call back received. Notified her that PCP has sent in abx for her to Pharmacy. Will watch for pt to review message. Lilo Johnson MA [facility] 04-24-2024 Telephone encounter Note Called and left message on patients voicemail to return call to the office and ask to speak with a triage nurse. Lilo Johnson MA [facility] 04-22-2024 Telephone encounter Note OK for 7 days of keflex as ordered Johnson Gonzalez MD [facility] 04-22-2024 Telephone encounter Note Patient states that she still does have itching even with the cream. Patient is will do a round of either keflex or doxycyline. Patient's pharmacy is [facility]. Please review and advise, Jenelle Muir, RN [facility] 04-21-2024 Telephone encounter Note TC to pt. LM to call office, ask for triage nurse to get results. Georgiana Renner LPN [facility] 04-21-2024 Telephone encounter Note Can you please call the patient back and let her know that we can do a round of either Keflex or doxycycline to treat the skin lesion. Can you ask if the prescription steroid cream helped with the itching? If she is agreeable please verify pharmacy. Thank you. Cinthya Balderas APRN.TESTBOARD OPERATOR [facility] Work Phone: 04-20-2024 Telephone encounter Note Patient calling to let provider know that the spider bite on right lower calf has not improved with Triamcinolone and Bactroban creams. She is also taking Claritin 10 mg once daily. She says the area is slightly more red and a little larger without streaking. She has no drainage. Not warm to touch. She says it is more itchy than when she was seen in on 04/06/24. She is asking for recommendation. Barb Camacho, RN [facility] 04-11-2024 Telephone encounter Note OK to refill as ordered Johnson Gonzalez MD [facility] 04-11-2024 Miscellaneous Notes OK to refill as ordered Johnson Gonzalez MD Prescription Refill Information The patient has been identified by name and date of : Yes Caregiver verified no other encounters exist for this prescription request: Yes Caregiver confirmed with patient/requestor that no other refills are due, in the near future, with this provider at this time: Yes The last office visit in the department: 04/06/2024 Does the patient have a future office visit with this provider/department: Yes Requested Prescriptions Pending Prescriptions Disp Refills amphetamine-dextroamphetamine XR (ADDERALL XR) 30 mg capsule 30 capsule 0 Sig: Take 1 capsule by mouth once daily for 30 days. Luz Marina Briseno April 11, 2024 3:03 PM documented in this encounter [facility] 04-11-2024 Telephone encounter Note Prescription Refill Information The patient has been identified by name and date of : Yes Caregiver verified no other encounters exist for this prescription request: Yes Caregiver confirmed with patient/requestor that no other refills are due, in the near future, with this provider at this time: Yes The last office visit in the department: 04/06/2024 Does the patient have a future office visit with this provider/department: Yes Requested Prescriptions Pending Prescriptions Disp Refills amphetamine-dextroamphetamine XR (ADDERALL XR) 30 mg capsule 30 capsule 0 Sig: Take 1 capsule by mouth once daily for 30 days. Luz Marina Brisneo April 11, 2024 3:[address] [facility] 04-06-2024 Instructions Cinthya Balderas APRN.SIMI - 04/06/2024 2:36 PM EDT Continue to use antibiotic and steroid creams to bite/rash Recommend using daily antihistamine ( claritin, zyrtec, or anita) If needed may add on Pepcid 20 mg for itching. Any worsening symptoms contact the office. documented in this encounter [facility] 04-06-2024 History of Presen t illness Narrative This is a 33 year old female who presents today with: Patient presents with: Acute Visit: swelling right calf, ? bug bite HISTORY OF PRESENT ILLNESS: Mirella Perry is a 33 year old female. Patient presents with: Acute Visit: swelling right calf, ? bug bite Was seen in [facility] care yesterday for bug bite/rash. Treated with triamcinolone 1% cream as well as Bactroban ointment. Concerns that bite/rash was not treated correctly. Bites/Rash Started on Wednesday. Was out in the garage and yard. No bite that she can remember. Wednesday morning noticed a possible bite to left calf. Wednesday started to get tender and today itching started. Has been using the triamcinolone cream and Bactroban ointment. PAST MEDICAL HISTORY: PAST MEDICAL HISTORY Diagnosis Date Acne Asthma mild Attention deficit disorder without mention of hyperactivity PAST SURGICAL HISTORY Procedure Laterality Date NONE ALLERGIES Concerta [Methylphenidate Hcl] MEDICATIONS Current Outpatient Medications Medication Sig triamcinolone acetonide (KENALOG) 0.1 % cream Apply 1 application to affected area three times a day for 7 days. Apply sparingly to area for rash/itching. mupirocin (BACTROBAN) 2 % ointment Apply to affected area three times a day for 5 days. amphetamine-dextroamphetamine XR (ADDERALL XR) 30 mg capsule Take 1 capsule by mouth once daily for 30 days. amphetamine-dextroamphetamine XR (ADDERALL XR) 30 mg capsule Take 1 capsule by mouth once daily for 30 days. Do not start before January 13, 2024. amphetamine-dextroamphetamine XR (ADDERALL XR) 30 mg capsule Take 1 capsule by mouth once daily for 30 days. etonogestrel (NEXPLANON) subdermal implant 68 mg 1 Each by SUBDERMAL route as directed. No current facility-administered medications for this visit. FAMILY HISTORY Problem Relation Age of Onset Seizures Mother Thyroid Mother hyper other (Other) Father mental health Diabetes Maternal Grandmother Heart Maternal Grandmother Diabetes Paternal Grandmother Heart Paternal Grandmother Social History Tobacco Use Smoking status: Never Smokeless tobacco: Never Vaping Use Vaping Use: Never used Substance Use Topics Alcohol use: No Drug use: No REVIEW OF SYSTEMS GENERAL: No weight loss, malaise or fevers/chills HEENT: Negative for frequent or significant headaches, No changes in hearing or vision. NECK: Negative for lumps, goiter, pain and significant neck swelling RESPIRATORY: Negative for cough, hemoptysis, wheezing, dyspnea or shortness of breath CARDIOVASCULAR: Negative for chest pain, leg swelling, orthopnea, or palpitations GI: No nausea, vomiting, or diarrhea/constipation. No hematochezia/melena. No heartburn or reflux symptoms. : No history of dysuria, frequency or incontinence MUSCULOSKELETAL: Negative for joint pain or swelling. SKIN: + Bite/Rash ENDOCRINE: Negative for cold or heat intolerance, polyuria, polydipsia and goiter NEURO: No history of headaches, syncope, paralysis, seizures or tremors MOOD: Negative for depression, anxiety, or suicidal ideation. EXAM: BP 110/76 Pulse 96 Resp 16 Wt 89.4 kg (197 lb) LMP 09/04/2023 (Exact Date) SpO2 99% BMI 32.88 kg/m PHYSICAL EXAM: General Appearance: Well appearing, alert, in no acute distress, well-hydrated, well nourished. Skin: various mild raised papules and one larger palpable elevated skin lesion noted to the left calf. No signs of cellulitis or abscess. Mild tenderness with palpation. Head: Normocephalic, no masses, lesions, tenderness or abnormalities. Eyes: Anicteric sclera. Extraocular movements are intact. Extremities: No deformities, edema, skin discoloration, clubbing or cyanosis. Good capillary refill. Peripheral Pulses: Normal, Capillary refill <2secs, strong peripheral pulses, Pulses palpable. Neurologic: Gait normal. Sensation grossly intact. ASSESSMENT/PLAN: 1. Contact dermatitis, unspecified contact dermatitis type, unspecified trigger - ICD9: 692.9, ICD10: L25.9 (primary diagnosis) - Contact dermatitis versus possible insect bite? - No signs of abscess or cellulitis. - Continue with triamcinolone cream and Bactroban ointment. - Instructed to take a daily antihistamine. If needed may take Pepcid 20 mg. - Discussed starting Keflex or Doxycycline with any worsening symptoms. - Instructed to follow-up in office with any worsening symptoms. 2. Insect bite of left lower leg, initial encounter - ICD9: 916.4, E906.4, ICD10: S80.862A, W57.XXXA - Same plan as #1. Follow up if no improvement. Discussed treatment plan and patient voices understanding. Patient's questions answered appropriately. Medications and potential side effects were discussed and patient voices understanding. Cinthya Balderas APRN.SIMI This note was partially generated using [email or web address] voice recognition system. Note was reviewed for accuracy. There may be minor misspellings or grammar miscues with [email or web address] voice recognition. documented in this encounter [facility] 04-05-2024 History of Presen t illness Narrative Images from the original note were not included. Subjective HPI Nontoxic-appearing female presents urgent care chief complaint possible insect bite. Duration of symptoms 4 days. Associated symptoms itching and redness feels like area is slightly swollen. No OTC medication use. Presents today for evaluation. No significant pain. Overall feels well. Denies any fever body aches chills productive cough chest pain shortness of breath pleuritic pain hemoptysis nausea vomiting abdominal pain change in bowel or bladder habits. Past medical history prescription medication use and allergies reviewed. .Patient presents with: Trauma: Bug bite on right leg red and itching x 4 days PAST MEDICAL HISTORY Diagnosis Date Acne Asthma mild Attention deficit disorder without mention of hyperactivity PAST SURGICAL HISTORY Procedure Laterality Date NONE ALLERGIES Concerta [Methylphenidate Hcl] MEDICATIONS amphetamine-dextroamphetamine XR (ADDERALL XR) 30 mg capsule Take 1 capsule by mouth once daily for 30 days. etonogestrel (NEXPLANON) subdermal implant 68 mg 1 Each by SUBDERMAL route as directed. amphetamine-dextroamphetamine XR (ADDERALL XR) 30 mg capsule Take 1 capsule by mouth once daily for 30 days. Do not start before January 13, 2024. amphetamine-dextroamphetamine XR (ADDERALL XR) 30 mg capsule Take 1 capsule by mouth once daily for 30 days. FAMILY HISTORY Problem Relation Age of Onset Seizures Mother Thyroid Mother hyper other (Other) Father mental health Diabetes Maternal Grandmother Heart Maternal Grandmother Diabetes Paternal Grandmother Heart Paternal Grandmother Social History Tobacco Use Smoking status: Never Smokeless tobacco: Never Vaping Use Vaping Use: Never used Substance Use Topics Alcohol use: No Drug use: No BP 100/70 Pulse 77 Temp 36.8 C (98.3 F) Resp 20 Wt 89.3 kg (196 lb 13.9 oz) LMP 09/04/2023 (Exact Date) SpO2 99% BMI 32.86 kg/m Review of Systems Constitutional: Negative for chills, fever and malaise/fatigue. HENT: Negative for congestion, ear discharge, ear pain, sinus pain and sore throat. Eyes: Negative for blurred vision, pain, discharge and redness. Respiratory: Negative for cough, hemoptysis, sputum production, shortness of breath, wheezing and stridor. Cardiovascular: Negative for chest pain. Gastrointestinal: Negative for abdominal pain, diarrhea, nausea and vomiting. Musculoskeletal: Negative for myalgias. Skin: Positive for itching and rash. Neurological: Negative for dizziness and headaches. Objective Physical Exam Constitutional: General: She is not in acute distress. Appearance: She is not diaphoretic. HENT: Head: Normocephalic. Jaw: No trismus, tenderness, swelling or pain on movement. Eyes: Conjunctiva/sclera: Conjunctivae normal. Pupils: Pupils are equal, round, and reactive to light. Cardiovascular: Rate and Rhythm: Normal rate and regular rhythm. Heart sounds: Normal heart sounds. Pulmonary: Effort: Pulmonary effort is normal. No tachypnea, accessory muscle usage or respiratory distress. Breath sounds: Normal breath sounds. No stridor. No wheezing or rhonchi. Musculoskeletal: Cervical back: No edema or erythema. No pain with movement. Normal range of motion. Skin: General: Skin is warm and dry. Comments: A 4 cm x 4 cm area of erythema noted. Center is mildly clear. Surrounding papules some vesicles noted. No lymphatic streaking. No remote redness. No adenopathy. No drainage. Neurological: Mental Status: She is alert and oriented to person, place, and time. ASSESSMENT/PLAN: 1. Rash - ICD9: 782.1, ICD10: R21 Diagnosed with rash. Differentials include contact dermatitis versus insect bite versus superficial cellulitis such as impetigo. I did discuss possibility of ringworm. At this time will use steroid cream. Prescribe safety net mupirocin if pain or drainage develops use mupirocin and follow-up. Patient was educated on supportive therapies. Patient will follow up with primary care provider as needed. Patient was instructed to immediately proceed to emergency room for any new, worsening, or symptoms lasting longer than anticipated. The patient's clinical presentation is otherwise unremarkable at this time. Based on exam and clinical finding, the patient is stable for discharge. Plan of care was discussed with patient. Patient verbalizes understanding and agrees to plan of care. This note was generated using [email or web address] software. It may contain errors in wording, punctuation, or spelling. Rob Currie APRN.SIMI documented in this encounter [facility] 02-11-2024 Miscellaneous Notes Refill not needed, opened in error documented in this encounter [facility] 12-14-2023 Miscellaneous Notes OK to refill as ordered Johnson Gonzalez MD Patient has been identified by name and date of : Yes, Provider Johnson Gonzalez MD Date December 14, 2023 Time 3:42 PM Patient phones for refill(s): Requested Prescriptions Pending Prescriptions Disp Refills amphetamine-dextroamphetamine XR (ADDERALL XR) 30 mg capsule 30 capsule 0 Sig: Take 1 capsule by mouth once daily for 30 days. amphetamine-dextroamphetamine XR (ADDERALL XR) 30 mg capsule 30 capsule 0 Sig: Take 1 capsule by mouth once daily for 30 days. amphetamine-dextroamphetamine XR (ADDERALL XR) 30 mg capsule 30 capsule 0 Sig: Take 1 capsule by mouth once daily for 30 days. Date of last office visit in primary care: 11/03/2023 Date of next office visit in primary care: no follow up Please advise. Thank you. Polly Gillette Ma. Patient has been identified by name and date of : Yes, Provider Carlos Patient phones for refill(s): Requested Prescriptions Pending Prescriptions Disp Refills amphetamine-dextroamphetamine XR (ADDERALL XR) 30 mg capsule 30 capsule 0 Sig: Take 1 capsule by mouth once daily for 30 days. amphetamine-dextroamphetamine XR (ADDERALL XR) 30 mg capsule 30 capsule 0 Sig: Take 1 capsule by mouth once daily for 30 days. amphetamine-dextroamphetamine XR (ADDERALL XR) 30 mg capsule 30 capsule 0 Sig: Take 1 capsule by mouth once daily for 30 days. Date of last office visit in primary care: 11/03/2023 Date of next office visit in primary care: Visit date not found Please advise. Thank you. Lora Price. documented in this encounter [facility] 10-14-2023 Miscellaneous Notes Patient has been identified by name and date of : Yes Requested Prescriptions Pending Prescriptions Disp Refills amphetamine-dextroamphetamine XR (ADDERALL XR) 30 mg capsule 30 capsule 0 Sig: Take 1 capsule by mouth once daily for 30 days. Do not start before November 15, 2023. RX INSTRUCTIONS: Patient aware RX will be sent to [facility] pharmacy. No need to notify patient. Theresa Arias documented in this encounter [facility] 10-01-2023 Miscellaneous Notes Patient is calling in regards to the HPV results from 09/10 and asking if she needs to make appointment to discuss these results. Please advise the patient. documented in this encounter [facility] 09-16-2023 Miscellaneous Notes OK to refill as ordered Rxs done for 3 months Johnson Gonzalez MD BELLA-08/20/23 Labs-08/20/23 NOV-12/24/23 Georgiana Renner LPN Patient has been identified by name and date of : Yes Requested Prescriptions Pending Prescriptions Disp Refills amphetamine-dextroamphetamine XR (ADDERALL XR) 30 mg capsule 30 capsule 0 Sig: Take 1 capsule by mouth once daily for 30 days. RX INSTRUCTIONS: Patient aware RX will be sent to pharmacy. No need to nofity patient. Controlled medication - must be call in. Farheen Bradley Pss documented in this encounter [facility] 09-10-2023 History of Presen t illness Narrative Mirella is a 32 year old who presents for an annual gynecologic exam without complaints. Nexplanon inserted 2020. Menses: cycles irregular Contraception: Nexplanon HPV vaccine: No Last Pap: 05/09/2018 normal HPV: negative History of abnormal pap: No Last mammogram: never Sexually active: Yes Pain with intercourse: No Postcoital bleeding: Yes- sometimes polyp? 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 No bloating, early satiety, indigestion, or increased flatulence. Bladder: No dysuria, gross hematuria, urinary frequency, urinary urgency, or incontinence. Breast: No breast lumps, nipple d/c, overlying skin changes, redness or skin retraction. Allergies and current medication updated:Yes EXAM: Ht 5' 4.9 (1.65m) Wt 184 lb 6.4 oz (83.6kg) LMP 09/04/2023 BMI 30.80 kg/(m^2). GENERAL: pleasant, female in no apparent distress HEENT: Normocephalic, atraumatic, mucus membranes moist, and no lesions NECK: Supple and full range of motion DERMATOLOGY: Normal and without lesions BREAST: soft, non-tender, symmetric, no dominant mass, normal nipple-areolar complex, no lymphadenopathy, no nipple discharge, and fibrocystic changes CHEST: Normal inspiratory effort ABDOMEN: soft, non-tender, and no masses PELVIC: external genitalia normal, normal Bartholin's glands, urethra, Wardell's glands, no vulvar lesions, no cervical lesions, good vaginal support, physiologic discharge present, normal appearing perineal body and perianal region, moderate amount of blood present ( on day 5 of cycle) BIMANUAL: uterus normal size, shape and consistency, no adnexal masses, non-tender, and no cervical motion tenderness RECTOVAGINAL: deferred. NEURO: alert and oriented x3,exam grossly non-focal EXTREMITIES: normal ASSESSMENT/PLAN: 1) Health maintenance: Pap done with HPV- If inconclusive due to blood will need to repeat Nutrition, exercise and routine health maintenance exams reviewed. 2) Contraception: Nexplanon. Contraceptive options reviewed and information provided. 3) STD screening: Declined STD check. 4) Follow up one year or sooner as needed Susy Mooney APRN.CNM documented in this encounter [facility] 08-25-2023 Miscellaneous Notes Patient notified of results and provider's instructions. Patient verbalizes understanding. Jenelle Muir RN Call placed to patient with no answer. Voicemail left for patient to return call and ask to speak to a triage nurse to receive provider message. Aylin Casey RN Can you please call the patient and let her know I reviewed her lab results. Labs were all normal. A1c was 4.9, no signs of diabetes. I would recommend that she continue to eat a well-balanced diet and get some form of exercise. Please let me know if she has any questions. Thank you. Cinthya Balderas APRN.SIMI documented in this encounter [facility] 08-20-2023 Instructions Cinthya Balderas APRN.CNP - 08/20/2023 9:30 AM EDT Get labs completed today Continue to take all medication as prescribed. Due for Pap Tdap booster given Continue to eat well balanced diet and stay active. Follow up in 3 months or sooner pending test results. Health Promotion: - Eat healthy -- go to ContraF[employer].gov to get started - Have a yearly physical - Get at least 30 minutes of physical activity daily - Get at least 7 to 8 hours of sleep each night - Reach and maintain a healthy weight - Get help to quit or don't start smoking - Limit alcohol use to one drink or less - Do not use illegal drugs or misuse prescription drugs - Wear a helmet when riding a bike and wear protective gear for sports - Wear a seatbelt in cars and not text and drive - Wear sunscreen documented in this encounter [facility] 08-20-2023 History of Presen t illness Narrative This is a 32 year old female who presents today with: Patient presents with: Follow Up: 3 month follow up HISTORY OF PRESENT ILLNESS: Mriella Perry is a 32 year old female. Patient presents with: Follow Up: 3 month follow up Diet: Eating a well balanced diet. Exercise: Walking Daily. Vision: Had exam, wearing glasses. Dental: Due for exam. Sleep: 8 hours per night. Mood: Denies any increased sadness, anxiety, or Si/HI. Taking Adderall XR 30 mg daily. Medication is helpful for focus and concentration. Denies any difficulty sleeping or palpitations. Asthma: Using albuterol inhaler as needed, well controlled. Pap: Last 2018, normal, HPV negative. Menses: Nexplanon, meses irregular Vaccine: Due for Tdap PAST MEDICAL HISTORY: PAST MEDICAL HISTORY Diagnosis Date Acne Asthma mild Attention deficit disorder without mention of hyperactivity PAST SURGICAL HISTORY Procedure Laterality Date NONE ALLERGIES Concerta [Methylphenidate Hcl] MEDICATIONS Current Outpatient Medications Medication Sig amphetamine-dextroamphetamine XR (ADDERALL XR) 30 mg capsule Take 1 capsule by mouth once daily for 30 days. amphetamine-dextroamphetamine XR (ADDERALL XR) 30 mg biphasic capsule Take 1 capsule by mouth once daily for 30 days. amphetamine-dextroamphetamine XR (ADDERALL XR) 30 mg biphasic capsule Take 1 capsule by mouth once daily for 30 days. Do not start before June 20, 2023. amphetamine-dextroamphetamine XR (ADDERALL XR) 30 mg biphasic capsule Take 1 capsule by mouth once daily for 30 days. Do not start before July 20, 2023. amphetamine-dextroamphetamine XR (ADDERALL XR) 30 mg 24 hr capsule Take 1 capsule by mouth once daily for 30 days. Do not start before April 20, 2023. loratadine (CLARITIN) 10 mg tablet Take 1 tablet by mouth once daily. (Patient not taking: Reported on 11/20/2022) etonogestrel (NEXPLANON) subdermal implant 68 mg 1 Each by SUBDERMAL route as directed. No current facility-administered medications for this visit. FAMILY HISTORY Problem Relation Age of Onset Seizures Mother Thyroid Mother hyper other (Other) Father mental health Diabetes Maternal Grandmother Heart Maternal Grandmother Diabetes Paternal Grandmother Heart Paternal Grandmother Social History Tobacco Use Smoking status: Never Smokeless tobacco: Never Vaping Use Vaping Use: Never used Substance Use Topics Alcohol use: No Drug use: No REVIEW OF SYSTEMS GENERAL: No weight loss, malaise or fevers/chills HEENT: Negative for frequent or significant headaches, No changes in hearing or vision. NECK: Negative for lumps, goiter, pain and significant neck swelling RESPIRATORY: Negative for cough, hemoptysis, wheezing, dyspnea or shortness of breath CARDIOVASCULAR: Negative for chest pain, leg swelling, orthopnea, or palpitations GI: No nausea, vomiting, or diarrhea/constipation. No hematochezia/melena. No heartburn or reflux symptoms. : No history of dysuria, frequency or incontinence MUSCULOSKELETAL: Negative for joint pain or swelling. SKIN: Negative for lesions, rash, and itching ENDOCRINE: Negative for cold or heat intolerance, polyuria, polydipsia and goiter NEURO: No history of headaches, syncope, paralysis, seizures or tremors MOOD: Negative for depression, anxiety, or suicidal ideation. EXAM: BP 108/72 Pulse 78 Resp 16 Wt 87.1 kg (192 lb) LMP 02/23/2023 (Approximate) SpO2 98% BMI 32.96 kg/m PHYSICAL EXAM: General Appearance: Well appearing, alert, in no acute distress, well-hydrated, well nourished. Skin: Skin color, texture, turgor normal, no suspicious rashes or lesions. Head: Normocephalic, no masses, lesions, tenderness or abnormalities. Eyes: Anicteric sclera. Pupils are equally round and reactive to light. Extraocular movements are intact. Ears: External ears normal, canals clear. TMs pearly phelps. Neck: Supple, no adenopathy; thyroid symmetric, normal size, no bruits. Lungs: Lungs clear to auscultation. No wheezing, rhonchi, rales. Heart: RRR without murmur, gallop, or rubs. No ectopy. Abdomen: Normal abdominal exam, Abdomen soft, non-tender. Bowel sounds normal. No masses, organomegaly, Negative CVA tenderness. Extremities: No deformities, edema, skin discoloration, clubbing or cyanosis. Good capillary refill. Musculoskeletal: No joint swelling, deformity, or tenderness. Peripheral Pulses: Normal, Capillary refill <2secs, strong peripheral pulses, Pulses palpable. Neurologic: Gait normal. Reflexes normal and symmetric. Sensation grossly intact.. Mood: Good eye contact, engaged, pleasant. ASSESSMENT/PLAN: 1. Wellness examination - ICD9: V70.0, ICD10: Z00.00 (primary diagnosis) - Counseled on healthy diet and regular exercise - Calcium intake with supplements or by diet of 1000 mg/day for under 50, 8835-0245 mg/day for 50+ - Discussed need and benefit for weight loss. BMI 32.96 kg/(m^2) - Discussed safe sex practices and avoidance of STIs - Depression screening tool completed and reviewed with patient. Based on score and interview, patient is not at risk for depression and recommended no further intervention at this time. - Patient was counseled [id number] by myself (the billing provider) for the following immunizations and vaccine components, including side effects: DTaP. Patient consents for immunization and understands risks and benefits. A VIS sheet on each immunization was given to the patient. - Follow up for annual exam in one year - COMP METABOLIC PANEL 2. Attention deficit hyperactivity disorder (ADHD), unspecified ADHD type - ICD9: 314.01, ICD10: F90.9 - Stable, refill provided. - Due to pharmacy shortages will only give 1 month supply at this time. - Contact office next month where to send 3 month supply to. - Follow up in 4 months. - DEXTROAMPHETAMINE-AMPHETAMINE ER 30 MG 24HR CAPSULE,EXTEND RELEASE 3. Mild intermittent asthma without complication - ICD9: 493.90, ICD10: J45.20 - Mild intermittent asthma stable - Continue current medications - Avoidance of triggers recommended 4. Encounter for immunization - ICD9: V03.89, ICD10: Z23 - TDAP VACCINE, AGE 7+ YR (ADACEL, BOOSTRIX) 5. Women's annual routine gynecological examination - ICD9: V72.31, ICD10: Z01.419 - CONSULT TO GYNECOLOGY 6. Screening for diabetes mellitus - ICD9: V77.1, ICD10: Z13.1 - HGB A1C 7. Screening for lipid disorders - ICD9: V77.91, ICD10: Z13.220 - LIPID PANEL BASIC PDMP website checked and validated. All prescriptions have been APPROPRIATELY filled. No suspicious activity was identified. 08/20/2023 by Cinthya Balderas APRN.SIMI Follow-up in 4 months or sooner as needed. Discussed treatment plan and patient voices understanding. Patient's questions answered appropriately. Medications and potential side effects were discussed and patient voices understanding. Cinthya Balderas APRN.SIMI This note was partially generated using [email or web address] voice recognition system. Note was reviewed for accuracy. There may be minor misspellings or grammar miscues with [email or web address] voice recognition. documented in this encounter [facility] 08-12-2023 Miscellaneous Notes OK to refill as ordered Johnson Gonzalez MD Pharmacy verified in [facility] Patient has been identified by name and date of : Yes Patient aware RX will be sent to pharmacy. No need to notify patient. Patient phones for refill(s): Requested Prescriptions Pending Prescriptions Disp Refills amphetamine-dextroamphetamine XR (ADDERALL XR) 30 mg capsule 30 capsule 0 Sig: Take 1 capsule by mouth once daily for 30 days. amphetamine-dextroamphetamine XR (ADDERALL XR) 30 mg capsule 30 capsule 0 Sig: Take 1 capsule by mouth once daily for 30 days. amphetamine-dextroamphetamine XR (ADDERALL XR) 30 mg capsule 30 capsule 0 Sig: Take 1 capsule by mouth once daily for 30 days. Date of last office visit : 05/21/2023 Date of next office visit : 08/20/2023 Last 2 Encounter Wt Readings: Date: Wt: 07/23/2023 85.7 kg (189 lb) 07/20/2023 87.4 kg (192 lb 9.6 oz) Not applicable Please advise. Barbara Price documented in this encounter [facility] 07-23-2023 History of Presen t illness Narrative This note was created using [employer]. Subjective Mirella Perry is a 32 year old female. HPI Patient presents with a chief complaint of suture removal. She had sutures placed on 07/12 at [facility]. She was seen here 3 days ago but told to wait 2 or 3 more days before removing the sutures. She also stopped putting the Neosporin on it. She states it seems to be healing more now. She has 5 sutures on the right hand ring finger Review of Systems Constitutional: Negative. HENT: Negative. Respiratory: Negative. Cardiovascular: Negative. Gastrointestinal: Negative. Musculoskeletal: Right ring finger laceration All other systems reviewed and are negative. PAST MEDICAL HISTORY Diagnosis Date Acne Asthma mild Attention deficit disorder without mention of hyperactivity Current Outpatient Medications Medication Sig Dispense Refill amphetamine-dextroamphetamine XR (ADDERALL XR) 30 mg biphasic capsule Take 1 capsule by mouth once daily for 30 days. Do not start before July 20, 2023. 30 capsule 0 etonogestrel (NEXPLANON) subdermal implant 68 mg 1 Each by SUBDERMAL route as directed. 1 Each 0 amphetamine-dextroamphetamine XR (ADDERALL XR) 30 mg biphasic capsule Take 1 capsule by mouth once daily for 30 days. 30 capsule 0 amphetamine-dextroamphetamine XR (ADDERALL XR) 30 mg biphasic capsule Take 1 capsule by mouth once daily for 30 days. Do not start before June 20, 2023. 30 capsule 0 amphetamine-dextroamphetamine XR (ADDERALL XR) 30 mg 24 hr capsule Take 1 capsule by mouth once daily for 30 days. Do not start before April 20, 2023. 30 capsule 0 loratadine (CLARITIN) 10 mg tablet Take 1 tablet by mouth once daily. (Patient not taking: Reported on 11/20/2022) 30 tablet 11 No current facility-administered medications for this visit. PAST SURGICAL HISTORY Procedure Laterality Date NONE FAMILY HISTORY Problem Relation Age of Onset Seizures Mother Thyroid Mother hyper other (Other) Father mental health Diabetes Maternal Grandmother Heart Maternal Grandmother Diabetes Paternal Grandmother Heart Paternal Grandmother Social History Tobacco Use Smoking status: Never Smokeless tobacco: Never Vaping Use Vaping Use: Never used Substance Use Topics Alcohol use: No Drug use: No Objective BP 110/80 Pulse 80 Temp 36.7 C (98.1 F) Resp 21 Wt 85.7 kg (189 lb) LMP 02/23/2023 (Approximate) SpO2 99% BMI 32.44 kg/m Physical Exam Vitals reviewed. Constitutional: Appearance: Normal appearance. HENT: Head: Normocephalic and atraumatic. Musculoskeletal: Comments: Patient has 5 simple interrupted sutures in a 2-1/2 cm laceration in the crease on the palmar side of the MCP of the right fourth digit. Skin appears to be healing well. No erythema. No dehiscence. Skin: General: Skin is warm and dry. Neurological: Mental Status: She is alert. Assessment and Plan ASSESSMENT/PLAN: 1. Visit for suture removal - ICD9: V58.32, ICD10: Z48.02 Sutures removed here without incident. I did place Steri-Strips to keep the wound together for a few more days. Discussed wound care. Discussed keeping the area clean dry and covered. Patient agreeable with plan. Gretta Hyde PA-C documented in this encounter [facility] 02-23-2023 Miscellaneous Notes Patient was notified Samantha Menendez Ma Please let her know that I've sent to [employer]. [facility] checked and validated. All prescriptions have been APPROPRIATELY filled. No suspicious activity was identified. 02/23/2023 by Curtis Chan APRN.CNP The following approved medication requests have been transmitted electronically. Requested Prescriptions Signed Prescriptions Disp Refills amphetamine-dextroamphetamine XR (ADDERALL XR) 30 mg 24 hr capsule 30 capsule 0 Sig: Take 1 capsule by mouth once daily for 30 days. Authorizing Provider: CURTIS CHAN APRN.CNP Patient said [facility] does not have [facility]. Wants to know if this month's rx can be switched to [facility] in [place]. She does not want the other 2 future scripts switched to [facility]. documented in this encounter [facility] 02-19-2023 History of Presen t illness Narrative This is a 32 year old female who presents today with: Patient presents with: F/U 3 Month: ADHD Medication HISTORY OF PRESENT ILLNESS: Mirella Perry is a 32 year old female. Patient presents with: F/U 3 Month: ADHD Medication Here in the office for 3-month follow-up ADHD medication. Currently taking Adderall XR 30 mg daily. Medication has been helpful for concentration and focus. Denies any side effects, no palpitations or difficulty sleeping. PAST MEDICAL HISTORY: PAST MEDICAL HISTORY Diagnosis Date Acne Asthma mild Attention deficit disorder without mention of hyperactivity PAST SURGICAL HISTORY Procedure Laterality Date NONE ALLERGIES Concerta [Methylphenidate Hcl] MEDICATIONS Current Outpatient Medications Medication Sig amphetamine-dextroamphetamine XR (ADDERALL XR) 30 mg 24 hr capsule Take 1 capsule by mouth once daily for 30 days. amphetamine-dextroamphetamine XR (ADDERALL XR) 30 mg 24 hr capsule Take 1 capsule by mouth once daily for 30 days. Do not start before December 26, 2022. amphetamine-dextroamphetamine XR (ADDERALL XR) 30 mg 24 hr capsule Take 1 capsule by mouth once daily for 30 days. Do not start before January 23, 2023. loratadine (CLARITIN) 10 mg tablet Take 1 tablet by mouth once daily. (Patient not taking: Reported on 11/20/2022) etonogestrel (NEXPLANON) subdermal implant 68 mg 1 Each by SUBDERMAL route as directed. No current facility-administered medications for this visit. FAMILY HISTORY Problem Relation Age of Onset Seizures Mother Thyroid Mother hyper other (Other) Father mental health Diabetes Maternal Grandmother Heart Maternal Grandmother Diabetes Paternal Grandmother Heart Paternal Grandmother Social History Tobacco Use Smoking status: Never Smokeless tobacco: Never Vaping Use Vaping Use: Never used Substance Use Topics Alcohol use: No Drug use: No REVIEW OF SYSTEMS GENERAL: No weight loss, malaise or fevers/chills HEENT: Negative for frequent or significant headaches, No changes in hearing or vision. NECK: Negative for lumps, goiter, pain and significant neck swelling RESPIRATORY: Negative for cough, hemoptysis, wheezing, dyspnea or shortness of breath CARDIOVASCULAR: Negative for chest pain, leg swelling, orthopnea, or palpitations GI: No nausea, vomiting, or diarrhea/constipation. No hematochezia/melena. No heartburn or reflux symptoms. : No history of dysuria, frequency or incontinence MUSCULOSKELETAL: Negative for joint pain or swelling. SKIN: Negative for lesions, rash, and itching ENDOCRINE: Negative for cold or heat intolerance, polyuria, polydipsia and goiter NEURO: No history of headaches, syncope, paralysis, seizures or tremors MOOD: Negative for depression, anxiety, or suicidal ideation. EXAM: BP 110/68 Pulse 80 Resp 18 LMP 08/06/2022 (Exact Date) PHYSICAL EXAM: General Appearance: Well appearing, alert, in no acute distress, well-hydrated, well nourished. Skin: Skin color, texture, turgor normal, no suspicious rashes or lesions. Head: Normocephalic, no masses, lesions, tenderness or abnormalities. Eyes: Anicteric sclera. Extraocular movements are intact. . Lungs: Lungs clear to auscultation. No wheezing, rhonchi, rales. Heart: RRR without murmur, gallop, or rubs. No ectopy. Extremities: No deformities, edema, skin discoloration, clubbing or cyanosis. Good capillary refill. Peripheral Pulses: Normal, Capillary refill <2secs, strong peripheral pulses, Pulses palpable. Neurologic: Gait normal. Sensation grossly intact. PDMP website checked and validated. All prescriptions have been APPROPRIATELY filled. No suspicious activity was identified. 02/19/2023 by Cinthya Balderas APRN.CNP ASSESSMENT/PLAN: 1. Attention deficit hyperactivity disorder (ADHD), unspecified ADHD type - ICD9: 314.01, ICD10: F90.9 - Refill provided. - Follow up in 3 months. - DEXTROAMPHETAMINE-AMPHETAMINE ER 30 MG 24HR CAPSULE,EXTEND RELEASE - DEXTROAMPHETAMINE-AMPHETAMINE ER 30 MG 24HR CAPSULE,EXTEND RELEASE - DEXTROAMPHETAMINE-AMPHETAMINE ER 30 MG 24HR CAPSULE,EXTEND RELEASE Follow-up in 3 months or sooner as needed. Discussed treatment plan and patient voices understanding. Patient's questions answered appropriately. Medications and potential side effects were discussed and patient voices understanding. Cinthya Balderas APRN.CNP This note was partially generated using [email or web address] voice recognition system. Note was reviewed for accuracy. There may be minor misspellings or grammar miscues with [email or web address] voice recognition. documented in this encounter [facility] 02-19-2023 Instructions Cinthya Balderas APRN.CNP - 02/19/2023 11:17 AM EDT Continue to take medication as prescribed. Follow up in 3 months or sooner as needed. documented in this encounter [facility] 11-27-2022 Miscellaneous Notes Approved. [facility] website checked and validated. All prescriptions have been APPROPRIATELY filled. No suspicious activity was identified. 11/27/2022 by Curtis Chan APRN.CNP The following approved medication requests have been transmitted electronically. Requested Prescriptions Signed Prescriptions Disp Refills amphetamine-dextroamphetamine XR (ADDERALL XR) 30 mg 24 hr capsule 30 capsule 0 Sig: Take 1 capsule by mouth once daily for 30 days. Authorizing Provider: CURTIS CHAN APRN.CNP Patient called over to [facility] in [place] and they have it please send it NICOLASA down there please . Patient has been identified by name and date of : Yes Requested Prescriptions Pending Prescriptions Disp Refills amphetamine-dextroamphetamine XR (ADDERALL XR) 30 mg 24 hr capsule 30 capsule 0 Sig: Take 1 capsule by mouth once daily for 30 days. RX INSTRUCTIONS: Patient aware RX will be sent to pharmacy. No need to nofity patient. Controlled medication - must be call in. Farheen Bradley Pss documented in this encounter [facility] 11-20-2022 Instructions Cinthya Balderas APRN.CNP - 11/20/2022 11:27 AM EST Continue to take medication as prescribed. Follow up in 3 months or sooner as needed. documented in this encounter [facility] 11-20-2022 History of Presen t illness Narrative This is a 32 year old female who presents today with: Patient presents with: Follow Up: 3 month med check HISTORY OF PRESENT ILLNESS: Mirella Perry is a 32 year old female. Patient presents with: Follow Up: 3 month med check Here in the office for 3 month medication follow up. ADHD: Taking Adderall XR 30 mg daily. Medication working well for concentration and focus. Denies any difficulty with sleep or palpitations. No other concerns at this time. PAST MEDICAL HISTORY: PAST MEDICAL HISTORY Diagnosis Date Acne Asthma mild Attention deficit disorder without mention of hyperactivity PAST SURGICAL HISTORY Procedure Laterality Date NONE ALLERGIES Concerta [Methylphenidate Hcl] MEDICATIONS Current Outpatient Medications Medication Sig loratadine (CLARITIN) 10 mg tablet Take 1 tablet by mouth once daily. amphetamine-dextroamphetamine XR (ADDERALL XR) 30 mg 24 hr capsule Take 1 capsule by mouth once daily for 30 days. amphetamine-dextroamphetamine XR (ADDERALL XR) 30 mg 24 hr capsule Take 1 capsule by mouth once daily for 30 days. Do not start before September 18, 2022. amphetamine-dextroamphetamine XR (ADDERALL XR) 30 mg 24 hr capsule Take 1 capsule by mouth once daily for 30 days. Do not start before October 18, 2022. etonogestrel (NEXPLANON) subdermal implant 68 mg 1 Each by SUBDERMAL route as directed. No current facility-administered medications for this visit. FAMILY HISTORY Problem Relation Age of Onset Seizures Mother Thyroid Mother hyper other (Other) Father mental health Diabetes Maternal Grandmother Heart Maternal Grandmother Diabetes Paternal Grandmother Heart Paternal Grandmother Social History Tobacco Use Smoking status: Never Smokeless tobacco: Never Vaping Use Vaping Use: Never used Substance Use Topics Alcohol use: No Drug use: No REVIEW OF SYSTEMS GENERAL: No weight loss, malaise or fevers/chills HEENT: Negative for frequent or significant headaches, No changes in hearing or vision. NECK: Negative for lumps, goiter, pain and significant neck swelling RESPIRATORY: Negative for cough, hemoptysis, wheezing, dyspnea or shortness of breath CARDIOVASCULAR: Negative for chest pain, leg swelling, orthopnea, or palpitations GI: No nausea, vomiting, or diarrhea/constipation. No hematochezia/melena. No heartburn or reflux symptoms. : No history of dysuria, frequency or incontinence MUSCULOSKELETAL: Negative for joint pain or swelling. SKIN: Negative for lesions, rash, and itching ENDOCRINE: Negative for cold or heat intolerance, polyuria, polydipsia and goiter NEURO: No history of headaches, syncope, paralysis, seizures or tremors MOOD: Negative for depression, anxiety, or suicidal ideation. EXAM: BP 106/62 Pulse 86 Resp 16 Wt 82.1 kg (181 lb) LMP 08/06/2022 (Exact Date) SpO2 99% BMI 31.07 kg/m PHYSICAL EXAM: General Appearance: Well appearing, alert, in no acute distress, well-hydrated, well nourished. Skin: Skin color, texture, turgor normal, no suspicious rashes or lesions. Head: Normocephalic, no masses, lesions, tenderness or abnormalities. Eyes: Anicteric sclera. Extraocular movements are intact. Lungs: Lungs clear to auscultation. No wheezing, rhonchi, rales. Heart: RRR without murmur, gallop, or rubs. No ectopy. Extremities: No deformities, edema, skin discoloration, clubbing or cyanosis. Good capillary refill. Peripheral Pulses: Normal, Capillary refill <2secs, strong peripheral pulses, Pulses palpable. Neurologic: Gait normal. Sensation grossly intact. PDMP website checked and validated. All prescriptions have been APPROPRIATELY filled. No suspicious activity was identified. 11/19/2022 by Cinthya Balderas APRN.CNP ASSESSMENT/PLAN: 1. Attention deficit hyperactivity disorder (ADHD), unspecified ADHD type - ICD9: 314.01, ICD10: F90.9 - Refill provided. - Stable - Follow up in 3 months. - DEXTROAMPHETAMINE-AMPHETAMINE ER 30 MG 24HR CAPSULE,EXTEND RELEASE - DEXTROAMPHETAMINE-AMPHETAMINE ER 30 MG 24HR CAPSULE,EXTEND RELEASE - DEXTROAMPHETAMINE-AMPHETAMINE ER 30 MG 24HR CAPSULE,EXTEND RELEASE Follow up in 3 months or sooner as needed. Discussed treatment plan and patient voices understanding. Patient's questions answered appropriately. Medications and potential side effects were discussed and patient voices understanding. Cinthya Balderas APRN.SIMI This note was partially generated using [email or web address] voice recognition system. Note was reviewed for accuracy. There may be minor misspellings or grammar miscues with [email or web address] voice recognition. documented in this encounter [facility] 10-12-2022 History of Presen t illness Narrative Chief Complaint Patient presents with: Follow Up: f/u for hives HPI Mirella Perry is a 32 year old female who presents here today for a follow up. Pt scheduled today for a same day visit for an [facility] follow up. Pt presented to [facility] on 10/09/22 for an allergic reaction to a conditioner she used on 10/08/22. Shortly after washing her hair in the shower she began to have hives on her forehead, face, chest and arms. The areas were very itchy and slightly red. Denies having any breathing or swallowing issues. Used Benadryl the night the hives broke out and re-washed her hair several times with no improvement, but no worsening. No hx of being sensitive to products in the past. Pt was started on Loratadine 10 mg daily and Prednisone 20 mg 2 tabs po for 5 days. Pt to f/u with Derm if not improving. Pt stated she took the Prednisone and Claritin Wednesday and Wednesday morning. She woke up Wednesday with facial and eye swelling. She has not taken any further prednisone or Claritin because she wasn't sure if she was reacting to the medication. She also c/o chest tightness and some SOB since Wednesday as well. Past medical history, appointments, medications, allergies reviewed. Previous Medical History PAST MEDICAL HISTORY Diagnosis Date Acne Asthma mild Attention deficit disorder without mention of hyperactivity Previous Surgical History PAST SURGICAL HISTORY Procedure Laterality Date NONE Family History FAMILY HISTORY Problem Relation Age of Onset Seizures Mother Thyroid Mother hyper other (Other) Father mental health Diabetes Maternal Grandmother Heart Maternal Grandmother Diabetes Paternal Grandmother Heart Paternal Grandmother Patient Allergies ALLERGIES Allergen Reactions Concerta [Methylphe* Intolerance Has trouble breathing. Current Medications Current Outpatient Medications on File Prior to Visit Medication Sig predniSONE (DELTASONE) 20 mg tablet Take 2 tablets by mouth once daily for 5 days. loratadine (CLARITIN) 10 mg tablet Take 1 tablet by mouth once daily. amphetamine-dextroamphetamine XR (ADDERALL XR) 30 mg 24 hr capsule Take 1 capsule by mouth once daily for 30 days. amphetamine-dextroamphetamine XR (ADDERALL XR) 30 mg 24 hr capsule Take 1 capsule by mouth once daily for 30 days. Do not start before September 18, 2022. [START ON 10/18/2022] amphetamine-dextroamphetamine XR (ADDERALL XR) 30 mg 24 hr capsule Take 1 capsule by mouth once daily for 30 days. Do not start before October 18, 2022. etonogestrel (NEXPLANON) subdermal implant 68 mg 1 Each by SUBDERMAL route as directed. No current facility-administered medications on file prior to visit. Social History Social History Tobacco Use Smoking status: Never Smokeless tobacco: Never Vaping Use Vaping Use: Never used Substance Use Topics Alcohol use: No Drug use: No EXAM: BP 120/72 Pulse 74 Resp 16 Wt 80.3 kg (177 lb) LMP 05/04/2022 (Approximate) BMI 30.38 kg/m General Appearance: Well appearing, alert, in no acute distress, well-hydrated, well nourished.. Skin: Positives: Rash: to face, arms, neck, scalp. Hives on face, swelling around eyes Lungs: Lungs clear to auscultation. No wheezing, rhonchi, rales.. Heart: RRR without murmur, gallop, or rubs. No ectopy. Health Maintenance List HEPATITIS B(1 of 3 - 3-dose series) Never done PNEUMOCOCCAL(1 - PCV) Never done SPIROMETRY Never done HEPATITIS C SCREENING Never done DTAP,TDAP,TD(6 - Td or Tdap) due on 11/11/2019 HPV TESTING Never done DEPRESSION ASSESSMENT Never done COVID-19 VACCINE(3 - Booster for Moderna series) due on 12/10/2021 INFLUENZA(1) due on 07/02/2022 PAP TESTING due on 05/02/2023 ANNUAL PCP TEAM CHRONIC DISEASE VISIT due on 08/19/2023 HIV SCREENING Completed Data reviewed None ASSESSMENT/PLAN: 1. Rash/hives - ICD9: 782.1, ICD10: R21 Restart the Prednisone and Claritin and finish out prescription Call if not improving in 3-4 days; may gene longer course of prednisone Follow up as scheduled or if not improving. I agree with the Chief Complaint, ROS, and Past Histories independently gathered by the clinical product support representative and the remaining scribed note accurately describes my personal service to the patient. Medical Decision Making: Problems: Low: Acute, uncomplicated illness or injury Risk: Moderate: Drug management Medical Decision Making Level: 3 - Low Johnson Gonzalez MD The documentation for this note was completed by Polly Gillette Ma acting as scribe for Johnson Gonzalez MD. October 12, 2022 10:15 AM. Polly Gillette Ma documented in this encounter [facility] 10-09-2022 History of Presen t illness Narrative Subjective HPI Mirella presents today with allergic reaction to a conditioner she used yesterday. She states she washed her hair in the shower and shortly after she began with hives on her forehead, face, chest and arms. She states it is very itchy and slightly edematous. She is having no breathing or swallowing issues. She states she has washed her hair several times and took one bedadryl last evening but it has not resolved it has not worsened. She has no hx of sensitivity to products in the past Blood pressure 126/84, pulse 88, temperature 36.8 C (98.3 F), resp. rate 18, weight 81.2 kg (179 lb), last menstrual period 05/04/2022, SpO2 98 %. PAST MEDICAL HISTORY Diagnosis Date Acne Asthma mild Attention deficit disorder without mention of hyperactivity PAST SURGICAL HISTORY Procedure Laterality Date NONE ALLERGIES Concerta [Methylphenidate Hcl] MEDICATIONS amphetamine-dextroamphetamine XR (ADDERALL XR) 30 mg 24 hr capsule Take 1 capsule by mouth once daily for 30 days. Do not start before September 18, 2022. [START ON 10/18/2022] amphetamine-dextroamphetamine XR (ADDERALL XR) 30 mg 24 hr capsule Take 1 capsule by mouth once daily for 30 days. Do not start before October 18, 2022. etonogestrel (NEXPLANON) subdermal implant 68 mg 1 Each by SUBDERMAL route as directed. predniSONE (DELTASONE) 20 mg tablet Take 2 tablets by mouth once daily for 5 days. loratadine (CLARITIN) 10 mg tablet Take 1 tablet by mouth once daily. amphetamine-dextroamphetamine XR (ADDERALL XR) 30 mg 24 hr capsule Take 1 capsule by mouth once daily for 30 days. FAMILY HISTORY Problem Relation Age of Onset Seizures Mother Thyroid Mother hyper other (Other) Father mental health Diabetes Maternal Grandmother Heart Maternal Grandmother Diabetes Paternal Grandmother Heart Paternal Grandmother Social History Tobacco Use Smoking status: Never Smokeless tobacco: Never Vaping Use Vaping Use: Never used Substance Use Topics Alcohol use: No Drug use: No Review of Systems Skin: Positive for rash. Objective Physical Exam Constitutional: Appearance: Normal appearance. HENT: Head: Normocephalic. Right Ear: Tympanic membrane normal. Left Ear: Tympanic membrane normal. Nose: Nose normal. Mouth/Throat: Mouth: Mucous membranes are dry. Pharynx: No posterior oropharyngeal erythema. Comments: No oral deficits Eyes: Extraocular Movements: Extraocular movements intact. Pupils: Pupils are equal, round, and reactive to light. Cardiovascular: Rate and Rhythm: Normal rate and regular rhythm. Pulmonary: Effort: Pulmonary effort is normal. No respiratory distress. Breath sounds: Normal breath sounds. No stridor. No wheezing, rhonchi or rales. Chest: Chest wall: No tenderness. Musculoskeletal: Cervical back: Normal range of motion and neck supple. Neurological: Mental Status: She is alert. ASSESSMENT/PLAN: 1. Allergic reaction, initial encounter - ICD9: 995.3, ICD10: T78.40XA Prednisone Claritin Follow up with dermatology if not improving Continue to rinse product from hair Avoid product If any worsening report to ED Theresa Childs APRN.SIMI documented in this encounter [facility] 08-19-2022 Instructions Cinthya Balderas APRN.CNP - 08/19/2022 4:51 PM EDT Continue to take all medication as prescribed. Follow up in 3 months, may be phone or virtual appt. documented in this encounter [facility] 08-19-2022 History of Presen t illness Narrative This is a 31 year old female who presents today with: Patient presents with: Follow Up HISTORY OF PRESENT ILLNESS: Mirella Perry is a 31 year old female. Patient presents with: Follow Up Here in the office for 3-month follow-up for medication. Taking Adderall XR 30 mg daily. Medication has been working well for concentration. Denies any difficulty sleeping or palpitations. Due for tox screen at this time. No other concerns. PAST MEDICAL HISTORY: PAST MEDICAL HISTORY Diagnosis Date Acne Asthma mild Attention deficit disorder without mention of hyperactivity PAST SURGICAL HISTORY Procedure Laterality Date NONE ALLERGIES Concerta [Methylphenidate Hcl] MEDICATIONS Current Outpatient Medications Medication Sig amphetamine-dextroamphetamine XR (ADDERALL XR) 30 mg 24 hr capsule Take 1 capsule by mouth once daily for 30 days. Do not start before July 19, 2022. amphetamine-dextroamphetamine XR (ADDERALL XR) 30 mg 24 hr capsule Take 1 capsule by mouth once daily for 30 days. amphetamine-dextroamphetamine XR (ADDERALL XR) 30 mg 24 hr capsule Take 1 capsule by mouth once daily for 30 days. amphetamine-dextroamphetamine XR (ADDERALL XR) 30 mg 24 hr capsule Take 1 capsule by mouth once daily for 30 days. Do not start before February 18, 2022. amphetamine-dextroamphetamine XR (ADDERALL XR) 30 mg 24 hr capsule Take 1 capsule by mouth once daily for 30 days. Do not start before March 15, 2022. amphetamine-dextroamphetamine XR (ADDERALL XR) 30 mg 24 hr capsule Take 1 capsule by mouth once daily for 30 days. Do not start before April 14, 2022. amphetamine-dextroamphetamine XR (ADDERALL XR) 30 mg 24 hr capsule Take 1 capsule by mouth once daily for 30 days. etonogestrel (NEXPLANON) subdermal implant 68 mg 1 Each by SUBDERMAL route as directed. No current facility-administered medications for this visit. FAMILY HISTORY Problem Relation Age of Onset Seizures Mother Thyroid Mother hyper other (Other) Father mental health Diabetes Maternal Grandmother Heart Maternal Grandmother Diabetes Paternal Grandmother Heart Paternal Grandmother Social History Tobacco Use Smoking status: Never Smokeless tobacco: Never Vaping Use Vaping Use: Never used Substance Use Topics Alcohol use: No Drug use: No REVIEW OF SYSTEMS GENERAL: No weight loss, malaise or fevers/chills HEENT: Negative for frequent or significant headaches, No changes in hearing or vision. NECK: Negative for lumps, goiter, pain and significant neck swelling RESPIRATORY: Negative for cough, hemoptysis, wheezing, dyspnea or shortness of breath CARDIOVASCULAR: Negative for chest pain, leg swelling, orthopnea, or palpitations GI: No nausea, vomiting, or diarrhea/constipation. No hematochezia/melena. No heartburn or reflux symptoms. : No history of dysuria, frequency or incontinence MUSCULOSKELETAL: Negative for joint pain or swelling. SKIN: Negative for lesions, rash, and itching ENDOCRINE: Negative for cold or heat intolerance, polyuria, polydipsia and goiter NEURO: No history of headaches, syncope, paralysis, seizures or tremors MOOD: Negative for depression, anxiety, or suicidal ideation. EXAM: BP 102/64 Pulse 70 Resp 16 Wt 78 kg (172 lb) LMP 05/04/2022 (Approximate) SpO2 100% BMI 29.52 kg/m PHYSICAL EXAM: General Appearance: Well appearing, alert, in no acute distress, well-hydrated, well nourished. Skin: Skin color, texture, turgor normal, no suspicious rashes or lesions. Head: Normocephalic, no masses, lesions, tenderness or abnormalities. Eyes: Anicteric sclera. Extraocular movements are intact. Lungs: Lungs clear to auscultation. No wheezing, rhonchi, rales. Heart: RRR without murmur, gallop, or rubs. No ectopy. Extremities: No deformities, edema, skin discoloration, clubbing or cyanosis. Good capillary refill. Peripheral Pulses: Normal, Capillary refill <2secs, strong peripheral pulses, Pulses palpable. Neurologic: Gait normal. Reflexes normal and symmetric. Sensation grossly intact. ASSESSMENT/PLAN: 1. Attention deficit hyperactivity disorder (ADHD), unspecified ADHD type - ICD9: 314.01, ICD10: F90.9 - Medication refilled, continue to take Adderall XR 30 mg daily. - Tox screen/Pain panel collected at this visit. - Follow up in 3 months. - TOX SCREEN ROUT UR - PAIN PANEL, UR QUANT - DEXTROAMPHETAMINE-AMPHETAMINE ER 30 MG 24HR CAPSULE,EXTEND RELEASE - DEXTROAMPHETAMINE-AMPHETAMINE ER 30 MG 24HR CAPSULE,EXTEND RELEASE - DEXTROAMPHETAMINE-AMPHETAMINE ER 30 MG 24HR CAPSULE,EXTEND RELEASE - PAIN PANEL, UR QUANT - SPECIMEN VALIDITY, URINE Follow-up in 3 months or sooner as needed. Discussed treatment plan and patient voices understanding. Patient's questions answered appropriately. Medications and potential side effects were discussed and patient voices understanding. Cinthya Balderas APRN.SIMI This note was partially generated using [email or web address] voice recognition system. Note was reviewed for accuracy. There may be minor misspellings or grammar miscues with [email or web address] voice recognition. documented in this encounter [facility] 06-24-2022 Miscellaneous Notes The following approved medication requests have been transmitted electronically. Requested Prescriptions Signed Prescriptions Disp Refills amphetamine-dextroamphetamine XR (ADDERALL XR) 30 mg 24 hr capsule 30 capsule 0 Sig: Take 1 capsule by mouth once daily for 30 days. Do not start before July 19, 2022. Authorizing Provider: JOHNSON GONZALEZ amphetamine-dextroamphetamine XR (ADDERALL XR) 30 mg 24 hr capsule 30 capsule 0 Sig: Take 1 capsule by mouth once daily for 30 days. Authorizing Provider: JOHNSON GONZALEZ Ma OK to refill as ordered Johnson Gonzalez MD RX INSTRUCTIONS: PATIENT MOVED AND DID NOT ASSOCIATE PROFESSOR OF PHILOSOPHY YET. Please submit to [employer]. Please remove all other duplicates. Polly Gillette Ma Patient has been identified by name and date of : Yes Requested Prescriptions Pending Prescriptions Disp Refills amphetamine-dextroamphetamine XR (ADDERALL XR) 30 mg 24 hr capsule 30 capsule 0 Sig: Take 1 capsule by mouth once daily for 30 days. Do not start before July 19, 2022. RX INSTRUCTIONS: PATIENT MOVED AND DID NOT ASSOCIATE PROFESSOR OF PHILOSOPHY YET. Please submit to [employer]. Please remove all other duplicates. Patient aware RX will be sent to pharmacy. No need to notify patient. Daina Price documented in this encounter [facility] 05-20-2022 History of Presen t illness Narrative Chief Complaint Patient presents with: F/U 3 Month HPI Mirella Perry is a 31 year old female who presents here today for a 3 month follow up. Pt here for a medication follow up. 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 No bowel, Gi, or urinary issues. No chest pains, dizziness, or SOB. ADHD: Feels concentration and focus is stable with use of Adderall XR 30 mg daily. Denies side effects. Pt due for Tox - unable to urinate tonight; will do at next visit.. Past medical history, appointments, medications, allergies reviewed. Previous Medical History PAST MEDICAL HISTORY Diagnosis Date Acne Asthma mild Attention deficit disorder without mention of hyperactivity Previous Surgical History PAST SURGICAL HISTORY Procedure Laterality Date NONE Family History FAMILY HISTORY Problem Relation Age of Onset Seizures Mother Thyroid Mother hyper other (Other) Father mental health Diabetes Maternal Grandmother Heart Maternal Grandmother Diabetes Paternal Grandmother Heart Paternal Grandmother Patient Allergies ALLERGIES Allergen Reactions Concerta [Methylphe* Intolerance Has trouble breathing. Current Medications Current Outpatient Medications on File Prior to Visit Medication Sig amphetamine-dextroamphetamine XR (ADDERALL XR) 30 mg 24 hr capsule Take 1 capsule by mouth once daily for 30 days. Do not start before February 18, 2022. amphetamine-dextroamphetamine XR (ADDERALL XR) 30 mg 24 hr capsule Take 1 capsule by mouth once daily for 30 days. Do not start before March 15, 2022. amphetamine-dextroamphetamine XR (ADDERALL XR) 30 mg 24 hr capsule Take 1 capsule by mouth once daily for 30 days. Do not start before April 14, 2022. amphetamine-dextroamphetamine XR (ADDERALL XR) 30 mg 24 hr capsule Take 1 capsule by mouth once daily for 30 days. etonogestrel (NEXPLANON) subdermal implant 68 mg 1 Each by SUBDERMAL route as directed. No current facility-administered medications on file prior to visit. Social History Social History Tobacco Use Smoking status: Never Smoker Smokeless tobacco: Never Used Vaping Use Vaping Use: Never used Substance Use Topics Alcohol use: No Drug use: No EXAM: BP 120/80 Pulse 78 Resp 16 Wt 76.2 kg (168 lb) LMP 08/03/2021 BMI 28.84 kg/m General Appearance: Well appearing, alert, in no acute distress, well-hydrated, well nourished.. Lungs: Lungs clear to auscultation. No wheezing, rhonchi, rales.. Heart: RRR without murmur, gallop, or rubs. No ectopy. Health Maintenance List PNEUMOCOCCAL(1 - PCV) Never done SPIROMETRY Never done HEPATITIS C SCREENING Never done DTAP,TDAP,TD(6 - Td or Tdap) due on 11/11/2019 HPV TESTING Never done COVID-19 VACCINE(3 - Booster for Moderna series) due on 03/15/2022 INFLUENZA(1) due on 07/02/2022 DEPRESSION SCREENING due on 02/04/2023 ANNUAL PCP TEAM CHRONIC DISEASE VISIT due on 02/13/2023 PAP TESTING due on 05/02/2023 HIV SCREENING Completed Data reviewed none ASSESSMENT/PLAN: 1. . Attention deficit hyperactivity disorder (ADHD), unspecified ADHD type - ICD9: 314.01, ICD10: F90.9 Continue current medications. - DEXTROAMPHETAMINE-AMPHETAMINE ER 30 MG 24HR CAPSULE,EXTEND RELEASE - DEXTROAMPHETAMINE-AMPHETAMINE ER 30 MG 24HR CAPSULE,EXTEND RELEASE - DEXTROAMPHETAMINE-AMPHETAMINE ER 30 MG 24HR CAPSULE,EXTEND RELEASE - TOX SCREEN ROUT UR Follow up in 3 months I agree with the Chief Complaint, ROS, and Past Histories independently gathered by the clinical product support representative and the remaining scribed note accurately describes my personal service to the patient. Medical Decision Making: Problems: Low: Stable chronic illness Risk: Moderate: Drug management Medical Decision Making Level: 3 - Low Johnson Gonzalez MD The documentation for this note was completed by Polly Gillette Ma acting as scribe for Johnson Gonzalez MD. May 20, 2022 6:54 PM. Polly Gillette Ma documented in this encounter [facility] 02-13-2022 Miscellaneous Notes patient scheduled First attempt to schedule a medication follow up with PCP/PREMIX OPERATOR CONCENTRATE. Samantha PRICE OK for 30 day refill Needs appt for further refills Johnson Gonzalez MD Patient has been identified by name and date of : Yes Pending Prescriptions Disp Refills DEXTROAMPHETAMINE-AMPHETAMINE ER 30 MG 24HR CAPSULE,EXTEND RELEASE 30 capsule 0 Sig: Take 1 capsule by mouth once daily for 30 days. ALBINA Class: C-II VERONICA: No BELLA-02/17/21 Labs-12/28/18 NOV-none med filled 09/17/21 ends 10/17/21 RX INSTRUCTIONS: Patient aware RX will be sent to pharmacy. No need to notify patient. Sonia Adkins documented in this encounter [facility] 02-13-2022 Instructions Cinthya Balderas APRN.CNP - 02/13/2022 7:46 AM EDT 1.) Continue to take adderall 30 mg daily as prescribed. 2.) Keep up coming appointment with PCP for wellness exam. 3.) Follow up in 3 months for medication check, may be a virtual or phone. documented in this encounter [facility] 02-13-2022 History of Presen t illness Narrative This is a 31 year old female who presents today with: Patient presents with: Follow Up: need med refills HISTORY OF PRESENT ILLNESS: Mirella Perry is a 31 year old female. Patient presents with: Follow Up: need med refills Here in the office for medication follow up. Taking Adderall XR 30 mg daily for ADHD. Medication dosage has been helpful with concentration and focus. Helps with completing work tasks. Denies any chest pain, palpitations, or difficulty with sleep. PAST MEDICAL HISTORY: PAST MEDICAL HISTORY Diagnosis Date Acne Asthma mild Attention deficit disorder without mention of hyperactivity PAST SURGICAL HISTORY Procedure Laterality Date NONE ALLERGIES Concerta [Methylphenidate Hcl] MEDICATIONS Current Outpatient Medications Medication Sig sulfamethoxazole-trimethoprim (BACTRIM DS) 800-160 mg per tablet Take 1 tablet by mouth twice daily for 10 days. (Patient not taking: Reported on 02/06/2022 ) amphetamine-dextroamphetamine XR (ADDERALL XR) 30 mg 24 hr capsule Take 1 capsule by mouth once daily for 30 days. etonogestrel (NEXPLANON) subdermal implant 68 mg 1 Each by SUBDERMAL route as directed. No current facility-administered medications for this visit. FAMILY HISTORY Problem Relation Age of Onset Seizures Mother Thyroid Mother hyper other (Other) Father mental health Diabetes Maternal Grandmother Heart Maternal Grandmother Diabetes Paternal Grandmother Heart Paternal Grandmother Social History Tobacco Use Smoking status: Never Smoker Smokeless tobacco: Never Used Vaping Use Vaping Use: Never used Substance Use Topics Alcohol use: No Drug use: No REVIEW OF SYSTEMS GENERAL: No weight loss, malaise or fevers/chills HEENT: Negative for frequent or significant headaches, No changes in hearing or vision. NECK: Negative for lumps, goiter, pain and significant neck swelling RESPIRATORY: Negative for cough, hemoptysis, wheezing, dyspnea or shortness of breath CARDIOVASCULAR: Negative for chest pain, leg swelling, orthopnea, or palpitations GI: No nausea, vomiting, or diarrhea/constipation. No hematochezia/melena. No heartburn or reflux symptoms. : No history of dysuria, frequency or incontinence MUSCULOSKELETAL: Negative for joint pain or swelling. SKIN: Negative for lesions, rash, and itching ENDOCRINE: Negative for cold or heat intolerance, polyuria, polydipsia and goiter NEURO: No history of headaches, syncope, paralysis, seizures or tremors MOOD: Negative for depression, anxiety, or suicidal ideation. EXAM: BP 90/60 Pulse 77 Resp 16 Wt 73 kg (161 lb) LMP 08/03/2021 SpO2 99% BMI 27.64 kg/m PHYSICAL EXAM: General Appearance: Well appearing, alert, in no acute distress, well-hydrated, well nourished. Skin: Skin color, texture, turgor normal, no suspicious rashes or lesions. Head: Normocephalic, no masses, lesions, tenderness or abnormalities. Eyes: Anicteric sclera. Extraocular movements are intact. Neck: Supple, no adenopathy; thyroid symmetric, normal size, no bruits. Lungs: Lungs clear to auscultation. No wheezing, rhonchi, rales. Heart: RRR without murmur, gallop, or rubs. No ectopy. Extremities: No deformities, edema, skin discoloration, clubbing or cyanosis. Good capillary refill. Peripheral Pulses: Normal, Capillary refill <2secs, strong peripheral pulses, Pulses palpable. PDMP website checked and validated. All prescriptions have been APPROPRIATELY filled. No suspicious activity was identified. 02/13/2022 by Cinthya Balderas APRN.TESTBOARD OPERATOR ASSESSMENT/PLAN: 1. Attention deficit hyperactivity disorder (ADHD), unspecified ADHD type - ICD9: 314.01, ICD10: F90.9 - Medication is working well for ADHD symptoms. - Oarrs Report checked. - 3 month prescription provided. - DEXTROAMPHETAMINE-AMPHETAMINE ER 30 MG 24HR CAPSULE,EXTEND RELEASE - DEXTROAMPHETAMINE-AMPHETAMINE ER 30 MG 24HR CAPSULE,EXTEND RELEASE - DEXTROAMPHETAMINE-AMPHETAMINE ER 30 MG 24HR CAPSULE,EXTEND RELEASE Follow-up in 3 months or sooner as needed. Discussed treatment plan and patient voices understanding. Patient's questions answered appropriately. Medications and potential side effects were discussed and patient voices understanding. Cinthya Balderas APRN.CNP This note was partially generated using [email or web address] voice recognition system. Note was reviewed for accuracy. There may be minor misspellings or grammar miscues with [employer] voice recognition. documented in this encounter [facility] 02-10-2022 History of Presen t illness Narrative HISTORY AND PHYSICAL Mirella Perry 1990 REFERRING PHYSICIAN: Curtis Chan APRN.CNP CHIEF COMPLAINT: abscess HPI: Mirella is a 31 year old female with a complaint of a left axillary abscess. Sh denies purulent discharge from the abscess. she denies a history of diabetes. Notes history of prior abscesses and infected cysts. The patient was seen by Curtis Chan CNP and was started on oral antibiotics and referred for surgical evaluation. SIGNIFICANT MEDICAL PROBLEMS: PAST MEDICAL HISTORY Diagnosis Date Acne Asthma mild Attention deficit disorder without mention of hyperactivity OPERATIONS: PAST SURGICAL HISTORY Procedure Laterality Date NONE CURRENT MEDICATIONS: Current Outpatient Medications Medication Sig Dispense Refill amphetamine-dextroamphetamine XR (ADDERALL XR) 30 mg 24 hr capsule Take 1 capsule by mouth once daily for 30 days. 30 capsule 0 etonogestrel (NEXPLANON) subdermal implant 68 mg 1 Each by SUBDERMAL route as directed. 1 Each 0 sulfamethoxazole-trimethoprim (BACTRIM DS) 800-160 mg per tablet Take 1 tablet by mouth twice daily for 10 days. (Patient not taking: Reported on 02/06/2022 ) 20 tablet 0 No current facility-administered medications for this visit. ALLERGIES: Concerta [Methylphenidate Hcl] PERSONAL HISTORY: Social History Tobacco Use Smoking status: Never Smoker Smokeless tobacco: Never Used Vaping Use Vaping Use: Never used Substance Use Topics Alcohol use: No Drug use: No FAMILY HISTORY: FAMILY HISTORY Problem Relation Age of Onset Seizures Mother Thyroid Mother hyper other (Other) Father mental health Diabetes Maternal Grandmother Heart Maternal Grandmother Diabetes Paternal Grandmother Heart Paternal Grandmother REVIEW OF SYMPTOMS: The review of systems data was entered by the nurse and reviewed by sd Nursing Notes: Selene VoraNIMA 02/06/2022 3:51 PM Signed REVIEW OF SYSTEMS: General: The patient denies fatigue, denies weight loss, denies weight gain, denies feeling hot, and denies feelings of cold. Eyes: The patient denies glaucoma, denies eye injury/surgery, wears glasses or contacts. Ear/Nose/Throat: The patient notes allergies, denies hayfever, denies ear infections, and denies bloody noses. Cardiovascular: The patient denies chest pain, denies heart disease, denies high blood pressure,denies cardiac stent, denies prior heart attack, denies irregular heart beat, denies high cholesterol, denies poor circulation, denies heart failure, other cardiac issues, denies claudication, denies cold feet, denies peripheral arterial stent. Respiratory: The patient denies tuberculosis, denies pneumonia, denies frequent cough, denies pulmonary embolism, denies shortness of breath, and denies coughing up blood. Gastrointestinal: The patient denies difficulty swallowing, denies acid reflux, denies ulcers, denies vomiting, denies jaundice/hepatitis, denies gallbladder problems, denies black or tarry stools, denies hemorrhoids, denies bleeding from rectum, denies diverticulitis, notes constipation, notes diarrhea, denies loss of stool control, and denies hernias. Kidney/Bladder: The patient denies kidney stones, denies urine infections, and denies bloody urine. Skin: The patient denies a history of skin cancer, denies bleeding/changing moles, and denies a history of skin rash. Neurologic: The patient denies a history of epilepsy/convulsions, denies headaches, denies head/spinal injuries, and denies stroke/TIA. Psychiatric: The patient denies psychiatric medications, denies depression, and denies voices, denies substance abuse. Endocrine: The patient denies thyroid disorders, denies diabetes, and denies hormonal problems. Hematologic: The patient denies a history of bruising, denies bleeding, and denies anemia, denies blood clots. Infections: The patient denies a history of measles and mumps, denies rheumatic fever, and denies sexually transmitted diseases. Musculoskeletal: The patient denies back pain/injury, denies back problems, denies sciatica, denies knee/foot trouble, denies arthritis, or denies gout. When was patient's last Mammogram screening? none Last Colonoscopy: none Selene Vora LPN I have confirmed and edited as necessary, the PFSH and ROS obtained by others. Arlette Mckay PA-C PHYSICAL EXAMINATION: General: The patient is 31 year old female, well nourished, well hydrated in no acute distress. The patient is oriented to time, place, and person. VITALS: Blood pressure 114/72, pulse 115, temperature 37 C (98.6 F), height 162.6 cm (5' 4), weight 71.7 kg (158 lb), last menstrual period 08/03/2021, SpO2 96 %. Body mass index is 27.12 kg/m . HEENT: exam deferred Extremities: no clubbing, cyanosis or edema. No adenopathy. Other: +2.5 cm erythematous nodule with fluctuance and tenderness The skin overlying the point of maximal fluctance is viable. LABORATORY VALUES: As Noted RADIOLOGIC STUDIES: As Noted PROCEDURE: INCISION AND DRAINAGE OF left axillary ABSCESS After consent was obtained and the site, person, and procedure verified, the patient`s skin was prepped and draped in the usual fashion. A combination of Lidocaine and Marcaine was injected into the skin. A linear incision was made over the point of maximal fluctuance. A medium amount of purulent material was drained. The abscess was then unroofed. The cavity was packed with plain gauze. The patient tolerated the procedure well. Assessment IMPRESSION: STATUS POST INCISION AND DRAINAGE OF left axillary ABSCESS PLAN: Mirella is instructed to remove packing tomorrow and cover with bandaid. If the dressing becomes soaked or had significant drainage, the dressing should be changed. If there is minor bleeding from this skin edge, the patient should hold pressure on the incision. If there is continued bleeding, the patient should contact our office immediately. The patient should wash the wound with gentle soap and water. she may shower. The wound should not be immersed in a pool, bathtub, or even hot tub. Diagnoses: (L02.419) Axillary abscess (primary encounter diagnosis) Return to Clinic: The patient is instructed to follow-up with me in one week. The patient verbalized understanding of all above and agreed with the plan Arlette Mckay PA-C UNIVERSAL PROTOCOL / SAFETY CHECKLIST Procedure to be Performed: Incision and drainage of left axillary abscess Sign In: A Moment of CARE was completed. Personnel directly involved with the procedure wore the appropriate PPE (Personal Protective Equipment). No special equipment needed. Patient/Surrogate Stated/Verified: PATIENT VERIFIED(optional for EMERGENT procedures): Patient name, Date of , Relevant allergies and The intended procedure Time Out Communication: Intended patient and procedure match the source documents. Consent documented and matches the intended procedure. No relevant labs, photos, and/or imaging studies were applicable for review. Medications required for procedure verified. No fire risk assessment and interventions applicable. No implant(s) inserted. Sign Out: SIGN OUT (optional for EMERGENT procedures): No specimen collected. Post-procedure follow-up management communicated and Plan of Care Visit completed when applicable. Selene Vora LPN documented in this encounter [facility] 02-06-2022 Instructions Arlette Mckay PA-C - 02/06/2022 4:15 PM EDT The following instructions are important for you related to your office visit today with the [facility]. Instructions After I & D You are instructed to remove packing tomorrow and cover with dry gauze dressing. If the dressing becomes soaked or had significant drainage, the dressing should be changed. If there is minor bleeding from this skin edge, you should hold pressure on the incision. If there is continued bleeding, you should contact our office immediately. Wash the wound with gentle soap and water. You may shower. The wound should not be immersed in a pool, bathtub, or even hot tub. If the wound shows signs of redness, inflammation, or purulent drainage, you should contact our office immediately. If you note any additional difficulties, questions, or concerns, you should contact our office immediately @ [phone] and ask to be transferred to the General Surgery department. documented in this encounter [facility] 02-06-2022 Nurse Note REVIEW OF SYSTEMS: General: The patient denies fatigue, denies weight loss, denies weight gain, denies feeling hot, and denies feelings of cold. Eyes: The patient denies glaucoma, denies eye injury/surgery, wears glasses or contacts. Ear/Nose/Throat: The patient notes allergies, denies hayfever, denies ear infections, and denies bloody noses. Cardiovascular: The patient denies chest pain, denies heart disease, denies high blood pressure,denies cardiac stent, denies prior heart attack, denies irregular heart beat, denies high cholesterol, denies poor circulation, denies heart failure, other cardiac issues, denies claudication, denies cold feet, denies peripheral arterial stent. Respiratory: The patient denies tuberculosis, denies pneumonia, denies frequent cough, denies pulmonary embolism, denies shortness of breath, and denies coughing up blood. Gastrointestinal: The patient denies difficulty swallowing, denies acid reflux, denies ulcers, denies vomiting, denies jaundice/hepatitis, denies gallbladder problems, denies black or tarry stools, denies hemorrhoids, denies bleeding from rectum, denies diverticulitis, notes constipation, notes diarrhea, denies loss of stool control, and denies hernias. Kidney/Bladder: The patient denies kidney stones, denies urine infections, and denies bloody urine. Skin: The patient denies a history of skin cancer, denies bleeding/changing moles, and denies a history of skin rash. Neurologic: The patient denies a history of epilepsy/convulsions, denies headaches, denies head/spinal injuries, and denies stroke/TIA. Psychiatric: The patient denies psychiatric medications, denies depression, and denies voices, denies substance abuse. Endocrine: The patient denies thyroid disorders, denies diabetes, and denies hormonal problems. Hematologic: The patient denies a history of bruising, denies bleeding, and denies anemia, denies blood clots. Infections: The patient denies a history of measles and mumps, denies rheumatic fever, and denies sexually transmitted diseases. Musculoskeletal: The patient denies back pain/injury, denies back problems, denies sciatica, denies knee/foot trouble, denies arthritis, or denies gout. When was patient's last Mammogram screening? none Last Colonoscopy: none Selene Vora LPN documented in this encounter [facility] 02-06-2022 History of Presen t illness Narrative Chief Complaint Patient presents with: [facility] HPI Mirella Perry is a 31 year old female who presents here today for Above Complaints.. Patient is here for complaint of left axilla mass. Present for approximately 1 week. It is painful. States that she had a similar symptom of right axilla but went away on its own. She has tried to place a warm compress to area with not much relief. She states that letting her arm hang to her side increases her pain. Feels like there is a mass. No fevers or chills. No arm swelling. Past medical history, appointments, medications, allergies reviewed. Previous Medical History PAST MEDICAL HISTORY Diagnosis Date Acne Asthma mild Attention deficit disorder without mention of hyperactivity Previous Surgical History PAST SURGICAL HISTORY Procedure Laterality Date NONE Family History FAMILY HISTORY Problem Relation Age of Onset Seizures Mother Thyroid Mother hyper other (Other) Father mental health Diabetes Maternal Grandmother Heart Maternal Grandmother Diabetes Paternal Grandmother Heart Paternal Grandmother Patient Allergies ALLERGIES Allergen Reactions Concerta [Methylphe* Intolerance Has trouble breathing. Current Medications Current Outpatient Medications on File Prior to Visit Medication Sig amphetamine-dextroamphetamine XR (ADDERALL XR) 30 mg 24 hr capsule Take 1 capsule by mouth once daily for 30 days. etonogestrel (NEXPLANON) subdermal implant 68 mg 1 Each by SUBDERMAL route as directed. No current facility-administered medications on file prior to visit. Social History Social History Tobacco Use Smoking status: Never Smoker Smokeless tobacco: Never Used Vaping Use Vaping Use: Never used Substance Use Topics Alcohol use: No Drug use: No REVIEW OF SYSTEMS: as above Reviewed relevant PMHx, PSHx, Social Hx, current medications and allergies. EXAM: BP 110/70 Pulse 96 Temp 36.4 C (97.6 F) (Left Tympanic) Resp 14 Wt 72.6 kg (160 lb) LMP 08/03/2021 BMI 27.46 kg/m General Appearance: Well appearing, alert, in no acute distress, well-hydrated, well nourished.. Skin: Left Axilla: Area of erythema with tender, mobile, soft mass in the left axilla Health Maintenance List COVID-19 VACCINE(1) Never done SPIROMETRY Never done TWO PNEUMOVAX 5 YEARS APART PRIOR TO AGE 65(1) Never done ADULT PREVNAR-13 Never done DTAP,TDAP,TD(6 - Td or Tdap) due on 11/11/2019 HPV TESTING Never done HEPATITIS C SCREENING due on 02/17/2022 ANNUAL PCP TEAM CHRONIC DISEASE VISIT due on 02/17/2022 INFLUENZA(Season Ended) due on 07/02/2022 DEPRESSION SCREENING due on 02/04/2023 PAP TESTING due on 05/02/2023 HIV SCREENING Completed MENINGOCOCCAL CONJUGATE Aged Out ASSESSMENT/PLAN: 1. Infected sebaceous cyst - ICD9: 706.2, ICD10: L72.3, L08.9 - Begin treatment with Trimethoprim-sulfamethozazole (Bactrim) 2 DS PO BID - We will get her into general surgery this afternoon - SULFAMETHOXAZOLE 800 MG-TRIMETHOPRIM 160 MG TABLET - CONSULT TO GENERAL SURGERY Curtis Chan APRN.TESTBOARD OPERATOR This note was partly generated using [email or web address] voice recognition dictation and may contain some misspelled or inaccurate words missed on review. documented in this encounter [facility] 06-25-2014 History of Past i llness Narrative Problem Noted Date Resolved Date GBS (group B streptococcus) UTI complicating pre gnancy 06/25/2014 02/27/2015 Late care 06/22/2014 02/27/2015 Overview: 16 weeks first visit , supervision of first 06/22/2014 02/27/2015 Overview: Girl on us- cecilia Seborrhea 01/28/2007 08/31/2011 Pallor 01/28/2007 08/31/2011 documented as of this encounter (statuses as of 02/06/2022) [facility] History of Past illness Narrative* Problem Noted Date Resolved Date GBS (group B streptococcus) UTI complicating pre gnancy 06/25/2014 02/27/2015 Late care 06/22/2014 02/27/2015 Overview: 16 weeks first visit , supervision of first 06/22/2014 02/27/2015 Overview: Girl on us- cecilia Seborrhea 01/28/2007 08/31/2011 Pallor 01/28/2007 08/31/2011 documented as of this encounter (statuses as of 02/10/2022) [place] [id number] History of Past illness Narrative* Problem Noted Date Resolved Date GBS (group B streptococcus) UTI complicating pre gnancy 06/25/2014 02/27/2015 Late care 06/22/2014 02/27/2015 Overview: 16 weeks first visit , supervision of [facility] 06/22/2014 02/27/2015 Overview: Girl on us- cecilia Seborrhea 01/28/2007 08/31/2011 Pallor 01/28/2007 08/31/2011 documented as of this encounter (statuses as of 02/13/2022) [address]25-2014 History of Past illness Narrative* Problem Noted Date Resolved Date GBS (group B streptococcus) UTI complicating pre gnancy 06/25/2014 02/27/2015 Late care 06/22/2014 02/27/2015 Overview: 16 weeks first visit , supervision of first 06/22/2014 02/27/2015 Overview: Girl on us- cecilia Seborrhea 01/28/2007 08/31/2011 Pallor 01/28/2007 08/31/2011 documented as of this encounter (statuses as of 02/13/2022) [facility] History of Past illness Narrative* Problem Noted Date Resolved Date GBS (group B streptococcus) UTI complicating pre gnancy 06/25/2014 02/27/2015 Late care 06/22/2014 02/27/2015 Overview: 16 weeks first visit , supervision of first 06/22/2014 02/27/2015 Overview: Girl on us- cecilia Seborrhea 01/28/2007 08/31/2011 Pallor 01/28/2007 08/31/2011 documented as of this encounter (statuses as of 05/20/2022) [facility] History of Past illness Narrative* Problem Noted Date Resolved Date GBS (group B streptococcus) UTI complicating pre gnancy 06/25/2014 02/27/2015 Late care 06/22/2014 02/27/2015 Overview: 16 weeks first visit , supervision of first 06/22/2014 02/27/2015 Overview: Girl on us- cecilia Seborrhea 01/28/2007 08/31/2011 Pallor 01/28/2007 08/31/2011 documented as of this encounter (statuses as of 06/24/2022) [facility] History of Past illness Narrative* Problem Noted Date Resolved Date GBS (group B streptococcus) UTI complicating pre gnancy 06/25/2014 02/27/2015 Late care 06/22/2014 02/27/2015 Overview: 16 weeks first visit , supervision of first 06/22/2014 02/27/2015 Overview: Girl on us- cecilia Seborrhea 01/28/2007 08/31/2011 Pallor 01/28/2007 08/31/2011 documented as of this encounter (statuses as of 08/19/2022) [facility] History of Past illness Narrative* Problem Noted Date Resolved Date GBS (group B streptococcus) UTI complicating pre gnancy 06/25/2014 02/27/2015 Late care 06/22/2014 02/27/2015 Overview: 16 weeks first visit , supervision of first 06/22/2014 02/27/2015 Overview: Girl on us- cecilia Seborrhea 01/28/2007 08/31/2011 Pallor 01/28/2007 08/31/2011 documented as of this encounter (statuses as of 10/09/2022) [facility] History of Past illness Narrative* Problem Noted Date Resolved Date GBS (group B streptococcus) UTI complicating pre gnancy 06/25/2014 02/27/2015 Late care 06/22/2014 02/27/2015 Overview: 16 weeks first visit , supervision of first 06/22/2014 02/27/2015 Overview: Girl on us- cecilia Seborrhea 01/28/2007 08/31/2011 Pallor 01/28/2007 08/31/2011 documented as of this encounter (statuses as of 10/12/2022) [place] [id number] History of Past illness Narrative* Problem Noted Date Resolved Date GBS (group B streptococcus) UTI complicating pre gnancy 06/25/2014 02/27/2015 Late care 06/22/2014 02/27/2015 Overview: 16 weeks first visit , supervision of first 06/22/2014 02/27/2015 Overview: Girl on us- cecilia Seborrhea 01/28/2007 08/31/2011 Pallor 01/28/2007 08/31/2011 documented as of this encounter (statuses as of 11/20/2022) [facility] History of Past illness Narrative* Problem Noted Date Resolved Date GBS (group B streptococcus) UTI complicating pre gnancy 06/25/2014 02/27/2015 Late care 06/22/2014 02/27/2015 Overview: 16 weeks first visit , supervision of first 06/22/2014 02/27/2015 Overview: Girl on us- cecilia Seborrhea 01/28/2007 08/31/2011 Pallor 01/28/2007 08/31/2011 documented as of this encounter (statuses as of 11/27/2022) [facility] History of Past illness Narrative* Problem Noted Date Resolved Date GBS (group B streptococcus) UTI complicating pre gnancy 06/25/2014 02/27/2015 Late care 06/22/2014 02/27/2015 Overview: 16 weeks first visit , supervision of first 06/22/2014 02/27/2015 Overview: Girl on us- cecilia Seborrhea 01/28/2007 08/31/2011 Pallor 01/28/2007 08/31/2011 documented as of this encounter (statuses as of 02/19/2023) [facility] History of Past illness Narrative* Problem Noted Date Resolved Date GBS (group B streptococcus) UTI complicating pre gnancy 06/25/2014 02/27/2015 Late care 06/22/2014 02/27/2015 Overview: 16 weeks first visit , supervision of first 06/22/2014 02/27/2015 Overview: Girl on us- cecilia Seborrhea 01/28/2007 08/31/2011 Pallor 01/28/2007 08/31/2011 documented as of this encounter (statuses as of 02/24/2023) [facility] History of Past illness Narrative* Problem Noted Date Diagnosed Date Resolved Date GBS (group B streptococcus) UTI complicating 06/25/2014 02/27/2015 Late care 06/22/2014 5 Overview: 16 weeks first visit , supervision of first 06/22/2014 02/27/2015 Overview: Girl on us- cecilia Seborrhea 01/28/2007 08/31/2011 Pallor 01/28/2007 08/31/2011 documented as of this encounter (statuses as of 07/24/2023) [facility] History of Past illness Narrative* Problem Noted Date Diagnosed Date Resolved Date GBS (group B streptococcus) UTI complicating 06/25/2014 02/27/2015 Late care 06/22/2014 5 Overview: 16 weeks first visit , supervision of first 06/22/2014 02/27/2015 Overview: Girl on - cecilia Seborrhea 01/28/2007 08/31/2011 Pallor 01/28/2007 08/31/2011 documented as of this encounter (statuses as of 08/13/2023) [facility] History of Past illness Narrative* Problem Noted Date Diagnosed Date Resolved Date GBS (group B streptococcus) UTI complicating 06/25/2014 02/27/2015 Late care 06/22/2014 5 Overview: 16 weeks first visit , supervision of first 06/22/2014 02/27/2015 Overview: Girl on - cecilia Seborrhea 01/28/2007 08/31/2011 Pallor 01/28/2007 08/31/2011 documented as of this encounter (statuses as of 08/20/2023) [facility] History of Past illness Narrative* Problem Noted Date Diagnosed Date Resolved Date GBS (group B streptococcus) UTI complicating 06/25/2014 02/27/2015 Late care 06/22/2014 5 Overview: 16 weeks first visit , supervision of first 06/22/2014 02/27/2015 Overview: Girl on - cecilia Seborrhea 01/28/2007 08/31/2011 Pallor 01/28/2007 08/31/2011 documented as of this encounter (statuses as of 08/25/2023) [facility] History of Past illness Narrative* Problem Noted Date Diagnosed Date Resolved Date GBS (group B streptococcus) UTI complicating 06/25/2014 02/27/2015 Late care 06/22/2014 5 Overview: 16 weeks first visit , supervision of first 06/22/2014 02/27/2015 Overview: Girl on us- cecilia Seborrhea 01/28/2007 08/31/2011 Pallor 01/28/2007 08/31/2011 documented as of this encounter (statuses as of 09/10/2023) [facility] History of Past illness Narrative* Problem Noted Date Diagnosed Date Resolved Date GBS (group B streptococcus) UTI complicating 06/25/2014 02/27/2015 Late care 06/22/2014 5 Overview: 16 weeks first visit , supervision of first 06/22/2014 02/27/2015 Overview: Girl on us- cecilia Seborrhea 01/28/2007 08/31/2011 Pallor 01/28/2007 08/31/2011 documented as of this encounter (statuses as of 09/16/2023) [facility] History of Past illness Narrative* Problem Noted Date Diagnosed Date Resolved Date GBS (group B streptococcus) UTI complicating 06/25/2014 02/27/2015 Late care 06/22/2014 5 Overview: 16 weeks first visit , supervision of first 06/22/2014 02/27/2015 Overview: Girl on us- cecilia Seborrhea 01/28/2007 08/31/2011 Pallor 01/28/2007 08/31/2011 documented as of this encounter (statuses as of 10/05/2023) [facility] History of Past illness Narrative* Problem Noted Date Diagnosed Date Resolved Date GBS (group B streptococcus) UTI complicating 06/25/2014 02/27/2015 Late care 06/22/2014 5 Overview: 16 weeks first visit , supervision of first 06/22/2014 02/27/2015 Overview: Girl on us- cecilia Seborrhea 01/28/2007 08/31/2011 Pallor 01/28/2007 08/31/2011 documented as of this encounter (statuses as of 10/15/2023) [facility] History of Past illness Narrative* Problem Noted Date Diagnosed Date Resolved Date GBS (group B streptococcus) UTI complicating 06/25/2014 02/27/2015 Late care 06/22/2014 5 Overview: 16 weeks first visit , supervision of first 06/22/2014 02/27/2015 Overview: Girl on us- cecilia Seborrhea 01/28/2007 08/31/2011 Pallor 01/28/2007 08/31/2011 documented as of this encounter (statuses as of 12/14/2023) [facility] History of Past illness Narrative* Problem Noted Date Diagnosed Date Resolved Date GBS (group B streptococcus) UTI complicating 06/25/2014 02/27/2015 Late care 06/22/2014 5 Overview: 16 weeks first visit , supervision of first 06/22/2014 02/27/2015 Overview: Girl on us- cecilia Seborrhea 01/28/2007 08/31/2011 Pallor 01/28/2007 08/31/2011 documented as of this encounter (statuses as of 02/11/2024) [facility] [place] note* Diagnosis Infected sebaceous cyst- Primary Sebaceous cyst [facility] Diagnosis Axillary abscess- Primary Cellulitis and abscess of upper arm and forearm [facility]* Diagnosis Attention deficit hyperactivity disorder (ADHD), unspecified ADHD type- Primary [facility]* Diagnosis Attention deficit hyperactivity disorder (ADHD), unspecified ADHD type [facility]* Diagnosis Attention deficit hyperactivity disorder (ADHD), unspecified ADHD type [facility]* Diagnosis Attention deficit hyperactivity disorder (ADHD), unspecified ADHD type- Primary [facility]* Diagnosis Allergic reaction, initial encounter- Primary [facility] Diagnosis Rash- Primary Rash and other nonspecific skin eruption Hives Urticaria, unspecified [facility]* Diagnosis Attention deficit hyperactivity disorder (ADHD), unspecified ADHD type- Primary [facility]* Diagnosis Attention deficit hyperactivity disorder (ADHD), unspecified ADHD type [facility]* Diagnosis Attention deficit hyperactivity disorder (ADHD), unspecified ADHD type [facility] noteNo assessment information availableWProMedica [facility] Work Phone: Evaluation note* Diagnosis Visit for suture removal- Primary Encounter for removal of sutures [facility]* Diagnosis Attention deficit hyperactivity disorder (ADHD), unspecified ADHD type [facility]* Diagnosis Wellness examination- Primary Attention deficit hyperactivity disorder (ADHD), unspecified ADHD type Mild intermittent asthma without complication Unspecified asthma Encounter for immunization Need for other specified prophylactic vaccination against single bacterial disease Women's annual routine gynecological examination Screening for diabetes mellitus Screening for lipid disorders [facility] Diagnosis Encounter for gynecological examination (general) (routine) without abnormal findings- Primary Women's annual routine gynecological examination Screening for cervical cancer Screening for malignant neoplasm of the cervix Encounter for screening for human papillomavirus (HPV) Special screening examination for human papillomavirus (HPV) [facility]* Diagnosis Attention deficit hyperactivity disorder (ADHD), unspecified ADHD type [facility]* Diagnosis Attention deficit hyperactivity disorder (ADHD), unspecified ADHD type [facility]* Diagnosis Rash- Primary Rash and other nonspecific skin eruption [facility]* Diagnosis Contact dermatitis, unspecified contact dermatitis type, unspecified trigger- Primary Insect bite of left lower leg, initial encounter [facility]* Diagnosis Attention deficit hyperactivity disorder (ADHD), unspecified ADHD type [facility]* Diagnosis Cellulitis of skin- Primary Cellulitis and abscess of unspecified site Insect bite of right lower extremity, subsequent encounter [facility]* Diagnosis Cellulitis of skin- Primary Cellulitis and abscess of unspecified site Rash Rash and other nonspecific skin eruption Insect bite of right lower extremity, subsequent encounter [facility]* Diagnosis Fatigue, unspecified type- Primary Weight gain Abnormal weight gain Family history of thyroid disease Family history of other endocrine and metabolic diseases [facility]* Diagnosis Nexplanon removal- Primary Surveillance of previously prescribed implantable subdermal contraceptive [facility]* Diagnosis Attention deficit hyperactivity disorder (ADHD), unspecified ADHD type [facility]* Diagnosis Attention deficit hyperactivity disorder (ADHD), unspecified ADHD type [facility]* Diagnosis Nexplanon removal- Primary Surveillance of previously prescribed implantable subdermal contraceptive [facility]* Diagnosis Attention deficit hyperactivity disorder (ADHD), unspecified ADHD type [facility]* Diagnosis Encounter for gynecological examination (general) (routine) without abnormal findings- Primary Screening for cervical cancer Screening for malignant neoplasm of the cervix Encounter for screening for human papillomavirus (HPV) Special screening examination for human papillomavirus (HPV) Cervical high risk human papillomavirus (HPV) DNA test positive [facility]* Diagnosis Attention deficit hyperactivity disorder (ADHD), unspecified ADHD type [facility]* Diagnosis Attention deficit hyperactivity disorder (ADHD), unspecified ADHD type [facility]* Diagnosis Vaginal high risk human papillomavirus (HPV) DNA test positive- Primary [facility]* Diagnosis Attention deficit hyperactivity disorder (ADHD), unspecified ADHD type [facility]* Diagnosis Wellness examination- Primary Attention deficit hyperactivity disorder (ADHD), unspecified ADHD type Missed menses Absence of menstruation Screening for depression Screening for diabetes mellitus Screening cholesterol level Screening for lipoid disorders Encounter for screening examination for other mental health and behavioral disorders [facility]* Diagnosis BMI 36.0-36.9,adult- Primary Body Mass Index 36.0-36.9, adult Weight gain Abnormal weight gain [facility]* Diagnosis Weight gain- Primary Abnormal weight gain BMI 36.0-36.9,adult Body Mass Index 36.0-36.9, adult Attention deficit hyperactivity disorder (ADHD), unspecified ADHD type [facility]* Diagnosis Pre-conception counseling- Primary Other procreative management counseling and advice Nipple discharge Other sign and symptom in breast Encounter for vitamin deficiency screening Screening for other and unspecified endocrine, nutritional, metabolic, and immunity disorders [facility]* Diagnosis Attention deficit hyperactivity disorder (ADHD), unspecified ADHD type documented in this encounter [facility] [place] note* Diagnosis Encounter for supervision of high risk in first trimester, antepartum (HCC)- Primary 6 weeks gestation of ([facility]) state, incidental with uncertain dates in first trimester (HCC) Nausea and vomiting during (HCC) Obesity affecting in first trimester, unspecified obesity type (HCC) History of group B Streptococcus (GBS) infection Screen for STD (sexually transmitted disease) Screening examination for venereal disease Encounter for screening for human papillomavirus (HPV) Special screening examination for human papillomavirus (HPV) Attention deficit hyperactivity disorder (ADHD), unspecified ADHD type Uncomplicated asthma, unspecified asthma severity, unspecified whether persistent ([facility]) documented in this encounter [facility] [place] note* Diagnosis Obesity affecting in first trimester, unspecified obesity type (HCC)- Primary Encounter for supervision of high risk in first trimester, antepartum (HCC) 6 weeks gestation of ([facility]) state, incidental documented in this encounter [facility] [place] note* Diagnosis Supervision of high risk due to social problems, second trimester (HCC)- Primary 12 weeks gestation of ([facility]) state, incidental Obesity affecting in second trimester, unspecified obesity type (HCC) History of group B Streptococcus (GBS) infection documented in this encounter [facility] [place] note* Diagnosis Obesity affecting in second trimester, unspecified obesity type (HCC)- Primary Supervision of high risk due to social problems, second trimester (HCC) Supervision of high risk in second trimester (HCC) Unspecified high-risk 16 weeks gestation of (HCC)- Primary state, incidental Supervision of high risk due to social problems, second trimester (HCC) Obesity affecting in second trimester, unspecified obesity type (HCC) documented in this encounter [facility] [place] note* Diagnosis 16 weeks gestation of (HCC)- Primary state, incidental Supervision of high risk due to social problems, second trimester (HCC) Obesity affecting in second trimester, unspecified obesity type ([facility]) * Assessment & Plan Note - Vitaly Gallegos MD - 06/22/2025 12:48 PM EDTAssociated Problem(s): Obesity affecting in second trimester (HCC) documented in this encounter [facility] Discharge instructions Additional Instructions Have sutures removed in 7 days and return for any signs of infection.[facility] Work Phone: Reason for referral (narrative)* Diagnostic Procedure Only (Routine) - Authorized Specialty Diagnoses / Procedures Referred By Contac t Referred To Contact US IMAGING Diagnoses Fatigue, unspecified type Weight gain Family history of thyroid disease Procedures US THYROID/PARATHYROID US SOFT TISSUE HEAD & NECK REAL TIME IMGE Angelina Lr APRN.TESTBOARD OPERATOR [address] [place] [address] Us Imaging [facility] Referral ID Status Reason Start Date Expiration Date Visits Requested Visits Authorized [id number] Authorized Auto-Generat ed Referral 06/07/2024 07/07/2025 1 1 [facility] for referral (narrative)* Outpatient Procedure (Routine) - Authorized Specialty Diagnoses / Procedures Referred By Contac t Referred To Contact [facility] Diagnoses Nexplanon removal Procedures NEXPLANON REMOVAL REMOVAL NON-BIODEGRADABLE DRUG DELIVERY IMPLANT Estrella Kenyon APRN.TESTBOARD OPERATOR [address] [place] [address] [facility] [address] [place] [address] Referral ID Status Reason Start Date Expiration Date Visits Requested Visits Authorized [id number] Authorized Auto-Generat ed Referral 06/09/2024 06/09/2025 1 1 [facility] for referral (narrative)* Outpatient Procedure (Routine) - Closed Specialty Diagnoses / Procedures Referred By Contac t Referred To Contact [facility] Diagnoses Vaginal high risk human papillomavirus (HPV) DNA test positive Procedures COLPOSCOPY COLPOSCOPY CERVIX BX CERVIX & ENDOCRV CURRETAGE COLPOSCOPY ENTIRE VAGINA W/CERVIX IF PRESENT Barbara Wells MD [address] [place] [address] [facility] [address] [place] [address] Referral ID Status Reason Start Date Expiration Date V isits Requested Visits Authorized [id number] Closed Auto-Generate d Referral 10/20/2024 10/31/2024 1 1 [facility] [place] Summary Purpose Family History No Family History Records FoundNo Family History Records FoundNo Family History Records FoundNo Family History Records Found Advance Directives No Advanced Directives Records Found Advance Directive Response Recorded Date/ Time Living Will No July 12, 2023 5:26pm Power of Fibreglass Laminator No July 5:26pm Reason for Referral Specialty Diagnoses / Procedures Referred By Contac t Referred To Contact General Surgery Diagnoses Infected sebaceous cyst Procedures CONSULT TO GENERAL SURGERY OFFICE/OUTPATIENT [facility] MDM 60-74 MINUTES Curtis Chan, STRAND FORMING MACHINE OPERATOR.TESTBOARD OPERATOR [address] [place] [address] Referral ID Status Reason Start Date Expiration Date Visits Requested Visits Authorized [id number] Authorized PCP Requested Referral 02/06/2022 02/06/2023 1 1 Specialty Diagnoses / Procedures Referred By Contac t Referred To Contact Gynecology Diagnoses Women's annual routine gynecological examination Procedures CONSULT TO GYNECOLOGY OFFICE/OUTPATIENT [facility] MDM 60-74 MINUTES Cinthya Balderas, STRAND FORMING MACHINE OPERATOR.TESTBOARD OPERATOR [address] [place] [address] Referral ID Status Reason Start Date Expiration Date Visits Requested Visits Authorized [id number] Authorized PCP Requested Referral Auto-Generate d Referral 3 08/19/2024 1 1 Chief Complaint and Reason for Visit Chief Complaint LACERATION TO FINGER Additional Source Comments INFORMATION SOURCE (unrecogn ized section and content) DATE CREATED AUTHOR 10/15/2018 [facility] ([place]) DATE CREATED AUTHOR AUTHOR'S ORGANIZ ATION 09/30/2021 [facility] DATE CREATED AUTHOR AUTHOR'S ORGANIZ ATION 09/11/2025 [facility] DATE CREATED AUTHOR AUTHOR'S ORGANIZ ATION 09/11/2025 [facility] <item> Privacy Markings (unrecogniz ed section and content) Section Author: Lashell Whitfield PROHIBITION ON REDISCLOSURE OF CONFIDENTIAL INFORMATION This notice accompanies a disclosure of information concerning a client made to you with the consent of such client. Source Comments (unrecognize d section and content) In the event this informatio n is protected by the Federal Confidentiality of Alcohol and Drug Abuse Patient Records regulations: The Federal rules restrict any use of the information to criminally investigate or prosecute any alcohol or drug abuse patient.[facility] the event this information is protected by the Federal Confidentiality of Alcohol and Drug Abuse Patient Records regulations: The Federal rules restrict any use of the information to criminally investigate or prosecute any alcohol or drug abuse patient.[facility] HospitalIn the event this information is protected by the Federal Confidentiality of Alcohol and Drug Abuse Patient Records regulations: The Federal rules restrict any use of the information to criminally investigate or prosecute any alcohol or drug abuse patient.[facility] HospitalIn the event this information is protected by the Federal Confidentiality of Alcohol and Drug Abuse Patient Records regulations: The Federal rules restrict any use of the information to criminally investigate or prosecute any alcohol or drug abuse patient.[facility] HospitalIn the event this information is protected by the Federal Confidentiality of Alcohol and Drug Abuse Patient Records regulations: The Federal rules restrict any use of the information to criminally investigate or prosecute any alcohol or drug abuse patient.[facility] HospitalIn the event this information is protected by the Federal Confidentiality of Alcohol and Drug Abuse Patient Records regulations: The Federal rules restrict any use of the information to criminally investigate or prosecute any alcohol or drug abuse patient.[facility] HospitalIn the event this information is protected by the Federal Confidentiality of Alcohol and Drug Abuse Patient Records regulations: The Federal rules restrict any use of the information to criminally investigate or prosecute any alcohol or drug abuse patient.[facility] HospitalIn the event this information is protected by the Federal Confidentiality of Alcohol and Drug Abuse Patient Records regulations: The Federal rules restrict any use of the information to criminally investigate or prosecute any alcohol or drug abuse patient.[facility] HospitalIn the event this information is protected by the Federal Confidentiality of Alcohol and Drug Abuse Patient Records regulations: The Federal rules restrict any use of the information to criminally investigate or prosecute any alcohol or drug abuse patient.[facility] HospitalIn the event this information is protected by the Federal Confidentiality of Alcohol and Drug Abuse Patient Records regulations: The Federal rules restrict any use of the information to criminally investigate or prosecute any alcohol or drug abuse patient.[facility] HospitalIn the event this information is protected by the Federal Confidentiality of Alcohol and Drug Abuse Patient Records regulations: The Federal rules restrict any use of the information to criminally investigate or prosecute any alcohol or drug abuse patient.[facility] HospitalIn the event this information is protected by the Federal Confidentiality of Alcohol and Drug Abuse Patient Records regulations: The Federal rules restrict any use of the information to criminally investigate or prosecute any alcohol or drug abuse patient.[facility] HospitalIn the event this information is protected by the Federal Confidentiality of Alcohol and Drug Abuse Patient Records regulations: The Federal rules restrict any use of the information to criminally investigate or prosecute any alcohol or drug abuse patient.[facility] HospitalIn the event this information is protected by the Federal Confidentiality of Alcohol and Drug Abuse Patient Records regulations: The Federal rules restrict any use of the information to criminally investigate or prosecute any alcohol or drug abuse patient.[facility] HospitalIn the event this information is protected by the Federal Confidentiality of Alcohol and Drug Abuse Patient Records regulations: The Federal rules restrict any use of the information to criminally investigate or prosecute any alcohol or drug abuse patient.[facility] HospitalIn the event this information is protected by the Federal Confidentiality of Alcohol and Drug Abuse Patient Records regulations: The Federal rules restrict any use of the information to criminally investigate or prosecute any alcohol or drug abuse patient.[facility] HospitalIn the event this information is protected by the Federal Confidentiality of Alcohol and Drug Abuse Patient Records regulations: The Federal rules restrict any use of the information to criminally investigate or prosecute any alcohol or drug abuse patient.[facility] HospitalIn the event this information is protected by the Federal Confidentiality of Alcohol and Drug Abuse Patient Records regulations: The Federal rules restrict any use of the information to criminally investigate or prosecute any alcohol or drug abuse patient.[facility] HospitalIn the event this information is protected by the Federal Confidentiality of Alcohol and Drug Abuse Patient Records regulations: The Federal rules restrict any use of the information to criminally investigate or prosecute any alcohol or drug abuse patient.[facility] HospitalIn the event this information is protected by the Federal Confidentiality of Alcohol and Drug Abuse Patient Records regulations: The Federal rules restrict any use of the information to criminally investigate or prosecute any alcohol or drug abuse patient.[facility] HospitalIn the event this information is protected by the Federal Confidentiality of Alcohol and Drug Abuse Patient Records regulations: The Federal rules restrict any use of the information to criminally investigate or prosecute any alcohol or drug abuse patient.[facility] HospitalIn the event this information is protected by the Federal Confidentiality of Alcohol and Drug Abuse Patient Records regulations: The Federal rules restrict any use of the information to criminally investigate or prosecute any alcohol or drug abuse patient.[facility] HospitalIn the event this information is protected by the Federal Confidentiality of Alcohol and Drug Abuse Patient Records regulations: The Federal rules restrict any use of the information to criminally investigate or prosecute any alcohol or drug abuse patient.[facility] HospitalIn the event this information is protected by the Federal Confidentiality of Alcohol and Drug Abuse Patient Records regulations: The Federal rules restrict any use of the information to criminally investigate or prosecute any alcohol or drug abuse patient.[facility] HospitalIn the event this information is protected by the Federal Confidentiality of Alcohol and Drug Abuse Patient Records regulations: The Federal rules restrict any use of the information to criminally investigate or prosecute any alcohol or drug abuse patient.[facility] HospitalIn the event this information is protected by the Federal Confidentiality of Alcohol and Drug Abuse Patient Records regulations: The Federal rules restrict any use of the information to criminally investigate or prosecute any alcohol or drug abuse patient.[facility] HospitalIn the event this information is protected by the Federal Confidentiality of Alcohol and Drug Abuse Patient Records regulations: The Federal rules restrict any use of the information to criminally investigate or prosecute any alcohol or drug abuse patient.[facility] HospitalIn the event this information is protected by the Federal Confidentiality of Alcohol and Drug Abuse Patient Records regulations: The Federal rules restrict any use of the information to criminally investigate or prosecute any alcohol or drug abuse patient.[facility] HospitalIn the event this information is protected by the Federal Confidentiality of Alcohol and Drug Abuse Patient Records regulations: The Federal rules restrict any use of the information to criminally investigate or prosecute any alcohol or drug abuse patient.[facility] HospitalIn the event this information is protected by the Federal Confidentiality of Alcohol and Drug Abuse Patient Records regulations: The Federal rules restrict any use of the information to criminally investigate or prosecute any alcohol or drug abuse patient.[facility] HospitalIn the event this information is protected by the Federal Confidentiality of Alcohol and Drug Abuse Patient Records regulations: The Federal rules restrict any use of the information to criminally investigate or prosecute any alcohol or drug abuse patient.[facility] HospitalIn the event this information is protected by the Federal Confidentiality of Alcohol and Drug Abuse Patient Records regulations: The Federal rules restrict any use of the information to criminally investigate or prosecute any alcohol or drug abuse patient.[facility] HospitalIn the event this information is protected by the Federal Confidentiality of Alcohol and Drug Abuse Patient Records regulations: The Federal rules restrict any use of the information to criminally investigate or prosecute any alcohol or drug abuse patient.[facility] HospitalIn the event this information is protected by the Federal Confidentiality of Alcohol and Drug Abuse Patient Records regulations: The Federal rules restrict any use of the information to criminally investigate or prosecute any alcohol or drug abuse patient.[facility] HospitalIn the event this information is protected by the Federal Confidentiality of Alcohol and Drug Abuse Patient Records regulations: The Federal rules restrict any use of the information to criminally investigate or prosecute any alcohol or drug abuse patient.[facility] HospitalIn the event this information is protected by the Federal Confidentiality of Alcohol and Drug Abuse Patient Records regulations: The Federal rules restrict any use of the information to criminally investigate or prosecute any alcohol or drug abuse patient.[facility] HospitalIn the event this information is protected by the Federal Confidentiality of Alcohol and Drug Abuse Patient Records regulations: The Federal rules restrict any use of the information to criminally investigate or prosecute any alcohol or drug abuse patient.[facility] HospitalIn the event this information is protected by the Federal Confidentiality of Alcohol and Drug Abuse Patient Records regulations: The Federal rules restrict any use of the information to criminally investigate or prosecute any alcohol or drug abuse patient.[facility] HospitalIn the event this information is protected by the Federal Confidentiality of Alcohol and Drug Abuse Patient Records regulations: The Federal rules restrict any use of the information to criminally investigate or prosecute any alcohol or drug abuse patient.[facility] HospitalIn the event this information is protected by the Federal Confidentiality of Alcohol and Drug Abuse Patient Records regulations: The Federal rules restrict any use of the information to criminally investigate or prosecute any alcohol or drug abuse patient.[facility] HospitalIn the event this information is protected by the Federal Confidentiality of Alcohol and Drug Abuse Patient Records regulations: The Federal rules restrict any use of the information to criminally investigate or prosecute any alcohol or drug abuse patient.[facility] HospitalIn the event this information is protected by the Federal Confidentiality of Alcohol and Drug Abuse Patient Records regulations: The Federal rules restrict any use of the information to criminally investigate or prosecute any alcohol or drug abuse patient.[facility] HospitalIn the event this information is protected by the Federal Confidentiality of Alcohol and Drug Abuse Patient Records regulations: The Federal rules restrict any use of the information to criminally investigate or prosecute any alcohol or drug abuse patient.[facility] HospitalIn the event this information is protected by the Federal Confidentiality of Alcohol and Drug Abuse Patient Records regulations: The Federal rules restrict any use of the information to criminally investigate or prosecute any alcohol or drug abuse patient.[facility] HospitalIn the event this information is protected by the Federal Confidentiality of Alcohol and Drug Abuse Patient Records regulations: The Federal rules restrict any use of the information to criminally investigate or prosecute any alcohol or drug abuse patient.[facility] HospitalIn the event this information is protected by the Federal Confidentiality of Alcohol and Drug Abuse Patient Records regulations: The Federal rules restrict any use of the information to criminally investigate or prosecute any alcohol or drug abuse patient.[facility] HospitalIn the event this information is protected by the Federal Confidentiality of Alcohol and Drug Abuse Patient Records regulations: The Federal rules restrict any use of the information to criminally investigate or prosecute any alcohol or drug abuse patient.[facility] HospitalIn the event this information is protected by the Federal Confidentiality of Alcohol and Drug Abuse Patient Records regulations: The Federal rules restrict any use of the information to criminally investigate or prosecute any alcohol or drug abuse patient.[facility] HospitalIn the event this information is protected by the Federal Confidentiality of Alcohol and Drug Abuse Patient Records regulations: The Federal rules restrict any use of the information to criminally investigate or prosecute any alcohol or drug abuse patient.[facility] HospitalIn the event this information is protected by the Federal Confidentiality of Alcohol and Drug Abuse Patient Records regulations: The Federal rules restrict any use of the information to criminally investigate or prosecute any alcohol or drug abuse patient.[facility] HospitalIn the event this information is protected by the Federal Confidentiality of Alcohol and Drug Abuse Patient Records regulations: The Federal rules restrict any use of the information to criminally investigate or prosecute any alcohol or drug abuse patient.[facility] HospitalIn the event this information is protected by the Federal Confidentiality of Alcohol and Drug Abuse Patient Records regulations: The Federal rules restrict any use of the information to criminally investigate or prosecute any alcohol or drug abuse patient.[facility] HospitalIn the event this information is protected by the Federal Confidentiality of Alcohol and Drug Abuse Patient Records regulations: The Federal rules restrict any use of the information to criminally investigate or prosecute any alcohol or drug abuse patient.[facility] HospitalIn the event this information is protected by the Federal Confidentiality of Alcohol and Drug Abuse Patient Records regulations: The Federal rules restrict any use of the information to criminally investigate or prosecute any alcohol or drug abuse patient.[facility] HospitalIn the event this information is protected by the Federal Confidentiality of Alcohol and Drug Abuse Patient Records regulations: The Federal rules restrict any use of the information to criminally investigate or prosecute any alcohol or drug abuse patient.[facility] HospitalIn the event this information is protected by the Federal Confidentiality of Alcohol and Drug Abuse Patient Records regulations: The Federal rules restrict any use of the information to criminally investigate or prosecute any alcohol or drug abuse patient.[facility] HospitalIn the event this information is protected by the Federal Confidentiality of Alcohol and Drug Abuse Patient Records regulations: The Federal rules restrict any use of the information to criminally investigate or prosecute any alcohol or drug abuse patient.[facility] HospitalIn the event this information is protected by the Federal Confidentiality of Alcohol and Drug Abuse Patient Records regulations: The Federal rules restrict any use of the information to criminally investigate or prosecute any alcohol or drug abuse patient.[facility] HospitalIn the event this information is protected by the Federal Confidentiality of Alcohol and Drug Abuse Patient Records regulations: The Federal rules restrict any use of the information to criminally investigate or prosecute any alcohol or drug abuse patient.[facility] HospitalIn the event this information is protected by the Federal Confidentiality of Alcohol and Drug Abuse Patient Records regulations: The Federal rules restrict any use of the information to criminally investigate or prosecute any alcohol or drug abuse patient.[facility] Reason for Visit (unrecogniz ed section and content) Reason Comments Mass Reason Comments Consult sebacious cyst left axilla Procedure Incision and drainag e of left axillary abscess Reason Comments Follow Up need med refills Reason Onset Date Comments Refill Request 01/23/2022 Refill Request 02/13/2022 Reason Comments F/U 3 Month Reason Onset Date Comments Refill Request 06/23/2022 [facility] Reason Comments Follow Up Reason Comments Rash Allergic reaction to new hair conditioner x2 days Reason Comments Follow Up UC f/u for hives Reason Comments Follow Up 3 month med check Reason Onset Date Comments Refill Request 11/27/2022 Reason Comments F/U 3 Month ADHD Medication Reason Comments Rx not available at pharmacy Reason Comments Suture Removal Reason Onset Date Comments Refill Request 08/12/2023 Reason Comments Follow Up 3 month follow up Reason Comments Results Labs Reason Comments Yearly Exam Specialty Diagnoses / Procedures Referred By Contmaicol t Referred To Contact Gynecology Diagnoses Women's annual routine gynecological examination Procedures CONSULT TO GYNECOLOGY OFFICE/OUTPATIENT NEW HIGH MDM 60-74 MINUTES Cinthya Balderas, STRAND FORMING MACHINE OPERATOR.TESTBOARD OPERATOR [address] [place] [address] Referral ID Status Reason Start Date Expiration Date V isits Requested Visits Authorized [id number] Closed PCP Requested Referral Auto-Generated Referral 08/20/2023 08/19/2024 1 1 Reason Onset Date Comments Refill Request 09/16/2023 Reason Comments Results Reason Onset Date Comments Refill Request 10/14/2023 Reason Onset Date Comments Refill Request 12/14/2023 Reason Onset Date Comments Refill Request 02/11/2024 Erroneous encounter-disregard 02/11/2024 Reason Comments Trauma Bug bite on right le g red and itching x 4 days Reason Comments Acute Visit swelling right calf, ? bug bite Reason Onset Date Comments Refill Request 04/11/2024 Reason Comments Patient Update Reason Onset Date Comments Refill Request 05/10/2024 Reason Comments Follow Up Swelling right calf, warm to touch, possible bug bite, Saw [facility] on 04/06 and prescribed creams and completed antibiotic Reason Comments Follow Up Cellulitis Reason Comments send record Reason Comments Fatigue Weight Problem Wondering if she has thyroid disease due to family hx Reason Comments Appointment Orders Reason Onset Date Comments Refill Request 06/09/2024 Reason Onset Date Comments Refill Request 07/10/2024 Reason Comments nexplanon removal Specialty Diagnoses / Procedures Referred By Shanique dodd Referred To Contact Agriculture Teacher / COMMUNITY PHARMACIST Diagnoses Encounter for initial prescription of implantable subdermal contraceptive Encounter for surveillance of implantable subdermal contraceptive nexaplanon Procedures INSERT DRUG IMPLANT DEVICE REMOVAL NON-BIODEGRADABLE DRUG DELIVERY IMPLANT ETONOGESTREL IMPLANT SYSTEM NEXPLANON INSERT/REMOVAL Self Estrella Kenyon, STRAND FORMING MACHINE OPERATOR.TESTBOARD OPERATOR [address] [place] [address] Referral ID Status Reason Start Date Expiration Date V isits Requested Visits Authorized [id number] Authorized 06/12/2024 10/31/2024 2 2 Reason Onset Date Comments Refill Request 08/07/2024 Reason Onset Date Comments Refill Request 09/12/2024 Reason Onset Date Comments Refill Request 10/16/2024 Reason Comments Colposcopy Specialty Diagnoses / Procedures Referred By Shanique dodd Referred To Contact [facility] Diagnoses Cervical high risk human papillomavirus (HPV) DNA test positive Procedures COLPOSCOPY COLPOSCOPY CERVIX BX CERVIX & ENDOCRV CURRETAGE Susy Mooney STRAND FORMING MACHINE OPERATOR.CNM [address] [place] [address] [facility] [address] [place] [address] Referral ID Status Reason Start Date Expiration Date V isits Requested Visits Authorized [id number] Closed Auto-Generate d Referral 09/15/2024 09/15/2025 1 1 Reason Onset Date Comments Refill Request 11/15/2024 Reason Comments Wellness Reason Onset Date Comments Refill Request 12/14/2024 Reason Comments Acute Visit weight gain meds Reason Comments Discussion Nexplanon removed 2023- trying for Reason Onset Date Comments Refill Request 02/12/2025 Reason Comments Initial OB Visit Reason Comments Patient Question Reason Comments US Specialty Diagnoses / Procedures Referred By Shanique dodd Referred To Contact [facility] Diagnoses Encounter for supervision of high risk in first trimester, antepartum (HCC) 6 weeks gestation of (HCC) Procedures OBSTETRIC ULTRASOUND WHI US PREG UTERUS AFTER 1ST TRIMEST GESTATION Estrella Kenyon APRN.TESTBOARD OPERATOR [address] [place] [address] Phone: tel: fax: [phone] [place] [address] Referral ID Status Reason Start Date Expiration Date V isits Requested Visits Authorized [id number] Closed Auto-Generate d Referral 05/14/2025 10/31/2025 1 1 Reason Onset Date Comments Care 05/25/2025 Specialty Diagnoses / Procedures Referred By Shanique t Referred To Contact [facility] Diagnoses Encounter for supervision of high risk in first trimester, antepartum (HCC) Obesity affecting in first trimester, unspecified obesity type (HCC) Procedures OBSTETRIC ULTRASOUND WHI US PREG UTERUS AFTER 1ST TRIMEST GESTATION Estrella Kenyon APRN.TESTBOARD OPERATOR [address] [place] [address] Phone: tel: fax:[phone] [address] Referral ID Status Reason Start Date Expiration Date V isits Requested Visits Authorized [id number] Closed Auto-Generate d Referral 06/22/2025 10/31/2025 1 1 Reason Onset Date Comments Care 06/22/2025 Reason Comments Insurance Authorization Ozempic Care Teams (unrecognized sec tion and content) Dry Pan Operator Relationship Specialty Start Date End Date Johnson Gonzalez MD [address] [place], [place] [id number] PCP - General Family Practice 07/10/11 Dry Pan Operator Relationship Specialty Start Date End Date Johnson Gonzalez MD [address] [place], [place] [id number] PCP - General Family Practice 07/10/11 Dry Pan Operator Relationship Specialty Start Date End Date Johnson Gonzalez MD [address] [place], [place] [id number] PCP - General Family Practice 07/10/11 Dry Pan Operator Relationship Specialty Start Date End Date Johnson Gonzalez MD [address] [place] [address] PCP - General Family Practice 07/10/11 Dry Pan Operator Relationship Specialty Start Date End Date Johnson Gonzalez MD [address] [place] [address] PCP - General Family Practice 07/10/11 Dry Pan Operator Relationship Specialty Start Date End Date Johnson Gonzalez MD [address] [place] [address] PCP - General Family Medicine 07/10/11 Dry Pan Operator Relationship Specialty Start Date End Date Johnson Gonzalez MD [address] [place] [address] PCP - General Family Medicine 07/10/11 Dry Pan Operator Relationship Specialty Start Date End Date Johnson Gonzalez MD [address] [place] [address] PCP - General Family Medicine 07/10/11 Dry Pan Operator Relationship Specialty Start Date End Date Johnson Gonzalez MD [address] [place] [address] PCP - General Family Medicine 07/10/11 Dry Pan Operator Relationship Specialty Start Date End Date Johnson Gonzalez MD [address] [place] [address] PCP - General Family Medicine 07/10/11 Dry Pan Operator Relationship Specialty Start Date End Date Johnson Gonzalez MD [address] [place] [address] PCP - General Family Medicine 07/10/11 Team Status: Active Member Role Status Dates Dr. Johnson Gonzalez MD Family Provider Active Dr. Johnson Gonzalez MD Primary Care Provider Active Team Status: Inactive Member Role Status Dates Dr. Johnson Gonzalez MD Primary Care Provider Active Dr. Greg Astudillo DO Emergency Provider Active Dry Pan Operator Relationship Specialty Start Date End Date Jonhson Gonzalez MD [address] [place] [address] PCP - General Family Medicine 07/10/11 Dry Pan Operator Relationship Specialty Start Date End Date Johnson Gonzalez MD [address] [place] [address] PCP - General Family Medicine 07/10/11 Dry Pan Operator Relationship Specialty Start Date End Date Johnson Gonzalez MD [address] [place] [address] PCP - General Family Medicine 07/10/11 Dry Pan Operator Relationship Specialty Start Date End Date Johnson Gonzalez MD [address] [place] [address] PCP - General Family Medicine 07/10/11 Dry Pan Operator Relationship Specialty Start Date End Date Johnson Gonzalez MD [address] [place] [address] PCP - General Family Medicine 07/10/11 Dry Pan Operator Relationship Specialty Start Date End Date Johnson Gonzalez MD [address] [place] [address] PCP - General Family Medicine 07/10/11 Dry Pan Operator Relationship Specialty Start Date End Date Johnson Gonzalez MD [address] [place] [address] PCP - General Family Medicine 07/10/11 Dry Pan Operator Relationship Specialty Start Date End Date Johnson Gonzalez MD [address] [place] [address] PCP - General Family Medicine 07/10/11 Dry Pan Operator Relationship Specialty Start Date End Date Johnson Gonzalez MD [address] [place] [address] PCP - General Family Medicine 07/10/11 Dry Pan Operator Relationship Specialty Start Date End Date Johnson Gonzalez MD [address] [place] [address] PCP - General Family Medicine 07/10/11 Dry Pan Operator Relationship Specialty Start Date End Date Johnson Gonzalez MD [address] [place] [address] PCP - General Family Medicine 07/10/11 Dry Pan Operator Relationship Specialty Start Date End Date Johnson Gonzalez MD [address] [place] [address] PCP - General Family Medicine 07/10/11 Dry Pan Operator Relationship Specialty Start Date End Date Johnson Gonzalez MD [address] [place] [address] PCP - General Family Medicine 07/10/11 Dry Pan Operator Relationship Specialty Start Date End Date Johnson Gonzalez MD [address] [place] [address] PCP - General Family Medicine 07/10/11 Dry Pan Operator Relationship Specialty Start Date End Date Johnson Gonzalez MD [address] [place] [address] PCP - General Family Medicine 07/10/11 Dry Pan Operator Relationship Specialty Start Date End Date Johnson Gonzalez MD [address] [place] [address] PCP - General Family Medicine 07/10/11 Cinthya Balderas APRN.TESTBOARD OPERATOR [address] [place] [address] [facility] 10/08/24 Dry Pan Operator Relationship Specialty Start Date End Date Johnson Gonzalez MD [address] [place] [address] PCP - General Family Medicine 07/10/11 Cinthya Balderas APRN.TESTBOARD OPERATOR [address] [place] [address] [facility] 10/08/24 Curtis Chan APRN.TESTBOARD OPERATOR [address] [place] [address] [facility] 10/17/24 Dry Pan Operator Relationship Specialty Start Date End Date Johnson Gonzalez MD [address] [place] [address] PCP - General Family Medicine 07/10/11 Cinthya Balderas STRAND FORMING MACHINE OPERATOR.TESTBOARD OPERATOR [address] [place] [address] [facility] 10/08/24 Curtis Chan APRN.TESTBOARD OPERATOR [address] [place] [address] [facility] 10/17/24 Dry Pan Operator Relationship Specialty Start Date End Date Johnson Gonzalez MD [address] [place] [address] PCP - General Family Medicine 07/10/11 Cinthya Balderas APRN.TESTBOARD OPERATOR [address] [place] [address] [facility] 10/08/24 Curtis Chan APRN.TESTBOARD OPERATOR [address] [place] [address] [facility] 10/17/24 Dry Pan Operator Relationship Specialty Start Date End Date Johnson Gonzalez MD [address] [place] [address] PCP - General Family Medicine 07/10/11 Cinthya Balderas APRN.TESTBOARD OPERATOR [address] [place] [address] [facility] 10/08/24 Curtis Chan APRN.TESTBOARD OPERATOR [address] [place] [address] [facility] 10/17/24 Dry Pan Operator Relationship Specialty Start Date End Date Johnson Gonzalez MD [address] [place] [address] PCP - General Family Medicine 07/10/11 Cinthya Balderas APRN.TESTBOARD OPERATOR [address] [place] [address] [facility] 10/08/24 Curtis Chan APRN.TESTBOARD OPERATOR [address] [place] [address] [facility] 10/17/24 Dry Pan Operator Relationship Specialty Start Date End Date Johnson Gonzalez MD [address] [place] [address] PCP - General Family Medicine 07/10/11 Cinthya Balderas APRN.TESTBOARD OPERATOR [address] [place] [address] [facility] 10/08/24 Curtis Chan APRN.TESTBOARD OPERATOR [address] [place] [address] [facility] Dry Pan Operator Relationship Specialty Start Date End Date Johnson Gonzalez MD [address] [place] [address] PCP - General Family Medicine 07/10/11 Cinthya Balderas APRN.TESTBOARD OPERATOR [address] [place] [address] [facility] 10/08/24 Curtis Chan APRN.TESTBOARD OPERATOR [address] [place] [address] [facility] 10/17/24 Dry Pan Operator Relationship Specialty Start Date End Date Johnson Gonzalez MD [address] [place] [address] PCP - General Family Medicine 07/10/11 Cinthya Balderas APRN.TESTBOARD OPERATOR [address] [place] [address] [facility] 10/08/24 Curtis Chan APRN.TESTBOARD OPERATOR [address] [place] [address] [facility] 10/17/24 Dry Pan Operator Relationship Specialty Start Date End Date Johnson Gonzalez MD [address] [place] [address] PCP - General Family Medicine 07/10/11 Cinthya Balderas APRN.TESTBOARD OPERATOR [address] [place] [address] [facility] 10/08/24 Curtis Chan APRN.TESTBOARD OPERATOR [address] [place] [address] [facility] 10/17/24 Dry Pan Operator Relationship Specialty Start Date End Date Johnson Gonzalez MD [address] [place] [address] PCP - General Family Medicine 07/10/11 Cinthya Balderas APRN.TESTBOARD OPERATOR [address] [place] [address] [facility] 10/08/24 Curtis Chan APRN.TESTBOARD OPERATOR [address] [place] [address] [facility] 10/17/24 Dry Pan Operator Relationship Specialty Start Date End Date Johnson Gonzalez MD [address] [place] [address] PCP - General Family Medicine 07/10/11 Cinthya Balderas APRN.TESTBOARD OPERATOR [address] [place] [address] [facility] 10/08/24 03/14/25 Curtis Chan APRN.TESTBOARD OPERATOR [address] [place] [address] [facility] 10/17/24 Dry Pan Operator Relationship Specialty Start Date End Date Johnson Gonzalez MD [address] [place] [address] PCP - General Family Medicine 07/10/11 Curtis Chan APRN.TESTBOARD OPERATOR [address] [place] [address] [facility] 10/17/24 Dry Pan Operator Relationship Specialty Start Date End Date Johnson Gonzalez MD [address] [place] [address] PCP - General Family Medicine 07/10/11 Curtis Chan APRN.TESTBOARD OPERATOR [address] [place] [address] [facility] 10/17/24 Dry Pan Operator Relationship Specialty Start Date End Date Johnson Gonzalez MD [address] [place] [address] PCP - General Family Medicine 07/10/11 Curtis Chan APRN.TESTBOARD OPERATOR [address] [place] [address] [facility] 10/17/24 Dry Pan Operator Relationship Specialty Start Date End Date Johnson Gonzalez MD [address] [place] [address] PCP - General Family Medicine 07/10/11 Curtis Chan APRN.TESTBOARD OPERATOR [address] [place] [address] [facility] 10/17/24 Dry Pan Operator Relationship Specialty Start Date End Date Johnson Gonzalez MD [address] [place] [address] PCP - General Family Medicine 07/10/11 Curtis Chan APRN.TESTBOARD OPERATOR [address] [place] [address] [facility] 10/17/24 Dry Pan Operator Relationship Specialty Start Date End Date Johnson Gonzalez MD [address] [place] [address] PCP - General Family Medicine 07/10/11 Curtis Chan APRN.TESTBOARD OPERATOR [address] [place] [address] [facility] 10/17/24 Dry Pan Operator Relationship Specialty Start Date End Date Johnson Gonzalez MD [address] [place] [address] PCP - General Family Medicine 07/10/11 Curtis Chan APRN.TESTBOARD OPERATOR [address] [place] [address] [facility] 10/17/24 Dry Pan Operator Relationship Specialty Start Date End Date Johnson Gonzalez MD [address] [place] [address] PCP - General Family Medicine 07/10/11 Cinthya Balderas APRN.TESTBOARD OPERATOR [address] [place] [address] [facility] 10/08/24 03/14/25 Curtis Chan APRN.TESTBOARD OPERATOR [address] [place] [address] [facility] 10/17/24 Goals (unrecognized section and content) Goals may be documented in a n alternate section FOR RECORDS PERTAINING TO PATIENTS WHO ARE OR HAVE BEEN ENROLLED IN A CHEMICAL DEPENDENCY/SUBSTANCEABUSE PROGRAM, SOME INFORMATION MAY BE OMITTED. This clinical summary was aggregated from multiple sources. Caution should be exercised in using it in the provision of clinical care. This summary normalizes information from multiple sources, and as a consequence, information in this document may materially change the coding, format and clinical context of patient data. In addition, data may be omitted in some cases. CLINICAL DECISIONS SHOULD BE BASED ON THE PRIMARY CLINICAL RECORDS. [employer] provides no warranty or guarantee of the accuracy or completeness of information in this document.
[2025-10-24 15:39] VITALS: PULSE 198; O2SAT 98
[2025-10-24 15:40] VITALS: BP 131/81; PULSE 121
[2025-10-24 15:45] VITALS: RESP 12; TEMP 36.5
[2025-10-24 15:46] VITALS: BMI 38.0
[2025-10-24 16:13] LABS: Color, Urine Yellow (Yellow); Glucose, Dipstick Normal (Normal); Leukocyte Esterase-Dipstick 100 /ul (Negative); Nitrite-Dipstick Negative (Negative); Occult Blood-Urine Negative /ul (Negative); Protein-Dipstick 30 mg/dl (Negative); Specific Gravity, Urine 1.020 (1.002-1.030); Urine Bilirubin Dipstick Negative (Negative)
[2025-10-24 16:16] LABS: Ketone-Dipstick 150 mg/dl (Negative)
[2025-10-24 17:15] VITALS: BP 133/78; PULSE 111
[2025-10-24] MEDS: Lactated Ringers 1,000 ML 999 ML IV (17:16)
[2025-10-24 17:47] LABS: Hematocrit 36.7 % (37-47); Hemoglobin 12.3 g/dL (12.0-15.0); Immature Granulocytes Count 0.070 X10^3/uL (0.0-0.0); Mean Corp Hgb Conc 33.5 g/dL (32-36); Mean Corpuscular Volume 87.4 fL (81-99); Mean Platelet Vol. 10.0 fl (6.2-12.0); NRBC Flagged by Analyzer 0 % (0-5); Platelet Count 219 K/mm3 (150-450); RBC Distribution Width CV 13.4 % (11.6-14.6); RBC Distribution Width SD 42.3 fl (35.1-43.9); Red Blood Count 4.20 M/mm3 (4.2-5.4); White Blood Count 15.6 K/mm3 (4.4-11.0)
--- NOTE | 2025-10-25 06:09 | OB.TRI.NOTE ---
HPI - General General Date of Admission: 10/24/25 Date of Service: 10/24/25 Chief Complaint: abdominal pain HPI Narrative ANDREW FITCH, is a 35 F who presents N/V/D and abdominal pain. Feels like a possible UTI. Pyridium didn't help. Urine culture sent. IVF given. No fever. Maternal Data Information Final SUBHA: 12/02/25 Gestational age: 34+4 PFSH PFSH Medical History ADD (attention deficit disorder) Home Medications ?Medication ?Instructions ?Recorded ?Last Taken ?Type dextroamphetamine-amphetamine ER 30 mg PO DAILY 07/12/23 Unknown History 30 mg 24hr capsule,extend release Allergy/AdvReac Type Severity Reaction Status Date / Time methylphenidate HCl (From Allergy Shortness Verified 07/12/23 17:25 Concerta) of breath Social History Smoking Status: Never smoker History 2 Elective abortions Hx Para 1 Spontaneous abortions Hx # Term Pregnancies Ectopic pregnancies Hx # Pregnancies Multiple births # of living children NST FHR Rate Baby A Baseline: 150 Variability:: Moderate Accelerations:: 15 x 15 Decelerations:: None NST Reactive:: Yes Uterine Activity:: quiet after fluids Assessment & Plan (1) Abdominal pain affecting : (2) Nausea/vomiting in : (3) 34 weeks gestation of : PLAN: Plan S/p IVF. Urine culture pending
== END 2025-10-24 18:40 | disposition home or self-care (01) ==
LOC: WPOUT 15:25 → WP 15:25
PROVIDERS: PCP Family Medicine; Referring Provider Obstetrics & Gynecology; Visit Provider Obstetrics & Gynecology
DX: O99.891 Other specified diseases and conditions complicating pregnancy (principal); O99.343 Other mental disorders complicating pregnancy, third trimester; F98.8 Other specified behavioral and emotional disorders with onset usually occurring in childhood and adolescence; Z3A.34 34 weeks gestation of pregnancy; Z79.899 Other long term (current) drug therapy; R10.9 Unspecified abdominal pain; O21.9 Vomiting of pregnancy, unspecified
CPT/HCPCS: 96360; 36415; 59025; 59050; 81002; 85025; 87086; 87088; 99221; G0378